=== PATIENT | male | born 1950 | race Caucasian/White ===

== ENCOUNTER 2018-03-05 14:32 | Outpatient (CLI) | payer MEDICARE, BC, SELFPAY ==
[2018-03-05 15:17] LABS: INR 2.6 (1.0-3.5)
== END 2018-03-05 14:33 ==
PROVIDERS: PCP Student in an Organized Health Care Education/Training Program; Visit Provider Internal Medicine Cardiovascular Disease
DX: I48.92 Unspecified atrial flutter (principal)
CPT/HCPCS: 36415; 85610

== ENCOUNTER 2018-03-24 13:02 | Outpatient (CLI) | payer MEDICARE, BC, SELFPAY ==
[2018-03-24 14:08] LABS: INR 2.4 (1.0-3.5); Prothrombin Time 23.1 sec (9.3-10.8)
== END 2018-03-24 13:22 ==
PROVIDERS: PCP Student in an Organized Health Care Education/Training Program; Visit Provider Internal Medicine Cardiovascular Disease
DX: I48.92 Unspecified atrial flutter (principal)
CPT/HCPCS: 36415; 85610

== ENCOUNTER 2018-05-04 12:07 | Outpatient (CLI) | payer MEDICARE, BC, SELFPAY ==
[2018-05-04 13:02] LABS: INR 3.4 (1.0-3.5)
== END 2018-05-04 12:27 ==
PROVIDERS: PCP Student in an Organized Health Care Education/Training Program; Visit Provider Internal Medicine Cardiovascular Disease
DX: I48.92 Unspecified atrial flutter (principal); Z79.01 Long term (current) use of anticoagulants
CPT/HCPCS: 36415; 85610

== ENCOUNTER 2018-05-20 09:37 | Outpatient (CLI) | payer MEDICARE, BC, SELFPAY ==
[2018-05-20 10:19] LABS: INR 2.5 (1.0-3.5); Prothrombin Time 23.4 sec (9.3-10.8)
== END 2018-05-20 09:57 ==
PROVIDERS: PCP Student in an Organized Health Care Education/Training Program; Visit Provider Internal Medicine Cardiovascular Disease
DX: I48.92 Unspecified atrial flutter (principal); Z79.01 Long term (current) use of anticoagulants
CPT/HCPCS: 36415; 85610

== ENCOUNTER 2018-06-29 13:46 | Outpatient (CLI) | payer MEDICARE, BC, SELFPAY ==
[2018-06-29 14:46] LABS: Prothrombin Time 19.4 sec (9.3-10.8)
== END 2018-06-29 14:06 ==
PROVIDERS: PCP Student in an Organized Health Care Education/Training Program; Visit Provider Internal Medicine Cardiovascular Disease
DX: I48.92 Unspecified atrial flutter (principal); Z79.01 Long term (current) use of anticoagulants
CPT/HCPCS: 36415; 85610

== ENCOUNTER 2018-08-05 15:17 | Outpatient (CLI) | payer MEDICARE, BC, SELFPAY ==
[2018-08-05 16:09] LABS: INR 2.4 (0.9-1.1); Prothrombin Time 23.8 sec (9.3-11.0)
== END 2018-08-05 15:37 ==
PROVIDERS: PCP Student in an Organized Health Care Education/Training Program; Visit Provider Internal Medicine Cardiovascular Disease
DX: I48.92 Unspecified atrial flutter (principal)
CPT/HCPCS: 36415; 85610

== ENCOUNTER 2018-10-22 10:36 | Outpatient (CLI) | payer MEDICARE, BC, SELFPAY ==
[2018-10-22 11:06] LABS: INR 1.9 (0.9-1.1); Prothrombin Time 19.5 sec (9.3-11.0)
== END 2018-10-22 10:56 ==
PROVIDERS: PCP Student in an Organized Health Care Education/Training Program; Visit Provider Internal Medicine Cardiovascular Disease
DX: I48.92 Unspecified atrial flutter (principal)
CPT/HCPCS: 36415; 85610

== ENCOUNTER 2018-11-26 10:08 | Outpatient (CLI) | payer MEDICARE, BC, SELFPAY ==
[2018-11-26 11:26] LABS: Prothrombin Time 19.7 sec (9.3-11.0)
== END 2018-11-26 10:28 ==
PROVIDERS: PCP Student in an Organized Health Care Education/Training Program; Visit Provider Internal Medicine Cardiovascular Disease
DX: I48.92 Unspecified atrial flutter (principal); Z79.01 Long term (current) use of anticoagulants
CPT/HCPCS: 36415; 85610

== ENCOUNTER 2018-12-30 11:22 | Outpatient (CLI) | payer MEDICARE, BC, SELFPAY ==
[2018-12-30 12:20] LABS: INR 1.8 (0.9-1.1); Prothrombin Time 18.2 sec (9.3-11.0)
[2018-12-30 13:18] LABS: ALT 50 U/L (12-78); AST 36 U/L (15-37); Albumin 3.8 g/dL (3.4-5.0); Alkaline Phosphatase 108 U/L (46-116); Anion Gap 11.2 mmol/L (3-11); BUN 15 mg/dL (7-18); Bilirubin, Total 1.1 mg/dL (0.2-1.0); CO2 27.8 mmol/L (21.0-32.0); CREATININE 0.93 mg/dL (0.70-1.30); Calcium 8.9 mg/dL (8.5-10.1); Calculated LDL 106; Chloride 103 mmol/L (98-107); Cholesterol 173 mg/dL (50-200); Glucose 102 mg/dL (70-100); HDL Cholesterol 38 mg/dL (40-60); Potassium 3.7 mmol/L (3.5-5.1); Sodium 142 mmol/L (136-145); Total Protein 6.9 g/dL (6.4-8.2); Triglyceride 145 mg/dL (30-150)
[2018-12-30 13:45] LABS: TSH (W/Ref FT4) 0.24 uIU/mL (0.358-3.74)
[2018-12-30 14:06] LABS: FREE T4 0.91 ng/dL (0.76-1.46)
== END 2018-12-30 11:42 ==
PROVIDERS: PCP Student in an Organized Health Care Education/Training Program; Visit Provider Internal Medicine Cardiovascular Disease
DX: E78.5 Hyperlipidemia, unspecified (principal); Z13.220 Encounter for screening for lipoid disorders; I10 Essential (primary) hypertension; I48.91 Unspecified atrial fibrillation
CPT/HCPCS: 36415; 80053; 80061; 83721; 84439; 84443; 85610

== ENCOUNTER 2019-01-13 12:12 | Outpatient (CLI) | payer MEDICARE, BC, SELFPAY ==
[2019-01-13 12:38] LABS: Abs Immature Grans 0.01 k/cumm (0.0-0.09); Absolute Basophil Count 0.04 k/cumm (0.0-0.2); Absolute Eosinophil Count 0.17 k/cumm (0.0-0.7); Absolute Lymphocyte Count 2.01 k/cumm (1.2-3.4); Absolute Monocyte Count 0.56 k/cumm (0.11-0.7); Absolute Neutrophil Count 2.99 k/cumm (1.2-6.7); Basophils % 0.7; Eosinophils % 2.9; HCT 43.7 % (40.0-50.0); HGB 15.2 g/dL (13.5-17.5); Immature Grans % 0.2; Lymphocytes % 34.8; Mean Corp. HGB Concentration 34.8 g/dL (32.0-36.0); Mean Corpuscular Hemoglobin 31.3 pg (27.0-33.0); Mean Corpuscular Volume 90.1 fL (80-95); Mean Platelet Volume 9.3 fL (8.0-11.0); Monocytes % 9.7; Neutrophils % 51.7; Platelet Count 189 x1000/uL (130-400); RBC 4.85 m/cumm (4.50-6.00); RBC Distribution Width 13.4 % (11.8-14.1); White Blood Cell Count 5.78 k/cumm (4.4-10.8)
[2019-01-13 12:48] LABS: INR 2.9 (0.9-1.1); Prothrombin Time 29.7 sec (9.3-11.0)
== END 2019-01-13 12:32 ==
PROVIDERS: PCP Student in an Organized Health Care Education/Training Program; Visit Provider Internal Medicine Cardiovascular Disease
DX: R21 Rash and other nonspecific skin eruption (principal); Z86.2 Personal history of diseases of the blood and blood-forming organs and certain disorders involving the immune mechanism; I48.92 Unspecified atrial flutter; Z79.01 Long term (current) use of anticoagulants
CPT/HCPCS: 36415; 85025; 85610

== ENCOUNTER 2019-02-02 12:22 | Outpatient (CLI) | payer MEDICARE, BC, SELFPAY ==
[2019-02-02 13:19] LABS: Prothrombin Time 20.6 sec (9.3-11.0)
== END 2019-02-02 12:42 ==
PROVIDERS: PCP Student in an Organized Health Care Education/Training Program; Visit Provider Internal Medicine Cardiovascular Disease
DX: I48.92 Unspecified atrial flutter (principal); Z79.01 Long term (current) use of anticoagulants
CPT/HCPCS: 36415; 85610

== ENCOUNTER 2019-05-13 09:59 | Outpatient (CLI) | payer MEDICARE, BC, SELFPAY ==
[2019-05-13 11:16] LABS: INR 3.7 (0.9-1.1); Prothrombin Time 36.2 sec (9.3-11.0)
== END 2019-05-13 10:19 ==
PROVIDERS: PCP Student in an Organized Health Care Education/Training Program; Visit Provider Internal Medicine Cardiovascular Disease
DX: I48.92 Unspecified atrial flutter (principal); Z79.01 Long term (current) use of anticoagulants
CPT/HCPCS: 36415; 85610

== ENCOUNTER 2019-05-20 11:45 | Outpatient (CLI) | payer MEDICARE, BC, SELFPAY ==
[2019-05-20 12:13] LABS: Prothrombin Time 29.1 sec (9.3-11.0)
== END 2019-05-20 12:05 ==
PROVIDERS: PCP Student in an Organized Health Care Education/Training Program; Visit Provider Internal Medicine Cardiovascular Disease
DX: I48.92 Unspecified atrial flutter (principal); Z79.01 Long term (current) use of anticoagulants
CPT/HCPCS: 36415; 85610

== ENCOUNTER 2019-05-27 12:54 | Outpatient (CLI) | payer MEDICARE, BC, SELFPAY ==
[2019-05-27 14:04] LABS: INR 1.7 (0.9-1.1); Prothrombin Time 17.2 sec (9.3-11.0)
== END 2019-05-27 13:14 ==
PROVIDERS: PCP Student in an Organized Health Care Education/Training Program; Visit Provider Internal Medicine Cardiovascular Disease
DX: I48.92 Unspecified atrial flutter (principal); Z79.01 Long term (current) use of anticoagulants
CPT/HCPCS: 36415; 85610

== ENCOUNTER 2019-06-03 13:27 | Outpatient (CLI) | payer MEDICARE, BC, SELFPAY ==
[2019-06-03 14:27] LABS: INR 1.9 (0.9-1.1); Prothrombin Time 19.1 sec (9.3-11.0)
== END 2019-06-03 13:47 ==
PROVIDERS: PCP Student in an Organized Health Care Education/Training Program; Visit Provider Internal Medicine Cardiovascular Disease
DX: I48.91 Unspecified atrial fibrillation (principal); Z79.01 Long term (current) use of anticoagulants
CPT/HCPCS: 36415; 85610

== ENCOUNTER 2019-06-10 11:58 | Outpatient (CLI) | payer MEDICARE, BC, SELFPAY ==
[2019-06-10 12:56] LABS: INR 1.8 (0.9-1.1); Prothrombin Time 17.5 sec (9.3-11.0)
== END 2019-06-10 12:18 ==
PROVIDERS: PCP Student in an Organized Health Care Education/Training Program; Visit Provider Internal Medicine Cardiovascular Disease
DX: I48.92 Unspecified atrial flutter (principal); Z79.01 Long term (current) use of anticoagulants
CPT/HCPCS: 36415; 85610

== ENCOUNTER 2019-06-17 11:55 | Outpatient (CLI) | payer MEDICARE, BC, SELFPAY ==
[2019-06-17 12:23] LABS: INR 2.2 (0.9-1.1); Prothrombin Time 21.3 sec (9.3-11.0)
== END 2019-06-17 12:15 ==
PROVIDERS: PCP Student in an Organized Health Care Education/Training Program; Visit Provider Internal Medicine Cardiovascular Disease
DX: I48.92 Unspecified atrial flutter (principal)
CPT/HCPCS: 36415; 85610

== ENCOUNTER 2019-06-27 11:45 | Outpatient (CLI) | payer MEDICARE, BC, SELFPAY ==
[2019-06-27 12:59] LABS: INR 2.8 (0.9-1.1); Prothrombin Time 27.1 sec (9.3-11.0)
== END 2019-06-27 12:05 ==
PROVIDERS: PCP Student in an Organized Health Care Education/Training Program; Visit Provider Internal Medicine Cardiovascular Disease
DX: I48.92 Unspecified atrial flutter (principal)
CPT/HCPCS: 36415; 85610

== ENCOUNTER 2019-07-21 15:14 | Outpatient (CLI) | payer MEDICARE, BC, SELFPAY ==
[2019-07-21 16:00] LABS: INR 2.4 (0.9-1.1); Prothrombin Time 23.5 sec (9.3-11.0)
== END 2019-07-21 15:34 ==
PROVIDERS: PCP Student in an Organized Health Care Education/Training Program; Visit Provider Internal Medicine Cardiovascular Disease
DX: I48.92 Unspecified atrial flutter (principal); Z79.01 Long term (current) use of anticoagulants
CPT/HCPCS: 36415; 85610

== ENCOUNTER 2019-07-28 19:01 | Observation (INO) | payer MEDICARE, BC, SELFPAY ==
[2019-07-28 19:13] VITALS: BP 128/78; PULSE 96; RESP 20; TEMP 36.1; O2SAT 96
[2019-07-28 20:12] LABS: Bilirubin Negative (Negative); Blood Large (Negative); Clarity Cloudy (Clear); Glucose Negative (Negative); Ketones Negative (Negative); Leukocyte Esterase Large (Negative); Nitrite Negative (Negative); Urobilinogen 0.2 EU/dL (Up TO 0.2)
[2019-07-28 20:17] LABS: Abs Immature Grans 0.02 k/cumm (0.0-0.09); Absolute Basophil Count 0.05 k/cumm (0.0-0.2); Absolute Eosinophil Count 0.22 k/cumm (0.0-0.7); Absolute Monocyte Count 1.02 k/cumm (0.11-0.7); Absolute Neutrophil Count 6.97 k/cumm (1.2-6.7); Basophils % 0.4; Eosinophils % 1.9; HCT 45.6 % (40.0-50.0); HGB 15.8 g/dL (13.5-17.5); Immature Grans % 0.2 %; Lymphocytes % 29.1; Mean Corp. HGB Concentration 34.6 g/dL (32.0-36.0); Mean Corpuscular Hemoglobin 31.2 pg (27.0-33.0); Mean Corpuscular Volume 90.1 fL (80-95); Mean Platelet Volume 9.3 fL (8.0-11.0); Monocytes % 8.7; Neutrophils % 59.7; Platelet Count 211 x1000/uL (130-400); RBC 5.06 m/cumm (4.50-6.00); RBC Distribution Width 13.1 % (11.8-14.1); White Blood Cell Count 11.67 k/cumm (4.4-10.8)
[2019-07-28] MEDS: Normal Saline 1,000 ML 1000 ML IV (20:20)
[2019-07-28] MEDS: Ondansetron 4 MG/2 ML VIAL IVP (20:21)
[2019-07-28] MEDS: Normal Saline Flush 10 ML SYR IVP (20:22)
[2019-07-28 20:23] LABS: WBC >50 HPF (0-5)
[2019-07-28 20:24] LABS: Bacteria Many HPF (Negative); C & S Indicated? Yes
[2019-07-28 20:38] LABS: ALT 57 U/L (16-63); AST 42 U/L (15-37); Alkaline Phosphatase 95 U/L (46-116); Anion Gap 6.6 mmol/L (3-11); BUN 18 mg/dL (7-18); Bilirubin, Total 1.2 mg/dL (0.2-1.0); CO2 33.4 mmol/L (21.0-32.0); CREATININE 1.34 mg/dL (0.70-1.30); Calcium 9.3 mg/dL (8.5-10.1); Chloride 105 mmol/L (98-107); Estimated GFR 52.85 (mL/min/1.73m2); Glucose 129 mg/dL (74-106); Potassium 3.8 mmol/L (3.5-5.1); Sodium 145 mmol/L (136-145); Total Protein 7.4 g/dL (6.4-8.2)
[2019-07-28] MEDS: HYDROmorphone 2 MG/ML VIAL 1 MG IVP (20:58)
--- NOTE | 2019-07-28 21:10 | DI.CT_ITS ---
EXAM: CT RENAL COLIC WO CLINICAL HISTORY: left flank pain r/o stone TECHNIQUE: CT examination of the abdomen and pelvis was performed without contrast administration. COMPARISON: ABD PELVIS WO CONTRAST from 09/01/2016 FINDINGS: Images obtained through the lung bases are unremarkable. There are multiple low-attenuation hepatic lesions unchanged from prior CT August 2016. Note is made of cholelithiasis. No biliary dilatati on. Pancreas is unremarkable. Spleen is unremarkable. Moderate gastric distention noted, no focal site of obstruction noted. Abdominal aorta is of normal diameter. Appendix is normal. No evidence of diverticulitis or bowel obstruction. No abdominal wall hernia. No evidence of abdominal or pelvic adenopathy. Adrenals are normal bilaterally. There is a rounded, low-attenuation lesion of superior pole of righ t kidney, unchanged in appearance in comparison with prior examination. No right hydronephrosis or u reterolithiasis. Minimal right nephro calcinosis may be present at the lower pole. Left kidney contains numerous nonobstructing stones. There is left hydronephrosis and hydroureter to the level of the distal ureter where there are 2 calculi, the largest measuring about 5 millimeters in diameter. Urinary bladder is essentially empty. IMPRESSION: Multiple left renal calculi. Left hydronephrosis and hydroureter to the level of the distal ureter where there are 2 obstructing s tones just above the ureterovesical junction, the largest measuring 5 millimeters in diameter. Additional findings, incidental, as noted above.
--- NOTE | 2019-07-28 21:44 | DI.VRAD_ITS ---
PROCEDURE INFORMATION: Exam: CT Abdomen And Pelvis Without Contrast Exam date and time: 07/28/2019 9:08 PM Age: 69 years old Clinical indication: Abdominal pain; Flank; Left TECHNIQUE: Imaging protocol: Computed tomography of the abdomen and pelvis without contrast. Radiation optimization: All CT scans at this facility use at least one of these dose optimization techniques: automated exposure control; mA and/or kV adjustment per patient size (includes targeted exams where dose is matched to clinical indication); or iterative reconstruction. COMPARISON: CT ABD PELVIS WO CONTRAST 09/01/2016 8:31 AM FINDINGS: Lungs: There is minimal bibasilar atelectasis. Liver: Multiple low-attenuation lesions in the liver. The largest measure between 1 and 1.2 cm and are unchanged. Most are too small to accurately characterize. There is diffuse decrease in hepatic parenchymal density, consistent with moderate fatty infiltration. Parenchyma spared fatty infiltration about gallbladder fossa. Gallbladder and bile ducts: Small gallstones. No ductal dilation. Pancreas: Normal. No ductal dilation. Spleen: Normal. No splenomegaly. Adrenals: 1.7 cm diameter fat attenuation lesion in left adrenal gland, unchanged. Kidneys and ureters: Partial duplication left kidney. 1.8 cm simple cyst right kidney. Multiple left renal calculi, largest measuring 2-3 mm. Obstructing 5 mm calculus in distal left ureter. Moderate left hydroureter and hydronephrosis.There is moderate left and mild right perinephric stranding. Stomach and bowel: Unremarkable. No obstruction. No mucosal thickening. Colonic diverticula. Appendix: No evidence of appendicitis. Intraperitoneal space: Unremarkable. No free air. No significant fluid collection. Vasculature: Unremarkable. No abdominal aortic aneurysm. Lymph nodes: Unremarkable. No enlarged lymph nodes. Bladder: No bladder calculi. Reproductive: Unremarkable as visualized. Bones/joints: Unremarkable. No acute fracture. The spine demonstrates mild degenerative changes at multiple levels. Soft tissues: Fat containing inguinal hernias. IMPRESSION: Obstructing calculus in distal left ureter. Left renal calculi. Additional findings as noted. Dictated and Authenticated by: Wyatt Merino MD. Ordering:RAMON Brown MD
--- NOTE | 2019-07-28 21:50 | ED.GENADUL_ITS ---
Discharge Plan Disposition Patient Disposition: [facility] INPATIENT Condition: Good Discharge Details Chief Complaint: FlankPain Clinical Impression: Kidney stone on left side, Acute UTI Primary Care Provider: Becky Hardy ED Provider: Stephanie Fan Home Meds and New Rx's Prescriptions: No Action hydrochlorothiazide 25 mg tablet 25 mg PO DAILY Qty: 90 RF: 3 atorvastatin [Lipitor] 20 mg tablet 20 mg PO QPM Qty: 90 RF: 3 escitalopram oxalate 10 mg tablet 10 mg PO DAILY Qty: 90 RF: 3 Shingrix Adjuvant Component-PF Suspension See Rx Instructions IM .COMPLEX Qty: 0.5 RF: 0 betamethasone, augmented 0.05 % ointment 1 applic TP QD-BID PRN (Reason: rash) Qty: 50 RF: 1 acyclovir 400 mg tablet 400 mg PO TID PRN (Reason: recurrent viral infection) Qty: 15 RF: 1 montelukast 10 mg tablet 10 mg PO DAILY Qty: 90 RF: 3 lisinopril 20 mg tablet 20 mg PO DAILY Qty: 90 RF: 3 triamcinolone acetonide 0.5 % ointment 1 applic TP BID Qty: 60 RF: 1 metoprolol tartrate [Lopressor] 50 mg tablet 25 mg PO BID RF: 0 lorazepam 1 mg tablet 1 mg PO .qHS Qty: 28 RF: 2 Hold Instructions: Home Medication placed on hold at Doctor's office warfarin 5 MG tablet 0 mg PO as directed RF: 0 Medical Decision Making Is a 69-year-old patient presenting to the emergency room for complaints of acute left flank pain which began this afternoon. This is very remnant of his previous experiences with kidney stones. Patient did follow with urology a few weeks ago had a plain x-ray which did show 3 8 mm kidney stones in the left k idney. At that time none were causing pain or obstructing. Patient does report a long history of kidney stones he has been quite familiar with symptomatology and presentation. Patient reports no associated fevers, chills or ill feeling. Mild nausea associated with pain but no active vomiting. Patient is on Coumadin. Patient denies any recent kidney stone pain for the last 2 years. Patient's medical and surgical history does include a prostatectomy. Patient does report he has been able to void without difficulty. Patient is requesting Toradol as he reports historically this is been quite helpful for him however patient's previous stones were managed with Toradol but since that time he has began Coumadin. I explained that I do not advise use of Toradol and Coumadin. Patient reports his understanding. 2 mg of morphine as well as Zofran provided as well as IV fluid. Will order CT. Patient agrees with plan of care. No significant relief with the initial morphine ordered. Dilaudid provided for improved pain relief. Patient reports he is currently feeling significant improvement of his pain. Currently 0 out of 10 pain after Dilaudid. Review of patient's urinalysis reveals large blood, large leukocyte esterase and greater than 50 white blood cells per high-powered field. Many bacteria present. Patient also does have a notable elevation of his white count of 11.67. Dr. Gurrola did discuss his case with Dr. Blackburn who recommended IV antibiotics and admission to the hospital for possible stone removal. Given recommendation patient is on a blood thinner. He did hold his Coumadin this evening. Will check PT PTT in anticipation the patient may require surgery. Spoke with patient who would prefer me to speak with his urology service at [facility] to be sure they agree with this plan of care. Spoke with the on-call surgeon. Dr. Keller who reports it is appropriate to admit this patient to [facility] or he will accept the patient's transfer to [facility] it is up to the patient. Spoke with the patient and his preference is to state [facility] and manage this stone with Dr. Blackburn locally. Spoke with Dr. Everett who will accept patient's admission. HPI General Date/Time Provider Initiated Documentation: 07/28/19 19:15 . HPI Narrative: This is a 69-year-old gentleman presenting to the emergency room this evening for complaints of left flank pain. Patient reports onset of left flank pain this afternoon. Patient reports a history of several years of kidney stones. Renal colic is well-known to this patient. He did have x-ray within the last 2- week from his urologist 3 large 8 mm kidney stones were noted in the left kidney none which seemingly were obstructing. Patient is concerned as to onset of pain if it is related to these 3 large kidney stones. Patient denies dysuria, urgency or frequency. Patient reports pain is approximately a 6 or 7 out of 10. Patient does report mild radiating symptoms toward the groin but no involvement of the testicles. Patient denies ill feeling, fever, chills, vomiting. Mild nausea present in association with pain. Patient reports he has not had a similar pain in the last 2 years. However he has required lithotripsy in the past. Patient is status post prostatectomy. Patient reports he typically is responded very well to Toradol in the past however patient is on warfarin and has been for a few years. Related Data Home Medications Medication Instructions Recorded Confirmed warfarin 0 mg PO as directed 03/19/17 07/29/19 atorvastatin 20 mg tablet 20 mg PO QPM #90 tab-cap 08/12/18 07/28/19 hydrochlorothiazide 25 mg tablet 25 mg PO DAILY #90 tab 08/12/18 07/28/19 acyclovir 400 mg tablet 400 mg PO TID PRN #15 tab 10/20/18 07/28/19 montelukast 10 mg tablet 10 mg PO DAILY #90 tab-cap 10/20/18 07/28/19 lisinopril 20 mg tablet 20 mg PO DAILY #90 tab 11/16/18 07/28/19 betamethasone, augmented 0.05 % 1 applic TP QD-BID PRN #50 gm 01/12/19 07/28/19 topical ointment triamcinolone acetonide 0.5 % 1 applic TP BID #60 gm 01/21/19 07/28/19 topical ointment escitalopram oxalate 10 mg tablet 10 mg PO DAILY #90 tab-cap 03/02/19 07/28/19 metoprolol tartrate 50 mg tablet 25 mg PO BID tab 03/29/19 07/29/19 lorazepam 1 mg tablet 1 mg PO .qHS #28 tab 05/26/19 07/28/19 adjuvant AS01B (PF)vial 1 of 2 See Rx Instructions IM .COMPLEX 07/06/19 07/28/19 #0.5 ml Previous Rx's Medication Instructions Recorded atorvastatin 20 mg tablet 20 mg PO QPM #90 tab-cap 08/12/18 hydrochlorothiazide 25 mg tablet 25 mg PO DAILY #90 tab 08/12/18 acyclovir 400 mg tablet 400 mg PO TID PRN #15 tab 10/20/18 montelukast 10 mg tablet 10 mg PO DAILY #90 tab-cap 10/20/18 lisinopril 20 mg tablet 20 mg PO DAILY #90 tab 11/16/18 betamethasone, augmented 0.05 % 1 applic TP QD-BID PRN #50 gm 01/12/19 topical ointment triamcinolone acetonide 0.5 % 1 applic TP BID #60 gm 01/21/19 topical ointment escitalopram oxalate 10 mg tablet 10 mg PO DAILY #90 tab-cap 03/02/19 lorazepam 1 mg tablet 1 mg PO .qHS #28 tab 05/26/19 adjuvant AS01B (PF)vial 1 of 2 See Rx Instructions IM .COMPLEX 07/06/19 #0.5 ml Allergies Allergy/AdvReac Type Severity Reaction Status Date / Time No Known Allergies Allergy Verified 07/28/19 23:20 General Stated Complaint: FlankPain IVAN: 3 Review of Systems All systems reviewed & are unremarkable except as noted in HPI and below Constitutional Constitutional: Denies chills, Denies fatigue, Denies fever(s), Denies headache(s) and Denies malaise ENT Ears, Nose, Mouth, and Throat: Denies headache(s) Gastrointestinal Gastrointestinal: Denies abdominal pain, Denies diarrhea, Reports nausea and Denies vomiting Genitourinary Genitourinary: Denies hematuria, Denies oliguria, Reports flank pain (Left), Denies urinary frequency and Denies urinary urgency Neurologic Neurologic: Denies headache(s) Endocrine Endocrine: Denies fatigue [facility] Medical History Adenocarcinoma of prostate (Chronic) Paulo White MD [facility] urology [id number], [place] 3+4 s/p RALP 11/2016, low detectable PSA Anxiety Atrial fibrillation (Chronic) INR managed via Cardiology [facility] Dr. Perera,paroxysmal A Flutter Atrial flutter Bilateral carpal tunnel syndrome (Acute 07/28/17) BMI 35.0-35.9,adult (Acute 08/13/17) BPH w/o urinary obs/LUTS (Chronic 07/28/17) CAD (coronary artery disease) Calculus of kidney (Acute 07/28/17) Hx multiple kidney stones, experienced with passing large stones. Current large calc, monitoried by UROL [facility] Elevated prostate specific antigen (PSA) (Acute 07/28/17) Essential hypertension Essential hypertension (Chronic 07/28/17) BPs well-controlled. Active. Generalized anxiety disorder (Chronic 07/28/17) Manages well with meds, incl low-dose benzodiaz. 15 yrs sobriety this 2018. History of kidney stones History of malignant neoplasm of prostate Hyperlipidemia (Chronic 07/28/17) Obesity (BMI 35.0-39.9 without comorbidity) Rash (Acute) Macular rash, with mild plaque-like eruption. Excoriated 2' pruritis, somewhat managed with Benadryl. Tobacco use disorder (Chronic 08/13/17) Quit cigarettes, 1984. 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 Well hydrated. Awake and alert. NECK: Normal visual inspection. FROM. No lymphadenopathy. Trachea midline. No Midline tenderness. CHEST: Normal insepection of the chest. RESP: Normal respiratory effort. Speaking full sentences. No cough. No wheezing. No retractions. Clear to auscaltation. Breath sound equal and present bilaterally. CARDIO: No JVD. Normal PMI. Regular Rate. Regular Rhythm. Normal peripheral pulses. GI: Normal inspection of abdomen. No distension. Soft. Nontender. Bowel sounds present in all 4 quadrants. No rebound. No gaurding. Back: Mild left CVA tenderness present. Course Vital Signs Vital signs: Vital Signs Temperature 36.1 C L 07/28/19 19:13 Pulse 96 H 07/28/19 19:13 Respiratory Rate 20 07/28/19 19:13 Blood Pressure 128/78 07/28/19 19:13 Pulse Oximetry 96 07/28/19 19:13 Temperature 36.1 C L 07/28/19 19:13 Pulse 96 H 07/28/19 19:13 Respiratory Rate 20 07/28/19 19:13 Blood Pressure 128/78 07/28/19 19:13 Pulse Oximetry 96 07/28/19 19:13 Oxygen Delivery Method Room Air 07/28/19 19:13 Oxygen Flow Rate 0 07/28/19 19:13 Pain Level 6 07/28/19 20:58 Lab/Test Results Lab/Test Results: 07/28/19 19:56 Urine - Reflex from Ua Urine Culture - Pending Laboratory Tests Range/Units 07/28/19 07/28/19 07/28/19 19:56 20:05 20:05 WBC (4.4-10.8) k/cumm 11.67 H RBC (4.50-6.00) m/cumm 5.06 Hgb (13.5-17.5) g/dL 15.8 Hct (40.0-50.0) % 45.6 MCV (80-95) fL 90.1 MCH (27.0-33.0) pg 31.2 MCHC (32.0-36.0) g/dL 34.6 RDW (11.8-14.1) % 13.1 Plt Count (130-400) x1000/uL 211 MPV (8.0-11.0) fL 9.3 Immature Gran % % 0.2 Neutrophils % 59.7 Lymphocytes % 29.1 Monocytes % 8.7 Eosinophils % 1.9 Basophils % 0.4 Absolute Neutrophils (1.2-6.7) k/cumm 6.97 H Absolute Lymphocytes (1.2-3.4) k/cumm 3.40 Absolute Monocytes (0.11-0.7) k/cumm 1.02 H Absolute Eosinophils (0.0-0.7) k/cumm 0.22 Absolute Basophils (0.0-0.2) k/cumm 0.05 Sodium (136-145) mmol/L 145 Potassium (3.5-5.1) mmol/L 3.8 Chloride (98-107) mmol/L 105 Carbon Dioxide (21.0-32.0) mmol/L 33.4 H Anion Gap (3-11) mmol/L 6.6 BUN (7-18) mg/dL 18 Creatinine (0.70-1.30) mg/dL 1.34 H Estimated GFR/1.73 m2 (mL/min/1.73m2) 52.85 Glucose (74-106) mg/dL 129 H Calcium (8.5-10.1) mg/dL 9.3 Total Bilirubin (0.2-1.0) mg/dL 1.2 H AST (15-37) U/L 42 H ALT (16-63) U/L 57 Alkaline Phosphatase (46-116) U/L 95 Total Protein (6.4-8.2) g/dL 7.4 Albumin (3.4-5.0) g/dL 4.0 Urine Color (Yellow) Yellow Urine Clarity (Clear) Cloudy Urine pH (5-8) 7.0 Ur Specific [place] (1.005-1.025) 1.020 Urine Protein (Negative) mg/dL 30 H Urine Ketones (Negative) mg/dL Negative Urine Blood (Negative) Large H Urine Nitrite (Negative) Negative Urine Bilirubin (Negative) Negative Urine Urobilinogen (Up TO 0.2) EU/dL 0.2 Ur Leukocyte Esterase (Negative) Large H Urine RBC (0-2) HPF Urine WBC (0-5) HPF >50 H Ur Epithelial Cells Not Applicable Urine Crystals Not Applicable Urine Bacteria (Negative) HPF Many Urine Mucus Not Applicable Ur Culture Indicated? Yes Urine Glucose (Negative) mg/dL Negative
[2019-07-28 23:59] VITALS: BP 109/65; PULSE 57; RESP 18; TEMP 36.5; O2SAT 98
[2019-07-29] MEDS: Normal Saline 1,000 ML 1000 ML IV (00:03)
[2019-07-29] MEDS: cefTRIAXone 1 GM/50 ML BAG IVPB ×2 (00:04→03:48)
[2019-07-29 00:24] LABS: INR 2.6 (0.9-1.1); PTT Activated 36.7 sec (21.0-31.4); Prothrombin Time 25.4 sec (9.3-11.0)
[2019-07-29 01:49] VITALS: BP 131/71; PULSE 57; RESP 20; TEMP 36.6; O2SAT 98
--- NOTE | 2019-07-29 01:57 | W.PM.HP.N ---
Date of service: 07/29/19 Time of Service: 01:57 Assessment and Plan Assessment and plan (1) Ureterolithiasis: Status: Acute Assessment and plan: We will keep the patient n.p.o. tonight perchance that he requires cystoureteroscopy in the morning. Hopefully he will be able to pass this stone. We will give him IV fluid hydration and give him a dose of Flomax tonight.Dr. Blackburn was consulted from the ER and will see the patient in the morning (2) Hydroureter on left: Status: Acute Assessment and plan: As above (3) Hydronephrosis of left kidney: Status: Acute Assessment and plan: As above (4) Complicated UTI (urinary tract infection): Status: Acute Assessment and plan: Will cover with Rocephin pending results of his urine and blood cultures. History of Present Illness History of Present Illness Chief Complaint: flank pain Narrative: 69-year-old patient presenting to the emergency room for complaints of acute left flank pain which began this afternoon. This is very similar to his prior presentations of renal stones. He has an extensive hx of kidney stones and is followed by urology at [facility] and in fact had KUB a few weeks ago that demonstrated three 8 mm stones of his left kidney but he was asymptomatic at that time. He now reports left flank pain that began this afternoon associated w/ nausea but no vomiting and no fevers or rigors. He has had no renal colic for past couple of years. Work-up in the ER included a urinalysis that showed many bacteria and greater than 50 white cells per high-power field and large leukocyte Estrace and large amount of blood but negative for nitrites. CBC demonstrated leukocytosis of 11,600. CMP demonstrated elevated creatinine 1.34. Renal CT scan of the abdomen pelvis showed an obstructing calculus in the distal left ureter. Patient is now being admitted to the hospital for IV antibiotics and urology consultation. Dr. Dima Gurrola, emergency room attending, spoke with Dr. Blackburn, urologist on-call who agreed to see the patient in the morning for possible cystoscopy and stone extraction. Patient requested that his own urologist be called at [facility]. EWELINA Pruett, called and spoke with the on-call urologist from [facility] Dr. Keller who agreed with admission to local hospital and IV antibiotics and IV fluids. He did indicate a willingness to accept the patient in transfer but the patient preferred to stay here at [facility] and have his ureterolithiasis managed by Dr. Blackburn locally.Patient is on warfarin for chronic atrial fibrillation. An INR was checked tonight and found to be elevated at 2.6. His warfarin will be placed on hold and we will repeat his pro time in the morning Review of Systems Constitutional Constitutional: Denies chills, Denies fever(s), Denies night sweats and Denies weakness Cardiovascular Cardiovascular: Reports system reviewed and no additional complaints, except as docu Respiratory Respiratory: Reports system reviewed and no additional complaints, except as docu Gastrointestinal Gastrointestinal: Denies abdominal pain and Reports nausea Genitourinary Genitourinary: Reports as per HPI, Denies hematuria, Denies dysuria and Reports flank pain Musculoskeletal Musculoskeletal: Reports system reviewed and no additional complaints, except as docu Integumentary/Breasts Skin/Breast: Reports system reviewed and no additional complaints, except as docu Neurologic Neurologic: Reports system reviewed and no additional complaints, except as docu and Denies weakness Endocrine Endocrine: Reports system reviewed and no additional complaints, except as docu Hematologic/Lymphatic Hematologic/Lymphatic: Reports system reviewed and no additional complaints, except as docu Allergic/Immunologic Allergic/Immunologic: Reports system reviewed and no additional complaints, except as docu [facility] Medical History Adenocarcinoma of prostate (Chronic) [place] [facility] [place], [place] 3+4 s/p RALP 11/2016, low detectable PSA Anxiety Atrial fibrillation (Chronic) INR managed via Card[place] [facility] [place] Perera,paroxysmal A Flutter Atrial flutter Bilateral carpal tunnel syndrome (Acute 07/28/17) BMI 35.0-35.9,adult (Acute 08/13/17) BPH w/o urinary obs/LUTS (Chronic 07/28/17) CAD (coronary artery disease) Calculus of kidney (Acute 07/28/17) Hx multiple kidney stones, experienced with passing large stones. Current large calc, monitoried by UROL [facility] Elevated prostate specific antigen (PSA) (Acute 07/28/17) Essential hypertension Essential hypertension (Chronic 07/28/17) BPs well-controlled. Active. Generalized anxiety disorder (Chronic 07/28/17) Manages well with meds, incl low-dose benzodiaz. 15 yrs sobriety this 2018. History of kidney stones History of malignant neoplasm of prostate Hyperlipidemia (Chronic 07/28/17) Obesity (BMI 35.0-39.9 without comorbidity) Rash (Acute) Macular rash, with mild plaque-like eruption. Excoriated 2' pruritis, somewhat managed with Benadryl. Tobacco use disorder (Chronic 08/13/17) Quit cigarettes, 1984. One cigar daily Tubular adenoma (Chronic 03/12/18) Surgical History Arthroplasty of knee (~2013) Left-Meniscal Tear- Colonoscopy - MAC (03/12/18) Hx of Torsion (R)Testicle Lithotripsy Prostate Biopsy (12/02/01) Rising PSA-Negative Robotic Prostatectomy for [place] 7 (11/19/16) Intermediate Risk Prostate Cancer- Family History Mother Hyperlipidemia Father CAD (coronary artery disease) Neoplasm Kidney Grandfather Neoplasm Prostate Social History Smoking/Tobacco Use Status: Current every day Tobacco Type: cigars Per week: 7 Tobacco: How many years used: 6 Alcohol Intake: former Year quit: 15 Drug use: Never Substance use type: does not use Adopted: No Household members: spouse Housing: condominium Number of Children: 4 Communication Needs: Corrective Lenses 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 Meds Home Medications and Allergies Home Medications Medication Instructions Recorded Confirmed Type warfarin 0 mg PO as directed 03/19/17 07/29/19 History atorvastatin 20 mg tablet 20 mg PO QPM #90 tab-cap 08/12/18 07/28/19 Rx hydrochlorothiazide 25 mg tablet 25 mg PO DAILY #90 tab 08/12/18 07/28/19 Rx acyclovir 400 mg tablet 400 mg PO TID PRN #15 tab 10/20/18 07/28/19 Rx montelukast 10 mg tablet 10 mg PO DAILY #90 tab-cap 10/20/18 07/28/19 Rx lisinopril 20 mg tablet 20 mg PO DAILY #90 tab 11/16/18 07/28/19 Rx betamethasone, augmented 0.05 % 1 applic TP QD-BID PRN #50 gm 01/12/19 07/28/19 Rx topical ointment triamcinolone acetonide 0.5 % 1 applic TP BID #60 gm 01/21/19 07/28/19 Rx topical ointment escitalopram oxalate 10 mg tablet 10 mg PO DAILY #90 tab-cap 03/02/19 07/28/19 Rx metoprolol tartrate 50 mg tablet 25 mg PO BID tab 03/29/19 07/29/19 History lorazepam 1 mg tablet 1 mg PO .qHS #28 tab 05/26/19 07/28/19 Rx adjuvant AS01B (PF)vial 1 of 2 See Rx Instructions IM .COMPLEX 07/06/19 07/28/19 Rx #0.5 ml Allergies Allergy/AdvReac Type Severity Reaction Status Date / Time No Known Allergies Allergy Verified 07/28/19 23:20 Exam Narrative Exam Narrative: male who is morbidly obese alert oriented x3 in no acute distress. HEENT unremarkable Neck supple without lymphadenopathy JVD. Normal carotid pulses Lungs clear to auscultation Heart regular with no S3 or S4 gallop and no murmur Abdomen obese soft and mildly tender in the left lower quadrant without rebound tenderness or guarding. Positive left flank pain Lower extremities without peripheral cyanosis or edema Results Imaging Abdomen CT scan report/results: report reviewed Labs Result diagrams: 07/28/19 20:05 07/28/19 20:05 Labs: Laboratory Results - last 24 hr 07/28/19 07/28/19 07/28/19 19:56 20:03 20:05 WBC RBC Hgb Hct MCV MCH MCHC RDW Plt Count MPV Immature Gran % Neutrophils % Lymphocytes % Monocytes % Eosinophils % Basophils % Absolute Neutrophils Absolute Lymphocytes Absolute Monocytes Absolute Eosinophils Absolute Basophils PT 25.4 H INR 2.6 H APTT 36.7 H Sodium 145 Potassium 3.8 Chloride 105 Carbon Dioxide 33.4 H Anion Gap 6.6 BUN 18 Creatinine 1.34 H Estimated GFR/1.73 m2 52.85 Glucose 129 H Calcium 9.3 Total Bilirubin 1.2 H AST 42 H ALT 57 Alkaline Phosphatase 95 Total Protein 7.4 Albumin 4.0 Urine Color Yellow Urine Clarity Cloudy Urine pH 7.0 Ur Specific [place] 1.020 Urine Protein 30 H Urine Ketones Negative Urine Blood Large H Urine Nitrite Negative Urine Bilirubin Negative Urine Urobilinogen 0.2 Ur Leukocyte Esterase Large H Urine RBC Urine WBC >50 H Ur Epithelial Cells Not Applicable Urine Crystals Not Applicable Urine Bacteria Many Urine Mucus Not Applicable Ur Culture Indicated? Yes Urine Glucose Negative 07/28/19 20:05 WBC 11.67 H RBC 5.06 Hgb 15.8 Hct 45.6 MCV 90.1 MCH 31.2 MCHC 34.6 RDW 13.1 Plt Count 211 MPV 9.3 Immature Gran % 0.2 Neutrophils % 59.7 Lymphocytes % 29.1 Monocytes % 8.7 Eosinophils % 1.9 Basophils % 0.4 Absolute Neutrophils 6.97 H Absolute Lymphocytes 3.40 Absolute Monocytes 1.02 H Absolute Eosinophils 0.22 Absolute Basophils 0.05 PT INR APTT Sodium Potassium Chloride Carbon Dioxide Anion Gap BUN Creatinine Estimated GFR/1.73 m2 Glucose Calcium Total Bilirubin AST ALT Alkaline Phosphatase Total Protein Albumin Urine Color Urine Clarity Urine pH Ur Specific [place] Urine Protein Urine Ketones Urine Blood Urine Nitrite Urine Bilirubin Urine Urobilinogen Ur Leukocyte Esterase Urine RBC Urine WBC Ur Epithelial Cells Urine Crystals Urine Bacteria Urine Mucus Ur Culture Indicated? Urine Glucose Last Vital Signs Temp 36.5 C 07/28/19 23:59 Pulse 57 L 07/28/19 23:59 Resp 18 07/28/19 23:59 BP 109/65 07/28/19 23:59 Pulse Ox 98 07/28/19 23:59
[2019-07-29] MEDS: Normal Saline 1,000 ML 150 ML IV ×2 (02:42→09:32)
[2019-07-29] MEDS: LORazepam 1 MG TAB PO (03:47)
[2019-07-29] MEDS: Metoprolol 25 MG TAB PO (03:47)
[2019-07-29] MEDS: Tamsulosin 0.4 MG CAPCR PO ×2 (03:48→08:25)
[2019-07-29 07:09] LABS: Abs Immature Grans 0.02 k/cumm (0.0-0.09); Absolute Lymphocyte Count 3.19 k/cumm (1.2-3.4); Basophils % 0.3; Eosinophils % 1.3; HCT 41.2 % (40.0-50.0); Immature Grans % 0.2 %; Lymphocytes % 26.7; Mean Corpuscular Volume 91.4 fL (80-95); Mean Platelet Volume 9.4 fL (8.0-11.0); Monocytes % 10.9; Neutrophils % 60.6; Platelet Count 203 x1000/uL (130-400); RBC 4.51 m/cumm (4.50-6.00); RBC Distribution Width 13.1 % (11.8-14.1); White Blood Cell Count 11.94 k/cumm (4.4-10.8)
[2019-07-29 07:16] LABS: Absolute Basophil Count 0.04 k/cumm (0.0-0.2); Absolute Eosinophil Count 0.16 k/cumm (0.0-0.7); Absolute Neutrophil Count 7.24 k/cumm (1.2-6.7)
[2019-07-29 07:25] LABS: INR 2.3 (0.9-1.1); Prothrombin Time 22.9 sec (9.3-11.0)
[2019-07-29 07:28] LABS: BUN 23 mg/dL (7-18); CREATININE 1.15 mg/dL (0.70-1.30); Calcium 8.3 mg/dL (8.5-10.1); Chloride 107 mmol/L (98-107); Glucose 103 mg/dL (74-106); Potassium 3.4 mmol/L (3.5-5.1); Sodium 143 mmol/L (136-145)
--- NOTE | 2019-07-29 07:34 | UCONE_ITS ---
Date of service: 07/29/19 Time of Service: 07:34 Assessment and Plan Assessment and plan (1) Ureterolithiasis: Status: Acute Assessment and plan: We talked about several approaches for his particular situation. The concern is that he may have an infection brewing behind his ureteral stone and that a procedure to relieve the obstruction will be needed sooner than later. The 2 approaches would be to do a cystoscopy and stent placement at this point while his anticoagulants get out of his system. We could then bring him back as an outpatient to do ureteroscopy, holmium laser lithotripsy and stone evacuation next week. The patient tells me that he has had very bad luck with stents in the past. I suppose an alternative would be to take her chances and not place a stent (knowing that he may need to return urgently for stent placement), stop his anticoagulants, and bring him back next week when he is fully anticoagulated and plan on doing the ureteroscopy and holmium laser lithotripsy all in one setting. If we choose this option, we would need to plan on sending him home with oral antibiotics and pain medication. The patient actually favors this approach, but we will defer any decision until his morning labs are back. (2) Hydronephrosis of left kidney: Status: Acute History of Present Illness History of Present Illness Chief Complaint: Left ureteral stone Narrative: This is a 69-year-old gentleman who has a long history of kidney stones. All of his previous stones that have required surgery were treated in [place], [place]. He has seen the providers at [facility] for his stones, but has not required procedures with them. At his last stone follow-up, he had nonobstructing stones in the left kidney. He was being monitored for them. 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 He had undergone radical prostatectomy about 3 years ago. His PSA has remained undetectable. He is followed by the [facility] providers for his prostate cancer as well. He presented to our emergency room last evening with left flank pain. He did not describe fevers or chills. His symptoms were similar to his prior renal colic symptoms. When he was evaluated in the emergency room, he is found to have nonobstructing stones in the left kidney along with obstructing the left distal ureteral stones. His urinalysis was worrisome for a urinary tract infection. The patient is incontinent following his radical prostatectomy. He does not recall specific treatments for urinary tract infection. He did have a positive urine culture (Enterobacter) from our institution in 2017. This may coincide with the dates of his radical prostatectomy. He does have a history of atrial fibrillation and is on Coumadin chronically. This morning, he describes his pain as mild. He denies fevers or chills. He is not having nausea or vomiting. [facility] Medical History Adenocarcinoma of prostate (Chronic) Paulo White [place] [facility] [place]0, [place] 3+4 s/p RALP 11/2016, low detectable PSA Anxiety Atrial fibrillation (Chronic) INR managed via [place] [facility] [place] Perera,paroxysmal A Flutter Atrial flutter Bilateral carpal tunnel syndrome (Acute 07/28/17) BMI 35.0-35.9,adult (Acute 08/13/17) BPH w/o urinary obs/LUTS (Chronic 07/28/17) CAD (coronary artery disease) Calculus of kidney (Acute 07/28/17) Hx multiple kidney stones, experienced with passing large stones. Current large calc, monitoried by UROL [facility] Elevated prostate specific antigen (PSA) (Acute 07/28/17) Essential hypertension Essential hypertension (Chronic 07/28/17) BPs well-controlled. Active. Generalized anxiety disorder (Chronic 07/28/17) Manages well with meds, incl low-dose benzodiaz. 15 yrs sobriety this 2018. History of kidney stones History of malignant neoplasm of prostate Hyperlipidemia (Chronic 07/28/17) Obesity (BMI 35.0-39.9 without comorbidity) Rash (Acute) Macular rash, with mild plaque-like eruption. Excoriated 2' pruritis, somewhat managed with Benadryl. Tobacco use disorder (Chronic 08/13/17) Quit cigarettes, 1985. One cigar daily Tubular adenoma (Chronic 03/12/18) Surgical History Arthroplasty of knee (~2013) Left-Meniscal Tear- Colonoscopy - MAC (03/12/18) Hx of Torsion (R)Testicle Lithotripsy Prostate Biopsy (12/02/01) Rising PSA-Negative Robotic Prostatectomy for [place] 7 (11/19/16) Intermediate Risk Prostate Cancer- Family History Mother Hyperlipidemia Father CAD (coronary artery disease) Neoplasm Kidney Grandfather Neoplasm Prostate Social History Smoking/Tobacco Use Status: Current every day Tobacco Type: cigars Per week: 7 Tobacco: How many years used: 6 Alcohol Intake: former Year quit: 15 Drug use: Never Substance use type: does not use Adopted: No Household members: spouse Housing: condominium Number of Children: 4 Communication Needs: Corrective Lenses 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 He does not appear septic or toxic. His vital signs are documented elsewhere His labs are still pending His chest wall motion is normal. He is not short of breath at rest. His abdomen is soft with no mass. He is awake and alert. I reviewed his CT scan and his lab work from last evening. The ureteral stone appear just within the ureterovesical junction. His INR is therapeutic. His white blood count is slightly elevated and his serum creatinine is slightly elevated from his baseline. Results Last Vital Signs Temp 36.6 C 07/29/19 01:49 Pulse 57 L 07/29/19 01:49 Resp 20 07/29/19 01:49 BP 131/71 07/29/19 01:49 Pulse Ox 98 07/29/19 01:49 Labs Result diagrams: 07/29/19 06:40 07/28/19 20:05 Labs: Laboratory Results - last 24 hr 07/28/19 07/28/19 07/28/19 19:56 20:03 20:05 WBC RBC Hgb Hct MCV MCH MCHC RDW Plt Count MPV Immature Gran % Neutrophils % Lymphocytes % Monocytes % Eosinophils % Basophils % Absolute Neutrophils Absolute Lymphocytes Absolute Monocytes Absolute Eosinophils Absolute Basophils PT 25.4 H INR 2.6 H APTT 36.7 H Sodium 145 Potassium 3.8 Chloride 105 Carbon Dioxide 33.4 H Anion Gap 6.6 BUN 18 Creatinine 1.34 H Estimated GFR/1.73 m2 52.85 Glucose 129 H Calcium 9.3 Total Bilirubin 1.2 H AST 42 H ALT 57 Alkaline Phosphatase 95 Total Protein 7.4 Albumin 4.0 Urine Color Yellow Urine Clarity Cloudy Urine pH 7.0 Ur Specific [place] 1.020 Urine Protein 30 H Urine Ketones Negative Urine Blood Large H Urine Nitrite Negative Urine Bilirubin Negative Urine Urobilinogen 0.2 Ur Leukocyte Esterase Large H Urine RBC Urine WBC >50 H Ur Epithelial Cells Not Applicable Urine Crystals Not Applicable Urine Bacteria Many Urine Mucus Not Applicable Ur Culture Indicated? Yes Urine Glucose Negative 07/28/19 07/29/19 07/29/19 20:05 06:40 06:40 WBC 11.67 H 11.94 H RBC 5.06 4.51 Hgb 15.8 14.0 Hct 45.6 41.2 MCV 90.1 91.4 MCH 31.2 31.0 MCHC 34.6 34.0 RDW 13.1 13.1 Plt Count 211 203 MPV 9.3 9.4 Immature Gran % 0.2 0.2 Neutrophils % 59.7 60.6 Lymphocytes % 29.1 26.7 Monocytes % 8.7 10.9 Eosinophils % 1.9 1.3 Basophils % 0.4 0.3 Absolute Neutrophils 6.97 H 7.24 H Absolute Lymphocytes 3.40 3.19 Absolute Monocytes 1.02 H 1.30 H Absolute Eosinophils 0.22 0.16 Absolute Basophils 0.05 0.04 PT 22.9 H INR 2.3 H APTT Sodium Potassium Chloride Carbon Dioxide Anion Gap BUN Creatinine Estimated GFR/1.73 m2 Glucose Calcium Total Bilirubin AST ALT Alkaline Phosphatase Total Protein Albumin Urine Color Urine Clarity Urine pH Ur Specific [place] Urine Protein Urine Ketones Urine Blood Urine Nitrite Urine Bilirubin Urine Urobilinogen Ur Leukocyte Esterase Urine RBC Urine WBC Ur Epithelial Cells Urine Crystals Urine Bacteria Urine Mucus Ur Culture Indicated? Urine Glucose
[2019-07-29 08:10] VITALS: BP 103/65; PULSE 72; RESP 19; TEMP 37.3; O2SAT 95
[2019-07-29] MEDS: Metoprolol 50 MG TAB 25 MG PO (08:22)
[2019-07-29] MEDS: Montelukast 10 MG TAB PO (08:25)
[2019-07-29] MEDS: Lisinopril 20 MG TAB PO (08:25)
[2019-07-29] MEDS: Escitalopram 10 MG TAB PO (08:25)
--- NOTE | 2019-07-29 10:55 | W.NUTCONSULT ---
Date of service: 07/29/19 Time of Service: 10:55 Nutritional Consult ASSESSMENT: 69 year old male admitted with UTI, kidney stone. BMI indicates class 2 obesity. Following regular meal plan. Labs indicate elevated triglycerides. Declines nutrition counseling at this time. At high nutritional risk in view of obesity and serum lipids. Provided patient with contact information for outpatient nutritional counseling. MONITORING AND EVALUATION: po intake and weight trends Time Spent in Nutritional Counseling and Treatment: 5 min spent face to face
--- NOTE | 2019-07-29 11:00 | PDOC.CMIN ---
- If Service Date Differs Date of service: 07/29/19 Time of Service: 11:00 Care Management Initial Assess REASON FOR HOSPITALIZATION:: Ureterolithiasis PAST MEDICAL HISTORY/PAST SURGICAL HISTORY:: Medical History: Adenocarcinoma of prostate (Chronic). Paulo White [place] [facility], [place] 3+4 s/p RALP 11/2016, low detectable PSA. Anxiety. Atrial fibrillation (Chronic). INR managed via Cardiology [facility] [place] Perera,paroxysmal A Flutter. Atrial flutter. Bilateral carpal tunnel syndrome (Acute 07/28/17). BMI 35.0-35.9,adult (Acute 08/13/17). BPH w/o urinary obs/LUTS (Chronic 07/28/17). CAD (coronary artery disease). Calculus of kidney (Acute 07/28/17). Hx multiple kidney stones, experienced with passing large stones. Current large calc, monitor[place] by UROL [facility]. Elevated prostate specific antigen (PSA) (Acute 07/28/17). Essential hypertension. Essential hypertension (Chronic 07/28/17). BPs well-controlled. Active. Generalized anxiety disorder (Chronic 07/28/17). Manages well with meds, incl low-dose benzodiaz. 15 yrs sobriety this 2018. History of kidney stones. History of malignant neoplasm of prostate. Hyperlipidemia (Chronic 07/28/17). Obesity (BMI 35.0-39.9 without comorbidity). Rash (Acute). Macular rash, with mild plaque-like eruption. Excoriated 2' pruritis, somewhat managed with Benadryl. Tobacco use disorder (Chronic 08/13/17). Quit cigarettes, 1984. One cigar daily. Tubular adenoma (Chronic 03/12/18). Surgical History . Arthroplasty of knee (~2013). Left-Meniscal Tear-. Colonoscopy - MAC (03/12/18). Hx of Torsion (R)Testicle. Lithotripsy. Prostate Biopsy (12/02/01). Rising PSA-Negative. Robotic Prostatectomy for [place] 7 (11/19/16). Intermediate Risk Prostate Cancer- PREVIOUS FUNCTIONAL STATUS/SOCIAL/FAMILY SUPPORTS:: [facility] [place] with his Megan. They have 4 children and 12 grandchildren who live in [place]. and [place]. 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 He is independent with all ADLs and care in the community. CURRENT FUNCTIONAL STATUS:: Jacob was sitting up in bed when CM met with him. He was pleasant and readily engaged with CM. He shared that he hopes to be discharged later today. He stated that he cannot have the surgical procedure that is neeeded for his kidney stone because he has not been off Coumadin long enough. He plans to spend the weekend at home trying to pass the stone. If he is unsuccessful, he will return early next week and have the procedure performed by Dr. Blackburn. ADVANCE DIRECTIVES:: ON file. Megan [facility] Has patient been provided with information about the portal?: Yes Did the patient sign up for the portal?: Yes (previously) CODE STATUS:: Full Code INSURANCE COVERAGE / FINANCIAL ISSUES:: Medicare. BC BS CURRENT HOME/COMMUNITY SERVICES/EQUIPMENT:: none PRIMARY CARE PHYSICIAN:: Becky Hardy POTENTIAL DISCHARGE NEEDS:: follow up with Urology and discharge plan of care PATIENT/FAMILY EDUCATION NEEDS:: Discharge plan, limitations, follow up plan, Ask Me Three. ANTICIPATED BARRIERS TO DISCHARGE:: none TRANSPORTATION:: via private vehicle with PLAN:: Jacob will likely be discharged home later today or tomorrow with no services. He will follow up with Dr. Blackburn and his discharge plan of care. He may need readmission next week for a urological procedure if he is unable to pass the kidney stone. CM will continue to support patient, family and discharge planninmg needs.
[2019-07-29] MEDS: Potassium Chloride 20 MEQ TABCR 40 MEQ PO (11:37)
[2019-07-29] MEDS: levoFLOXacin 750 MG/150 ML BAG 100 MG IVPB (11:43)
[2019-07-29 11:55] VITALS: BP 110/61; PULSE 62; RESP 20; TEMP 36.8; O2SAT 94
--- NOTE | 2019-07-29 15:39 | W.PM.DS.N ---
Date of service: 07/29/19 Time of Service: 15:39 DS: Diagnosis Discharge Diagnosis (1) Ureterolithiasis: Status: Acute (2) Hydronephrosis of left kidney: Status: Acute Discharge Plan Disposition Patient Disposition: HOME Condition: Good Discharge Details Chief Complaint: FlankPain Clinical Impression: Kidney stone on left side, Acute UTI Reason For Visit: KIDNEY STONE W/ UTI Admit Date/Time: 07/29/19 00:49 Admit Provider: Matthew Everett Attending Provider: Matthew Everett Primary Care Provider: Becky Hardy ED Provider: Stephanie Fan Hospital Course Hospital Course: Mr. 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 UA in the ED showed many bacteria and greater than 50 white cells, large leukocyte Estrace and large amount of blood but negative for nitrites. He had mild leukocytosis of 11.67, his creatinine was elevated at 1.34. He had a CT scan which showed Multiple left renal calculi.Left hydronephrosis and hydroureter to the level of the distal ureter where there are 2 obstructing stones just above the ureterovesical junction, the largest measuring 5 millimeters in diameter. His case was discussed with Dr. Blackburn who recommended admission for IV antibiotics, IV fluids and possible surgical intervention to remove the stone. The patient requested that the ER attending provider spoke to his urologist at [facility], Dr. Keller agreed with local admission. The patient was admitted to the [facility] floor for further observation and management. He was initially started on IV ceftriaxone and IV fluids, Levaquin was added. He was seen by urology, the patient verbalized that he preferred to try to pass the stone without intervention as he has passed multiple stones of the same size in the past. The plan was to start Levaquin and keep the patient overnight, however he was insistent on discharge home as he has had experience with multiple stones and feels that he would be best suited to pass it at home. He has been afebrile. He denies any pain currently. He denies any dysuria or gross hematuria. He is discharged home on oral Levaquin with a plan in place for him to be n.p.o. past midnight on 07/31/2019, to remain off of his Coumadin and to call the urology office after 8:00 on Thursday morning. If he has not passed the stone, Dr. Blackburn will put him on the operating room schedule for cystoscopy. If he does pass a stone, he can resume taking his Coumadin and will check in with Dr. Blackburn's office on Thursday to let them know. He is advised to return to the emergency department if he experiences fevers, chills, shakes, nausea or vomiting, any worsening of his pain or symptoms. Home Meds and New Rx's Prescriptions: New tamsulosin 0.4 mg Capsule 0.4 mg PO DAILY Qty: 14 RF: 0 levofloxacin 750 mg tablet 750 mg PO DAILY Qty: 5 RF: 0 hydrocodone-acetaminophen 5-325 mg tablet 1 tab PO Q8H PRN (Reason: pain) Qty: 6 RF: 0 Continued hydrochlorothiazide 25 mg tablet 25 mg PO DAILY Qty: 90 RF: 3 atorvastatin [Lipitor] 20 mg tablet 20 mg PO QPM Qty: 90 RF: 3 escitalopram oxalate 10 mg tablet 10 mg PO DAILY Qty: 90 RF: 3 Shingrix Adjuvant Component-PF Suspension See Rx Instructions IM .COMPLEX Qty: 0.5 RF: 0 betamethasone, augmented 0.05 % ointment 1 applic TP QD-BID PRN (Reason: rash) Qty: 50 RF: 1 acyclovir 400 mg tablet 400 mg PO TID PRN (Reason: recurrent viral infection) Qty: 15 RF: 1 montelukast 10 mg tablet 10 mg PO DAILY Qty: 90 RF: 3 lisinopril 20 mg tablet 20 mg PO DAILY Qty: 90 RF: 3 triamcinolone acetonide 0.5 % ointment 1 applic TP BID Qty: 60 RF: 1 metoprolol tartrate [Lopressor] 50 mg tablet 25 mg PO BID RF: 0 lorazepam 1 mg tablet 1 mg PO .qHS Qty: 28 RF: 2 Hold Instructions: Home Medication placed on hold at Doctor's office warfarin 5 MG tablet 0 mg PO as directed RF: 0 Discharge Instructions Instructions: Kidney Stones (DC) Additional Instructions: Do not restart Coumadin, while awaiting stone passage. Take oral Levaquin until directed otherwise by Dr. Blackburn. Hydrocodone for pain. Strain urine. Nothing to eat or drink past midnight on Thursday if you have not passed the stone. Call Dr. Balckburn's office after 8:00 Thursday morning, [phone], for possible cystoscopy for stone extraction Thursday. Follow-up with your primary care provider. Take care! Stand Alone Forms: Nursing Discharge Form Activity:: Activity as Tolerated Equipment/Supplies:: No Equipment Needed Diet:: As Tolerated Discharge Orders Discharge Orders: Discharge Order (Routine); Ordered 07/29/19 Ordered By: Yelitza Fairbanks DS: Summary Status at Discharge Functional status at discharge: independent ambulation Overall status at discharge: patient is not back to baseline Mental Status: mental status grossly normal Speech and Movement: speech and movement normal Mood: congruent mood Affect: normal affect Exam Narrative Exam Narrative: General: Very pleasant 69-year-old man, appears stated age, sitting up in bed, alert and oriented, pleasant cooperative, in no acute distress. HEENT: Normocephalic, atraumatic, mucous membranes moist. Cardiovascular: Heart has regular rate and rhythm, non-tachycardic, no murmur appreciated. Respiratory: Respirations appear even and unlabored. GI: Nontender on palpation, nondistended. Extremities: No clubbing, cyanosis or edema. Psych Mental Status: mental status grossly normal Speech and Movement: speech and movement normal Mood: congruent mood Affect: normal affect DS: Data Vitals/I&O Vitals and I&O: Vital Signs Temperature 36.8 C 07/29/19 11:55 Temperature Source Tympanic 07/29/19 11:55 Pulse 62 07/29/19 11:55 Pulse Rhythm Regular 07/29/19 08:39 Respiratory Rate 20 07/29/19 11:55 Respiratory Effort Non-Labored 07/29/19 08:39 Respiratory Depth Normal 07/29/19 08:39 Respiratory Pattern Normal 07/29/19 08:39 Blood Pressure 110/61 07/29/19 11:55 Pulse Oximetry 94 L 07/29/19 11:55 Oxygen Delivery Method Room Air 07/29/19 11:55 Oxygen Flow Rate 0 07/29/19 11:55 Pain Level 0 07/29/19 11:55 Intake & Output 07/28/19 07/29/19 07/29/19 23:59 11:59 23:59 Intake Total 1000 / 1000 20490 120 / 2170 Output Total 800 / 800 Balance 1000 / 1000 1250 / 1370 120 / 1370 Weight 106.5 kg Intake: IV 1000 / 1000 2049 Oral 120 / 120 Output: Urine 800 / 800 Other: Urine Color Yellow Urine Appearance Clear Urine Odor Normal Comment strained urine Voiding Methods Urinal Data Completed and Pending Completed studies during hospitalization [Text1]: 07/28/2019: EXAM: CT RENAL COLIC WO CLINICAL HISTORY: left flank pain r/o stone TECHNIQUE: CT examination of the abdomen and pelvis was performed without contrast administration. COMPARISON: ABD PELVIS WO CONTRAST from 09/01/2016 FINDINGS: Images obtained through the lung bases are unremarkable. There are multiple low-attenuation hepatic lesions unchanged from prior CT August 2016. Note is made of cholelithiasis. No biliary dilatation. Pancreas is unremarkable. Spleen is unremarkable. Moderate gastric distention noted, no focal site of obstruction noted. Abdominal aorta is of normal diameter. Appendix is normal. No evidence of diverticulitis or bowel obstruction. No abdominal wall hernia. No evidence of abdominal or pelvic adenopathy. Adrenals are normal bilaterally. There is a rounded, low-attenuation lesion of superior pole of right kidney, unchanged in appearance in comparison with prior examination. No right hydronephrosis or ureterolithiasis. Minimal right nephro calcinosis may be present at the lower pole. Left kidney contains numerous nonobstructing stones. There is left hydronephrosis and hydroureter to the level of the distal ureter where there are 2 calculi, the largest measuring about 5 millimeters in diameter. Urinary bladder is essentially empty. IMPRESSION: Multiple left renal calculi. Left hydronephrosis and hydroureter to the level of the distal ureter where there are 2 obstructing stones just above the ureterovesical junction, the largest measuring 5 millimeters in diameter. Additional findings, incidental, as noted above. Labs on day of discharge: Labs from last 24 hours 07/29/19 07/29/19 07/29/19 06:40 06:40 06:40 WBC 11.94 H RBC 4.51 Hgb 14.0 Hct 41.2 MCV 91.4 MCH 31.0 MCHC 34.0 RDW 13.1 Plt Count 203 MPV 9.4 Immature Gran % 0.2 Neutrophils % 60.6 Lymphocytes % 26.7 Monocytes % 10.9 Eosinophils % 1.3 Basophils % 0.3 Absolute Neutrophils 7.24 H Absolute Lymphocytes 3.19 Absolute Monocytes 1.30 H Absolute Eosinophils 0.16 Absolute Basophils 0.04 PT 22.9 H INR 2.3 H APTT Sodium 143 Potassium 3.4 L Chloride 107 Carbon Dioxide 28.0 Anion Gap 8.0 BUN 23 H Creatinine 1.15 Estimated GFR/1.73 m2 >= 60.00 Glucose 103 Calcium 8.3 L Total Bilirubin AST ALT Alkaline Phosphatase Total Protein Albumin Urine Color Urine Clarity Urine pH Ur Specific [place] Urine Protein Urine Ketones Urine Blood Urine Nitrite Urine Bilirubin Urine Urobilinogen Ur Leukocyte Esterase Urine RBC Urine WBC Ur Epithelial Cells Urine Crystals Urine Bacteria Urine Mucus Ur Culture Indicated? Urine Glucose 07/28/19 07/28/19 07/28/19 20:05 20:05 20:03 WBC 11.67 H RBC 5.06 Hgb 15.8 Hct 45.6 MCV 90.1 MCH 31.2 MCHC 34.6 RDW 13.1 Plt Count 211 MPV 9.3 Immature Gran % 0.2 Neutrophils % 59.7 Lymphocytes % 29.1 Monocytes % 8.7 Eosinophils % 1.9 Basophils % 0.4 Absolute Neutrophils 6.97 H Absolute Lymphocytes 3.40 Absolute Monocytes 1.02 H Absolute Eosinophils 0.22 Absolute Basophils 0.05 PT 25.4 H INR 2.6 H APTT 36.7 H Sodium 145 Potassium 3.8 Chloride 105 Carbon Dioxide 33.4 H Anion Gap 6.6 BUN 18 Creatinine 1.34 H Estimated GFR/1.73 m2 52.85 Glucose 129 H Calcium 9.3 Total Bilirubin 1.2 H AST 42 H ALT 57 Alkaline Phosphatase 95 Total Protein 7.4 Albumin 4.0 Urine Color Urine Clarity Urine pH Ur Specific [place] Urine Protein Urine Ketones Urine Blood Urine Nitrite Urine Bilirubin Urine Urobilinogen Ur Leukocyte Esterase Urine RBC Urine WBC Ur Epithelial Cells Urine Crystals Urine Bacteria Urine Mucus Ur Culture Indicated? Urine Glucose 07/28/19 19:56 WBC RBC Hgb Hct MCV MCH MCHC RDW Plt Count MPV Immature Gran % Neutrophils % Lymphocytes % Monocytes % Eosinophils % Basophils % Absolute Neutrophils Absolute Lymphocytes Absolute Monocytes Absolute Eosinophils Absolute Basophils PT INR APTT Sodium Potassium Chloride Carbon Dioxide Anion Gap BUN Creatinine Estimated GFR/1.73 m2 Glucose Calcium Total Bilirubin AST ALT Alkaline Phosphatase Total Protein Albumin Urine Color Yellow Urine Clarity Cloudy Urine pH 7.0 Ur Specific [place] 1.020 Urine Protein 30 H Urine Ketones Negative Urine Blood Large H Urine Nitrite Negative Urine Bilirubin Negative Urine Urobilinogen 0.2 Ur Leukocyte Esterase Large H Urine RBC Urine WBC >50 H Ur Epithelial Cells Not Applicable Urine Crystals Not Applicable Urine Bacteria Many Urine Mucus Not Applicable Ur Culture Indicated? Yes Urine Glucose Negative Preliminary micro results at discharge 07/28/19 19:56 Urine Culture - Preliminary Urine - Reflex from Ua Gram Negative Daniel [facility] Medical History Adenocarcinoma of prostate (Chronic) [place] [facility] 3+4 s/p RALP 11/2016, low detectable PSA Anxiety Atrial fibrillation (Chronic) INR managed via [place] [facility],paroxysmal A Flutter Atrial flutter Bilateral carpal tunnel syndrome (Acute 07/28/17) BMI 35.0-35.9,adult (Acute 08/13/17) BPH w/o urinary obs/LUTS (Chronic 07/28/17) CAD (coronary artery disease) Calculus of kidney (Acute 07/28/17) Hx multiple kidney stones, experienced with passing large stones. Current large calc, monitoried by [place] [facility] Elevated prostate specific antigen (PSA) (Acute 07/28/17) Essential hypertension Essential hypertension (Chronic 07/28/17) BPs well-controlled. Active. Generalized anxiety disorder (Chronic 07/28/17) Manages well with meds, incl low-dose benzodiaz. 15 yrs sobriety this 2018. History of kidney stones History of malignant neoplasm of prostate Hyperlipidemia (Chronic 07/28/17) Obesity (BMI 35.0-39.9 without comorbidity) Rash (Acute) Macular rash, with mild plaque-like eruption. Excoriated 2' pruritis, somewhat managed with Benadryl. Tobacco use disorder (Chronic 08/13/17) Quit cigarettes, 1984. One cigar daily Tubular adenoma (Chronic 03/12/18) Surgical History Arthroplasty of knee (~2013) Left-Meniscal Tear- Colonoscopy - MAC (03/12/18) Hx of Torsion (R)Testicle Lithotripsy Prostate Biopsy (12/02/01) Rising PSA-Negative Robotic Prostatectomy for [place] 7 (11/19/16) Intermediate Risk Prostate Cancer- Family History Mother Hyperlipidemia Father CAD (coronary artery disease) Neoplasm Kidney Grandfather Neoplasm Prostate Social History Smoking/Tobacco Use Status: Current every day Tobacco Type: cigars Per week: 7 Tobacco: How many years used: 6 Alcohol Intake: former Year quit: 15 Drug use: Never Substance use type: does not use Adopted: No Household members: spouse Housing: condominium Number of Children: 4 Communication Needs: Corrective Lenses 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
[2019-07-29 15:51] VITALS: BP 117/69; PULSE 62; RESP 20; TEMP 37.2; O2SAT 94
== END 2019-07-29 16:34 | disposition home or self-care (01) ==
LOC: ER 07-29 01:21 → MS 07-29 01:33
PROVIDERS: Admitting Provider Internal Medicine; Emergency Provider Physician Assistant; PCP Student in an Organized Health Care Education/Training Program; Visit Provider Internal Medicine
DX: N13.6 Pyonephrosis (principal); B96.89 Other specified bacterial agents as the cause of diseases classified elsewhere; R79.1 Abnormal coagulation profile; T45.515A Adverse effect of anticoagulants, initial encounter; Z16.19 Resistance to other specified beta lactam antibiotics; Z87.442 Personal history of urinary calculi; I48.91 Unspecified atrial fibrillation; Z79.01 Long term (current) use of anticoagulants; I10 Essential (primary) hypertension; E78.5 Hyperlipidemia, unspecified
CPT/HCPCS: 36415; 80048; 80053; 87077; 96361; 96365; 96375; 99203; 99220; 99239; 99285; 74176; 81003; 81015; 85025; 85610; 85730; 87086; 87186; 99236; 99284; G0378; J0696; J1956; J2405; J3490

== ENCOUNTER 2019-08-01 09:50 | Day surgery (SDC) | payer MEDICARE, BC, SELFPAY ==
[2019-08-01] VITALS (8 sets, daily range): BP systolic 109–153; BP diastolic 70–107; PULSE 58–125; RESP 12–21; TEMP 36.3–36.4; O2SAT 93–96
--- NOTE | 2019-08-01 10:03 | HPE_ITS ---
Date of service: 08/01/19 Time of Service: 10:04 Assessment and Plan Assessment and plan (1) Ureterolithiasis: Status: Acute Assessment and plan: Now that he has been off his anticoagulants for a few days, we can move ahead with stone manipulation History of Present Illness History of Present Illness Chief Complaint: Left ureteral stone Narrative: Chief Complaint: Left ureteral stone Narrative: This is a 69-year-old gentleman who has a long history of kidney stones. All of his previous stones that have required surgery were treated in [place], [place]. He has seen the providers at [facility] for his stones, but has not required procedures with them. At his last stone follow-up, he had nonobstructing stones in the left kidney. He was being monitored for them. 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 He had undergone radical prostatectomy about 3 years ago. His PSA has remained undetectable. He is followed by the [facility] providers for his prostate cancer as well. He presented to our emergency room last evening with left flank pain. He did not describe fevers or chills. His symptoms were similar to his prior renal colic symptoms. When he was evaluated in the emergency room, he is found to have nonobstructing stones in the left kidney along with obstructing the left distal ureteral stones. His urinalysis was worrisome for a urinary tract infection. The patient is incontinent following his radical prostatectomy. He does not recall specific treatments for urinary tract infection. He did have a positive urine culture (Enterobacter) from our institution in 2017. This may coincide with the dates of his radical prostatectomy. He does have a history of atrial fibrillation and is on Coumadin chronically. This morning, he describes his pain as mild. He denies fevers or chills. He is not having nausea or vomiting. [facility] Medical History Adenocarcinoma of prostate (Chronic) Paulo White MD [facility] [place] T3aN0, [place] 3+4 s/p RALP 11/2016, low detectable PSA Anxiety Atrial fibrillation (Chronic) INR managed via Cardiology [facility] [place] Dr. Perera,paroxysmal A Flutter Atrial flutter Bilateral carpal tunnel syndrome (Acute 07/28/17) BMI 35.0-35.9,adult (Acute 08/13/17) BPH w/o urinary obs/LUTS (Chronic 07/28/17) CAD (coronary artery disease) Calculus of kidney (Acute 07/28/17) Hx multiple kidney stones, experienced with passing large stones. Current large calc, monitoried by UROL [facility] Elevated prostate specific antigen (PSA) (Acute 07/28/17) Essential hypertension Essential hypertension (Chronic 07/28/17) BPs well-controlled. Active. Generalized anxiety disorder (Chronic 07/28/17) Manages well with meds, incl low-dose benzodiaz. 15 yrs sobriety this 2018. History of kidney stones History of malignant neoplasm of prostate Hyperlipidemia (Chronic 07/28/17) Obesity (BMI 35.0-39.9 without comorbidity) Rash (Acute) Macular rash, with mild plaque-like eruption. Excoriated 2' pruritis, somewhat managed with Benadryl. Tobacco use disorder (Chronic 08/13/17) Quit cigarettes, 1984. One cigar daily Tubular adenoma (Chronic 03/12/18) Surgical History Arthroplasty of knee (~2013) Left-Meniscal Tear- Colonoscopy - MAC (03/12/18) Hx of Torsion (R)Testicle Lithotripsy Prostate Biopsy (12/02/01) Rising PSA-Negative Robotic Prostatectomy for [place] 7 (11/19/16) Intermediate Risk Prostate Cancer- Family History Mother Hyperlipidemia Father CAD (coronary artery disease) Neoplasm Kidney Grandfather Neoplasm Prostate Social History Smoking/Tobacco Use Status: Current every day Tobacco Type: cigars Per week: 7 Tobacco: How many years used: 6 Alcohol Intake: former Year quit: 15 Drug use: Never Substance use type: does not use Adopted: No Household members: spouse Housing: condominium Number of Children: 4 Communication Needs: Corrective Lenses 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 He does not appear septic or toxic. His vital signs are documented elsewhere His labs are still pending His chest wall motion is normal. He is not short of breath at rest. His abdomen is soft with no mass. He is awake and alert. I reviewed his CT scan and his lab work from last evening. The ureteral stone appear just within the ureterovesical junction. His INR is therapeutic. His white blood count is slightly elevated and his serum creatinine is slightly elevated from his baseline. 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 Meds Home Medications and Allergies Home Medications Medication Instructions Recorded Confirmed Type warfarin 0 mg PO as directed 03/19/17 08/01/19 History atorvastatin 20 mg tablet 20 mg PO QPM #90 tab-cap 08/12/18 08/01/19 Rx hydrochlorothiazide 25 mg tablet 25 mg PO DAILY #90 tab 08/12/18 08/01/19 Rx acyclovir 400 mg tablet 400 mg PO TID PRN #15 tab 10/20/18 08/01/19 Rx montelukast 10 mg tablet 10 mg PO DAILY #90 tab-cap 10/20/18 08/01/19 Rx lisinopril 20 mg tablet 20 mg PO DAILY #90 tab 11/16/18 08/01/19 Rx betamethasone, augmented 0.05 % 1 applic TP QD-BID PRN #50 gm 01/12/19 08/01/19 Rx topical ointment triamcinolone acetonide 0.5 % 1 applic TP BID #60 gm 01/21/19 08/01/19 Rx topical ointment escitalopram oxalate 10 mg tablet 10 mg PO DAILY #90 tab-cap 03/02/19 08/01/19 Rx metoprolol tartrate 50 mg tablet 25 mg PO BID tab 03/29/19 08/01/19 History lorazepam 1 mg tablet 1 mg PO .qHS #28 tab 05/26/19 08/01/19 Rx adjuvant AS01B (PF)vial 1 of 2 See Rx Instructions IM .COMPLEX 07/06/19 08/01/19 Rx #0.5 ml hydrocodone-acetaminophen 1 tab PO Q8H PRN #6 tab 07/29/19 08/01/19 Rx ketorolac 10 mg tablet 10 mg PO TID PRN #10 tab 07/29/19 08/01/19 Rx levofloxacin 750 mg PO DAILY #5 tab 07/29/19 08/01/19 Rx tamsulosin 0.4 mg PO DAILY #14 cap 07/29/19 08/01/19 Rx Allergies Allergy/AdvReac Type Severity Reaction Status Date / Time No Known Allergies Allergy Verified 08/01/19 10:09 Exam Resp Auscultation: clear to auscultation bilaterally Cardio Rate: regular rate Rhythm: regular rhythm
[2019-08-01] MEDS: Lactated Ringers 1,000 ML 80 ML IV ×2 (10:21→12:17)
[2019-08-01] MEDS: ceFAZolin 1 GM/50 ML BAG IVPB (11:00)
[2019-08-01] MEDS: Lidocaine 2% Jelly 6 ML SYR (11:25)
--- NOTE | 2019-08-01 11:30 | DI.RAD_ITS ---
EXAM: XR RETROGRADE IN OR INDICATION: ureterolithiasis. COMPARISON: No exams were available for comparison TECHNIQUE: 2D digital imaging was performed. Fluoro time: 10 sec FINDINGS: Fluoroscopy was utilized by Dr. Blackburn in the operating room during the evaluation of the left renal c ollecting system. Please refer to the procedure report for complete details.
--- NOTE | 2019-08-01 11:48 | W.PM.DSUDISC ---
Discharge Plan Disposition Patient Disposition: HOME Condition: Stable Discharge Details Reason For Visit: (L) URETERAL STONE Attending Provider: Edy Blackburn Primary Care Provider: Becky Hardy Home Meds and New Rx's Prescriptions: No Action hydrochlorothiazide 25 mg tablet 25 mg PO DAILY Qty: 90 RF: 3 atorvastatin [Lipitor] 20 mg tablet 20 mg PO QPM Qty: 90 RF: 3 escitalopram oxalate 10 mg tablet 10 mg PO DAILY Qty: 90 RF: 3 Shingrix Adjuvant Component-PF Suspension See Rx Instructions IM .COMPLEX Qty: 0.5 RF: 0 betamethasone, augmented 0.05 % ointment 1 applic TP QD-BID PRN (Reason: rash) Qty: 50 RF: 1 acyclovir 400 mg tablet 400 mg PO TID PRN (Reason: recurrent viral infection) Qty: 15 RF: 1 montelukast 10 mg tablet 10 mg PO DAILY Qty: 90 RF: 3 lisinopril 20 mg tablet 20 mg PO DAILY Qty: 90 RF: 3 triamcinolone acetonide 0.5 % ointment 1 applic TP BID Qty: 60 RF: 1 metoprolol tartrate [Lopressor] 50 mg tablet 25 mg PO BID RF: 0 lorazepam 1 mg tablet 1 mg PO .qHS Qty: 28 RF: 2 Hold Instructions: Home Medication placed on hold at Doctor's office ketorolac 10 mg tablet 10 mg PO TID PRN (Reason: pain) Qty: 10 RF: 0 warfarin 5 MG tablet 0 mg PO as directed RF: 0 tamsulosin 0.4 mg Capsule 0.4 mg PO DAILY Qty: 14 RF: 0 levofloxacin 750 mg tablet 750 mg PO DAILY Qty: 5 RF: 0 hydrocodone-acetaminophen 5-325 mg tablet 1 tab PO Q8H PRN (Reason: pain) Qty: 6 RF: 0 Discharge Instructions Additional Instructions: may restart Coumadin in 48 hours may discontinue Flomax in 48 hours follow up 6 weeks with renal US and stone analysis Finish antibiotics as ordered Activity:: Activity as Tolerated Shower/Bathe:: 24 hours Diet:: As Tolerated Discharge Orders Discharge Orders: Discharge Order (Routine); Ordered 08/01/19 Ordered By: Edy Blackburn DS: Diagnosis Discharge Diagnosis (1) Ureterolithiasis: Status: Acute
[2019-08-01] MEDS: Omnipaque 300 MG/ML 50 ML BTL (12:01)
[2019-08-01] MEDS: Metoprolol 25 MG TAB PO (12:30)
[2019-08-01] MEDS: Phenazopyridine 200 MG TAB PO (13:16)
--- NOTE | 2019-08-01 15:50 | ROE_ITS ---
DATE OF PROCEDURE: August 01, 2019 PREOPERATIVE DIAGNOSIS: Left ureteral stone. POSTOPERATIVE DIAGNOSIS: Same. PROCEDURE: Cystoscopy; left retrograde pyelogram; left semi-rigid ureteroscopy with stone extraction s. SURGEON: Edy Blackburn M.D. ANESTHESIA: General. COMPLICATIONS: None. ESTIMATED BLOOD LOSS: Minimal. HISTORY: This is a 69-year-old gentleman who has a history of kidney stones. He has been monitored by Dr. Alex nickerson at [facility] for known left-sided kidney stones. He presented to our Emergency Room with renal colic. He was found to have a 5 mm left distal uretera l stone. He also had some bacteruria and there was concern that he may need urgent stenting for an i nfected collecting system. We observed him for 24 hours and his symptoms actually improved. He is on chronic anticoagulants, so we discontinued the anticoagulants and discharged him to home. He comes back in today for elective ureteroscopy. OPERATIVE REPORT: The patient was brought to the operating room on 08/01/2019. After successful omari ction of general anesthesia, he was placed in the dorsal lithotomy position. His genitalia was prepp ed and draped sterilely. A 22 [place] Islander rigid cystoscope was passed through the urethra into the bladder. The urethra was inspec delvis with a 30-degree lens. The pendulous, bulbous and membranous urethras appeared normal with no strictures. The prostatic ure thra showed changes consistent with his previous radical prostatectomy. His bladder neck was entered and the bladder mucosa was inspected. The right ureteral orifice appear ed normal. The left orifice appeared somewhat edematous. No stones were seen within the bladder. N o papillary or nodular lesions were seen. A 6 [place] Islander access catheter was then passed through the cystoscope and maneuvered into the left ureter al orifice. A retrograde film was obtained by injecting Omnipaque through the access catheter under fluoroscopic guidance. Filling defects were seen within the left distal ureter. The ureter above this area was quite dilate d. I passed a Glidewire through the access catheter and maneuvered the wire up the remainder of the uret er. The access catheter and cystoscope were removed, leaving the wire in place. A semi-rigid ureteroscope was then introduced through the urethra into the bladder. The scope was th en maneuvered into the left ureteral orifice and two stones were seen just within the left ureteral o rifice. Each of the stones was grasped in a Kiesha stone basket and the stones were removed in their entirety. Each of the stones was sent to pathology for chemical analysis. The ureteroscope was then reintroduced. No obvious ureteral injury was seen and no residual stones w ere identified. He has had quite a bit of stent discomfort when he was treated with stenting in the past. We elected not to place a stent today. All scopes and wires were then removed. The patient tolerated the procedure well with no complicatio ns. cc: Alex Pickett Jr., M.D.
[2019-08-04 16:05] LABS: Source: Left Ureter
== END 2019-08-01 14:04 | disposition home or self-care (01) ==
PROVIDERS: PCP Student in an Organized Health Care Education/Training Program; Visit Provider Urology
PROC: (CPT 52352; principal; 2019-08-01 14:30)
DX: N20.1 Calculus of ureter (principal); Z87.442 Personal history of urinary calculi; Z79.01 Long term (current) use of anticoagulants
CPT/HCPCS: 52352; NC; 74420; 82365; J0690; J1100; J2001; J2704; J3010; Q9967

== ENCOUNTER 2019-08-19 12:07 | Outpatient (CLI) | payer MEDICARE, BC, SELFPAY ==
[2019-08-19 13:54] LABS: INR 2.1 (0.9-1.1)
== END 2019-08-19 12:27 ==
PROVIDERS: PCP Student in an Organized Health Care Education/Training Program; Visit Provider Internal Medicine Cardiovascular Disease
DX: I48.92 Unspecified atrial flutter (principal); Z79.01 Long term (current) use of anticoagulants
CPT/HCPCS: 36415; 85610

== ENCOUNTER 2019-09-13 02:00 | Outpatient (CLI) | payer MEDICARE, BC, SELFPAY ==
--- NOTE | 2019-09-13 12:15 | DI.US_ITS ---
EXAM: US RENAL CLINICAL HISTORY: r/o hydronephrosis after ureteroscopy N20.1 CALCULUS OF URETER TECHNIQUE: Ultrasound performed using standard protocol. COMPARISON: No exams were available for comparison FINDINGS: Renal ultrasound was performed according to the usual protocol. Kidneys are normal in size and shape . No hydronephrosis. There are 2 probable lower pole left renal calculi, nonobstructing, measuring about 5 and 6 millimeters in diameter respectively. There are small bilateral simple renal cysts, th e largest in the upper pole the right kidney measuring about 2 cm in diameter. Urinary bladder is essentially empty and cannot be evaluated. IMPRESSION: Nonobstructing lower pole left renal calculi. No other significant finding.. DATA REPOSITORY:
== END 2019-09-13 02:20 ==
PROVIDERS: PCP Student in an Organized Health Care Education/Training Program; Visit Provider Urology
DX: N20.1 Calculus of ureter (principal); N28.1 Cyst of kidney, acquired; I48.92 Unspecified atrial flutter
CPT/HCPCS: 36415; 76770; 99213; 85610

== ENCOUNTER 2019-09-13 13:58 | Outpatient (CLI) | payer MEDICARE, BC, SELFPAY ==
[2019-09-13 14:45] LABS: Prothrombin Time 27.9 sec (9.3-11.0)
[2019-09-13 15:01] LABS: INR 2.8 (0.9-1.1)
== END 2019-09-13 14:18 ==
PROVIDERS: PCP Student in an Organized Health Care Education/Training Program; Visit Provider Internal Medicine Cardiovascular Disease
DX: I48.92 Unspecified atrial flutter (principal)
CPT/HCPCS: 36415; 85610

== ENCOUNTER 2019-09-26 11:19 | Day surgery (SDC) | payer MEDICARE, BC, SELFPAY ==
[2019-09-26] VITALS (7 sets, daily range): BP systolic 87–112; BP diastolic 43–64; PULSE 51–60; RESP 14–22; TEMP 36.2–36.7; O2SAT 93–98
[2019-09-26] MEDS: Lactated Ringers 1,000 ML 80 ML IV (11:56)
[2019-09-26 12:30] LABS: INR 1.1 (0.9-1.1); Prothrombin Time 10.7 sec (9.3-11.0)
--- NOTE | 2019-09-26 12:30 | DI.RAD_ITS ---
EXAM: XR RETROGRADE IN OR INDICATION: HX OF KIDNEY STONES. COMPARISON: No exams were available for comparison TECHNIQUE: 2D digital imaging was performed. FINDINGS: Fluoroscopy was utilized by Dr. Blackburn during the evaluation of the left renal collecting system. Ple ase refer to the procedure report for complete details. Fluoro Time: 31.5 seconds IMPRESSION: DATA REPOSITORY: RADIATION DOSE DELIVERED:
--- NOTE | 2019-09-26 12:32 | W.PM.HP.N ---
Date of service: 09/26/19 Time of Service: 12:32 Assessment and Plan Assessment and plan (1) Calculus of kidney: Status: Acute Assessment and plan: We will move ahead with cystoscopy, left retrograde pyelogram, ureteroscopy and stone treatment. We will prioritize his upper pole stones and any stones that may have migrated into the ureter. The patient has had significant stent discomfort in the past. We will attempt to avoid a ureteral stent even if it means leaving the larger stone fragments in the lower pole and monitoring the stones with imaging studies. History of Present Illness Narrative: Narrative: This is a 69-year-old gentleman who has a long history of kidney stones. All of his previous stones that have required surgery were treated in [place], [place]. He has seen the providers at [facility] for his stones, but has not required procedures with them. At his last stone follow-up, he had nonobstructing stones in the left kidney. He was being monitored for them. 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 He had undergone radical prostatectomy about 3 years ago. His PSA has remained undetectable. He is followed by the [facility] providers for his prostate cancer as well. He presented to our emergency room last evening with left flank pain. He did not describe fevers or chills. His symptoms were similar to his prior renal colic symptoms. When he was evaluated in the emergency room, he is found to have nonobstructing stones in the left kidney along with obstructing the left distal ureteral stones. We were able to treat the distal ureteral stone ureteroscopically. We then planned on following the left kidney stones. Within the past week, he developed left-sided flank pain felt like he was passing another stone. He did not sense that he passed the stone, but he did notice a stone fragment in the restroom. He has not had any additional pain since then. He is interested in moving ahead with additional surgery to clear out his left-sided kidney stones. He does have a history of atrial fibrillation and is on Coumadin chronically. [facility] Medical History Adenocarcinoma of prostate (Chronic) Paulo White MD [facility] urology [id number], Wil 3+4 s/p RALP 11/2016, low detectable PSA Anxiety Atrial fibrillation (Chronic) INR managed via Cardiology [facility] Dr. Perera,paroxysmal A Flutter Atrial flutter Bilateral carpal tunnel syndrome (Acute 07/28/17) BMI 35.0-35.9,adult (Acute 08/13/17) BPH w/o urinary obs/LUTS (Chronic 07/28/17) CAD (coronary artery disease) Calculus of kidney (Acute 07/28/17) Hx multiple kidney stones, experienced with passing large stones. Current large calc, monitoried by UROL [facility] Elevated prostate specific antigen (PSA) (Acute 07/28/17) Essential hypertension Essential hypertension (Chronic 07/28/17) BPs well-controlled. Active. Generalized anxiety disorder (Chronic 07/28/17) Manages well with meds, incl low-dose benzodiaz. 15 yrs sobriety this 2018. History of kidney stones History of malignant neoplasm of prostate Hyperlipidemia (Chronic 07/28/17) Obesity (BMI 35.0-39.9 without comorbidity) Rash (Acute) Macular rash, with mild plaque-like eruption. Excoriated 2' pruritis, somewhat managed with Benadryl. Tobacco use disorder (Chronic 08/13/17) Quit cigarettes, 1984. One cigar daily Tubular adenoma (Chronic 03/12/18) Surgical History Arthroplasty of knee (~2013) Left-Meniscal Tear- Colonoscopy - MAC (03/12/18) Hx of Torsion (R)Testicle Lithotripsy Prostate Biopsy (12/02/01) Rising PSA-Negative Robotic Prostatectomy for Wil 7 (11/19/16) Intermediate Risk Prostate Cancer- Family History Mother Hyperlipidemia Father CAD (coronary artery disease) Neoplasm Kidney Grandfather Neoplasm Prostate Social History Smoking/Tobacco Use Status: Current every day Tobacco Type: cigars Per week: 7 Tobacco: How many years used: 6 Alcohol Intake: former Year quit: 15 Drug use: Never Substance use type: does not use Adopted: No Household members: spouse Housing: condominium Number of Children: 4 Communication Needs: Corrective Lenses 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 He does not appear septic or toxic. His vital signs are documented elsewhere His labs are still pending His chest wall motion is normal. He is not short of breath at rest. His abdomen is soft with no mass. He is awake and alert. On his previous CT scan, he has multiple nonobstructing stones in the left kidney. 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 Meds Home Medications and Allergies Home Medications Medication Instructions Recorded Confirmed Type warfarin 0 mg PO as directed 03/19/17 08/01/19 History atorvastatin 20 mg tablet 20 mg PO QPM #90 tab-cap 08/12/18 08/01/19 Rx hydrochlorothiazide 25 mg tablet 25 mg PO DAILY #90 tab 08/12/18 08/01/19 Rx acyclovir 400 mg tablet 400 mg PO TID PRN #15 tab 10/20/18 08/01/19 Rx montelukast 10 mg tablet 10 mg PO DAILY #90 tab-cap 10/20/18 08/01/19 Rx lisinopril 20 mg tablet 20 mg PO DAILY #90 tab 11/16/18 08/01/19 Rx betamethasone, augmented 0.05 % 1 applic TP QD-BID PRN #50 gm 01/12/19 08/01/19 Rx topical ointment triamcinolone acetonide 0.5 % 1 applic TP BID #60 gm 01/21/19 08/01/19 Rx topical ointment escitalopram oxalate 10 mg tablet 10 mg PO DAILY #90 tab-cap 03/02/19 08/01/19 Rx metoprolol tartrate 50 mg tablet 25 mg PO BID tab 03/29/19 08/01/19 History lorazepam 1 mg tablet 1 mg PO .qHS #28 tab 05/26/19 08/01/19 Rx adjuvant AS01B (PF)vial 1 of 2 See Rx Instructions IM .COMPLEX 07/06/19 08/01/19 Rx #0.5 ml hydrocodone-acetaminophen 1 tab PO Q8H PRN #6 tab 07/29/19 08/01/19 Rx ketorolac 10 mg tablet 10 mg PO TID PRN #10 tab 07/29/19 08/01/19 Rx levofloxacin 750 mg PO DAILY #5 tab 07/29/19 08/01/19 Rx tamsulosin 0.4 mg PO DAILY #14 cap 07/29/19 08/01/19 Rx Allergies Allergy/AdvReac Type Severity Reaction Status Date / Time No Known Allergies Allergy Verified 08/01/19 10:09 Exam Resp Auscultation: clear to auscultation bilaterally Cardio Rate: regular rate Rhythm: regular rhythm PFSH Social History Smoking/Tobacco Use Status: Current every day Tobacco Type: cigars Per week: 7 Tobacco: How many years used: 6 Alcohol Intake: former Year quit: 15 Drug use: Never Substance use type: does not use Adopted: No Household members: spouse Housing: condominium Number of Children: 4 Communication Needs: Corrective Lenses 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 Meds Home Medications and Allergies Home Medications Medication Instructions Recorded Confirmed Type warfarin 0 mg PO as directed 03/19/17 09/22/19 History atorvastatin 20 mg tablet 20 mg PO QPM #90 tab-cap 08/12/18 09/26/19 Rx acyclovir 400 mg tablet 400 mg PO TID PRN #15 tab 10/20/18 09/26/19 Rx montelukast 10 mg tablet 10 mg PO DAILY #90 tab-cap 10/20/18 09/26/19 Rx betamethasone, augmented 0.05 % 1 applic TP QD-BID PRN #50 gm 01/12/19 09/26/19 Rx topical ointment triamcinolone acetonide 0.5 % 1 applic TP BID #60 gm 01/21/19 09/26/19 Rx topical ointment escitalopram oxalate 10 mg tablet 10 mg PO DAILY #90 tab-cap 03/02/19 09/26/19 Rx metoprolol tartrate 50 mg tablet 25 mg PO BID tab 03/29/19 09/26/19 History adjuvant AS01B (PF)vial 1 of 2 See Rx Instructions IM .COMPLEX 07/06/19 09/22/19 Rx #0.5 ml lisinopril 20 mg tablet 10 mg PO DAILY tab 09/13/19 09/22/19 History hydrochlorothiazide 25 mg tablet 25 mg PO DAILY #90 tab 09/19/19 09/26/19 Rx hydrocodone 5 mg-acetaminophen 325 1 tab PO Q6H PRN #25 tab MDD 4 09/20/19 09/26/19 Rx mg tablet lorazepam 1 mg tablet 1 mg PO .qHS #28 tab 09/22/19 09/26/19 Rx Allergies Allergy/AdvReac Type Severity Reaction Status Date / Time No Known Allergies Allergy Verified 09/26/19 11:33 Results Last Vital Signs Temp 36.2 C L 09/26/19 11:43 Pulse 51 L 09/26/19 11:43 Resp 16 09/26/19 11:43 BP 112/64 09/26/19 11:43 Pulse Ox 94 L 09/26/19 11:43
[2019-09-26] MEDS: ceFAZolin 2 GM/50 ML BAG IVPB (13:11)
[2019-09-26] MEDS: Lidocaine 2% Jelly 6 ML SYR (13:47)
[2019-09-26] MEDS: Omnipaque 300 MG/ML 50 ML BTL (13:47)
--- NOTE | 2019-09-26 14:21 | W.PM.DSUDISC ---
Discharge Plan Disposition Patient Disposition: HOME Condition: Stable Discharge Details Attending Provider: Edy Blackburn Primary Care Provider: Becky Hardy Home Meds and New Rx's Prescriptions: No Action atorvastatin [Lipitor] 20 mg tablet 20 mg PO QPM Qty: 90 RF: 3 escitalopram oxalate 10 mg tablet 10 mg PO DAILY Qty: 90 RF: 3 Shingrix Adjuvant Component-PF Suspension See Rx Instructions IM .COMPLEX Qty: 0.5 RF: 0 betamethasone, augmented 0.05 % ointment 1 applic TP QD-BID PRN (Reason: rash) Qty: 50 RF: 1 lisinopril 20 mg tablet 10 mg PO DAILY RF: 0 lorazepam 1 mg tablet 1 mg PO .qHS Qty: 28 RF: 2 Hold Instructions: Home Medication placed on hold at Doctor's office acyclovir 400 mg tablet 400 mg PO TID PRN (Reason: recurrent viral infection) Qty: 15 RF: 1 montelukast 10 mg tablet 10 mg PO DAILY Qty: 90 RF: 3 triamcinolone acetonide 0.5 % ointment 1 applic TP BID Qty: 60 RF: 1 metoprolol tartrate [Lopressor] 50 mg tablet 25 mg PO BID RF: 0 hydrochlorothiazide 25 mg tablet 25 mg PO DAILY Qty: 90 RF: 3 hydrocodone-acetaminophen 5-325 mg tablet 1 tab PO Q6H MDD 4 PRN (Reason: pain) Qty: 25 RF: 0 warfarin 5 MG tablet 0 mg PO as directed RF: 0 Discharge Instructions Additional Instructions: no need to strain urine followup appt @ 6 weeks with renal ultrasound Activity:: Activity as Tolerated Shower/Bathe:: 24 hours Diet:: As Tolerated Discharge Orders Discharge Orders: Discharge Order (Routine); Ordered 09/26/19 Ordered By: Edy Blackburn DS: Diagnosis Discharge Diagnosis (1) Calculus of kidney: Status: Acute
--- NOTE | 2019-09-26 14:27 | W.PM.DSUDISC ---
Discharge Plan Disposition Patient Disposition: HOME Condition: Stable Discharge Details Attending Provider: Edy Blackburn Primary Care Provider: Becky Hardy Home Meds and New Rx's Prescriptions: No Action atorvastatin [Lipitor] 20 mg tablet 20 mg PO QPM Qty: 90 RF: 3 escitalopram oxalate 10 mg tablet 10 mg PO DAILY Qty: 90 RF: 3 Shingrix Adjuvant Component-PF Suspension See Rx Instructions IM .COMPLEX Qty: 0.5 RF: 0 betamethasone, augmented 0.05 % ointment 1 applic TP QD-BID PRN (Reason: rash) Qty: 50 RF: 1 lisinopril 20 mg tablet 10 mg PO DAILY RF: 0 lorazepam 1 mg tablet 1 mg PO .qHS Qty: 28 RF: 2 Hold Instructions: Home Medication placed on hold at Doctor's office acyclovir 400 mg tablet 400 mg PO TID PRN (Reason: recurrent viral infection) Qty: 15 RF: 1 montelukast 10 mg tablet 10 mg PO DAILY Qty: 90 RF: 3 triamcinolone acetonide 0.5 % ointment 1 applic TP BID Qty: 60 RF: 1 metoprolol tartrate [Lopressor] 50 mg tablet 25 mg PO BID RF: 0 hydrochlorothiazide 25 mg tablet 25 mg PO DAILY Qty: 90 RF: 3 hydrocodone-acetaminophen 5-325 mg tablet 1 tab PO Q6H MDD 4 PRN (Reason: pain) Qty: 25 RF: 0 warfarin 5 MG tablet 0 mg PO as directed RF: 0 Discharge Instructions Additional Instructions: no need to strain urine followup appt @ 6 weeks with renal ultrasound may restart Coumadin when blood no longer visible in urine/pad Activity:: Activity as Tolerated Shower/Bathe:: 24 hours Diet:: As Tolerated Discharge Orders Discharge Orders: Discharge Order (Routine); Ordered 09/26/19 Ordered By: Edy Blackubrn DS: Diagnosis Discharge Diagnosis (1) Calculus of kidney: Status: Acute
--- NOTE | 2019-09-26 15:38 | ROE_ITS ---
DATE OF PROCEDURE: September 26, 2019 PREOPERATIVE DIAGNOSIS: Left kidney stones. POSTOPERATIVE DIAGNOSIS: Same. PROCEDURE: Cystoscopy; left retrograde pyelogram; left flexible ureteroscopy; extraction of multiple kidney stones. SURGEON: Edy Blackburn M.D. ANESTHESIA: General. COMPLICATIONS: None. SPECIMENS: Stones for chemical analysis. HISTORY: This is a 69-year-old gentleman with a long history of kidney stones. He has required mult iple surgical procedures in the past. When I first encountered this gentleman, he had an emergency room visit for left renal colic. We add ressed his ureteral stone at that time. He also had multiple non-obstructing stones up in the left kidney. These were being monitored by the urology team down at [facility]. When he developed left-sided renal colic j ust last week, he asked if we could move forward with treatment of his renal stones. He presents now for ureteroscopic stone manipulation. OPERATIVE REPORT: The patient was brought to the operating room on 09/26/2019. After successful induc tion of general anesthesia, he was placed in the dorsal lithotomy position. He was given a dose of p reoperative IV antibiotics. His genitalia was prepped and draped. 2% Xylocaine jelly was instilled into the urethra to act as a local anesthetic. A 22 [place] rigid cystoscope was passed through the urethra and into the bladder. The urethra and bl adder were inspected with the 30-degree lens. The pendulous, bulbous and membranous urethras appeared normal with no strictures. The prostatic ure thra showed surgical changes consistent with his prior radical prostatectomy. The bladder neck was entered and the bladder mucosa was inspected. The let ureteral orifice was iden tified. The orifice was cannulated with a 6 Moldovan access catheter. A retrograde film was obtained by injecting Omnipaque through the access catheter under fluoroscopic guidance. The entire ureter was dilated from a recently-passed stone. We passed a guidewire up the access cath eter and replaced the access catheter with a dual-lumen catheter. We then passed a second guidewire and removed the dual-lumen catheter. We passed a ureteral access sheath over the working wire and le ft the safety wire in place. We then passed the flexible ureteroscope up the ureter into the kidney. We were able to inspect each of the calyces. We found multiple stones present in both upper pole calyces and lower pole calyces. Because of the recently-passed stone, we did not need to perform holmium laser lithotripsy of these s tones. Instead, we were able to grasp the stones in a Zero Tip basket and remove them one at a time. At the completion of the procedure there were still a few small stone fragments remaining, but no lar ge stone burden. The patient has had quite a bit of stent discomfort in the past, so he specifically had asked if we m ight be able to avoid a stent postoperatively. With no obvious injury to the ureter or collecting sy stem, we decided to not stent this gentleman. All stones that were removed were sent to the lab for chemical analysis. The patient tolerated this procedure well with no complications. cc: Alex Pickett M.D. Paulo White M.D.
[2019-10-10 11:06] LABS: Source: Left Kidney
== END 2019-09-26 16:23 | disposition home or self-care (01) ==
PROVIDERS: PCP Student in an Organized Health Care Education/Training Program; Visit Provider Urology
PROC: (CPT 52352; principal; 2019-09-26 13:00)
DX: N20.0 Calculus of kidney (principal); Z85.46 Personal history of malignant neoplasm of prostate; I48.20 Chronic atrial fibrillation, unspecified; I10 Essential (primary) hypertension
CPT/HCPCS: 52352; 36415; NC; 74420; 82365; 85610; J0690; J1100; J1885; J2405; J2704; Q9967

== ENCOUNTER 2019-11-15 00:18 | Outpatient (CLI) | payer MEDICARE, BC, SELFPAY ==
--- NOTE | 2019-11-15 06:30 | DI.US_ITS ---
EXAM: US RENAL CLINICAL HISTORY: calculus of kidney,n20.0,? hydronephrosis after ureteroscopy TECHNIQUE: Ultrasound performed using standard protocol. COMPARISON: US RENAL from 09/13/2019 FINDINGS: Renal ultrasound was performed according to the usual protocol. Kidneys are normal in size and shape . There is a simple cyst of the midportion of the left kidney measuring about 15 x 19 x 10 millimete rs in diameter. There is 6 millimeter echogenic focus with associated twinkle artifact in the inferi or pole of the left kidney consistent with nonobstructing renal calculus. No hydronephrosis or hydroureter on either side. Urinary bladder is empty and cannot be evaluated. Patient is reportedly status post prostatectomy. IMPRESSION: No evidence of urinary tract obstruction. A nonobstructing 6 millimeter left lower pole renal calcul us is noted. DATA REPOSITORY:
== END 2019-11-15 00:38 ==
PROVIDERS: PCP Student in an Organized Health Care Education/Training Program; Visit Provider Urology
DX: N20.0 Calculus of kidney (principal); Z90.79 Acquired absence of other genital organ(s); N28.1 Cyst of kidney, acquired
CPT/HCPCS: 76770; 99213

== ENCOUNTER 2019-12-06 03:10 | Outpatient (CLI) | payer MEDICARE, BC, SELFPAY ==
[2019-12-06 11:27] LABS: INR 1.7 (0.9-1.1); Prothrombin Time 17.3 sec (9.3-11.0)
== END 2019-12-06 03:30 ==
PROVIDERS: PCP Student in an Organized Health Care Education/Training Program; Visit Provider Internal Medicine Cardiovascular Disease
DX: I48.92 Unspecified atrial flutter (principal)
CPT/HCPCS: 36415; 85610

== ENCOUNTER 2019-12-20 10:04 | Outpatient (CLI) | payer MEDICARE, BC, SELFPAY ==
[2019-12-20 11:39] LABS: INR 1.6 (0.9-1.1); Prothrombin Time 16.1 sec (9.3-11.0)
== END 2019-12-20 10:24 ==
PROVIDERS: PCP Student in an Organized Health Care Education/Training Program; Visit Provider Internal Medicine Cardiovascular Disease
DX: I48.92 Unspecified atrial flutter (principal)
CPT/HCPCS: 36415; 85610

== ENCOUNTER 2019-12-27 03:30 | Outpatient (CLI) | payer MEDICARE, BC, SELFPAY ==
[2019-12-27 11:27] LABS: INR 2.2 (0.9-1.1); Prothrombin Time 22.1 sec (9.3-11.0)
== END 2019-12-27 03:50 ==
PROVIDERS: PCP Student in an Organized Health Care Education/Training Program; Visit Provider Internal Medicine Cardiovascular Disease
DX: I48.91 Unspecified atrial fibrillation (principal)
CPT/HCPCS: 36415; 85610

== ENCOUNTER 2020-01-10 01:19 | Outpatient (CLI) | payer MEDICARE, BC, SELFPAY ==
[2020-01-10 12:07] LABS: INR 2.3 (0.9-1.1); Prothrombin Time 22.8 sec (9.3-11.0)
[2020-01-10 12:17] LABS: BUN 12 mg/dL (7-18); CREATININE 0.89 mg/dL (0.70-1.30); Calcium 8.5 mg/dL (8.5-10.1); Chloride 105 mmol/L (98-107); Glucose 221 mg/dL (74-106); Magnesium 1.9 mg/dL (1.8-2.4); Potassium 3.4 mmol/L (3.5-5.1); Sodium 141 mmol/L (136-145)
[2020-01-11 10:06] LABS: Alkaline Phosphatase 116 U/L (46-116); TSH (W/Ref FT4) 0.42 uIU/mL (0.36-3.74)
== END 2020-01-10 01:39 ==
PROVIDERS: PCP Student in an Organized Health Care Education/Training Program; Visit Provider Internal Medicine Cardiovascular Disease
DX: E87.6 Hypokalemia (principal); I48.92 Unspecified atrial flutter; L29.9 Pruritus, unspecified; Z79.01 Long term (current) use of anticoagulants
CPT/HCPCS: 36415; 80048; 83735; 84075; 84443; 85610

== ENCOUNTER 2020-02-07 03:42 | Outpatient (CLI) | payer MEDICARE, BC, SELFPAY ==
[2020-02-07 11:50] LABS: INR 2.2 (0.9-1.1); Prothrombin Time 21.5 sec (9.3-11.0)
== END 2020-02-07 04:02 ==
PROVIDERS: PCP Student in an Organized Health Care Education/Training Program; Visit Provider Internal Medicine Cardiovascular Disease
DX: I48.92 Unspecified atrial flutter (principal)
CPT/HCPCS: 36415; 85610

== ENCOUNTER 2020-03-06 02:29 | Outpatient (CLI) | payer MEDICARE, BC, SELFPAY ==
[2020-03-06 12:47] LABS: INR 2.7 (0.9-1.1); Prothrombin Time 26.1 sec (9.3-11.0)
== END 2020-03-06 02:49 ==
PROVIDERS: PCP Student in an Organized Health Care Education/Training Program; Visit Provider Internal Medicine Cardiovascular Disease
DX: I48.92 Unspecified atrial flutter (principal)
CPT/HCPCS: 36415; 85610

== ENCOUNTER 2020-04-03 03:32 | Outpatient (CLI) | payer MEDICARE, BC, SELFPAY ==
[2020-04-03 11:46] LABS: Prothrombin Time 56.2 sec (9.3-11.0)
[2020-04-03 11:57] LABS: INR 5.9 (0.9-1.1)
== END 2020-04-03 03:52 ==
PROVIDERS: PCP Student in an Organized Health Care Education/Training Program; Visit Provider Internal Medicine Cardiovascular Disease
DX: I48.92 Unspecified atrial flutter (principal)
CPT/HCPCS: 36415; 85610

== ENCOUNTER 2020-04-06 02:11 | Outpatient (CLI) | payer MEDICARE, BC, SELFPAY ==
[2020-04-06 12:33] LABS: INR 2.4 (0.9-1.1); Prothrombin Time 23.5 sec (9.3-11.0)
== END 2020-04-06 02:31 ==
PROVIDERS: PCP Student in an Organized Health Care Education/Training Program; Visit Provider Internal Medicine Cardiovascular Disease
DX: I48.92 Unspecified atrial flutter (principal); Z79.01 Long term (current) use of anticoagulants
CPT/HCPCS: 36415; 85610

== ENCOUNTER 2020-04-24 00:51 | Outpatient (CLI) | payer MEDICARE, BC, SELFPAY ==
--- NOTE | 2020-04-24 | DI.CT_ITS ---
EXAM: CT CHEST/ABD/PEL W CLINICAL HISTORY: T CELL LYMPHOMA,C84.A0.STAGING EXAM TECHNIQUE: CT examination of the chest, abdomen, and pelvis was performed utilizing intravenous inf usion of 100 cc of Omnipaque 350 with biphasic hepatic imaging. Oral contrast was also administered. COMPARISON: CT ABD PELVIS WO CONTRAST from 09/01/[address] RENAL COLIC WO from 07/28/2019 FINDINGS: Lungs are clear. No pleural effusion. No pleural based mass. No mediastinal or hilar adenopathy. Slight prominence of axillary lymph nodes noted, nonspecific. N o gross adenopathy. Tracheobronchial tree appears intact. No evidence of pulmonary embolic disease. Unremarkable appearance of thoracic aorta and major branch vessels. The liver contains numerous fluid attenuation lesions consistent with cysts, unchanged from prior exa minations including August 2016.. Spleen is unremarkable in appearance. Pancreas appears intact. Adrenals appear normal. There are multiple bilateral renal cysts. There are multiple nonobstructing left renal calculi.. Abdominal aorta and major visceral branches appear intact. No focal bowel pathology. Appendix is normal. No evidence of diverticulitis. No abdominal or pelvic adenopathy. Note is made of nonspecific prominence inguinal lymph nodes bilat erally, the largest grouping of inguinal lymph nodes on the right measures about 39 by 25 millimeters in diameter coronal imaging. No significant abdominal wall hernia. No focal bony lesion identified on scanning of the chest, abdomen, and pelvis. IMPRESSION: Mild prominence of inguinal and axillary lymph nodes bilaterally. the inguinal lymph nodes are more prominent than on prior scan of July 2019. No other significant adenopathy. Multiple nonobstructing left renal calculi noted. RADIATION DOSE DELIVERED: 2,253.56mGy.cm Total DLP 2,253.56mGy.cm Total DLP
[2020-04-24] MEDS: Omnipaque 350 MG/ML 50 ML BTL IJ (08:40)
[2020-04-24] MEDS: Breeza Beverage 473 ML BTL PO ×3 (08:47→08:48)
[2020-04-24] MEDS: Normal Saline - Diluent 50 ML VIAL IV ×2 (09:52→10:09)
[2020-04-24] MEDS: Omnipaque 350 MG/ML 100 ML BTL IJ (09:53)
[2020-04-24] MEDS: Normal Saline Flush 10 ML SYR IVP (10:09)
== END 2020-04-24 01:11 ==
PROVIDERS: PCP Student in an Organized Health Care Education/Training Program; Visit Provider Internal Medicine Hematology & Oncology
DX: C84.A5 Cutaneous T-cell lymphoma, unspecified, lymph nodes of inguinal region and lower limb (principal); N20.0 Calculus of kidney
CPT/HCPCS: 74177; 71260; J3490; Q9967

== ENCOUNTER 2020-08-15 03:24 | Outpatient (CLI) | payer MEDICARE, BC, SELFPAY ==
[2020-08-15 13:21] LABS: Abs Immature Grans 0.04 10^3/uL (0.0-0.06); HCT 45.4 % (40.0-50.0); HGB 14.9 g/dL (13.5-17.5); MCH 31.4 pg (27.0-33.0); MCHC 32.8 % (32.0-36.0); MCV 95.6 fL (80-95); MPV 9.7 fL (8.0-11.0); Nucleated RBC 0 %; Platelet Count 193 10^3/uL (130-400); RBC 4.75 10^6/uL (4.36-5.78); RDW 12.8 % (11.8-14.1); RDW-SD 44.8 fL; WBC 16.37 10^3/uL (4.4-10.8)
[2020-08-15 13:44] LABS: Absolute Lymphocyte Count 9.82 10^3/uL (1.2-3.4); Absolute Neutrophil Count 4.91 10^3/uL (1.2-6.7)
[2020-08-15 13:45] LABS: Absolute Eosinophil Count 0.16 10^3/uL (0.0-0.7); Absolute Monocyte Count 1.47 10^3/uL (0.1-0.8)
[2020-08-15 13:46] LABS: RBC Morphology Normal
[2020-08-15 13:47] LABS: Diff Comment Manual Differential
[2020-08-15 14:16] LABS: Calculated LDL 69 mg/dL (<100); Cholesterol 175 mg/dL (<200); HDL Cholesterol 30 mg/dL (40-60); Triglyceride 380 mg/dL (<150)
[2020-08-15 14:25] LABS: ALT 32 U/L (16-63); AST 31 U/L (15-37); Albumin 3.8 g/dL (3.4-5.0); Alkaline Phosphatase 89 U/L (46-116); Anion Gap 11.6 mmol/L (3-11); BUN 17 mg/dL (7-18); Bilirubin, Total 0.5 mg/dL (0.2-1.0); CO2 24.4 mmol/L (21.0-32.0); CREATININE 1.04 mg/dL (0.70-1.30); Calcium 9.1 mg/dL (8.5-10.1); Chloride 106 mmol/L (98-107); FREE T4 1.01 ng/dL (0.76-1.46); Glucose 139 mg/dL (74-106); Sodium 142 mmol/L (136-145); Total Protein 6.9 g/dL (6.4-8.2)
== END 2020-08-15 03:44 ==
PROVIDERS: Internal Medicine Hematology & Oncology; PCP Student in an Organized Health Care Education/Training Program; Visit Provider Student in an Organized Health Care Education/Training Program
DX: C84.A5 Cutaneous T-cell lymphoma, unspecified, lymph nodes of inguinal region and lower limb (principal); E03.2 Hypothyroidism due to medicaments and other exogenous substances
CPT/HCPCS: 36415; 80053; 80061; 84439; 85025

== ENCOUNTER 2020-08-31 02:36 | Outpatient (CLI) | payer MEDICARE, BC, SELFPAY ==
[2020-08-31 15:52] LABS: Abs Immature Grans 0.04 10^3/uL (0.0-0.06); Absolute Basophil Count 0.06 10^3/uL (0.0-0.2); Absolute Eosinophil Count 0.12 10^3/uL (0.0-0.7); Absolute Monocyte Count 0.97 10^3/uL (0.1-0.8); Basophils % 0.5; HGB 15.6 g/dL (13.5-17.5); Immature Grans % 0.3; Lymphocytes % 44.7; MCH 31.6 pg (27.0-33.0); MCHC 33.2 % (32.0-36.0); MCV 95.3 fL (80-95); MPV 9.7 fL (8.0-11.0); Monocytes % 8.2; Neutrophils % 45.3; Nucleated RBC 0 %; Platelet Count 185 10^3/uL (130-400); RBC 4.93 10^6/uL (4.36-5.78); RDW 12.5 % (11.8-14.1); RDW-SD 44.3 fL; WBC 11.78 10^3/uL (4.4-10.8)
[2020-08-31 15:55] LABS: Absolute Lymphocyte Count 5.27 10^3/uL (1.2-3.4); Absolute Neutrophil Count 5.34 10^3/uL (1.2-6.7)
[2020-08-31 16:14] LABS: Diff Comment Agrees w/ Instrument; RBC Morphology Normal
[2020-08-31 16:52] LABS: ALT 32 U/L (16-63); AST 34 U/L (15-37); Albumin 3.7 g/dL (3.4-5.0); Alkaline Phosphatase 85 U/L (46-116); Anion Gap 8.4 mmol/L (3-11); BUN 19 mg/dL (7-18); Bilirubin, Total 0.6 mg/dL (0.2-1.0); CO2 28.6 mmol/L (21.0-32.0); Calcium 9.1 mg/dL (8.5-10.1); Calculated LDL 77 mg/dL (<100); Chloride 109 mmol/L (98-107); Cholesterol 175 mg/dL (<200); Glucose 106 mg/dL (74-106); HDL Cholesterol 35 mg/dL (40-60); Potassium 4.3 mmol/L (3.5-5.1); Sodium 146 mmol/L (136-145); Triglyceride 318 mg/dL (<150)
[2020-08-31 17:12] LABS: FREE T4 1.08 ng/dL (0.76-1.46)
== END 2020-08-31 02:37 | disposition home or self-care (01) ==
LOC: LBO 02:36
PROVIDERS: PCP Student in an Organized Health Care Education/Training Program; Visit Provider Internal Medicine Hematology & Oncology
DX: C84.A0 Cutaneous T-cell lymphoma, unspecified, unspecified site (principal); E03.2 Hypothyroidism due to medicaments and other exogenous substances
CPT/HCPCS: 36415; 80053; 80061; 84439; 85025

== ENCOUNTER 2020-09-12 02:55 | Outpatient (CLI) | payer MEDICARE, BC, SELFPAY ==
[2020-09-12 13:10] LABS: Abs Immature Grans 0.02 10^3/uL (0.0-0.06); Absolute Basophil Count 0.04 10^3/uL (0.0-0.2); Absolute Eosinophil Count 0.16 10^3/uL (0.0-0.7); Absolute Lymphocyte Count 4.68 10^3/uL (1.2-3.4); Absolute Monocyte Count 1.11 10^3/uL (0.1-0.8); Absolute Neutrophil Count 4.64 10^3/uL (1.2-6.7); Basophils % 0.4; Eosinophils % 1.5; HCT 44.1 % (40.0-50.0); HGB 14.8 g/dL (13.5-17.5); Immature Grans % 0.2; Lymphocytes % 43.9; MCH 31.6 pg (27.0-33.0); MCHC 33.6 % (32.0-36.0); MPV 9.6 fL (8.0-11.0); Monocytes % 10.4; Neutrophils % 43.6; Nucleated RBC 0 %; Platelet Count 164 10^3/uL (130-400); RBC 4.69 10^6/uL (4.36-5.78); RDW 12.8 % (11.8-14.1); RDW-SD 43.9 fL; WBC 10.65 10^3/uL (4.4-10.8)
[2020-09-12 14:53] LABS: ALT 33 U/L (16-63); AST 31 U/L (15-37); Albumin 3.5 g/dL (3.4-5.0); Alkaline Phosphatase 94 U/L (46-116); Anion Gap 13.6 mmol/L (3-11); BUN 24 mg/dL (7-18); Bilirubin, Total 0.4 mg/dL (0.2-1.0); CO2 24.4 mmol/L (21.0-32.0); Calcium 8.8 mg/dL (8.5-10.1); Calculated LDL 53 mg/dL (<100); Chloride 107 mmol/L (98-107); Cholesterol 161 mg/dL (<200); Glucose 146 mg/dL (74-106); HDL Cholesterol 30 mg/dL (40-60); Potassium 4.1 mmol/L (3.5-5.1); Sodium 145 mmol/L (136-145); Total Protein 6.5 g/dL (6.4-8.2); Triglyceride 394 mg/dL (<150)
[2020-09-12 15:15] LABS: FREE T4 0.93 ng/dL (0.76-1.46)
== END 2020-09-12 02:56 | disposition home or self-care (01) ==
LOC: LBO 02:56
PROVIDERS: PCP Student in an Organized Health Care Education/Training Program; Visit Provider Internal Medicine Hematology & Oncology
DX: C84.A0 Cutaneous T-cell lymphoma, unspecified, unspecified site (principal); E03.2 Hypothyroidism due to medicaments and other exogenous substances
CPT/HCPCS: 36415; 80053; 80061; 84439; 85025

== ENCOUNTER 2020-09-26 14:02 | Outpatient (CLI) | payer MEDICARE, BC, SELFPAY ==
--- NOTE | 2020-09-26 14:30 | RT.EKG_ITS ---
APPROVED REPORT Exam: Resting ECG Patient Location: O HR:131 bpm ECG Measurements Heart Rate 131 AXIS AR [id number] P [id number] QRSd 87 QRS -15 QT 327 T 50 QTc 483 Conclusion Atrial fibrillation...V-rate 96-181, irreg A-activity
== END 2020-09-26 14:03 | disposition home or self-care (01) ==
LOC: RT 14:04
PROVIDERS: PCP Student in an Organized Health Care Education/Training Program; Visit Provider Student in an Organized Health Care Education/Training Program
DX: C84.A0 Cutaneous T-cell lymphoma, unspecified, unspecified site (principal); T45.1X5A Adverse effect of antineoplastic and immunosuppressive drugs, initial encounter; I48.91 Unspecified atrial fibrillation
CPT/HCPCS: 93005; 93010

== ENCOUNTER 2020-09-26 14:11 | Outpatient (CLI) | payer MEDICARE, BC, SELFPAY ==
[2020-09-26 14:40] LABS: Abs Immature Grans 0.03 10^3/uL (0.0-0.06); Absolute Basophil Count 0.05 10^3/uL (0.0-0.2); Absolute Eosinophil Count 0.07 10^3/uL (0.0-0.7); Absolute Lymphocyte Count 4.71 10^3/uL (1.2-3.4); Absolute Monocyte Count 0.43 10^3/uL (0.1-0.8); Absolute Neutrophil Count 3.85 10^3/uL (1.2-6.7); Basophils % 0.5; Eosinophils % 0.8; HCT 45.7 % (40.0-50.0); HGB 15.2 g/dL (13.5-17.5); Immature Grans % 0.3; Lymphocytes % 51.5; MCH 31.1 pg (27.0-33.0); MCHC 33.3 % (32.0-36.0); MCV 93.5 fL (80-95); MPV 9.4 fL (8.0-11.0); Monocytes % 4.7; Neutrophils % 42.2; Nucleated RBC 0 %; Platelet Count 185 10^3/uL (130-400); RBC 4.89 10^6/uL (4.36-5.78); RDW 12.8 % (11.8-14.1); RDW-SD 43.9 fL; WBC 9.14 10^3/uL (4.4-10.8)
[2020-09-26 14:57] LABS: ALT 38 U/L (16-63); AST 31 U/L (15-37); Albumin 3.6 g/dL (3.4-5.0); Alkaline Phosphatase 100 U/L (46-116); Anion Gap 10.2 mmol/L (3-11); BUN 21 mg/dL (7-18); Bilirubin, Total 0.5 mg/dL (0.2-1.0); CO2 26.8 mmol/L (21.0-32.0); Calcium 8.8 mg/dL (8.5-10.1); Chloride 107 mmol/L (98-107); Glucose 127 mg/dL (74-106); Potassium 3.9 mmol/L (3.5-5.1); Sodium 144 mmol/L (136-145)
[2020-09-26 15:09] LABS: Calculated LDL 64 mg/dL (<100); Cholesterol 164 mg/dL (<200); HDL Cholesterol 35 mg/dL (40-60); Triglyceride 329 mg/dL (<150)
[2020-09-27 09:06] LABS: Magnesium 1.9 mg/dL (1.8-2.4)
[2020-09-28 15:44] LABS: Leukemia/Lymphoma by FC (Blood See Comments
== END 2020-09-26 14:12 | disposition home or self-care (01) ==
LOC: LBO 14:12
PROVIDERS: PCP Student in an Organized Health Care Education/Training Program; Visit Provider Internal Medicine Hematology & Oncology
DX: C84.A0 Cutaneous T-cell lymphoma, unspecified, unspecified site (principal); E03.2 Hypothyroidism due to medicaments and other exogenous substances
CPT/HCPCS: 36415; 80053; 80061; 88185; 83735; 84439; 85025; 88184; 88189; 93005

== ENCOUNTER 2020-10-03 02:15 | Outpatient (CLI) | payer MEDICARE, BC, SELFPAY ==
[2020-10-03 11:47] LABS: Abs Immature Grans 0.02 10^3/uL (0.0-0.06); Absolute Basophil Count 0.03 10^3/uL (0.0-0.2); Absolute Eosinophil Count 0.17 10^3/uL (0.0-0.7); Absolute Lymphocyte Count 3.82 10^3/uL (1.2-3.4); Absolute Monocyte Count 0.76 10^3/uL (0.1-0.8); Basophils % 0.3; HCT 44.8 % (40.0-50.0); HGB 15.4 g/dL (13.5-17.5); Immature Grans % 0.2; Lymphocytes % 43.9; MCH 31.5 pg (27.0-33.0); MCHC 34.4 % (32.0-36.0); MCV 91.6 fL (80-95); MPV 9.9 fL (8.0-11.0); Monocytes % 8.7; Neutrophils % 44.9; Nucleated RBC 0 %; RBC 4.89 10^6/uL (4.36-5.78); RDW 12.2 % (11.8-14.1); RDW-SD 40.9 fL
[2020-10-03 12:19] LABS: Platelet Count 103 10^3/uL (130-400)
[2020-10-03 12:56] LABS: ALT 52 U/L (16-63); AST 35 U/L (15-37); Albumin 3.7 g/dL (3.4-5.0); Alkaline Phosphatase 107 U/L (46-116); BUN 14 mg/dL (7-18); Bilirubin, Total 0.5 mg/dL (0.2-1.0); Calcium 9.7 mg/dL (8.5-10.1); Calculated LDL 79 mg/dL (<100); Chloride 107 mmol/L (98-107); Cholesterol 154 mg/dL (<200); Glucose 130 mg/dL (74-106); HDL Cholesterol 38 mg/dL (40-60); Magnesium 1.8 mg/dL (1.8-2.4); Potassium 4.3 mmol/L (3.5-5.1); Sodium 145 mmol/L (136-145); Total Protein 6.8 g/dL (6.4-8.2); Triglyceride 189 mg/dL (<150)
[2020-10-03 13:31] LABS: FREE T4 0.88 ng/dL (0.76-1.46)
== END 2020-10-03 02:16 | disposition home or self-care (01) ==
LOC: LBO 02:15
PROVIDERS: PCP Student in an Organized Health Care Education/Training Program; Visit Provider Internal Medicine Hematology & Oncology
DX: C84.A0 Cutaneous T-cell lymphoma, unspecified, unspecified site (principal); E03.2 Hypothyroidism due to medicaments and other exogenous substances
CPT/HCPCS: 36415; 80053; 80061; 83735; 84439; 85025

== ENCOUNTER 2020-10-10 03:59 | Outpatient (CLI) | payer MEDICARE, BC, SELFPAY ==
[2020-10-10 13:31] LABS: Abs Immature Grans 0.02 10^3/uL (0.0-0.06); HCT 43.4 % (40.0-50.0); HGB 14.8 g/dL (13.5-17.5); MCHC 34.1 % (32.0-36.0); MCV 90.8 fL (80-95); MPV 10.5 fL (8.0-11.0); Nucleated RBC 0 %; RBC 4.78 10^6/uL (4.36-5.78); RDW 12.4 % (11.8-14.1); RDW-SD 40.4 fL
[2020-10-10 14:39] LABS: ALT 40 U/L (16-63); AST 31 U/L (15-37); Albumin 3.6 g/dL (3.4-5.0); Alkaline Phosphatase 119 U/L (46-116); Anion Gap 7.6 mmol/L (3-11); BUN 22 mg/dL (7-18); Bilirubin, Total 0.7 mg/dL (0.2-1.0); CO2 30.4 mmol/L (21.0-32.0); Calcium 9.2 mg/dL (8.5-10.1); Chloride 107 mmol/L (98-107); FREE T4 0.79 ng/dL (0.76-1.46); Glucose 138 mg/dL (74-106); Magnesium 1.7 mg/dL (1.8-2.4); Potassium 4.7 mmol/L (3.5-5.1); Sodium 145 mmol/L (136-145); Total Protein 6.6 g/dL (6.4-8.2)
[2020-10-10 14:51] LABS: Calculated LDL 56 mg/dL (<100); Cholesterol 126 mg/dL (<200); HDL Cholesterol 36 mg/dL (40-60); Triglyceride 170 mg/dL (<150)
[2020-10-10 15:04] LABS: Platelet Count 65 10^3/uL (130-400)
[2020-10-10 15:06] LABS: Absolute Eosinophil Count 0.14 10^3/uL (0.0-0.7); Absolute Lymphocyte Count 1.37 10^3/uL (1.2-3.4); Absolute Monocyte Count 0.58 10^3/uL (0.1-0.8); Absolute Neutrophil Count 1.51 10^3/uL (1.2-6.7); Atypical Lymphocytes % 6; Bands % 2
[2020-10-10 15:08] LABS: Diff Comment Manual Differential; RBC Morphology Normal
== END 2020-10-10 04:00 | disposition home or self-care (01) ==
LOC: LBO 03:59
PROVIDERS: PCP Student in an Organized Health Care Education/Training Program; Visit Provider Internal Medicine Hematology & Oncology
DX: C84.A5 Cutaneous T-cell lymphoma, unspecified, lymph nodes of inguinal region and lower limb (principal); E03.2 Hypothyroidism due to medicaments and other exogenous substances
CPT/HCPCS: 36415; 80053; 80061; 83735; 84439; 85025; 93005

== ENCOUNTER 2020-10-10 04:47 | Outpatient (CLI) | payer MEDICARE, BC, SELFPAY ==
--- NOTE | 2020-10-10 13:15 | RT.EKG_ITS ---
APPROVED REPORT Exam: Resting ECG Patient Location: O HR:122 bpm ECG Measurements Heart Rate 122 AXIS TN [id number] P [id number] QRSd 96 QRS -25 QT 300 T 202 QTc 428 Conclusion Atrial fibrillation...V-rate 87-169, irreg A-activity Nonspecific repol abnormality, diffuse leads...ST dep, T flat/neg, ant/lat/inf
== END 2020-10-10 04:48 | disposition home or self-care (01) ==
LOC: RT 04:48
PROVIDERS: PCP Student in an Organized Health Care Education/Training Program; Visit Provider Internal Medicine Hematology & Oncology
DX: I48.91 Unspecified atrial fibrillation (principal)
CPT/HCPCS: 93005; 93010

== ENCOUNTER 2020-10-17 03:36 | Outpatient (CLI) | payer MEDICARE, BC, SELFPAY ==
[2020-10-17 10:31] LABS: Abs Immature Grans 0.01 10^3/uL (0.0-0.06); Absolute Basophil Count 0.02 10^3/uL (0.0-0.2); Absolute Eosinophil Count 0.09 10^3/uL (0.0-0.7); Absolute Lymphocyte Count 0.95 10^3/uL (1.2-3.4); Basophils % 0.4; Eosinophils % 1.8; HGB 13.7 g/dL (13.5-17.5); Immature Grans % 0.2; Lymphocytes % 19.5; MCH 31.1 pg (27.0-33.0); MCHC 33.4 % (32.0-36.0); MPV 9.2 fL (8.0-11.0); Monocytes % 18.5; Neutrophils % 59.6; Nucleated RBC 0 %; Platelet Count 198 10^3/uL (130-400); RBC 4.41 10^6/uL (4.36-5.78); RDW 13.2 % (11.8-14.1); WBC 4.87 10^3/uL (4.4-10.8)
[2020-10-17 10:44] LABS: ALT 30 U/L (16-63); AST 30 U/L (15-37); Albumin 3.3 g/dL (3.4-5.0); Alkaline Phosphatase 103 U/L (46-116); Anion Gap 4.5 mmol/L (3-11); BUN 14 mg/dL (7-18); CO2 28.5 mmol/L (21.0-32.0); CREATININE 0.9 mg/dL (0.70-1.30); Calcium 8.5 mg/dL (8.5-10.1); Calculated LDL 45 mg/dL (<100); Chloride 109 mmol/L (98-107); Cholesterol 118 mg/dL (<200); Glucose 137 mg/dL (74-106); HDL Cholesterol 35 mg/dL (40-60); Magnesium 1.8 mg/dL (1.8-2.4); Potassium 3.5 mmol/L (3.5-5.1); Sodium 142 mmol/L (136-145); Total Protein 6.4 g/dL (6.4-8.2); Triglyceride 194 mg/dL (<150)
[2020-10-17 11:03] LABS: FREE T4 0.69 ng/dL (0.76-1.46)
== END 2020-10-17 03:37 | disposition home or self-care (01) ==
LOC: LBO 03:36
PROVIDERS: PCP Student in an Organized Health Care Education/Training Program; Visit Provider Internal Medicine Hematology & Oncology
DX: C84.A0 Cutaneous T-cell lymphoma, unspecified, unspecified site (principal); E03.2 Hypothyroidism due to medicaments and other exogenous substances
CPT/HCPCS: 36415; 80053; 80061; 83735; 84439; 85025

== ENCOUNTER 2020-10-17 03:41 | Outpatient (CLI) | payer MEDICARE, BC, SELFPAY ==
--- NOTE | 2020-10-17 10:15 | RT.EKG_ITS ---
APPROVED REPORT Exam: Resting ECG Patient Location: O HR:58 bpm ECG Measurements Heart Rate 58 AXIS NE 168 P 36 QRSd 105 QRS -22 QT 480 T -3 QTc 472 Conclusion Sinus bradycardia...rate< 60
== END 2020-10-17 03:42 | disposition home or self-care (01) ==
LOC: RT 03:42
PROVIDERS: PCP Student in an Organized Health Care Education/Training Program; Visit Provider Internal Medicine Hematology & Oncology
DX: R00.1 Bradycardia, unspecified (principal); C84.A0 Cutaneous T-cell lymphoma, unspecified, unspecified site
CPT/HCPCS: 36415; 80053; 80061; 83735; 84439; 85025; 93005; 93010

== ENCOUNTER 2020-10-30 03:46 | Outpatient (CLI) | payer MEDICARE, BC, SELFPAY ==
[2020-10-30 10:14] LABS: Abs Immature Grans 0.02 10^3/uL (0.0-0.06); HCT 44.3 % (40.0-50.0); HGB 14.6 g/dL (13.5-17.5); MCH 30.9 pg (27.0-33.0); MCV 93.7 fL (80-95); MPV 9.3 fL (8.0-11.0); Nucleated RBC 0 %; Platelet Count 155 10^3/uL (130-400); RBC 4.73 10^6/uL (4.36-5.78); RDW 14.2 % (11.8-14.1); RDW-SD 47.5 fL; WBC 5.74 10^3/uL (4.4-10.8)
[2020-10-30 10:32] LABS: ALT 39 U/L (16-63); AST 25 U/L (15-37); Albumin 3.6 g/dL (3.4-5.0); Alkaline Phosphatase 117 U/L (46-116); Anion Gap 5.9 mmol/L (3-11); BUN 15 mg/dL (7-18); Bilirubin, Total 0.8 mg/dL (0.2-1.0); CO2 31.1 mmol/L (21.0-32.0); CREATININE 1.1 mg/dL (0.70-1.30); Calculated LDL 50 mg/dL (<100); Chloride 110 mmol/L (98-107); Cholesterol 143 mg/dL (<200); Glucose 163 mg/dL (74-106); HDL Cholesterol 30 mg/dL (40-60); Magnesium 1.8 mg/dL (1.8-2.4); Potassium 4.6 mmol/L (3.5-5.1); Sodium 147 mmol/L (136-145); Total Protein 6.9 g/dL (6.4-8.2); Triglyceride 318 mg/dL (<150)
[2020-10-30 10:39] LABS: Absolute Neutrophil Count 2.47 10^3/uL (1.2-6.7)
[2020-10-30 10:40] LABS: Absolute Eosinophil Count 0.06 10^3/uL (0.0-0.7); Absolute Monocyte Count 0.57 10^3/uL (0.1-0.8)
[2020-10-30 10:42] LABS: Absolute Lymphocyte Count 2.53 10^3/uL (1.2-3.4); Other Cells % 2
[2020-10-30 10:43] LABS: Diff Comment Manual Differential; RBC Morphology Normal
[2020-10-30 10:46] LABS: Atypical Lymphocytes % 10
[2020-10-30 10:53] LABS: FREE T4 0.59 ng/dL (0.76-1.46)
== END 2020-10-30 03:47 | disposition home or self-care (01) ==
LOC: LBO 03:46
PROVIDERS: PCP Student in an Organized Health Care Education/Training Program; Visit Provider Internal Medicine Hematology & Oncology
DX: C84.A0 Cutaneous T-cell lymphoma, unspecified, unspecified site (principal); E03.2 Hypothyroidism due to medicaments and other exogenous substances
CPT/HCPCS: 36415; 80053; 80061; 83735; 84439; 85025

== ENCOUNTER 2020-10-30 03:57 | Outpatient (CLI) | payer MEDICARE, BC, SELFPAY ==
--- NOTE | 2020-10-30 10:15 | RT.EKG_ITS ---
APPROVED REPORT Exam: Resting ECG Patient Location: O HR:115 bpm ECG Measurements Heart Rate 115 AXIS TN [id number] P [id number] QRSd 97 QRS -27 QT 349 T 49 QTc 483 Conclusion Atrial fibrillation...V-rate 84-156, irreg A-activity
== END 2020-10-30 03:58 | disposition home or self-care (01) ==
LOC: RT 03:57
PROVIDERS: PCP Student in an Organized Health Care Education/Training Program; Visit Provider Internal Medicine Hematology & Oncology
DX: R94.31 Abnormal electrocardiogram [ECG] [EKG] (principal); I48.91 Unspecified atrial fibrillation; C84.A0 Cutaneous T-cell lymphoma, unspecified, unspecified site
CPT/HCPCS: 36415; 80053; 80061; 83735; 84439; 85025; 93005; 93010

== ENCOUNTER 2020-11-03 20:33 | Emergency (ER) | payer MEDICARE, BC, SELFPAY ==
[2020-11-03] VITALS (22 sets, daily range): BP systolic 119–138; BP diastolic 77–100; PULSE 98–141; RESP 16; TEMP 36.5; O2SAT 93–98
--- NOTE | 2020-11-03 20:45 | RT.EKG_ITS ---
APPROVED REPORT Exam: Resting ECG Patient Location: E HR:121 bpm ECG Measurements Heart Rate 121 AXIS [place] [id number] P [id number] QRSd 96 QRS -27 QT 293 T 151 QTc 417 Conclusion Atrial fibrillation...V-rate 89-160, irreg A-activity Nonspecific T abnrm, anterolateral leads...T <-0.10mV, I aVL V2-V6 I have reviewed and interpreted ECG and agree with software generated interpretation.
--- NOTE | 2020-11-03 20:45 | DI.CT_ITS ---
EXAM: CT ABDOMEN PELVIS WO INDICATION: Left flank pain history of ureterolithiasis. COMPARISON: CT CT RENAL COLIC WO from 07/28/[address] CHEST/ABD/PEL W from 04/24/2020 TECHNIQUE: CT examination was performed without contrast administration. FINDINGS: Images obtained through the lung bases show a new 10 millimeter in diameter noncalcified rounded rig ht lower lobe intrapulmonary nodule, not present on prior CT of April 2020.. There are multiple lo w-attenuation hepatic lesions unchanged in appearance comparison with prior examination, presumably r epresenting cysts period spleen is unremarkable in appearance.. Visualized portions of the pancreas are unremarkable. Gallbla note is made of cholelithiasis. No gallbladder wall thickening, pericholecystic fluid collec tion, or biliary dilatation. Abdominal aorta is of normal diameter. No significant abdominal wall hernia. No significant abdominal or pelvic adenopathy. Adrenals appear normal bilaterally. There are small bilateral renal cysts, unchanged from prior study. There are no right renal calcific ations or right ureteral calcifications. No right renal mass or hydronephrosis. On the left there is moderate hydronephrosis and hydroureter to the level of the ureterovesical junct ion where there is an obstructing 6 millimeter in diameter stone. There also numerous intrarenal carolina culi on the left, the largest measuring up to about 12 millimeters in diameter. There is moderate pe rinephric fat stranding. No ureteral dilatation or calcification identified. Urinary bladder is unremarkable in appearance. IMPRESSION: Obstructing 6 millimeter left ureterovesical junction stone. Multiple additional left renal nonobstr ucting calculi. Incidental finding of new 10 millimeter noncalcified right basilar lung nodule. Additional evaluatio n with chest CT recommended. The findings were discussed with in the emergency room. RADIATION DOSE DELIVERED: 1,082.18mGy.cm DLP 1,082.18mGy.cm Total DLP RADIATION OPTIMIZATION: All CT scans at this facility use at least one of these dose optimization te chniques: automated exposure control; mA and/or kV adjustment per patient size (includes targeted exa ms where dose is matched to clinical indication); or iterative reconstruction.
--- NOTE | 2020-11-03 21:00 | W.ED.GENAD ---
Discharge Plan Discharge Details Chief Complaint: FlankPain Primary Care Provider: Becky Hardy ED Provider: Prachi Gotti Home Meds and New Rx's Prescriptions: No Action Eliquis 5 mg tablet 5 mg PO BID RF: 0 metoprolol succinate 25 mg tablet extended release 24 hr 25 mg PO BID RF: 0 lisinopril 20 mg tablet 10 mg PO DAILY RF: 0 Hold Instructions: Home Medication placed on hold at Doctor's office betamethasone, augmented 0.05 % ointment 1 applic TP QD-BID PRN (Reason: rash) Qty: 50 RF: 1 escitalopram oxalate 10 mg tablet 10 mg PO DAILY Qty: 90 RF: 3 acyclovir 400 mg tablet 400 mg PO TID PRN (Reason: recurrent viral infection) Qty: 15 RF: 1 triamcinolone acetonide 0.5 % ointment 1 applic TP BID Qty: 60 RF: 1 montelukast 10 mg tablet 10 mg PO DAILY Qty: 90 RF: 3 lorazepam 1 mg tablet 1 mg PO .qHS Qty: 28 RF: 2 Hold Instructions: Home Medication placed on hold at Doctor's office prednisone 5 mg tablet 5 mg PO DAILY RF: 0 atorvastatin 40 mg tablet 40 mg PO QPM RF: 0 pantoprazole [Protonix] 40 mg tablet,delayed release (DR/EC) 40 mg PO DAILY RF: 0 gabapentin 300 mg capsule 900 mg PO TID RF: 0 Medical Decision Making Case was discussed with Dr. Small, urologist at [facility], ceftriaxone was ordered for obstructive uropathy with secondary urinary tract infection patient will need transfer to [facility] for placement of stent Patient is agreeable to transfer at this time He has been stable throughout the encounter Urine will be sent for culture Care will be transferred to Dr. Gurrola pending transfer to [facility] Glucose 172, no evidence of diabetic ketoacidosis Differential Diagnosis Differential Diagnosis: Urinary tract infection, ureterolithiasis, diverticulitis, colitis Medical Records Medical records reviewed: Yes I reviewed the patient's medical records. Lab Data Lab results reviewed: Yes I reviewed the patient's lab results. HPI This 70-year-old with history of diabetes mellitus, hypothyroidism, kidney cutaneous T-cell lymphoma, ureterolithiasis male presents with report of left flank pain. He states he passed a kidney stone 2 weeks ago and started with some pain this afternoon in his left flank. He denies any chest pain or shortness of breath. Patient denies fever or chills. Denies any hematuria or dysuria denies known exacerbating or alleviating factors. Denies any falls or injuries. General Date/Time Provider Initiated Documentation: 11/03/20 20:45. Related Data Home Medications Medication Instructions Recorded Confirmed triamcinolone acetonide 0.5 % 1 applic TP BID #60 gm 01/21/19 09/26/20 topical ointment lisinopril 20 mg tablet 10 mg PO DAILY tab 09/13/19 11/03/20 montelukast 10 mg tablet 10 mg PO DAILY #90 tab-cap 11/09/19 11/03/20 acyclovir 400 mg tablet 400 mg PO TID PRN #15 tab 02/24/20 11/03/20 betamethasone, augmented 0.05 % 1 applic TP QD-BID PRN #50 gm 02/24/20 11/03/20 topical ointment escitalopram oxalate 10 mg tablet 10 mg PO DAILY #90 tab-cap 02/24/20 11/03/20 lorazepam 1 mg tablet 1 mg PO .qHS #28 tab 09/05/20 11/03/20 apixaban 5 mg tablet 5 mg PO BID 09/13/20 11/03/20 metoprolol succinate 25 mg 25 mg PO BID 09/13/20 11/03/20 tablet,extended release 24 hr atorvastatin 40 mg tablet 40 mg PO QPM 09/26/20 11/03/20 prednisone 5 mg tablet 5 mg PO DAILY 09/26/20 gabapentin 300 mg capsule 900 mg PO TID cap 10/30/20 11/03/20 pantoprazole 40 mg tablet,delayed 40 mg PO DAILY 10/30/20 11/03/20 release Previous Rx's Medication Instructions Recorded triamcinolone acetonide 0.5 % 1 applic TP BID #60 gm 01/21/19 topical ointment montelukast 10 mg tablet 10 mg PO DAILY #90 tab-cap 11/09/19 acyclovir 400 mg tablet 400 mg PO TID PRN #15 tab 02/24/20 betamethasone, augmented 0.05 % 1 applic TP QD-BID PRN #50 gm 02/24/20 topical ointment escitalopram oxalate 10 mg tablet 10 mg PO DAILY #90 tab-cap 02/24/20 lorazepam 1 mg tablet 1 mg PO .qHS #28 tab 09/05/20 Allergies Allergy/AdvReac Type Severity Reaction Status Date / Time No Known Allergies Allergy Verified 11/03/20 20:47 General Stated Complaint: FlankPain IVAN: 3 Review of Systems Narrative: Review of systems obtained x7 aside from where indicated in HPI [facility] Medical History Adenocarcinoma of prostate [place] White [place] [facility] [place] T3a[place]0, Wil 3+4 s/p RALP 11/2016, low detectable PSA Anxiety Atrial fibrillation INR managed via Cardiology [facility] [place],paroxysmal A Flutter Atrial flutter Bilateral carpal tunnel syndrome (07/28/17) BMI 35.0-35.9,adult (08/13/17) BPH w/o urinary obs/LUTS (07/28/17) CAD (coronary artery disease) Calculus of kidney (07/28/17) Hx multiple kidney stones, experienced with passing large stones. Current large calc, monitoried by [facility]OL [facility] [place] Elevated prostate specific antigen (PSA) (07/28/17) Essential hypertension Essential hypertension (07/28/17) BPs well-controlled. Active. Generalized anxiety disorder (07/28/17) Manages well with meds, incl low-dose benzodiaz. 15 yrs sobriety this 2018. History of kidney stones History of malignant neoplasm of prostate Hx of herpes simplex infection Hyperlipidemia (07/28/17) Obesity (BMI 35.0-39.9 without comorbidity) Rash Macular rash, with mild plaque-like eruption. Excoriated 2' pruritis, somewhat managed with Benadryl. Tobacco use disorder (08/13/17) Quit cigarettes, 1985. One cigar daily Tubular adenoma (03/12/18) Xerosis cutis Barrier Repair via vinegar spray + AmLactin See DERM consult, 02/28/2020 Surgical History Arthroplasty of knee (~2013) Left-Meniscal Tear- Colonoscopy - MAC (03/12/18) Hx of Torsion (R)Testicle Lithotripsy Prostate Biopsy (12/02/01) Rising PSA-Negative Robotic Prostatectomy for Wil 7 (11/19/16) Intermediate Risk Prostate Cancer- Family History Mother Hyperlipidemia Father CAD (coronary artery disease) Neoplasm Kidney Grandfather Neoplasm Prostate Social History Smoking/Tobacco Use Status: Current every day Tobacco Type: cigars Per week: 7 Tobacco: How many years used: 6 Smoking risk assessment performed?: Yes Alcohol Intake: former Year quit: 15 Drug use: Never Substance use type: does not use Adopted: No Household members: spouse Housing: condominium Number of Children: 4 Communication Needs: Corrective Lenses 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 Exam Const General: no acute distress Resp Effort & Inspection: normal respiratory effort Cardio Rate: tachycardic Rhythm: abnormal rhythm GI Other: Left flank tenderness on exam, mild suprapubic tenderness Skin General skin exam: no rashes or lesions noted Neuro General: patient alert and patient oriented x3 Course Vital Signs Vital signs: Vital Signs Temperature 36.5 C 11/03/20 20:43 Pulse 122 H 11/03/20 20:43 Respiratory Rate 16 11/03/20 20:43 Blood Pressure 138/93 H 11/03/20 20:43 Pulse Oximetry 98 11/03/20 20:43 Temperature 36.5 C 11/03/20 20:43 Temperature Source Tympanic 11/03/20 20:43 Pulse 122 H 11/03/20 20:43 Respiratory Rate 16 11/03/20 20:43 Respiratory Effort Non-Labored 11/03/20 20:43 Blood Pressure 138/93 H 11/03/20 20:43 Blood Pressure Position Sitting 11/03/20 20:43 Pulse Oximetry 98 11/03/20 20:43 Oxygen Delivery Method Room Air 11/03/20 20:43 Oxygen Flow Rate 0 11/03/20 20:43 Pain Level 8 11/03/20 20:59
[2020-11-03 21:03] LABS: Abs Immature Grans 0.01 10^3/uL (0.0-0.06); Absolute Basophil Count 0.01 10^3/uL (0.0-0.2); Basophils % 0.2; HCT 40.8 % (40.0-50.0); HGB 13.8 g/dL (13.5-17.5); Immature Grans % 0.2; MCH 31.2 pg (27.0-33.0); MCHC 33.8 % (32.0-36.0); MCV 92.1 fL (80-95); Nucleated RBC 0 %; Platelet Count 134 10^3/uL (130-400); RBC 4.43 10^6/uL (4.36-5.78); RDW 13.9 % (11.8-14.1); RDW-SD 46.5 fL
[2020-11-03 21:14] LABS: ALT 33 U/L (16-63); AST 25 U/L (15-37); Albumin 3.7 g/dL (3.4-5.0); Alkaline Phosphatase 123 U/L (46-116); Anion Gap 8.4 mmol/L (3-11); BUN 15 mg/dL (7-18); Bilirubin, Total 1.5 mg/dL (0.2-1.0); CO2 26.6 mmol/L (21.0-32.0); Calcium 8.9 mg/dL (8.5-10.1); Chloride 108 mmol/L (98-107); Glucose 172 mg/dL (74-106); Potassium 3.8 mmol/L (3.5-5.1); Sodium 143 mmol/L (136-145); Total Protein 6.8 g/dL (6.4-8.2)
[2020-11-03] MEDS: Metoprolol CR 25 MG TABCR PO (21:15)
[2020-11-03] MEDS: fentaNYL 100 MCG/2 ML VIAL 50 MCG IVP (21:15)
[2020-11-03 21:18] LABS: Bilirubin Negative (Negative); Blood Large (Negative); Clarity Sl Cloudy (Clear); Glucose Negative (Negative); Ketones Negative (Negative); Leukocyte Esterase Small (Negative); Nitrite Positive (Negative); Specific Gravity 1.025 (1.005-1.025); Urobilinogen 0.2 EU/dL (Up TO 0.2); pH 5.5 (5-8)
[2020-11-03 21:26] LABS: Bacteria Packed HPF (Negative); C & S Indicated? Yes; Casts Negative LPF (Negative); Crystals Negative HPF (Negative); Epithelial Cells Rare HPF (Negative); Mucus Negative (Negative); RBC >50 HPF (0-2); WBC 20-50 HPF (0-5)
[2020-11-03 21:42] LABS: Absolute Neutrophil Count 2.69 10^3/uL (1.2-6.7); Bands % 3
[2020-11-03 21:43] LABS: Absolute Eosinophil Count 0.14 10^3/uL (0.0-0.7); Absolute Lymphocyte Count 1.15 10^3/uL (1.2-3.4); Absolute Monocyte Count 0.82 10^3/uL (0.1-0.8); Atypical Lymphocytes % 3
[2020-11-03 21:44] LABS: Diff Comment Manual Differential; RBC Morphology Normal
[2020-11-03] MEDS: Normal Saline 500 ML IV ×3 (21:55→23:51)
--- NOTE | 2020-11-03 22:29 | DI.VRAD_ITS ---
PROCEDURE INFORMATION: Exam: CT Abdomen And Pelvis Without Contrast Exam date and time: 11/03/2020 9:25 PM Age: 70 years old Clinical indication: Other: Flank pain; Patient HX: HX kidney are ureter stones TECHNIQUE: Imaging protocol: Computed tomography of the abdomen and pelvis without contrast. Total images: 1274 COMPARISON: CT CHEST/ABD/PEL W 04/24/2020 10:03 AM FINDINGS: Lungs: Lung bases are unremarkable. Mediastinal space: Small hiatal hernia. Liver: There are scattered hepatic cysts unchanged from the prior study. Gallbladder and bile ducts: There are couple of small chronic dependent calcified stones in the gallbladder. No stones seen in the common duct. No signs of gallbladder inflammation. Pancreas: No mass or peripancreatic edema. Spleen: No splenomegaly. 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 Kidneys and ureters: There are a couple of small parenchymal stone in the lower pole the right kidney. No right ureteral stone or hydronephrosis. There is a right lower pole scar and a right upper pole cyst. There are multiple predominantly medullary calculi within the left kidney, largest measuring up to approximately 1.2 cm. There is moderate left hydroureteral nephrosis which can be followed to a 6 mm left ureteral vesicle junction stone. There is left renal enlargement and asymmetric left perinephric stranding. Stomach and bowel: There is mild gastric distension which may be secondary to ileus. There is moderate to significant fecal loading. No small bowel dilatation. No pericolonic inflammation. Appendix: Unremarkable appendix. Intraperitoneal space: No free air or free fluid. Vasculature: No abdominal aortic aneurysm. Lymph nodes: There are an increased number of small bilateral inguinal nodes similar to the prior study. Urinary bladder: Bladder is not well distended limiting evaluation. Reproductive: Unremarkable as visualized. Bones/joints: There is significant degenerative disc disease in the visualized lower thoracic and lumbar spine. Soft tissues: Extra-abdominal soft tissues are unremarkable. IMPRESSION: 1. 6 mm obstructing left UVJ stone. 2. Significant residual left-sided medullary nephrocalcinosis. 3. Chronic cholelithiasis. Dictated and Authenticated by: Blu Paz MD. Ordering:CRISTINA Velarde MD
[2020-11-03] MEDS: cefTRIAXone 2 GM VIAL IV (22:50)
[2020-11-03] MEDS: Metoprolol 5 MG/5 ML VIAL IVP (23:52)
[2020-11-04] VITALS (23 sets, daily range): BP systolic 119–141; BP diastolic 77–95; PULSE 68–144; O2SAT 92–99
--- NOTE | 2020-11-04 17:03 | NUR.NOTE ---
Nursing Note: Faxed to [facility] a CT abd/pelvis report that had an incidental finding of lung. For that office to follow up with patient in regards to per Dr. Harley. Amaya Rashid
== END 2020-11-04 03:20 ==
PROVIDERS: Emergency Provider Physician Assistant; PCP Student in an Organized Health Care Education/Training Program
DX: N13.6 Pyonephrosis (principal); B96.20 Unspecified Escherichia coli [E. coli] as the cause of diseases classified elsewhere; R91.1 Solitary pulmonary nodule; Z87.442 Personal history of urinary calculi
CPT/HCPCS: 36415; 80053; 87077; 93005; 96361; 96365; 96375; 96376; 99285; 74176; 81003; 81015; 85025; 87086; 87186; 93010; J0696; J3010

== ENCOUNTER → 2020-11-12 12:48 | Outpatient (BNVA) | payer MEDICARE, BC, SELFPAY | PROVIDERS: PCP Student in an Organized Health Care Education/Training Program; Referring Provider Student in an Organized Health Care Education/Training Program; Visit Provider Urology | DX: N20.0 Calculus of kidney (principal) | CPT/HCPCS: 81003; 99213; 99215 ==

== ENCOUNTER 2020-11-13 07:26 | Outpatient (CLI) | payer MEDICARE, BC, SELFPAY | END 2020-11-13 07:27 | disposition home or self-care (01) | LOC: RT 07:28 | PROVIDERS: PCP Student in an Organized Health Care Education/Training Program; Visit Provider Internal Medicine Hematology & Oncology | DX: C84.A0 Cutaneous T-cell lymphoma, unspecified, unspecified site (principal); Z79.899 Other long term (current) drug therapy | CPT/HCPCS: 93005; 93010 ==

== ENCOUNTER 2020-11-27 03:37 | Outpatient (CLI) | payer MEDICARE, BC, SELFPAY ==
[2020-11-27 10:37] LABS: Abs Immature Grans 0.01 10^3/uL (0.0-0.06); HCT 42.9 % (40.0-50.0); HGB 14.2 g/dL (13.5-17.5); MCH 31.3 pg (27.0-33.0); MCHC 33.1 % (32.0-36.0); MCV 94.7 fL (80-95); MPV 9.3 fL (8.0-11.0); Nucleated RBC 0 %; Platelet Count 159 10^3/uL (130-400); RBC 4.53 10^6/uL (4.36-5.78); RDW 14.3 % (11.8-14.1); RDW-SD 49.9 fL; WBC 5.51 10^3/uL (4.4-10.8)
[2020-11-27 10:53] LABS: Absolute Neutrophil Count 2.15 10^3/uL (1.2-6.7)
[2020-11-27 10:54] LABS: Absolute Lymphocyte Count 2.37 10^3/uL (1.2-3.4)
[2020-11-27 10:55] LABS: Absolute Eosinophil Count 0.06 10^3/uL (0.0-0.7); Absolute Monocyte Count 0.94 10^3/uL (0.1-0.8); Atypical Lymphocytes % 11
[2020-11-27 10:56] LABS: Diff Comment Manual Differential; RBC Morphology Normal
[2020-11-27 11:00] LABS: ALT 31 U/L (16-63); AST 28 U/L (15-37); Albumin 3.7 g/dL (3.4-5.0); Alkaline Phosphatase 107 U/L (46-116); Anion Gap 7.8 mmol/L (3-11); BUN 15 mg/dL (7-18); Bilirubin, Total 1.3 mg/dL (0.2-1.0); CO2 31.2 mmol/L (21.0-32.0); CREATININE 1.1 mg/dL (0.70-1.30); Calcium 9.1 mg/dL (8.5-10.1); Calculated LDL 66 mg/dL (<100); Chloride 110 mmol/L (98-107); Cholesterol 137 mg/dL (<200); FREE T4 0.65 ng/dL (0.76-1.46); Glucose 131 mg/dL (74-106); HDL Cholesterol 43 mg/dL (40-60); Magnesium 1.8 mg/dL (1.8-2.4); Potassium 5.1 mmol/L (3.5-5.1); Sodium 149 mmol/L (136-145); Total Protein 6.8 g/dL (6.4-8.2); Triglyceride 142 mg/dL (<150)
== END 2020-11-27 03:38 | disposition home or self-care (01) ==
LOC: LBO 03:37
PROVIDERS: Internal Medicine Hematology & Oncology; PCP Student in an Organized Health Care Education/Training Program; Visit Provider Internal Medicine Hematology & Oncology
DX: C84.A5 Cutaneous T-cell lymphoma, unspecified, lymph nodes of inguinal region and lower limb (principal); E03.2 Hypothyroidism due to medicaments and other exogenous substances
CPT/HCPCS: 36415; 80053; 80061; 83735; 84439; 85025

== ENCOUNTER 2020-11-27 03:52 | Outpatient (CLI) | payer MEDICARE, BC, SELFPAY ==
--- NOTE | 2020-11-27 10:30 | RT.EKG_ITS ---
APPROVED REPORT Exam: Resting ECG Reason for Exam: Chemo Patient Location: O HR:117 bpm ECG Measurements Heart Rate 117 [address] [place] [id number] P [id number] QRSd 95 QRS -22 QT 357 T 24 QTc 498 Conclusion Atrial fibrillation...V-rate 86-160, irreg A-activity
== END 2020-11-27 03:53 | disposition home or self-care (01) ==
LOC: RT 03:53
PROVIDERS: PCP Student in an Organized Health Care Education/Training Program; Visit Provider Student in an Organized Health Care Education/Training Program
DX: Z79.899 Other long term (current) drug therapy (principal); I48.91 Unspecified atrial fibrillation; C84.A5 Cutaneous T-cell lymphoma, unspecified, lymph nodes of inguinal region and lower limb; E03.2 Hypothyroidism due to medicaments and other exogenous substances
CPT/HCPCS: 36415; 80053; 80061; 93010; 83735; 84439; 85025; 93005

== ENCOUNTER 2020-12-04 03:23 | Outpatient (CLI) | payer MEDICARE, BC, SELFPAY ==
[2020-12-04 10:26] LABS: HCT 43.2 % (40.0-50.0); HGB 14.5 g/dL (13.5-17.5); MCH 30.9 pg (27.0-33.0); MCHC 33.6 % (32.0-36.0); MCV 92.1 fL (80-95); MPV 9.8 fL (8.0-11.0); Nucleated RBC 0 %; RBC 4.69 10^6/uL (4.36-5.78); RDW 13.6 % (11.8-14.1); WBC 4.55 10^3/uL (4.4-10.8)
[2020-12-04 11:04] LABS: Absolute Eosinophil Count 0.05 10^3/uL (0.0-0.7); Absolute Lymphocyte Count 2.32 10^3/uL (1.2-3.4); Absolute Monocyte Count 0.55 10^3/uL (0.1-0.8); Absolute Neutrophil Count 1.64 10^3/uL (1.2-6.7); Atypical Lymphocytes % 2; Bands % 3; Platelet Count 94 10^3/uL (130-400)
[2020-12-04 11:05] LABS: Diff Comment Manual Differential; RBC Morphology Normal
[2020-12-04 11:44] LABS: ALT 26 U/L (16-63); AST 28 U/L (15-37); Albumin 3.8 g/dL (3.4-5.0); Alkaline Phosphatase 113 U/L (46-116); Anion Gap 11.3 mmol/L (3-11); BUN 11 mg/dL (7-18); Bilirubin, Total 1.4 mg/dL (0.2-1.0); CO2 25.7 mmol/L (21.0-32.0); Calcium 8.7 mg/dL (8.5-10.1); Chloride 108 mmol/L (98-107); FREE T4 0.63 ng/dL (0.76-1.46); Glucose 160 mg/dL (74-106); Magnesium 1.5 mg/dL (1.8-2.4); Potassium 3.9 mmol/L (3.5-5.1); Sodium 145 mmol/L (136-145); Total Protein 6.7 g/dL (6.4-8.2)
[2020-12-04 12:05] LABS: Calculated LDL 75 mg/dL (<100); Cholesterol 151 mg/dL (<200); HDL Cholesterol 36 mg/dL (40-60); Triglyceride 203 mg/dL (<150)
== END 2020-12-04 03:24 | disposition home or self-care (01) ==
PROVIDERS: PCP Student in an Organized Health Care Education/Training Program; Visit Provider Internal Medicine Hematology & Oncology
DX: C84.A5 Cutaneous T-cell lymphoma, unspecified, lymph nodes of inguinal region and lower limb (principal)
CPT/HCPCS: 80053; 80061; 83735; 84439; 85025

== ENCOUNTER 2020-12-04 03:37 | Outpatient (CLI) | payer MEDICARE, BC, SELFPAY ==
--- NOTE | 2020-12-04 10:15 | RT.EKG_ITS ---
APPROVED REPORT Exam: Resting ECG Reason for Exam: lymphoma Patient Location: O HR:132 bpm ECG Measurements Heart Rate 132 [address] [place] [id number] P [id number] QRSd 92 QRS -28 QT 283 T 176 QTc 420 Conclusion Atrial fibrillation...? atrial activity
== END 2020-12-04 03:38 | disposition home or self-care (01) ==
LOC: RT 03:37
PROVIDERS: PCP Student in an Organized Health Care Education/Training Program; Visit Provider Internal Medicine Hematology & Oncology
DX: I48.91 Unspecified atrial fibrillation (principal); C84.A5 Cutaneous T-cell lymphoma, unspecified, lymph nodes of inguinal region and lower limb; E03.2 Hypothyroidism due to medicaments and other exogenous substances
CPT/HCPCS: 80053; 80061; 83735; 84439; 85025; 93005; 93010

== ENCOUNTER 2020-12-11 03:22 | Outpatient (CLI) | payer MEDICARE, BC, SELFPAY ==
[2020-12-11 11:47] LABS: HCT 43.5 % (40.0-50.0); HGB 14.7 g/dL (13.5-17.5); MCH 30.9 pg (27.0-33.0); MCHC 33.8 % (32.0-36.0); MCV 91.6 fL (80-95); MPV 10.3 fL (8.0-11.0); Nucleated RBC 0 %; Platelet Count 73 10^3/uL (130-400); RBC 4.75 10^6/uL (4.36-5.78); RDW 13.7 % (11.8-14.1); RDW-SD 45.9 fL; WBC 5.14 10^3/uL (4.4-10.8)
[2020-12-11 12:04] LABS: Absolute Lymphocyte Count 3.14 10^3/uL (1.2-3.4); Absolute Monocyte Count 0.51 10^3/uL (0.1-0.8); Absolute Neutrophil Count 1.49 10^3/uL (1.2-6.7); Bands % 1; Diff Comment Manual Differential
[2020-12-11 12:05] LABS: RBC Morphology Normal
[2020-12-11 12:23] LABS: ALT 25 U/L (16-63); AST 19 U/L (15-37); Albumin 3.7 g/dL (3.4-5.0); Alkaline Phosphatase 114 U/L (46-116); Anion Gap 12.1 mmol/L (3-11); BUN 15 mg/dL (7-18); Bilirubin, Total 1.3 mg/dL (0.2-1.0); CO2 25.9 mmol/L (21.0-32.0); Calcium 8.8 mg/dL (8.5-10.1); Calculated LDL 69 mg/dL (<100); Chloride 109 mmol/L (98-107); Cholesterol 130 mg/dL (<200); Glucose 155 mg/dL (74-106); HDL Cholesterol 35 mg/dL (40-60); Magnesium 1.7 mg/dL (1.8-2.4); Potassium 3.8 mmol/L (3.5-5.1); Sodium 147 mmol/L (136-145); Total Protein 6.6 g/dL (6.4-8.2); Triglyceride 130 mg/dL (<150)
[2020-12-11 12:43] LABS: FREE T4 0.71 ng/dL (0.76-1.46)
== END 2020-12-11 03:23 | disposition home or self-care (01) ==
PROVIDERS: PCP Student in an Organized Health Care Education/Training Program; Visit Provider Internal Medicine Hematology & Oncology
DX: C84.A5 Cutaneous T-cell lymphoma, unspecified, lymph nodes of inguinal region and lower limb (principal); E03.2 Hypothyroidism due to medicaments and other exogenous substances
CPT/HCPCS: 36415; 80053; 80061; 83735; 84439; 85025

== ENCOUNTER 2020-12-11 03:49 | Outpatient (CLI) | payer MEDICARE, BC, SELFPAY ==
--- NOTE | 2020-12-11 11:15 | RT.EKG_ITS ---
APPROVED REPORT Exam: Resting ECG Reason for Exam: CA tx Patient Location: O HR:121 bpm ECG Measurements Heart Rate 121 [address] NE [id number] P [id number] QRSd 94 QRS -19 QT [id number] T [id number] QTc 0 Conclusion Atrial fibrillation...V-rate 85-165, irreg A-activity
== END 2020-12-11 03:50 | disposition home or self-care (01) ==
LOC: RT 03:49
PROVIDERS: PCP Student in an Organized Health Care Education/Training Program; Visit Provider Internal Medicine Hematology & Oncology
DX: C84.A0 Cutaneous T-cell lymphoma, unspecified, unspecified site (principal); Z79.899 Other long term (current) drug therapy; C84.A5 Cutaneous T-cell lymphoma, unspecified, lymph nodes of inguinal region and lower limb; E03.2 Hypothyroidism due to medicaments and other exogenous substances
CPT/HCPCS: 36415; 80053; 80061; 83735; 84439; 85025; 93005; 93010

== ENCOUNTER 2021-01-15 13:39 | Inpatient (IN) | payer MEDICARE, BC, SELFPAY ==
[2021-01-15] VITALS (89 sets, daily range): BP systolic 72–114; BP diastolic 27–75; PULSE 75–186; RESP 13–30; TEMP 37.4–38.3; O2SAT 91–98
--- NOTE | 2021-01-15 13:30 | RT.EKG_ITS ---
APPROVED REPORT Exam: Resting ECG Reason for Exam: fever Patient Location: E HR:177 bpm ECG Measurements Heart Rate 177 [address] [place] [id number] P [id number] QRSd 81 QRS -74 QT 276 T 81 QTc 474 Conclusion Atrial fibrillation with rapid V-rate...A-rate 380 Left anterior fascicular block...axis(240,-40), init forces inf Nonspecific T abnormalities, lateral leads...T <-0.10mV, I aVL V5 V6 Physician: no stemi
--- NOTE | 2021-01-15 13:45 | DI.RAD_ITS ---
Exam(s) XR PORTABLE CHEST AP EXAM: XR PORTABLE CHEST AP CLINICAL HISTORY: r/o pneumonia. TECHNIQUE: 2D digital imaging was performed. COMPARISON: CR CHEST 2 VIEWS PA,LAT from 03/19/2017 FINDINGS: Heart size upper normal. The mediastinum is not widened. There are increased vascular markings, probably an element of venous hypertension. No pablito airspace edema. No pleural effusions evident on this portable view. There is no pneumothorax. IMPRESSION: Increased bilateral markings as described above. Recommend non portable upright PA and lateral views when clinically possible. DATA REPOSITORY: RADIATION DOSE DELIVERED: All CT scans at this facility use at least one of these dose optimization techniques: automated exposure control; mA and/or kV adjustment per patient size (includes targeted e xams where dose is matched to clinical indication); or iterative reconstruction.
[2021-01-15] MEDS: Normal Saline 1,000 ML 1000 ML IV (14:00)
[2021-01-15] MEDS: PIPERACILLIN/TAZO 4.5 GM in Normal Saline 100 ML IVPB (14:01)
--- NOTE | 2021-01-15 14:14 | ED.GENADUL_ITS ---
Discharge Plan Disposition Patient Disposition: [facility] INPATIENT Condition: Critical Discharge Details Clinical Impression: Septic shock, Acute pyelonephritis, Atrial fibrillation with rapid ventricular response, Hypomagnesemia Primary Care Provider: Becky Hardy ED Provider: Dima Gurrola Home Meds and New Rx's Prescriptions: No Action Eliquis 5 mg tablet 5 mg PO BID RF: 0 metoprolol succinate 25 mg tablet extended release 24 hr 25 mg PO BID RF: 0 oxycodone 5 mg tablet 5 - 10 mg PO Q6H MDD 8 PRN (Reason: pain) Qty: 30 RF: 0 lisinopril 20 mg tablet 10 mg PO DAILY RF: 0 Hold Instructions: Home Medication placed on hold at Doctor's office betamethasone, augmented 0.05 % ointment 1 applic TP QD-BID PRN (Reason: rash) Qty: 50 RF: 1 acyclovir 400 mg tablet 400 mg PO TID PRN (Reason: recurrent viral infection) Qty: 15 RF: 1 lorazepam 1 mg tablet 1 mg PO .qHS Qty: 28 RF: 2 Hold Instructions: Home Medication placed on hold at Doctor's office triamcinolone acetonide 0.5 % ointment 1 applic TP BID Qty: 60 RF: 1 atorvastatin 40 mg tablet 40 mg PO QPM RF: 0 pantoprazole [Protonix] 40 mg tablet,delayed release (DR/EC) 40 mg PO DAILY RF: 0 gabapentin 300 mg capsule 900 mg PO TID RF: 0 montelukast 10 mg tablet 10 mg PO DAILY Qty: 90 RF: 3 Medical Decision Making This is a pleasant 70-year-old male with a past medical history of cutaneous T-cell lymphoma, chronic kidney stones, atrial fibrillation on apixaban previous UTIs that were complicated by said kidney stones, hypertension, BPH, who presents today for evaluation of fever. He is currently receiving chemotherapy for his cutaneous T-cell lymphoma, patient does admit to a chronic cough, he states that over the last 3 hours he has developed fever, chills, he also noticed it when he took his normal tamponade mechanism off of his penis or his chronic incontinence is a significant amount of blood and urine that came out, much more than normal. Shortly thereafter he developed a fever and chills. He denies any significant chest pain. He admits to mild shortness of breath. No other complaints at this time. He denies any other modifying factors Physical exam demonstrates no abdominal tenderness, clear lung sounds, and unremarkable genital aside for small amount of blood out of his urethral meatus. Patient is tachycardic, febrile, heart rate is one 90-200. Blood pressure is 120 systolic. With the patient's history of kidney stones and concern his most for urosepsis with his immunocompromise state, we will start broad-spectrum antibiotics vancomycin and Zosyn, rehydrate, hold off on Cardizem or metoprolol. My concern is that the A. fib with RVR is a response to him being septic. Will monitor closely and reassess. 4:26 PM [facility] to stated that there fall and unable to accept the patient. Work-up shows white count of four with neutropenia, lactate is 3.4, electrolytes stable aside from mildly elevated sodium at 147. Mag is slightly low at 1.5. Troponin normal, thyroid function stable, urinalysis greater than 50 RBCs and greater than 50 WBCs. Covid test is negative. CT scan was ordered to make sure there was no obstructing stone, CT scan per Dr. Liu states that there is no evidence of stone or acute process aside for concerning and clear evidence for pyelonephritis. This would correlate clinically with our suspicions. After 2 L of fluid the patient's heart rate improved to the 160s from the initial 200, but he still remains in A. fib with RVR. Unfortunately his blood pressure also notably diminished which I feel is a reflection of septic shock, rather than a byproduct of the A. fib with RVR. A left femoral central line was placed without complication. Patient tolerated this well. Levophed was started titrating for a map of 65. As I do not feel that metoprolol would be benefit for the patient hemodynamic status especially in regards to the potential pressure implications we will start amiodarone at a bolus of . 150 followed by 1 mg/min I did discuss the case with Dr. Damon, he agrees with the assessment and plan. We will also give 2 g of magnesium we will reach out to [facility] again to see if they have any potential change in bed status or their availability. I have extensively reviewed the treatment plan and discharge instructions with the patient. I have addressed all patient concerns at this time. The patient was made aware of what symptoms to monitor for that would warrant a return to the emergency department. Discussed the plan with the patien t, they demonstrate verbal understanding and agreement with our assessment and plan at this time. The documentation in this chart was dictated using [employer] dictation software. Please excuse any dictation errors. 5 PM [facility] still does not have any beds available, they did offer a potential transition to [facility] later tonight or tomorrow, but patient refused this. On reassessment patient actually looks significantly better, he is joking, interactive, heart rate is coming down to the 140s, patient feels much better. The department of ICU was contacted and they agree with the current plan at this time of broad-spectrum antibiotics, amiodarone, and Levophed as needed. FINDINGS: Images obtained through the lung bases again show a stable 10 millimeter in diameter right basilar pulmonary nodule. Numerous small low-attenuation hepatic lesions are seen, reportedly previously identified as cysts, no gross interval change in appearance from prior study.. Visualized portions of the liver and spleen appear intact. Visualized portions of the pancreas are unremarkable. Note is made of cholelithiasis without evidence of biliary dilatation. Abdominal aorta is of normal diameter. No significant abdominal wall hernia. No significant abdominal or pelvic adenopathy. Adrenals appear normal bilaterally. There is a presumed right upper pole renal cyst, unchanged from prior CT. The left kidney contains numerous calcifications which appear to be nonobstructing. Left kidney appears mildly enlarged and there is increased left Anny renal fat stranding comparison to the prior examination of November 03. Note is made of a small quantity of gas in the collecting system of the left kidney, this may be secondary to infectious process. No ureteral dilatation or calcification identified. Urinary bladder is empty with a Hair catheter in place. Moderate stool burden in the rectosigmoid. IMPRESSION: Multiple left renal calculi, left renal enlargement and increased Anny nephric fat stranding, small quantity of gas in the collecting system, these findings may represent left pyelonephritis. Please correlate clinically. Additional findings as described above. HPI General Date/Time Provider Initiated Documentation: 01/15/21 13:45 . HPI Narrative: This is a pleasant 70-year-old male with a past medical history of cutaneous T-cell lymphoma, chronic kidney stones, atrial fibrillation on apixaban previous UTIs that were complicated by said kidney stones, hypertension, BPH, who presents today for evaluation of fever. He is currently receiving chemotherapy for his cutaneous T-cell lymphoma, patient does admit to a chronic cough, he states that over the last 3 hours he has developed fever, chills, he also noticed it when he took his normal tamponade mechanism off of his penis or his chronic incontinence is a significant amount of blood and urine that came out, much more than normal. Shortly thereafter he developed a fever and chills. He denies any significant chest pain. He admits to mild shortness of breath. No other complaints at this time. He denies any other modifying factors Related Data Home Medications Medication Instructions Recorded Confirmed triamcinolone acetonide 0.5 % 1 applic TP BID #60 gm 01/21/19 01/15/21 topical ointment lisinopril 20 mg tablet 10 mg PO DAILY tab 09/13/19 01/15/21 acyclovir 400 mg tablet 400 mg PO TID PRN #15 tab 02/24/20 12/13/20 betamethasone, augmented 0.05 % 1 applic TP QD-BID PRN #50 gm 02/24/20 01/15/21 topical ointment apixaban 5 mg tablet 5 mg PO BID 09/13/20 01/15/21 metoprolol succinate 25 mg 25 mg PO BID 09/13/20 01/15/21 tablet,extended release 24 hr atorvastatin 40 mg tablet 40 mg PO QPM 09/26/20 01/15/21 gabapentin 300 mg capsule 900 mg PO TID cap 10/30/20 01/15/21 pantoprazole 40 mg tablet,delayed 40 mg PO DAILY 10/30/20 01/15/21 release oxycodone 5 mg tablet 5 - 10 mg PO Q6H PRN #30 tab MDD 8 11/12/20 01/15/21 lorazepam 1 mg tablet 1 mg PO .qHS #28 tab 12/13/20 01/15/21 montelukast 10 mg tablet 10 mg PO DAILY #90 tab-cap 12/13/20 01/15/21 Previous Rx's Medication Instructions Recorded triamcinolone acetonide 0.5 % 1 applic TP BID #60 gm 01/21/19 topical ointment acyclovir 400 mg tablet 400 mg PO TID PRN #15 tab 02/24/20 betamethasone, augmented 0.05 % 1 applic TP QD-BID PRN #50 gm 02/24/20 topical ointment oxycodone 5 mg tablet 5 - 10 mg PO Q6H PRN #30 tab MDD 8 11/12/20 lorazepam 1 mg tablet 1 mg PO .qHS #28 tab 12/13/20 montelukast 10 mg tablet 10 mg PO DAILY #90 tab-cap 12/13/20 Allergies Allergy/AdvReac Type Severity Reaction Status Date / Time No Known Allergies Allergy Verified 01/15/21 13:48 General Stated Complaint: Fever IVAN: 3 Review of Systems All systems reviewed & are unremarkable except as noted in HPI and below PFSH Medical History Adenocarcinoma of prostate [place] White [place] [facility] [place] [id number], Wil 3+4 s/p RALP 11/2016, low detectable PSA Anxiety Atrial fibrillation IN[place] [facility] [place],paroxysmal A Flutter Atrial flutter Bilateral carpal tunnel syndrome (07/28/17) BMI 35.0-35.9,adult (08/13/17) BPH w/o urinary obs/LUTS (07/28/17) CAD (coronary artery disease) Calculus of kidney (07/28/17) [place] [facility] [place] Hx multiple kidney stones, experienced with passing large stones. Current large calc, monitoried [place] [facility] [place] Elevated prostate specific antigen (PSA) (07/28/17) Essential hypertension Essential hypertension (07/28/17) BPs well-controlled. Active. Generalized anxiety disorder (07/28/17) Manages well with meds, incl low-dose benzodiaz. 15 yrs sobriety this 2018. History of kidney stones History of malignant neoplasm of prostate Hx of herpes simplex infection Hyperlipidemia (07/28/17) Kidney stones Obesity (BMI 35.0-39.9 without comorbidity) Rash Macular rash, with mild plaque-like eruption. Excoriated 2' pruritis, somewhat managed with Benadryl. Tobacco use disorder (08/13/17) Quit cigarettes, 1985. One cigar daily Tubular adenoma (03/12/18) Xerosis cutis Barrier Repair via vinegar spray + AmLactin See DERM consult, 02/28/2020 Surgical History Arthroplasty of knee (~2013) Left-Meniscal Tear- Colonoscopy - MAC (03/12/18) Hx of Torsion (R)Testicle Lithotripsy Prostate Biopsy (12/02/01) Rising PSA-Negative Robotic Prostatectomy for [place] 7 (11/19/16) Intermediate Risk Prostate Cancer- Family History Mother Hyperlipidemia Father CAD (coronary artery disease) Neoplasm Kidney Grandfather Neoplasm Prostate Social History Smoking/Tobacco Use Status: Current every day Tobacco Type: cigars Per week: 7 Tobacco: How many years used: 6 Smoking risk assessment performed?: Yes Alcohol Intake: former Year quit: 15 Drug use: Never Substance use type: does not use Adopted: No Household members: spouse Housing: condominium Number of Children: 4 Communication Needs: Corrective Lenses 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 3.ENT: Atraumatic external nose and ears. Moist MM. Neck: Symmetric, trachea midline, No thyromegaly. 4.CVS: +S1/S2, No murmurs or gallops. Peripheral pulses 2+ and equal in all extremities. Brisk capillary refill in all extremities. 5.RESP: Unlabored respiratory effort. Clear to auscultation bilaterally. No wheezes rales or rhonchi 6.GI: Soft, Nontender/Nondistended, No hepatosplenomegaly. No guarding or rebound. Genital exam demonstrates normal male genitalia, small amount of blood around the urethral meatus. No tenderness, no evidence of Bradley's gangrene. 7.MSK: Normocephalic/Atraumatic, Extremities w/o deformity or ttp No cyanosis or clubbing, Normal movement of all extremities 8.Skin: Warm, Dry. No rashes or lesions. 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 Sensation grossly intact, no focal neurologic deficits. 10.Psych: (AAO) x3. Appropriate mood and affect Course Vital Signs Vital signs: Vital Signs Temperature 37.4 C 01/15/21 13:39 Pulse 186 H 01/15/21 13:39 Respiratory Rate 13 01/15/21 13:39 Blood Pressure 114/63 01/15/21 13:39 Pulse Oximetry 94 01/15/21 13:39 Temperature 37.4 C 01/15/21 13:39 Temperature Source Oral 01/15/21 13:39 Pulse 186 H 01/15/21 13:39 Respiratory Rate 13 01/15/21 13:39 Respiratory Effort Non-Labored 01/15/21 14:03 Blood Pressure 114/63 01/15/21 13:39 Blood Pressure Position Sitting 01/15/21 13:39 Pulse Oximetry 94 01/15/21 13:39 Oxygen Delivery Method Room Air 01/15/21 13:39 Oxygen Flow Rate 0 01/15/21 13:39 Pain Level 0 01/15/21 13:39 Lab/Test Results Lab/Test Results: 01/15/21 14:00 Blood Blood Culture - Pending 01/15/21 13:46 Blood Blood Culture - Pending Procedures Central Line Placement Left Femoral: Time Out Performed: Yes Patient Placed on Monitor/Pulse Ox: Yes MD Prep: mask, gown and gloves Central Line Prep: Chlorhexidine scrub Local Anesthetic: Lidocaine 1% Amount of anesthesia used (mL): 5 Ultrasound Used for Placement: Yes Central Line Lumen Inserted: triple Post Procedure: good blood return, all ports aspirated, flushed, capped and sutured in place with 3-0 nylon Post Procedure X-Ray: tip of catheter in good position Patient Tolerated Procedure: well Complications: none Critical Care Time Critical Care Time Critical Care Time: Yes Total Critical Care Time: 75 Attestation: Upon my evaluation, this patient had a high probability of imminent or life-threatening deterioration, which required my direct attention, intervention, and personal management. I have personally provided 75 minutes of critical care time exclusive of time spent on separately billable procedures. Time includes review of laboratory data, radiology results, discussion with consultants, and monitoring for potential decompensation. Interventions were performed as documented.
--- NOTE | 2021-01-15 14:15 | DI.CT_ITS ---
Exam(s) CT RENAL COLIC WO EXAM: CT RENAL COLIC WO INDICATION: septic, hx of stones, r/o active stone. COMPARISON: CT CT CHEST/ABD/PEL W from 04/24/[address] CHEST/ABD/PEL W from 04/24/[address] ABDOMEN PELVIS WO from 11/03/2020 TECHNIQUE: CT examination was performed without contrast administration. FINDINGS: Images obtained through the lung bases again show a stable 10 millimeter in diameter right basilar p ulmonary nodule. Numerous small low-attenuation hepatic lesions are seen, reportedly previously iden tified as cysts, no gross interval change in appearance from prior study.. Visualized portions of th e liver and spleen appear intact. Visualized portions of the pancreas are unremarkable. Note is made of cholelithiasis without evidence of biliary dilatation. Abdominal aorta is of normal diameter. No significant abdominal wall hernia. No significant abdominal or pelvic adenopathy. Adrenals appear normal bilaterally. There is a presumed right upper pole renal cyst, unchanged from prior CT. The left kidney contains n umerous calcifications which appear to be nonobstructing. Left kidney appears mildly enlarged and th ere is increased left Anny renal fat stranding comparison to the prior examination of November 03. No te is made of a small quantity of gas in the collecting system of the left kidney, this may be second yimi to infectious process. No ureteral dilatation or calcification identified. Urinary bladder is empty with a Hair catheter i n place. Moderate stool burden in the rectosigmoid. IMPRESSION: Multiple left renal calculi, left renal enlargement and increased Anny nephric fat stranding, small q uantity of gas in the collecting system, these findings may represent left pyelonephritis. Please co rrelate clinically. Additional findings as described above. RADIATION DOSE DELIVERED: 1,091.24mGy.cm DLP 1,091.24mGy.cm Total DLP RADIATION OPTIMIZATION: All CT scans at this facility use at least one of these dose optimization te chniques: automated exposure control; mA and/or kV adjustment per patient size (includes targeted exa ms where dose is matched to clinical indication); or iterative reconstruction.
[2021-01-15 14:20] LABS: Abs Immature Grans 0.02 10^3/uL (0.0-0.06); Absolute Basophil Count 0.02 10^3/uL (0.0-0.2); Absolute Eosinophil Count 0.04 10^3/uL (0.0-0.7); Absolute Lymphocyte Count 1.33 10^3/uL (1.2-3.4); Absolute Monocyte Count 0.28 10^3/uL (0.1-0.8); Absolute Neutrophil Count 2.37 10^3/uL (1.2-6.7); Basophils % 0.5; HCT 46.4 % (40.0-50.0); HGB 14.8 g/dL (13.5-17.5); Immature Grans % 0.5; Lymphocytes % 32.8; MCH 30.6 pg (27.0-33.0); MCHC 31.9 % (32.0-36.0); MCV 95.9 fL (80-95); MPV 9.5 fL (8.0-11.0); Monocytes % 6.9; Neutrophils % 58.3; Nucleated RBC 0 %; Platelet Count 149 10^3/uL (130-400); RBC 4.84 10^6/uL (4.36-5.78); RDW 13.5 % (11.8-14.1); RDW-SD 48.3 fL; WBC 4.06 10^3/uL (4.4-10.8)
[2021-01-15 14:21] LABS: Bilirubin Negative (Negative); Blood Large (Negative); Clarity Sl Cloudy (Clear); Glucose Negative (Negative); Ketones Negative (Negative); Leukocyte Esterase Small (Negative); Nitrite Negative (Negative); Specific Gravity 1.015 (1.005-1.025); Urobilinogen 0.2 EU/dL (Up TO 0.2); pH 6.5 (5-8)
[2021-01-15] MEDS: VANCOMYCIN/WATER (PEG) 2 GM/400 ML BAG IVPB (14:25)
[2021-01-15 14:29] LABS: Bacteria Few HPF (Negative); C & S Indicated? Yes; Casts Negative LPF (Negative); Crystals Negative HPF (Negative); Epithelial Cells Negative HPF (Negative); Mucus Negative (Negative); Other Cells Few Renal (Negative); RBC >50 HPF (0-2); WBC >50 HPF (0-5)
[2021-01-15 14:31] LABS: ALT 26 U/L (16-63); AST 30 U/L (15-37); Albumin 3.6 g/dL (3.4-5.0); Alkaline Phosphatase 133 U/L (46-116); Anion Gap 8.6 mmol/L (3-11); BUN 14 mg/dL (7-18); Bilirubin, Total 1.7 mg/dL (0.2-1.0); CO2 29.4 mmol/L (21.0-32.0); CREATININE 1.3 mg/dL (0.70-1.30); Calcium 8.7 mg/dL (8.5-10.1); Chloride 109 mmol/L (98-107); Estimated GFR 54.57 (mL/min/1.73m2); Glucose 118 mg/dL (74-106); Potassium 3.7 mmol/L (3.5-5.1); Sodium 147 mmol/L (136-145); TSH (W/Ref FT4) 0.86 uIU/mL (0.36-3.74); Total Protein 6.8 g/dL (6.4-8.2)
[2021-01-15 14:35] LABS: Lactate 3.4 mmol/L (0.6-1.4)
[2021-01-15 14:36] LABS: Troponin I < 0.05 ng/mL (<0.06)
[2021-01-15 14:37] LABS: Magnesium 1.5 mg/dL (1.8-2.4)
[2021-01-15 15:03] LABS: INR 1.1 (0.9-1.1); PTT Activated 19.3 sec (21.0-27.5); Prothrombin Time 11.2 sec (9.3-11.0)
[2021-01-15 16:10] LABS: COVID-19 PCR Negative (Negative)
[2021-01-15] MEDS: MAGNESIUM SULFATE 2 GM/50 ML BAG IVPB (16:37)
--- NOTE | 2021-01-15 16:40 | DI.VRAD_ITS ---
PROCEDURE INFORMATION: Exam: XR Chest Exam date and time: 01/15/2021 1:50 PM Age: 70 years old Clinical indication: Other: Hypotension R/O pneumonia TECHNIQUE: Imaging protocol: XR of the chest. Views: 1 view. COMPARISON: CT CHEST/ABD/PEL W 04/24/2020 10:03 AM FINDINGS: Lungs: Increased interstitial lung markings suggesting edema, infection or fibrotic changes. Pleural spaces: Unremarkable. No pleural effusion. No pneumothorax. Heart/Mediastinum: Unremarkable. No cardiomegaly. Bones/joints: Degenerative changes in the spine. IMPRESSION: Increased interstitial lung markings suggesting edema, infection or fibrotic changes. Dictated and Authenticated by: Phani Bailey MD. Ordering:BRENDAN Ch MD
[2021-01-15] MEDS: Amiodarone 150 MG/3 ML VIAL IVP (16:50)
[2021-01-15 17:44] LABS: Troponin I < 0.05 ng/mL (<0.06)
--- NOTE | 2021-01-15 18:01 | W.PM.HP.N ---
Date of service: 01/15/21 Time of Service: 18:01 Assessment and Plan Assessment and plan (1) Septic shock: Status: Acute Assessment and plan: Secondary to pyelonephritis. Blood and urine cxs obtained in the ED. He has received 2L IV NS bolus. NS now running at 150ml/hr. Watch for pulmonary edema causing respiratory compromise. Needs IV fluids but would not likely tolerate a diuretic at this time d/t hypotension, should he require one. Levophed for hypotension; improving. (2) Acute pyelonephritis: Status: Acute Assessment and plan: Cont Zosyn Urine and blood cxs obtained. (3) Atrial fibrillation with rapid ventricular response: Status: Acute Assessment and plan: Amiodarone bolus then drip initiated in ED. Gave another bolus of 150 mg once in the ICU. Telemetry Cont Apixaban for AC Multiple driving forces; infection, volume depletion, low Mg. (4) Hypomagnesemia: Status: Acute Assessment and plan: Mg of 1.5 Give 2g IV bolus of MgSO4 Monitor (5) Diabetes mellitus: Status: Chronic Assessment and plan: Diet controlled. A1c of 5.7 in November of this year. Low carb diet. (6) CTCL (cutaneous T-cell lymphoma): Status: Acute Assessment and plan: Under the care of Dr Yuen. See oncology note for details of chemtx to date and plans. History of Present Illness History of Present Illness Chief Complaint: Fever, hematuria Narrative: This is a 70 yo male with a h/o atrial fibrillation on apixaban, previous UTI's complicated by nephrolithiasis, BPH, HTN, cutaneous T-cell lymphoma. He presented with concerns of fever and chills. He also uses a penile clamp/tamponade to prevent incontinence and when he removed the device today he noted a significant amount of blood in the urine. He is currently undergoing chemotherapy for his lymphoma. He denied CP or palpitations. + SOA and a nonproductive cough. He presented with tachycardia with rate of 90-200. EKG showed afib with RVR. SBP initially 114 but did decline as low as 62. Levophed was initiated. He was given 1L IV NS then a bolus of 150mg amiodarone. An amiodarone maintanance drip then initiated. UA positive. Zosyn and IV Vancomycin given. WBC count 4.06. VBG lactate elevated at 3.4. Na 147. K 3.7. BUN 14. Creatinine 1.3 (baseline of 1.0). Mg low at 1.5. Total bilirubin 1.7. AST and ALT normal. Troponin neg x 2. NTProBNP pending. TSH 0.86. CT abd/pelvis with stranding at the left kidney indicating pyelonephritis. No obstructing nephrolithiasis noted. Chest xray shows evidence of pulmonary edema. Magnesium sulfate bolus of 2 grams given. [facility] [place] by ED physician for transfer but no bed available; plan to accept the following day. ED physician did offer a possible transfer to [facility] later in the evening or the following day but the pt declined. [facility] did not have bed availability either. Admitted to the ICU. Review of Systems All systems reviewed & are unremarkable except as noted in HPI and below [facility] Medical History Adenocarcinoma of prostate Paulo White MD [facility] [place] T3aN0, [place] 3+4 s/p RALP 11/2016, low detectable PSA Anxiety Atrial fibrillation INR managed via Cardiology [facility] [place]. Perera,paroxysmal A Flutter Atrial flutter Bilateral carpal tunnel syndrome (07/28/17) BMI 35.0-35.9,adult (08/13/17) BPH w/o urinary obs/LUTS (07/28/17) CAD (coronary artery disease) Calculus of kidney (07/28/17) Most recent 6mm passed @ [facility] [place] (terrible hosp). Hx multiple kidney stones, experienced with passing large stones. Current large calc, monitoried by UROL [facility] Elevated prostate specific antigen (PSA) (07/28/17) Essential hypertension Essential hypertension (07/28/17) BPs well-controlled. Active. Generalized anxiety disorder (07/28/17) Manages well with meds, incl low-dose benzodiaz. 15 yrs sobriety this 2018. History of kidney stones History of malignant neoplasm of prostate Hx of herpes simplex infection Hyperlipidemia (07/28/17) Kidney stones Obesity (BMI 35.0-39.9 without comorbidity) Rash Macular rash, with mild plaque-like eruption. Excoriated 2' pruritis, somewhat managed with Benadryl. Tobacco use disorder (08/13/17) Quit cigarettes, 1985. One cigar daily Tubular adenoma (03/12/18) Xerosis cutis Barrier Repair via vinegar spray + AmLactin See DERM consult, 02/28/2020 Surgical History Arthroplasty of knee (~2013) Left-Meniscal Tear- Colonoscopy - MAC (03/12/18) Hx of Torsion (R)Testicle Lithotripsy Prostate Biopsy (12/02/01) Rising PSA-Negative Robotic Prostatectomy for [place] 7 (11/19/16) Intermediate Risk Prostate Cancer- Family History Mother Hyperlipidemia Father CAD (coronary artery disease) Neoplasm Kidney Grandfather Neoplasm Prostate Social History Smoking/Tobacco Use Status: Current every day Tobacco Type: cigars Per week: 7 Tobacco: How many years used: 6 Smoking risk assessment performed?: Yes Alcohol Intake: former Year quit: 15 Drug use: Never Substance use type: does not use Adopted: No Household members: spouse Housing: condominium Number of Children: 4 Communication Needs: Corrective Lenses 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 Meds Allergies and Home Medications Allergies Allergy/AdvReac Type Severity Reaction Status Date / Time No Known Allergies Allergy Verified 01/15/21 13:48 Home Medications Medication Instructions Recorded Confirmed Type triamcinolone acetonide 0.5 % 1 applic TP BID #60 gm 01/21/19 01/15/21 Rx topical ointment lisinopril 20 mg tablet 10 mg PO DAILY tab 09/13/19 01/15/21 History acyclovir 400 mg tablet 400 mg PO TID PRN #15 tab 02/24/20 12/13/20 Rx betamethasone, augmented 0.05 % 1 applic TP QD-BID PRN #50 gm 02/24/20 01/15/21 Rx topical ointment apixaban 5 mg tablet 5 mg PO BID 09/13/20 01/15/21 History metoprolol succinate 25 mg 25 mg PO BID 09/13/20 01/15/21 History tablet,extended release 24 hr atorvastatin 40 mg tablet 40 mg PO QPM 09/26/20 01/15/21 History gabapentin 300 mg capsule 900 mg PO TID cap 10/30/20 01/15/21 History pantoprazole 40 mg tablet,delayed 40 mg PO DAILY 10/30/20 01/15/21 History release oxycodone 5 mg tablet 5 - 10 mg PO Q6H PRN #30 tab MDD 8 11/12/20 01/15/21 Rx lorazepam 1 mg tablet 1 mg PO .qHS #28 tab 12/13/20 01/15/21 Rx montelukast 10 mg tablet 10 mg PO DAILY #90 tab-cap 12/13/20 01/15/21 Rx Exam Const General: cooperative and no acute distress Nutritional Appearance: obese Orientation: alert Eyes Sclera: sclerae normal Pupils: PERRL Resp Effort & Inspection: normal respiratory effort Auscultation: clear to auscultation bilaterally and diminished lung sounds Cardio Rate: tachycardic Rhythm: other (Irreg) Heart Sounds: no murmurs GI Palpation: soft and nontender Auscultation: normal bowel sounds Penis: other (small amount of blood at the urethral opening.) Skin General skin exam: no rashes or lesions noted Extrem General: no calf tenderness and edema Laterality: bilateral (1+) Psych Appearance: grossly normal Mental Status: mental status grossly normal Speech and Movement: speech and movement normal Affect: normal affect Results Labs Result diagrams: 01/15/21 13:50 01/15/21 13:50 Labs: Laboratory Results - last 24 hr 01/15/21 01/15/21 01/15/21 13:50 13:50 13:50 WBC 4.06 L RBC 4.84 Hgb 14.8 Hct 46.4 MCV 95.9 H MCH 30.6 MCHC 31.9 L RDW 13.5 Plt Count 149 MPV 9.5 Immature Gran % 0.5 Neutrophils % 58.3 Lymphocytes % 32.8 Monocytes % 6.9 Eosinophils % 1.0 Basophils % 0.5 Nucleated RBC % 0 Absolute Neutrophils 2.37 Absolute Lymphocytes 1.33 Absolute Monocytes 0.28 Absolute Eosinophils 0.04 Absolute Basophils 0.02 PT 11.2 H INR 1.1 APTT 19.3 L VBG Lactate Sodium 147 H Potassium 3.7 Chloride 109 H Carbon Dioxide 29.4 Anion Gap 8.6 BUN 14 Creatinine 1.3 Estimated GFR/1.73 m2 54.57 Glucose 118 H Calcium 8.7 Magnesium Total Bilirubin 1.7 H AST 30 ALT 26 Alkaline Phosphatase 133 H Troponin I < 0.05 Total Protein 6.8 Albumin 3.6 TSH 0.86 Urine Color Urine Clarity Urine pH Ur Specific [place] Urine Protein Urine Ketones Urine Blood Urine Nitrite Urine Bilirubin Urine Urobilinogen Ur Leukocyte Esterase Urine RBC Urine WBC Ur Epithelial Cells Urine Crystals Urine Bacteria Urine Casts Urine Mucus Urine Other Ur Culture Indicated? Urine Glucose COVID-19 Source SARS-CoV-2 (PCR) 01/15/21 01/15/21 01/15/21 13:50 14:10 14:23 WBC RBC Hgb Hct MCV MCH MCHC RDW Plt Count MPV Immature Gran % Neutrophils % Lymphocytes % Monocytes % Eosinophils % Basophils % Nucleated RBC % Absolute Neutrophils Absolute Lymphocytes Absolute Monocytes Absolute Eosinophils Absolute Basophils PT INR APTT VBG Lactate 3.4 H* Sodium Potassium Chloride Carbon Dioxide Anion Gap BUN Creatinine Estimated GFR/1.73 m2 Glucose Calcium Magnesium 1.5 L Total Bilirubin AST ALT Alkaline Phosphatase Troponin I Total Protein Albumin TSH Urine Color Yellow Urine Clarity Sl Cloudy Urine pH 6.5 Ur Specific [place] 1.015 Urine Protein 100 H Urine Ketones Negative Urine Blood Large H Urine Nitrite Negative Urine Bilirubin Negative Urine Urobilinogen 0.2 Ur Leukocyte Esterase Small H Urine RBC >50 H Urine WBC >50 H Ur Epithelial Cells Negative Urine Crystals Negative Urine Bacteria Few Urine Casts Negative Urine Mucus Negative Urine Other Few Renal Ur Culture Indicated? Yes Urine Glucose Negative COVID-19 Source SARS-CoV-2 (PCR) 01/15/21 01/15/21 15:13 17:00 WBC RBC Hgb Hct MCV MCH MCHC RDW Plt Count MPV Immature Gran % Neutrophils % Lymphocytes % Monocytes % Eosinophils % Basophils % Nucleated RBC % Absolute Neutrophils Absolute Lymphocytes Absolute Monocytes Absolute Eosinophils Absolute Basophils PT INR APTT VBG Lactate Sodium Potassium Chloride Carbon Dioxide Anion Gap BUN Creatinine Estimated GFR/1.73 m2 Glucose Calcium Magnesium Total Bilirubin AST ALT Alkaline Phosphatase Troponin I < 0.05 Total Protein Albumin TSH Urine Color Urine Clarity Urine pH Ur Specific [place] Urine Protein Urine Ketones Urine Blood Urine Nitrite Urine Bilirubin Urine Urobilinogen Ur Leukocyte Esterase Urine RBC Urine WBC Ur Epithelial Cells Urine Crystals Urine Bacteria Urine Casts Urine Mucus Urine Other Ur Culture Indicated? Urine Glucose COVID-19 Source NASOPHARYX SARS-CoV-2 (PCR) Negative Last Vital Signs Temp 37.4 C 01/15/21 17:18 Pulse 132 H 01/15/21 17:18 Resp 23 01/15/21 17:18 BP 104/49 L 01/15/21 17:18 Pulse Ox 93 01/15/21 17:18
[2021-01-15] MEDS: AMIODARONE 150 MG in DEXTROSE 5%-WATER 100 ML 618 MG IV (19:30)
[2021-01-15 19:43] LABS: NT-proBNP 2125 pg/mL (<300)
[2021-01-15] MEDS: PIPERACILLIN/TAZO 3.375 GM in Normal Saline 50 ML IVPB (20:28)
[2021-01-15] MEDS: Gabapentin 300 MG CAP 900 MG PO (20:38)
[2021-01-15] MEDS: Atorvastatin 40 MG TAB PO (20:39)
[2021-01-15] MEDS: Apixaban 5 MG TAB PO (20:39)
[2021-01-15] MEDS: Normal Saline 1,000 ML 150 ML IV (21:02)
[2021-01-15 22:10] LABS: Troponin I < 0.05 ng/mL (<0.06)
[2021-01-15 23:23] LABS: Lactate 3.9 mmol/L (0.9-1.7)
[2021-01-15] MEDS: Lactated Ringers 1,000 ML 1000 ML IV (23:48)
[2021-01-16] VITALS (192 sets, daily range): BP systolic 77–134; BP diastolic 44–103; PULSE 72–183; RESP 12–31; TEMP 36.9–37.8; O2SAT 89–99
[2021-01-16] MEDS: PIPERACILLIN/TAZO 3.375 GM in Normal Saline 50 ML IVPB ×4 (01:43→19:48)
[2021-01-16] MEDS: Acetaminophen 325 MG TAB 650 MG PO ×2 (03:37→19:43)
[2021-01-16 06:43] LABS: HCT 40.2 % (40.0-50.0); HGB 13.3 g/dL (13.5-17.5); MCH 31.4 pg (27.0-33.0); MCHC 33.1 % (32.0-36.0); MCV 94.8 fL (80-95); MPV 9.8 fL (8.0-11.0); Nucleated RBC 0 %; Platelet Count 131 10^3/uL (130-400); RBC 4.24 10^6/uL (4.36-5.78); RDW 13.7 % (11.8-14.1)
[2021-01-16 06:45] LABS: Lactate 2.6 mmol/L (0.6-1.4)
[2021-01-16 06:51] LABS: Magnesium 1.6 mg/dL (1.8-2.4)
[2021-01-16 06:59] LABS: Absolute Lymphocyte Count 3.86 10^3/uL (1.2-3.4); Absolute Monocyte Count 1.02 10^3/uL (0.1-0.8); Absolute Neutrophil Count 15.43 10^3/uL (1.2-6.7); Bands % 15
[2021-01-16 07:00] LABS: Diff Comment Manual Differential; RBC Morphology Normal
[2021-01-16 07:01] LABS: ALT 27 U/L (16-63); AST 36 U/L (15-37); Albumin 2.7 g/dL (3.4-5.0); Alkaline Phosphatase 73 U/L (46-116); Anion Gap 10.4 mmol/L (3-11); BUN 19 mg/dL (7-18); Bilirubin, Total 2.6 mg/dL (0.2-1.0); CO2 23.6 mmol/L (21.0-32.0); CREATININE 1.3 mg/dL (0.70-1.30); Calcium 7.6 mg/dL (8.5-10.1); Chloride 109 mmol/L (98-107); Estimated GFR 54.57 (mL/min/1.73m2); Glucose 109 mg/dL (74-106); Sodium 143 mmol/L (136-145); Total Protein 5.4 g/dL (6.4-8.2)
[2021-01-16] MEDS: Normal Saline 1,000 ML 150 ML IV ×3 (08:17→19:39)
[2021-01-16] MEDS: Gabapentin 300 MG CAP 900 MG PO ×3 (08:46→19:45)
[2021-01-16] MEDS: Apixaban 5 MG TAB PO ×2 (08:46→19:44)
[2021-01-16] MEDS: Digoxin 0.5 MG/2 ML AMP IVP (10:11)
--- NOTE | 2021-01-16 10:13 | INITIAL_ITS ---
- If Service Date Differs Date of service: 01/16/21 Time of Service: 10:13 Care Management Initial Assess REASON FOR HOSPITALIZATION:: Pyelonephritis and septic shock PAST MEDICAL HISTORY/PAST SURGICAL HISTORY:: Medical History . Adenocarcinoma of prostate. Paulo White MD [facility] [place] [place] urology T3aN0, [place] 3+4 s/p RALP 11/2016, low detectable PSA. Anxiety. Atrial fibrillation. INR managed via Cardiology [facility] [place] [place] Dr. Perera,paroxysmal A Flutter. Atrial flutter. Bilateral carpal tunnel syndrome (07/28/17). BMI 35.0-35.9,adult (08/13/17). BPH w/o urinary obs/LUTS (07/28/17). CAD (coronary artery disease). Calculus of kidney (07/28/17). Most recent 6mm passed @ [facility] [place] [place] (terrible hosp). Hx multiple kidney stones, experienced with passing large stones. Current large calc, monitoried by UROL [facility] [place] [place]. Elevated prostate specific antigen (PSA) (07/28/17). Essential hypertension. Essential hypertension (07/28/17). BPs well-controlled. Active. Generalized anxiety disorder (07/28/17). Manages well with meds, incl low-dose benzodiaz. 15 yrs sobriety this 2018. History of kidney stones. History of malignant neoplasm of prostate. Hx of herpes simplex infection. Hyperlipidemia (07/28/17). Kidney stones. Obesity (BMI 35.0-39.9 without comorbidity). Rash. Macular rash, with mild plaque-like eruption. Excoriated 2' pruritis, somewhat managed with Benadryl. Tobacco use disorder (08/13/17). Quit cigarettes, 1985. One cigar daily. Tubular adenoma (03/12/18). Xerosis cutis. Barrier Repair via vinegar spray + AmLactin See DERM consult, 02/28/2020. Surgical History . Arthroplasty of knee (~2013). Left-Meniscal Tear-. Colonoscopy - MAC (03/12/18). Hx of Torsion (R)Testicle. Lithotripsy. Prostate Biopsy (12/02/01). Rising PSA-Negative. Robotic Prostatectomy for [place] 7 (11/19/16). Intermediate Risk Prostate Cancer- PREVIOUS FUNCTIONAL STATUS/SOCIAL/FAMILY SUPPORTS:: Jacob lives in a condominium in [place] with his Megan. They have 4 children and 12 grandchildren who live in [place] and [place]. 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 He is independent with all ADLs and care in the community. CURRENT FUNCTIONAL STATUS:: Jacob was sitting up in bed when CM met with him. He stated that he is feeling much better than when he first came to the hospital. He shared that he was really sick and even thought he might . Jacob is receiving chemotherapy and understands that an infection at this point could be fatal. His heart rate has been consistently in the 120-130's however his blood pressure has improved and is now WNL for the most part. ADVANCE DIRECTIVES:: On file. Megan [facility] Has patient been provided with info about the portal/API?: Yes Did the patient sign up for the portal?: Yes (previously) CODE STATUS:: Full Code INSURANCE COVERAGE / FINANCIAL ISSUES:: Medicare. BS CURRENT HOME/COMMUNITY SERVICES/EQUIPMENT:: none PRIMARY CARE PHYSICIAN:: Becky Hardy POTENTIAL DISCHARGE NEEDS:: Follow up with PCP and discharge plan of care PATIENT/FAMILY EDUCATION NEEDS:: Review of discxhrge instructions, medications, follow up plan, activity, limitations, Ask Me Three TRANSPORTATION:: via private vehicle with family PLAN:: Jacob will likley be discharged home with a resumption of home health services. He will follow up with his PCP and discharge plan of care and transport with family. CM will continue to support Jacob and assess for discharrge planning concerns.
--- NOTE | 2021-01-16 12:24 | PHA.REVIEW ---
Pharmacy Admission Review - Admission Clinical Review (Last Reviewed 01/15/21 @ 18:13 by Petey Damon MD) Septic shock (Acute) Acute pyelonephritis (Acute) Atrial fibrillation with rapid ventricular response (Acute) Hypomagnesemia (Acute) CTCL (cutaneous T-cell lymphoma) (Acute) No Known Allergies Allergy (Verified 01/15/21 13:48) Resuscitation Status Full Code Height 5 ft 7 in Weight 110.6 kg - Renal Dosing Renal Dosing: BUN 19 mg/dL (7-18) H 01/16/21 06:30 Creatinine 1.3 mg/dL (0.70-1.30) 01/16/21 06:30 Medications needing adjustments: Reviewed List of meds needing interventions: eCrCl is 82.3 ml/min using adjusted body weight - Anticoagulation Anticoagulation: Hgb 13.3 g/dL (13.5-17.5) L 01/16/21 06:30 Hct 40.2 % (40.0-50.0) 01/16/21 06:30 Plt Count 131 10^3/uL (130-400) 01/16/21 06:30 INR 1.1 (0.9-1.1) 01/15/21 13:50 Creatinine 1.3 mg/dL (0.70-1.30) 01/16/21 06:30 Therapeutic Anticoagulation: Reviewed Medications: Apixaban - Opiate Usage Evaluate Pain Scale/Pains Meds: N/A - Relevant Labs Sodium 143 mmol/L (136-145) 01/16/21 06:30 Potassium 4.0 mmol/L (3.5-5.1) 01/16/21 06:30 Chloride 109 mmol/L (98-107) H 01/16/21 06:30 Magnesium 1.6 mg/dL (1.8-2.4) L 01/16/21 06:30 Electrolytes, C-Reactive P, ESR: Reviewed - DM Control DM Control: Glucose 109 mg/dL (74-106) H 01/16/21 06:30 Insulin Dosing: N/A - Heart Failure/NC Heart Failure/NC: Troponin I < 0.05 ng/mL (<0.06) 01/15/21 21:30 NT-Pro-B Natriuret Pep 2125 pg/mL (<300) H 01/15/21 14:23 EF%, KENDRA's, B-Blockers, Diuretics: Reviewed - BP Control BP Control: Blood Pressure [Left Arm] 113/74 Blood Pressure [Left Arm] 103/73 Blood Pressure 101/60 Blood Pressure 102/71 Blood Pressure 105/72 Blood Pressure 105/72 Blood Pressure 99/71 Blood Pressure 113/74 Blood Pressure 106/69 Blood Pressure 110/76 Blood Pressure 118/73 Blood Pressure 113/73 Blood Pressure 110/77 Blood Pressure 96/83 Blood Pressure 103/73 Blood Pressure 103/59 Blood Pressure 90/60 Blood Pressure 83/52 Blood Pressure 96/70 Blood Pressure 108/70 Blood Pressure 102/69 Blood Pressure 94/62 Blood Pressure 105/66 Blood Pressure 113/65 Blood Pressure 111/66 Blood Pressure 113/67 Blood Pressure 108/73 Blood Pressure 107/62 Blood Pressure 95/65 Blood Pressure 100/70 Blood Pressure 100/70 Blood Pressure 108/61 Blood Pressure 94/62 Blood Pressure 88/56 Blood Pressure 100/61 Blood Pressure 97/59 Blood Pressure 90/64 Blood Pressure 99/65 Blood Pressure 105/65 Blood Pressure 111/76 Blood Pressure 90/67 Blood Pressure 103/73 If elevated: Reviewed List meds needing interventions: norepi gtt has been turned off; dig started yesterday; metoprolol PO restarted this AM - Qtc Review If Elevated: N/A - IV to PO Switch IV Medications: Reviewed - Home Meds Home Med List reviewed: Intervened Relevent Home Meds Not ordered & why?: lisinopril not ordered (ss); reviewed rx history, metoprolol should have been tartrate -- med list finalized. - Current meds Current Medication Order Review: Reviewed - Comments Comments/Follow Ups: Digoxin level to be checked tomorrow AM; Zosyn continues for gram neg deny bacteremia, will de-escalate when ID and sensitivities result
[2021-01-16] MEDS: MAGNESIUM SULFATE 2 GM/50 ML BAG IVPB (14:24)
--- NOTE | 2021-01-16 15:26 | W.PM.PROGNOT ---
Date of Service Date of service: 01/16/21 Time of Service: 15:26 Assessment and Plan Assessment and plan (1) Septic shock: Status: Acute Assessment and plan: Gram negative deny bacteremia secondary to pyelonephritis Cx in progress. Cont Zosyn Cont IV fluids. On chemotx for CTCL; presenting WBC count normal, now 20. (2) Acute pyelonephritis: Status: Acute Assessment and plan: No flank pain. See septic shock (3) Atrial fibrillation with rapid ventricular response: Status: Acute Assessment and plan: Discussed with cardiology at [facility] and they agree with continuing digoxin and can add amiodarone back on if needed. Watch digoxin level closely if using both agents. If restart amiodarone would continue for appx 1 month before changing back to metoprolol; per cardiology. (4) Hypomagnesemia: Status: Acute Assessment and plan: He received 2g MgSO4 in the ED and the upon admission to ICU. Mg only increased from 1.5 to 1.6. MgSO4 2 gram IV ordered Monitor. (5) CTCL (cutaneous T-cell lymphoma): Status: Acute Assessment and plan: On therapy. Subjective Subjective Patient reports: no new complaints and afebrile (Tm 38.3 last PM at 2046.) Interval history since last seen: No CP/palpitations. No N/V Exam Const General: cooperative, no acute distress and ill appearing Orientation: alert and oriented x3 HENMT Head: normocephalic and atraumatic Resp Effort & Inspection: normal respiratory effort Auscultation: clear to auscultation bilaterally Cardio Rate: tachycardic Rhythm: abnormal rhythm irregularly irregular GI Inspection: obesity Palpation: soft and nontender Skin General skin exam: no rashes or lesions noted Neuro General: no focal motor deficits Cognition: normal cognition Speech: speech normal Extrem General: no calf tenderness and other (Dorsum of hands with nonpitting edema. Tr edema of BLEs) Objective Last Vital Signs Temp 36.9 C 01/16/21 14:53 Pulse 118 H 01/16/21 15:00 Resp 19 01/16/21 15:15 BP 107/79 01/16/21 15:00 Pulse Ox 97 01/16/21 15:15 Laboratory Results - last 24 hr 01/15/21 01/15/21 01/15/21 14:23 15:13 17:00 WBC RBC Hgb Hct MCV MCH MCHC RDW Plt Count MPV Immature Gran % Neutrophils % Band Neutrophils % Lymphocytes % Monocytes % Eosinophils % Basophils % Nucleated RBC % Absolute Neutrophils Absolute Lymphocytes Absolute Monocytes Absolute Eosinophils Absolute Basophils RBC Morphology VBG Lactate Sodium Potassium Chloride Carbon Dioxide Anion Gap BUN Creatinine Estimated GFR/1.73 m2 Glucose Calcium Magnesium Total Bilirubin AST ALT Alkaline Phosphatase Troponin I < 0.05 NT-Pro-B Natriuret Pep 2125 H Total Protein Albumin SARS-CoV-2 (PCR) Negative 01/15/21 01/15/21 01/16/21 21:30 22:45 06:30 WBC RBC Hgb Hct MCV MCH MCHC RDW Plt Count MPV Immature Gran % Neutrophils % Band Neutrophils % Lymphocytes % Monocytes % Eosinophils % Basophils % Nucleated RBC % Absolute Neutrophils Absolute Lymphocytes Absolute Monocytes Absolute Eosinophils Absolute Basophils RBC Morphology VBG Lactate 3.9 H* Sodium Potassium Chloride Carbon Dioxide Anion Gap BUN Creatinine Estimated GFR/1.73 m2 Glucose Calcium Magnesium 1.6 L Total Bilirubin AST ALT Alkaline Phosphatase Troponin I < 0.05 NT-Pro-B Natriuret Pep Total Protein Albumin SARS-CoV-2 (PCR) 01/16/21 01/16/21 01/16/21 06:30 06:30 06:30 WBC 20.30 H D RBC 4.24 L Hgb 13.3 L Hct 40.2 MCV 94.8 MCH 31.4 MCHC 33.1 RDW 13.7 Plt Count 131 MPV 9.8 Immature Gran % 0.0 Neutrophils % 61.0 Band Neutrophils % 15 Lymphocytes % 19.0 Monocytes % 5.0 Eosinophils % 0.0 Basophils % 0.0 Nucleated RBC % 0 Absolute Neutrophils 15.43 H Absolute Lymphocytes 3.86 H Absolute Monocytes 1.02 H Absolute Eosinophils 0.00 Absolute Basophils 0.00 RBC Morphology Normal VBG Lactate 2.6 H* Sodium 143 Potassium 4.0 Chloride 109 H Carbon Dioxide 23.6 Anion Gap 10.4 BUN 19 H Creatinine 1.3 Estimated GFR/1.73 m2 54.57 Glucose 109 H Calcium 7.6 L Magnesium Total Bilirubin 2.6 H AST 36 ALT 27 Alkaline Phosphatase 73 Troponin I NT-Pro-B Natriuret Pep Total Protein 5.4 L Albumin 2.7 L SARS-CoV-2 (PCR)
[2021-01-16] MEDS: Digoxin 0.5 MG/2 ML AMP 0.25 MG IVP ×2 (15:53→21:45)
[2021-01-16] MEDS: Normal Saline Flush 10 ML SYR IVP (17:12)
[2021-01-16] MEDS: Metoprolol 5 MG/5 ML VIAL 2.5 MG IVP (17:13)
--- NOTE | 2021-01-16 19:28 | NUR.NOTE ---
Nursing Note: Patient in conversation with the nurse stated clearly that he did not wish to receive CPR or intubation and was surprised that his code status is listed as Full Code. Pt wishes his code status to be DNR/DNI. Dr Varghese paged and informed of the patient's wishes. In a discussion about Palliative Care, the patient commented, That sounds like exactly what I need. Patient stated that he would appreciate a palliative care consult.
[2021-01-16] MEDS: LORazepam 1 MG TAB PO (19:44)
[2021-01-16] MEDS: Atorvastatin 40 MG TAB PO (19:47)
[2021-01-16] MEDS: Montelukast 10 MG TAB PO (21:42)
[2021-01-17] VITALS (71 sets, daily range): BP systolic 105–149; BP diastolic 48–85; PULSE 88–147; RESP 13–54; TEMP 36.8–37.1; O2SAT 88–98
--- NOTE | 2021-01-17 | DI.US_ITS ---
APPROVED REPORT EXAM: Comprehensive 2D, Doppler, and color-flow Echocardiogram Patient Location: In-Patient Room/Bed: [id number] Milk Treater: Leatha Joseph RDCS (AE) Indications: A Fib with RVR, Septic shock Other Information Study Quality: Fair. Technically limited study due to body habitus. Conclusion Left Ventricle : The left ventricle is normal size. Left ventricular systolic function islow normal. There is normal LV segmental wall motion. There is normal left ventricular wall thickness. LVEF is 50 %. Right Ventricle : Right ventricle is borderline dilated. The right ventricular systolic function is n ormal. The RVSP is 23.9 mmHg. Atria : Left atrium is borderline dilated. Right atrium is borderline dilated. Mitral Valve : Mild mitral annular calcification. Trace mitral regurgitation. No evidence of mitral v alve stenosis. Great Vessels : The aortic root is normal in size. The ascending aorta is normal in size. Ascending a jeovany is not well visualized. IVC is normal in size and collapses >50% with inspiration. Please see remainder of study for further details. Wall motion Left Ventricle The left ventricle is normal size. Left ventricular systolic function islow normal. There is normal l eft ventricular wall thickness. There is normal LV segmental wall motion. There is no ventricular sep jacqueline defect visualized. LVEF is 50%. Right Ventricle Right ventricle is borderline dilated. The right ventricular systolic function is normal. The RVSP is 23.9 mmHg. Atria Left atrium is borderline dilated. Right atrium is borderline dilated. The interatrial septum is inta ct with no evidence for an atrial septal defect. Aortic Valve The aortic valve is normal in structure. Aortic valve is trileaflet. There is no aortic valvular sten osis. No aortic regurgitation is present. Mitral Valve Mild mitral annular calcification. No evidence of mitral valve stenosis. Trace mitral regurgitation. Tricuspid Valve The tricuspid valve is normal in structure. There is no tricuspid valve stenosis. Trace tricuspid reg urgitation. Pulmonic Valve Pulmonic valve is not well visualized. There is no pulmonic valvular stenosis. There is no pulmonic v alvular regurgitation. Great Vessels The aortic root is normal in size. The ascending aorta is normal in size. Ascending aorta is not well visualized. IVC is normal in size and collapses >50% with inspiration. Pericardium There is no pericardial effusion. 2D Dimensions IVSD d PLAX 1.15 cm M: 0.6-1.2 LV Vol A2C d MOD 104.9 mL LVPW d PLAX 1.17 cm M: 0.6 - 1.2 LV Vol A4C d MOD 117.9 mL LVID d PLAX 4.82 cm M: 4.2 - 5.8 LA vol/ BSA A2C s A-L 34.8 mL/m2 LVDs 3.60 cm M: 2.5 - 4.0 LA vol/ BSA A4C s A-L 35.1 mL/m2 Ao Root d 3.18 cm M: 3.1 - 3.7 LA Vol/ BSA Biplane s A-L 35.5 mL/m2 RA Area A4C 19.27 cm2 LA Area A4C s MOD 24.60 cm2 RA Vol/ BSA A4C s A-L 26.7 mL/m2 LA Area A2C s MOD 24.13 cm2 Ao Asc Diam d 3.30 cm M: 2.6 - 3.4 LV EF A4C MOD 50.3 % LV EF Teichholz 49.0 % LV EF A2C MOD 48.0 % LVEF (Rubin's) 49.45 % M: 52 - 72 LV EF Biplane MOD 49.5 % LV Volume 82.24 mL M: 62 - 150 SV 55.89 mL LV Volume Index 37.55 mL/m2 M: 34 - 74 SV Index 25.45 mL/m2 LV Vol Biplane MOD 113.0 mL FS 24.75 % M-Mode TAPSE 2.02 cm (M/F) >1.7 LV Diastology MV E' medial 0.113 (>0.07 m/s) MV E Vmax 1.22 (0.4-1.3 m/s) LV E/e MED 10.70 (<14) MV E' lateral 0.164 (>0.1 m/s) LV E/e LAT 7.40 (<14) MV E/E' medial 10.73 MV E/E' lateral 7.41 Aortic Valve LVOT Area 3.60 cm2 AoV Area Vmax 2.71 cm2 LVOT Vmax 1.20 m/s AoV Area/ BSA (Vmax) 1.23 cm2/m2 LVOT Mean Micheal. 0.92 m/s ANSON Mean Micheal. 2.49 cm2 LVOT Peak Grad 5.7 mmHg ANSON Mean Micheal. Index 1.13 cm2/m2 LVOT Mean Grad 3.8 mmHg LVOT VTI 0.213 m LVOT Diam s 2.10 cm AoV Vmax 1.59 m/s Velocity Ratio 0.75 AoV Mean Micheal. 1.33 m/s AoV Peak Grad 10.2 mmHg LVOT SV 76.74 mL AoV Mean Grad 7.3 mmHg AoV VTI 0.276 m AoV Area VTI 2.78 cm2 AoV Area/ BSA (VTI) 1.27 cm/m2 Mitral Valve MV DT 138 (160-240 msec) MV PHT 40 msec MV Area PHT 5.48 cm2 MV VTI 0.140 m MV Area VTI 5.47 (4.0-6.0 cm2) Pulmonary Valve PV Vmax 1.22 (0.5-1.5 m/s) RVOT Peak Gr. 2.86 mmHg PV Peak Grad 6.0 mmHg RVOT Mean Gr. 1.70 mmHg PV Mean Grad 3.7 mmHg RVOT VTI 0.155 m PV VTI 0.213 m RVOT Vmax 0.85 m/s Tricuspid Valve TR Peak Grad 20.8 mmHg TR Vmax 2.29 m/s RA Pressure 3.00 mmHg RVSP (TR) 23.9 mmHg
[2021-01-17] MEDS: PIPERACILLIN/TAZO 3.375 GM in Normal Saline 50 ML IVPB ×4 (02:07→19:45)
[2021-01-17] MEDS: Normal Saline 1,000 ML 150 ML IV ×3 (02:08→18:32)
[2021-01-17] MEDS: Metoprolol 5 MG/5 ML VIAL IVP (04:00)
--- NOTE | 2021-01-17 04:29 | NUR.NOTE ---
0330-Dr Varghese called to address pts HR sustaining in the 120-130 range. Ordered 5 mg metoprolol IV. Med given. Pts Hr now low 100s to one teens.BP 106/64 with map of 75.pt states he feels better and has gotten a really good nights sleep.
[2021-01-17 06:55] LABS: Abs Immature Grans 0.09 10^3/uL (0.0-0.06); HCT 41.9 % (40.0-50.0); HGB 13.7 g/dL (13.5-17.5); MCH 31.4 pg (27.0-33.0); MCHC 32.7 % (32.0-36.0); MCV 95.9 fL (80-95); MPV 10.3 fL (8.0-11.0); Nucleated RBC 0 %; RBC 4.37 10^6/uL (4.36-5.78); RDW 13.6 % (11.8-14.1); RDW-SD 48.7 fL; WBC 10.24 10^3/uL (4.4-10.8)
[2021-01-17 07:01] LABS: Anion Gap 9.1 mmol/L (3-11); BUN 14 mg/dL (7-18); CO2 23.9 mmol/L (21.0-32.0); Calcium 7.9 mg/dL (8.5-10.1); Chloride 110 mmol/L (98-107); Glucose 85 mg/dL (74-106); Potassium 3.8 mmol/L (3.5-5.1); Sodium 143 mmol/L (136-145)
[2021-01-17 07:20] LABS: Absolute Neutrophil Count 7.78 10^3/uL (1.2-6.7); Bands % 13; Platelet Count 125 10^3/uL (130-400)
[2021-01-17 07:21] LABS: Absolute Eosinophil Count 0.31 10^3/uL (0.0-0.7); Absolute Lymphocyte Count 1.54 10^3/uL (1.2-3.4); Absolute Monocyte Count 0.51 10^3/uL (0.1-0.8)
[2021-01-17 07:25] LABS: Diff Comment Manual Differential; RBC Morphology Normal
[2021-01-17 08:17] LABS: Magnesium 1.9 mg/dL (1.8-2.4)
[2021-01-17] MEDS: Gabapentin 300 MG CAP 900 MG PO ×3 (08:20→19:45)
[2021-01-17] MEDS: Digoxin 0.25 MG TAB PO (08:20)
[2021-01-17] MEDS: Apixaban 5 MG TAB PO ×2 (08:20→19:45)
[2021-01-17] MEDS: Metoprolol CR 25 MG TABCR PO (08:20)
--- NOTE | 2021-01-17 08:20 | NUR.NOTE ---
This HAIR DRYER offered to help PT with AM care. PT stated that I cleaned up pretty good earlier when I used the commode. I also offered to help the PT shave and he also refused. PT stated that the only thing he would like to do is oral care. RN notified. Will offer care again at a later time. Nursing Note:
--- NOTE | 2021-01-17 10:27 | PDOC.CMPRO ---
- If Service Date Differs Date of service: 01/17/21 Time of Service: 10:28 Care Management Progress Note S/O: Jacob was sitting up in bed when CM met with him. He was pleasant and engaged readily with CM. Jacob asked about having a palliative care consult and stated that he would really like one. In conversation he revealed that he is close to making the decision to end medical treatment for his cancer and other serious medical conditions and focus on comfort. He informed CM that he had completed advanced directives a long time ago but that they were no longer relevant. After further discussion, CM offered to complete a new document with him. CM returned later in the day and met with Jacob and his . All of the questions on the Advanced Directives forms were read to him and discussed by him and his Megan but were not finalized and signed. There are 2 questions/sections that Jacob felt he would like to discuss in more detail with the Palliative provider before making a final decision. He has the document and it will be completed and filed after the palliative consult. A: Jacob is a 70 year old man admitted on with pyelonephritis and septic shock P:Jacob will likely be discharged home with a resumption of home health services. He will follow up with his PCP and discharge plan of care and transport with family. CM will continue to support Jacob and assess for discharge planning concerns.
[2021-01-17] MEDS: Normal Saline Flush 10 ML SYR IVP ×2 (11:30→19:46)
--- NOTE | 2021-01-17 11:51 | W.PM.PROGNOT ---
Date of Service Date of service: 01/17/21 Time of Service: 11:51 Assessment and Plan Assessment and plan (1) Septic shock: Status: Acute Assessment and plan: Resolving. Off pressor agent norepinephrine. Decrease IV fluid rate. Secondary to acute pyelonephritis. (2) Acute pyelonephritis: Status: Acute Assessment and plan: WBC count normal today. Cont Zosyn until culture results are final. Growing a gram negative deny. (3) Atrial fibrillation with rapid ventricular response: Status: Acute Assessment and plan: s/p loading dose of Digoxin. Digoxin 0.25mg po today. Check dig level in the AM Given 2 doses of IV metoprolol yesterday evening and later in the night. Restart home metoprolol. Magnesium now corrected. Cardiology consulted. (4) Hypomagnesemia: Status: Acute Assessment and plan: Corrected. (5) CTCL (cutaneous T-cell lymphoma): Status: Acute Assessment and plan: Has been on treatment. Subjective Subjective Patient reports: no new complaints, feels better and afebrile; denies diarrhea, nausea and vomiting Interval history since last seen: No CP/palpitations. He would like to go home. Exam Const General: cooperative and no acute distress Nutritional Appearance: obese Orientation: alert and oriented x3 Resp Effort & Inspection: normal respiratory effort Auscultation: rales bilaterally at the base Cardio Rate: tachycardic Rhythm: abnormal rhythm irregularly irregular GI Palpation: soft and nontender Skin General skin exam: no rashes or lesions noted Neuro General: no focal motor deficits Cognition: normal cognition Speech: speech normal Extrem General: no pedal edema and no calf tenderness Objective Last Vital Signs Temp 36.8 C 01/17/21 08:09 Pulse 133 H 01/17/21 10:01 Resp 20 01/17/21 10:01 BP 109/71 01/17/21 10:01 Pulse Ox 95 01/17/21 07:30 Laboratory Results - last 24 hr 01/17/21 01/17/21 01/17/21 06:20 06:20 06:20 WBC 10.24 D RBC 4.37 Hgb 13.7 Hct 41.9 MCV 95.9 H MCH 31.4 MCHC 32.7 RDW 13.6 Plt Count 125 L MPV 10.3 Immature Gran % 0.0 Neutrophils % 63.0 Band Neutrophils % 13 Lymphocytes % 15.0 Monocytes % 5.0 Eosinophils % 3.0 Basophils % 1.0 Nucleated RBC % 0 Absolute Neutrophils 7.78 H Absolute Lymphocytes 1.54 Absolute Monocytes 0.51 Absolute Eosinophils 0.31 Absolute Basophils 0.10 RBC Morphology Normal Sodium 143 Potassium 3.8 Chloride 110 H Carbon Dioxide 23.9 Anion Gap 9.1 BUN 14 Creatinine 1.0 Estimated GFR/1.73 m2 >= 60.00 Glucose 85 Calcium 7.9 L Magnesium 1.9 01/17/21 01/17/21 07:10 07:10 WBC RBC Hgb Hct MCV MCH MCHC RDW Plt Count MPV Immature Gran % Neutrophils % Band Neutrophils % Lymphocytes % Monocytes % Eosinophils % Basophils % Nucleated RBC % Absolute Neutrophils Absolute Lymphocytes Absolute Monocytes Absolute Eosinophils Absolute Basophils RBC Morphology Sodium Cancelled Potassium Cancelled Chloride Cancelled Carbon Dioxide Cancelled Anion Gap Cancelled BUN Cancelled Creatinine Cancelled Estimated GFR/1.73 m2 Cancelled Glucose Cancelled Calcium Cancelled Magnesium Cancelled
[2021-01-17] MEDS: Atorvastatin 40 MG TAB PO (19:45)
[2021-01-17] MEDS: Metoprolol 25 MG TAB PO (19:45)
[2021-01-17] MEDS: Montelukast 10 MG TAB PO (19:53)
[2021-01-17] MEDS: LORazepam 1 MG TAB PO (19:54)
[2021-01-18] VITALS (14 sets, daily range): BP systolic 102–116; BP diastolic 65–73; PULSE 100–127; RESP 19–27; TEMP 36.9–37
[2021-01-18] MEDS: PIPERACILLIN/TAZO 3.375 GM in Normal Saline 50 ML IVPB ×2 (01:46→08:03)
[2021-01-18] MEDS: Normal Saline 1,000 ML 100 ML IV (04:20)
[2021-01-18 06:41] LABS: HCT 41.2 % (40.0-50.0); HGB 13.5 g/dL (13.5-17.5); MCH 30.5 pg (27.0-33.0); MCHC 32.8 % (32.0-36.0); MCV 93.2 fL (80-95); Nucleated RBC 0 %; Platelet Count 126 10^3/uL (130-400); RBC 4.42 10^6/uL (4.36-5.78); RDW 13.3 % (11.8-14.1); RDW-SD 45.8 fL; WBC 6.83 10^3/uL (4.4-10.8)
[2021-01-18 06:58] LABS: Absolute Basophil Count 0.07 10^3/uL (0.0-0.2); Absolute Eosinophil Count 0.07 10^3/uL (0.0-0.7); Absolute Lymphocyte Count 0.48 10^3/uL (1.2-3.4); Absolute Monocyte Count 0.41 10^3/uL (0.1-0.8); Absolute Neutrophil Count 5.81 10^3/uL (1.2-6.7); Atypical Lymphocytes % 1; Diff Comment Manual Differential; RBC Morphology Normal
--- NOTE | 2021-01-18 07:41 | PDOC.CMPRO ---
- If Service Date Differs Date of service: 01/18/21 Time of Service: 07:41 Care Management Progress Note S/O: Jacob A: Jacob is a 70 year old man admitted on with pyelonephritis and septic shock P:Jacob will likely be discharged home with a resumption of home health services. He will follow up with his PCP and discharge plan of care and transport with family. CM will continue to support Jacob and assess for discharge planning concerns.
[2021-01-18] MEDS: Metoprolol 25 MG TAB PO (08:04)
[2021-01-18] MEDS: Digoxin 0.25 MG TAB PO (08:04)
[2021-01-18] MEDS: Gabapentin 300 MG CAP 900 MG PO (08:04)
[2021-01-18] MEDS: Apixaban 5 MG TAB PO (08:05)
--- NOTE | 2021-01-18 09:20 | NUR.NOTE ---
Hair catheter taken out at 0840 on January 18, 2021 per RN request Balloon and catheter tip intact and visualized, no c/o Nursing Note:
--- NOTE | 2021-01-18 10:11 | W.PM.DS.N ---
Date of service: 01/18/21 Time of Service: 10:12 DS: Diagnosis Discharge Diagnosis (1) Septic shock: Status: Acute (2) Acute pyelonephritis: Status: Acute (3) Atrial fibrillation with rapid ventricular response: Status: Acute (4) Hypomagnesemia: Status: Acute (5) CTCL (cutaneous T-cell lymphoma): Status: Acute Discharge Plan Disposition Patient Disposition: HOME Condition: Improving Discharge Details Reason For Visit: Pyelonephritis,SepticShock,Atrial Fibrillation/RVR Admit Date/Time: 01/15/21 16:14 Admit Provider: Petey Damon Attending Provider: Petey Damon Primary Care Provider: Becky Hardy Hospital Course Hospital Course: This is a 70 yo male with a h/o atrial fibrillation on apixaban, previous UTI's complicated by nephrolithiasis, BPH, HTN, cutaneous T-cell lymphoma. He presented with concerns of fever and chills. He also uses a penile clamp/tamponade to prevent incontinence and when he removed the device today he noted a significant amount of blood in the urine. He is currently undergoing chemotherapy for his lymphoma. He denied CP or palpitations. + SOA and a nonproductive cough. He presented with tachycardia with rate of 90-200. EKG showed afib with RVR. SBP initially 114 but did decline as low as 62. Levophed was initiated. He was given 1L IV NS then a bolus of 150mg amiodarone. An amiodarone maintanance drip then initiated. UA positive. Zosyn and IV Vancomycin given. WBC count 4.06. VBG lactate elevated at 3.4. Na 147. K 3.7. BUN 14. Creatinine 1.3 (baseline of 1.0). Mg low at 1.5. Total bilirubin 1.7. AST and ALT normal. Troponin neg x 2. NTProBNP pending. TSH 0.86. CT abd/pelvis with stranding at the left kidney indicating pyelonephritis. No obstructing nephrolithiasis noted. Chest xray showed evidence of pulmonary edema. He exhibited no respiratory compromise. Magnesium sulfate bolus of 2 grams given. [facility] contacted by ED physician for transfer but no bed available; planned to accept the following day. ED physician did offer a possible transfer to [facility] later in the evening or the following day but the pt declined. [facility] did not have bed availability either. Admitted to the ICU. Zosyn initiated. His presenting BP was low and norepinephrine drip initiated. Aggressive IV hydration ensued; watching closely for pulmonary edema. He was in afib with a rapid ventricular rate up to 200. He did deny any CP or notice of any palpitations or racing heart. D/T the low BP, rather than giving dilitiazem or metoprolol to control the rapid heart rate, amiodarone was initiated; a bolus given then a drip. His HR was subsequently in the range of 130's to 140's generally. Another bolus of amiodarone given but overnight there was no improvement in heart rate. Digoxin loading dose given. His HR, overall, improved into the 110's. His WBC count normalized. His BP stabilized into the low 100's to 110's off norepinephrine. His low magnesium level was corrected. He desired to have the code status of DNR/DNI. He would like to have a palliative consult which will be arranged as an outpt. He is considering stopping chemotherapy and proceeding with comfort measures only. Follow up with PCP in the next next. Lab: Digoxin level on Thursday01/21/2021. Schedule outpatient appointment with Palliative Care. Home Meds and New Rx's Prescriptions: New polyethylene glycol 3350 17 gram Powder In Packet 17 g PO DAILY PRN PRN (Reason: Constipation) Qty: 0 RF: 0 digoxin [Lanoxin] 250 mcg (0.25 mg) Tablet 0.25 mg PO DAILY Qty: 14 RF: 0 L. Acidophilus,Casei,Rhamnosus [Bio-K Plus] 1 cap PO DAILY Qty: 0 RF: 0 amoxicillin-pot clavulanate [Augmentin] 875-125 mg tablet 1 tab PO BID Qty: 14 RF: 0 Continued Eliquis 5 mg tablet 5 mg PO BID RF: 0 lorazepam 1 mg tablet 1 mg PO .qHS Qty: 28 RF: 2 Hold Instructions: Home Medication placed on hold at Doctor's office triamcinolone acetonide 0.5 % ointment 1 applic TP BID Qty: 60 RF: 1 atorvastatin 40 mg tablet 40 mg PO QPM RF: 0 pantoprazole [Protonix] 40 mg tablet,delayed release (DR/EC) 40 mg PO DAILY RF: 0 gabapentin 300 mg capsule 900 mg PO TID RF: 0 montelukast 10 mg tablet 10 mg PO DAILY Qty: 90 RF: 3 metoprolol tartrate 25 mg tablet 25 mg PO BID RF: 0 Discontinued lisinopril 5 mg tablet 5 mg PO BID RF: 0 Discharge Instructions Referrals: Kristel Benjamin MD, [facility] [, [facility] MEDICAL STAFF] - Yelitza Fairbanks NP [NURSE PRACTITIONER] - Todd,Cheryl Ruiz MD [ [facility] STAFF PHYSICIAN] - Activity:: Activity as Tolerated Equipment/Supplies:: No Equipment Needed Diet:: Normal Diet Discharge Orders Discharge Orders: Discharge Order (Routine); Ordered 01/18/21 Ordered By: Petey Damon DS: Summary Time Spent with Patient providing and/or coordinating discharge services: Less than 30 minutes Status at Discharge Functional status at discharge: independent ambulation Overall status at discharge: patient is progressing back to baseline Mental Status: mental status grossly normal Speech and Movement: speech and movement normal Mood: congruent mood Affect: normal affect Exam Const General: cooperative Nutritional Appearance: obese Orientation: alert and oriented x3 Resp Effort & Inspection: normal respiratory effort Auscultation: clear to auscultation bilaterally Cardio Rate: tachycardic Rhythm: abnormal rhythm irregularly irregular GI Palpation: soft Percussion: normal to percussion Skin General skin exam: no rashes or lesions noted and dry skin Neuro General: no focal motor deficits Cognition: normal cognition Speech: speech normal Extrem General: no calf tenderness and pedal edema bilaterally non-pitting Psych Appearance: grossly normal Mental Status: mental status grossly normal Speech and Movement: speech and movement normal Mood: congruent mood Affect: normal affect DS: Data Vitals/I&O Vitals and I&O: Vital Signs Temperature 37.0 C 01/18/21 06:32 Temperature Source Temporal Artery Scan 01/17/21 20:11 Pulse 121 H 01/18/21 08:04 Pulse Rhythm Regular 01/18/21 08:38 Pulse 112 H 01/18/21 07:00 Respiratory Rate 19 01/18/21 07:00 Respiratory Effort Non-Labored 01/18/21 08:38 Respiratory Depth Normal 01/18/21 08:38 Respiratory Pattern Normal 01/18/21 08:38 Blood Pressure 102/65 01/18/21 04:00 Blood Pressure Mean 72 01/18/21 04:00 Blood Pressure Position Supine 01/17/21 15:49 Pulse Oximetry 97 01/17/21 19:59 Oxygen Delivery Method Room Air 01/17/21 15:49 Oxygen Flow Rate 0 01/17/21 15:49 Pain Level 0 01/18/21 06:32 Intake & Output 01/17/21 01/17/21 01/18/21 11:59 23:59 11:59 Intake Total 2246.636 / 3406.636 1160 / 3406.636 1500 / 1500 Output Total 2150 / 5100 2950 / 5100 1800 / 1800 Balance 96.636 / -1693.364 -1790 / -1693.364 -300 / -300 Weight 112.7 kg 107.9 kg Intake: IV 2126.636 / 3286.636 1160 / 3286.636 990 / 990 Oral 120 / 120 510 / 510 Output: Urine 2000 / 4950 2950 / 4950 1800 / 1800 Stool 150 / 150 Other: Urine Color Light Olga Yellow Yellow Urine Appearance Clear Clear Clear Comment pt has indwelling amezquita cath pt has indwelling amezquita cath Stool Occult Blood Negative Stool Size Moderate Stool Characteristics Liquid Mucoid Brown Data Completed and Pending Labs on day of discharge: Labs from last 24 hours 01/18/21 06:25 WBC 6.83 D RBC 4.42 Hgb 13.5 Hct 41.2 MCV 93.2 MCH 30.5 MCHC 32.8 RDW 13.3 Plt Count 126 L MPV 10.0 Immature Gran % 0.0 Neutrophils % 85.0 Lymphocytes % 6.0 Atypical Lymphs % 1 Monocytes % 6.0 Eosinophils % 1.0 Basophils % 1.0 Nucleated RBC % 0 Absolute Neutrophils 5.81 Absolute Lymphocytes 0.48 L Absolute Monocytes 0.41 Absolute Eosinophils 0.07 Absolute Basophils 0.07 RBC Morphology Normal Preliminary micro results at discharge 01/15/21 14:00 Blood Culture - Preliminary Blood Gram Negative Daniel 01/15/21 14:23 Blood Culture - Preliminary Blood Escherichia coli Gram Negative Daniel#2 Gram Negative Daniel#3 01/15/21 14:10 Urine Culture - Preliminary Urine - Reflex from Ua Escherichia coli Escherichia coli#2 Gram Negative Daniel [facility] Medical History Adenocarcinoma of prostate Paulo White MD [facility] urology [id number], Wil 3+4 s/p RALP 11/2016, low detectable PSA Anxiety Atrial fibrillation INR managed via Cardiology [facility] Dr. Perera,paroxysmal A Flutter Atrial flutter Bilateral carpal tunnel syndrome (07/28/17) BMI 35.0-35.9,adult (08/13/17) BPH w/o urinary obs/LUTS (07/28/17) CAD (coronary artery disease) Calculus of kidney (07/28/17) Most recent 6mm passed @ [facility] (terrible hosp). Hx multiple kidney stones, experienced with passing large stones. Current large calc, monitoried by UROL [facility] Elevated prostate specific antigen (PSA) (07/28/17) Essential hypertension Essential hypertension (07/28/17) BPs well-controlled. Active. Generalized anxiety disorder (07/28/17) Manages well with meds, incl low-dose benzodiaz. 15 yrs sobriety this 2018. History of kidney stones History of malignant neoplasm of prostate Hx of herpes simplex infection Hyperlipidemia (07/28/17) Kidney stones Obesity (BMI 35.0-39.9 without comorbidity) Rash Macular rash, with mild plaque-like eruption. Excoriated 2' pruritis, somewhat managed with Benadryl. Tobacco use disorder (08/13/17) Quit cigarettes, 1984. One cigar daily Tubular adenoma (03/12/18) Xerosis cutis Barrier Repair via vinegar spray + AmLactin See DERM consult, 02/28/2020 Surgical History Arthroplasty of knee (~2013) Left-Meniscal Tear- Colonoscopy - MAC (03/12/18) Hx of Torsion (R)Testicle Lithotripsy Prostate Biopsy (12/02/01) Rising PSA-Negative Robotic Prostatectomy for Wil 7 (11/19/16) Intermediate Risk Prostate Cancer- Family History Mother Hyperlipidemia Father CAD (coronary artery disease) Neoplasm Kidney Grandfather Neoplasm Prostate Social History Smoking/Tobacco Use Status: Current every day Tobacco Type: cigars Per week: 7 Tobacco: How many years used: 6 Smoking risk assessment performed?: Yes Alcohol Intake: former Year quit: 15 Drug use: Never Substance use type: does not use Adopted: No Household members: spouse Housing: condominium Number of Children: 4 Communication Needs: Corrective Lenses 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
== END 2021-01-18 11:22 | disposition home or self-care (01) | DRG 871 ==
LOC: ER 16:55 → ICU 01-16 08:39
PROVIDERS: Family Medicine; Admitting Provider Family Medicine; Emergency Provider Student in an Organized Health Care Education/Training Program; PCP Student in an Organized Health Care Education/Training Program; Visit Provider Family Medicine
DX: A41.9 Sepsis, unspecified organism (principal); R65.21 Severe sepsis with septic shock; N10 Acute pyelonephritis; C84.A0 Cutaneous T-cell lymphoma, unspecified, unspecified site; I48.91 Unspecified atrial fibrillation; E83.42 Hypomagnesemia; R31.0 Gross hematuria; I10 Essential (primary) hypertension; N40.0 Benign prostatic hyperplasia without lower urinary tract symptoms; Z85.46 Personal history of malignant neoplasm of prostate; I25.10 Atherosclerotic heart disease of native coronary artery without angina pectoris; F41.1 Generalized anxiety disorder; E78.5 Hyperlipidemia, unspecified; E66.9 Obesity, unspecified; Z87.442 Personal history of urinary calculi; F17.290 Nicotine dependence, other tobacco product, uncomplicated; Z20.822 Contact with and (suspected) exposure to COVID-19
CPT/HCPCS: 36415; 36556; 51702; 80048; 80053; 87040; 87077; 87635; 93005; 93306; 96361; 96365; 96366; 96367; 96368; 96375; 99291; 99292; 71045; 74176; 81003; 81015; 83605; 83735; 83880; 84443; 84484; 85025; 85610; 85730; 87086; 87186; 93010; 99223; 99233; 99239; J1160; J2543; J3490

== ENCOUNTER 2021-01-23 02:58 | Outpatient (CLI) | payer MEDICARE, BC, SELFPAY ==
[2021-01-23 11:21] LABS: HCT 46.2 % (40.0-50.0); MCH 30.4 pg (27.0-33.0); MCHC 32.5 % (32.0-36.0); MCV 93.7 fL (80-95); Nucleated RBC 0 %; Platelet Count 225 10^3/uL (130-400); RBC 4.93 10^6/uL (4.36-5.78); RDW 13.2 % (11.8-14.1); RDW-SD 45.9 fL; WBC 9.02 10^3/uL (4.4-10.8)
[2021-01-23 11:40] LABS: ALT 33 U/L (16-63); AST 27 U/L (15-37); Albumin 3.3 g/dL (3.4-5.0); Alkaline Phosphatase 143 U/L (46-116); Anion Gap 11.6 mmol/L (3-11); BUN 10 mg/dL (7-18); CO2 26.4 mmol/L (21.0-32.0); Calcium 8.9 mg/dL (8.5-10.1); Calculated LDL 77 mg/dL (<100); Chloride 108 mmol/L (98-107); Cholesterol 137 mg/dL (<200); Glucose 122 mg/dL (74-106); HDL Cholesterol 23 mg/dL (40-60); Magnesium 1.8 mg/dL (1.8-2.4); Potassium 3.7 mmol/L (3.5-5.1); Sodium 146 mmol/L (136-145); Total Protein 6.9 g/dL (6.4-8.2); Triglyceride 189 mg/dL (<150)
[2021-01-23 11:41] LABS: Absolute Lymphocyte Count 4.06 10^3/uL (1.2-3.4); Absolute Neutrophil Count 3.97 10^3/uL (1.2-6.7)
[2021-01-23 11:42] LABS: Absolute Basophil Count 0.09 10^3/uL (0.0-0.2); Absolute Eosinophil Count 0.36 10^3/uL (0.0-0.7); Absolute Monocyte Count 0.54 10^3/uL (0.1-0.8); Atypical Lymphocytes % 15; Diff Comment Manual Differential; RBC Morphology Normal
[2021-01-23 11:57] LABS: FREE T4 0.65 ng/dL (0.76-1.46)
[2021-01-24 16:16] LABS: PSA, Ultrasensitive 0.02 ng/mL (<= 6.5)
== END 2021-01-23 02:59 | disposition home or self-care (01) ==
LOC: LBO 02:58
PROVIDERS: Radiology Radiation Oncology; PCP Student in an Organized Health Care Education/Training Program; Visit Provider Internal Medicine Hematology & Oncology
DX: C61 Malignant neoplasm of prostate (principal); C84.A0 Cutaneous T-cell lymphoma, unspecified, unspecified site; E03.2 Hypothyroidism due to medicaments and other exogenous substances
CPT/HCPCS: 36415; 80053; 80061; 84153; 83735; 84439; 85025

== ENCOUNTER 2021-01-30 16:14 | Outpatient (CLI) | payer MEDICARE, BC, SELFPAY ==
[2021-01-30 09:38] LABS: Abs Immature Grans 0.02 10^3/uL (0.0-0.06); Absolute Basophil Count 0.07 10^3/uL (0.0-0.2); Absolute Eosinophil Count 0.27 10^3/uL (0.0-0.7); Absolute Lymphocyte Count 0.45 10^3/uL (1.2-3.4); Absolute Monocyte Count 0.73 10^3/uL (0.1-0.8); Absolute Neutrophil Count 4.06 10^3/uL (1.2-6.7); Basophils % 1.3; Eosinophils % 4.8; HCT 45.6 % (40.0-50.0); HGB 15.3 g/dL (13.5-17.5); Immature Grans % 0.4; MCH 30.5 pg (27.0-33.0); MCHC 33.6 % (32.0-36.0); MPV 9.7 fL (8.0-11.0); Neutrophils % 72.5; Nucleated RBC 0 %; Platelet Count 228 10^3/uL (130-400); RBC 5.01 10^6/uL (4.36-5.78); RDW 12.9 % (11.8-14.1); RDW-SD 42.7 fL
[2021-01-30 09:52] LABS: ALT 24 U/L (16-63); AST 12 U/L (15-37); Albumin 3.3 g/dL (3.4-5.0); Alkaline Phosphatase 133 U/L (46-116); Anion Gap 10.6 mmol/L (3-11); BUN 10 mg/dL (7-18); CO2 24.4 mmol/L (21.0-32.0); Calcium 8.7 mg/dL (8.5-10.1); Chloride 107 mmol/L (98-107); FREE T4 0.71 ng/dL (0.76-1.46); Glucose 128 mg/dL (74-106); Sodium 142 mmol/L (136-145); Total Protein 6.9 g/dL (6.4-8.2)
[2021-01-31 17:06] LABS: PSA, Ultrasensitive 0.02 ng/mL (<= 6.5)
[2021-02-01 04:20] LABS: Misc Referral (UVM) See Comments
== END 2021-01-30 16:15 | disposition home or self-care (01) ==
LOC: LBO 16:16
PROVIDERS: Family Medicine; PCP Student in an Organized Health Care Education/Training Program; Visit Provider Internal Medicine Hematology & Oncology
DX: C61 Malignant neoplasm of prostate (principal); C84.A5 Cutaneous T-cell lymphoma, unspecified, lymph nodes of inguinal region and lower limb; E03.2 Hypothyroidism due to medicaments and other exogenous substances
CPT/HCPCS: 36415; 80053; 84153; 80162; 83735; 84439; 85025

== ENCOUNTER 2021-02-05 03:10 | Outpatient (CLI) | payer MEDICARE, BC, SELFPAY ==
[2021-02-05 14:09] LABS: Abs Immature Grans 0.02 10^3/uL (0.0-0.06); Absolute Basophil Count 0.08 10^3/uL (0.0-0.2); Absolute Eosinophil Count 0.24 10^3/uL (0.0-0.7); Absolute Monocyte Count 0.56 10^3/uL (0.1-0.8); Absolute Neutrophil Count 5.25 10^3/uL (1.2-6.7); Basophils % 1.2; Eosinophils % 3.7; HCT 45.3 % (40.0-50.0); HGB 15.3 g/dL (13.5-17.5); Immature Grans % 0.3; Lymphocytes % 4.7; MCH 30.7 pg (27.0-33.0); MCHC 33.8 % (32.0-36.0); MCV 90.8 fL (80-95); MPV 9.3 fL (8.0-11.0); Monocytes % 8.7; Neutrophils % 81.4; Nucleated RBC 0 %; Platelet Count 205 10^3/uL (130-400); RBC 4.99 10^6/uL (4.36-5.78); RDW 12.6 % (11.8-14.1); RDW-SD 41.7 fL; WBC 6.45 10^3/uL (4.4-10.8)
[2021-02-05 15:04] LABS: ALT 28 U/L (16-63); AST 24 U/L (15-37); Albumin 3.4 g/dL (3.4-5.0); Alkaline Phosphatase 120 U/L (46-116); Anion Gap 10.8 mmol/L (3-11); BUN 12 mg/dL (7-18); Bilirubin, Total 1.6 mg/dL (0.2-1.0); CO2 25.2 mmol/L (21.0-32.0); CREATININE 0.9 mg/dL (0.70-1.30); Calcium 8.6 mg/dL (8.5-10.1); Chloride 108 mmol/L (98-107); Cholesterol 160 mg/dL (<200); Glucose 154 mg/dL (74-106); HDL Cholesterol 29 mg/dL (40-60); Magnesium 1.8 mg/dL (1.8-2.4); Potassium 3.9 mmol/L (3.5-5.1); Sodium 144 mmol/L (136-145); Total Protein 6.3 g/dL (6.4-8.2); Triglyceride 419 mg/dL (<150)
[2021-02-05 15:21] LABS: LDL CHOLESTEROL 71 mg/dL (<100)
[2021-02-05 15:38] LABS: FREE T4 0.71 ng/dL (0.76-1.46)
[2021-02-06 18:06] LABS: PSA, Ultrasensitive 0.02 ng/mL (<= 6.5)
== END 2021-02-05 03:11 | disposition home or self-care (01) ==
PROVIDERS: PCP Student in an Organized Health Care Education/Training Program; Visit Provider Internal Medicine Hematology & Oncology
DX: C61 Malignant neoplasm of prostate (principal); C84.A5 Cutaneous T-cell lymphoma, unspecified, lymph nodes of inguinal region and lower limb; E03.2 Hypothyroidism due to medicaments and other exogenous substances
CPT/HCPCS: 36415; 80053; 80061; 83721; 84153; 83735; 84439; 85025

== ENCOUNTER 2021-02-12 03:31 | Outpatient (CLI) | payer MEDICARE, BC, SELFPAY ==
[2021-02-12 15:50] LABS: Abs Immature Grans 0.03 10^3/uL (0.0-0.06); Absolute Basophil Count 0.07 10^3/uL (0.0-0.2); Absolute Eosinophil Count 0.37 10^3/uL (0.0-0.7); Absolute Monocyte Count 0.59 10^3/uL (0.1-0.8); Absolute Neutrophil Count 6.38 10^3/uL (1.2-6.7); Basophils % 0.9; Eosinophils % 4.7; HCT 45.2 % (40.0-50.0); HGB 15.4 g/dL (13.5-17.5); Immature Grans % 0.4; Lymphocytes % 5.1; MCH 30.1 pg (27.0-33.0); MCHC 34.1 % (32.0-36.0); MCV 88.5 fL (80-95); MPV 9.8 fL (8.0-11.0); Monocytes % 7.5; Neutrophils % 81.4; Nucleated RBC 0 %; Platelet Count 176 10^3/uL (130-400); RBC 5.11 10^6/uL (4.36-5.78); RDW 12.3 % (11.8-14.1); RDW-SD 40.2 fL; WBC 7.84 10^3/uL (4.4-10.8)
[2021-02-12 16:06] LABS: ALT 32 U/L (16-63); AST 23 U/L (15-37); Albumin 3.3 g/dL (3.4-5.0); Alkaline Phosphatase 117 U/L (46-116); Anion Gap 9.5 mmol/L (3-11); BUN 11 mg/dL (7-18); Bilirubin, Total 1.3 mg/dL (0.2-1.0); CO2 26.5 mmol/L (21.0-32.0); Calcium 8.5 mg/dL (8.5-10.1); Chloride 105 mmol/L (98-107); FREE T4 0.74 ng/dL (0.76-1.46); Glucose 211 mg/dL (74-106); Magnesium 1.7 mg/dL (1.8-2.4); Potassium 3.6 mmol/L (3.5-5.1); Sodium 141 mmol/L (136-145); Total Protein 6.6 g/dL (6.4-8.2)
[2021-02-12 16:49] LABS: Cholesterol 166 mg/dL (<200); HDL Cholesterol 29 mg/dL (40-60); Triglyceride 508 mg/dL (<150)
[2021-02-12 17:02] LABS: LDL CHOLESTEROL 74 mg/dL (<100)
== END 2021-02-12 03:32 | disposition home or self-care (01) ==
PROVIDERS: PCP Student in an Organized Health Care Education/Training Program; Visit Provider Internal Medicine Hematology & Oncology
DX: C84.A5 Cutaneous T-cell lymphoma, unspecified, lymph nodes of inguinal region and lower limb (principal); E03.2 Hypothyroidism due to medicaments and other exogenous substances
CPT/HCPCS: 36415; 80053; 80061; 83721; 83735; 84439; 85025

== ENCOUNTER 2021-02-19 03:58 | Outpatient (CLI) | payer MEDICARE, BC, SELFPAY ==
[2021-02-19 16:28] LABS: Abs Immature Grans 0.05 10^3/uL (0.0-0.06); Absolute Basophil Count 0.05 10^3/uL (0.0-0.2); Absolute Eosinophil Count 0.28 10^3/uL (0.0-0.7); Absolute Lymphocyte Count 0.52 10^3/uL (1.2-3.4); Absolute Monocyte Count 0.57 10^3/uL (0.1-0.8); Absolute Neutrophil Count 5.21 10^3/uL (1.2-6.7); Basophils % 0.7; Eosinophils % 4.2; HCT 46.8 % (40.0-50.0); HGB 15.8 g/dL (13.5-17.5); Immature Grans % 0.7; Lymphocytes % 7.8; MCH 29.7 pg (27.0-33.0); MCHC 33.8 % (32.0-36.0); Monocytes % 8.5; Neutrophils % 78.1; Nucleated RBC 0 %; Platelet Count 178 10^3/uL (130-400); RBC 5.32 10^6/uL (4.36-5.78); RDW 12.4 % (11.8-14.1); RDW-SD 39.6 fL; WBC 6.68 10^3/uL (4.4-10.8)
[2021-02-19 17:42] LABS: ALT 41 U/L (16-63); AST 26 U/L (15-37); Albumin 3.5 g/dL (3.4-5.0); Alkaline Phosphatase 110 U/L (46-116); Anion Gap 10.3 mmol/L (3-11); BUN 14 mg/dL (7-18); Bilirubin, Total 1.3 mg/dL (0.2-1.0); CO2 27.7 mmol/L (21.0-32.0); CREATININE 1.1 mg/dL (0.70-1.30); Calcium 8.4 mg/dL (8.5-10.1); Chloride 106 mmol/L (98-107); Cholesterol 199 mg/dL (<200); Glucose 223 mg/dL (74-106); HDL Cholesterol 33 mg/dL (40-60); Magnesium 1.8 mg/dL (1.8-2.4); Potassium 3.8 mmol/L (3.5-5.1); Sodium 144 mmol/L (136-145); Total Protein 6.4 g/dL (6.4-8.2); Triglyceride 568 mg/dL (<150)
[2021-02-19 17:53] LABS: LDL CHOLESTEROL 88 mg/dL (<100)
[2021-02-19 18:09] LABS: FREE T4 0.82 ng/dL (0.76-1.46)
== END 2021-02-19 03:59 | disposition home or self-care (01) ==
PROVIDERS: PCP Student in an Organized Health Care Education/Training Program; Visit Provider Internal Medicine Hematology & Oncology
DX: C84.A0 Cutaneous T-cell lymphoma, unspecified, unspecified site (principal); E03.2 Hypothyroidism due to medicaments and other exogenous substances
CPT/HCPCS: 36415; 80053; 80061; 83721; 83735; 84439; 85025

== ENCOUNTER 2021-03-05 03:27 | Outpatient (CLI) | payer MEDICARE, BC, SELFPAY ==
[2021-03-05 12:25] LABS: Abs Immature Grans 0.02 10^3/uL (0.0-0.06); Absolute Basophil Count 0.05 10^3/uL (0.0-0.2); Absolute Eosinophil Count 0.19 10^3/uL (0.0-0.7); Absolute Lymphocyte Count 0.44 10^3/uL (1.2-3.4); Absolute Neutrophil Count 4.02 10^3/uL (1.2-6.7); Basophils % 0.9; Eosinophils % 3.6; HCT 43.8 % (40.0-50.0); Immature Grans % 0.4; Lymphocytes % 8.3; MCH 29.6 pg (27.0-33.0); MCHC 34.2 % (32.0-36.0); MCV 86.4 fL (80-95); MPV 9.7 fL (8.0-11.0); Monocytes % 11.3; Neutrophils % 75.5; Nucleated RBC 0 %; Platelet Count 154 10^3/uL (130-400); RBC 5.07 10^6/uL (4.36-5.78); RDW-SD 38.1 fL; WBC 5.32 10^3/uL (4.4-10.8)
[2021-03-05 12:50] LABS: ALT 54 U/L (16-63); AST 35 U/L (15-37); Albumin 3.6 g/dL (3.4-5.0); Alkaline Phosphatase 97 U/L (46-116); Anion Gap 7.8 mmol/L (3-11); BUN 8 mg/dL (7-18); Bilirubin, Total 1.6 mg/dL (0.2-1.0); CO2 26.2 mmol/L (21.0-32.0); CREATININE 0.9 mg/dL (0.70-1.30); Calcium 8.8 mg/dL (8.5-10.1); Chloride 107 mmol/L (98-107); FREE T4 0.89 ng/dL (0.76-1.46); Glucose 185 mg/dL (74-106); Magnesium 1.6 mg/dL (1.8-2.4); Potassium 3.8 mmol/L (3.5-5.1); Sodium 141 mmol/L (136-145); Total Protein 6.7 g/dL (6.4-8.2)
[2021-03-05 13:03] LABS: Calculated LDL 51 mg/dL (<100); Cholesterol 161 mg/dL (<200); HDL Cholesterol 35 mg/dL (40-60); Triglyceride 375 mg/dL (<150)
== END 2021-03-05 03:28 | disposition home or self-care (01) ==
LOC: LBO 03:27
PROVIDERS: PCP Student in an Organized Health Care Education/Training Program; Visit Provider Internal Medicine Hematology & Oncology
DX: C84.A5 Cutaneous T-cell lymphoma, unspecified, lymph nodes of inguinal region and lower limb (principal); E03.2 Hypothyroidism due to medicaments and other exogenous substances
CPT/HCPCS: 36415; 80053; 80061; 83735; 84439; 85025

== ENCOUNTER 2021-03-19 03:23 | Outpatient (CLI) | payer MEDICARE, BC, SELFPAY ==
[2021-03-19 16:26] LABS: Abs Immature Grans 0.03 10^3/uL (0.0-0.06); Absolute Basophil Count 0.05 10^3/uL (0.0-0.2); Absolute Eosinophil Count 0.18 10^3/uL (0.0-0.7); Absolute Lymphocyte Count 0.54 10^3/uL (1.2-3.4); Absolute Monocyte Count 0.55 10^3/uL (0.1-0.8); Absolute Neutrophil Count 4.82 10^3/uL (1.2-6.7); Basophils % 0.8; Eosinophils % 2.9; HCT 43.3 % (40.0-50.0); Immature Grans % 0.5; Lymphocytes % 8.8; MCH 29.8 pg (27.0-33.0); MCHC 34.6 % (32.0-36.0); MCV 86.1 fL (80-95); MPV 9.7 fL (8.0-11.0); Monocytes % 8.9; Neutrophils % 78.1; Nucleated RBC 0 %; Platelet Count 159 10^3/uL (130-400); RBC 5.03 10^6/uL (4.36-5.78); RDW 12.5 % (11.8-14.1); RDW-SD 38.5 fL; WBC 6.17 10^3/uL (4.4-10.8)
[2021-03-19 16:37] LABS: Magnesium 1.7 mg/dL (1.8-2.4)
[2021-03-19 17:16] LABS: ALT 53 U/L (16-63); AST 35 U/L (15-37); Albumin 3.6 g/dL (3.4-5.0); Alkaline Phosphatase 97 U/L (46-116); Anion Gap 10.7 mmol/L (3-11); BUN 15 mg/dL (7-18); Bilirubin, Total 2.1 mg/dL (0.2-1.0); CO2 25.3 mmol/L (21.0-32.0); Calcium 9.1 mg/dL (8.5-10.1); Chloride 106 mmol/L (98-107); Cholesterol 162 mg/dL (<200); Glucose 233 mg/dL (74-106); HDL Cholesterol 32 mg/dL (40-60); Sodium 142 mmol/L (136-145); Total Protein 6.7 g/dL (6.4-8.2); Triglyceride 441 mg/dL (<150)
[2021-03-19 17:36] LABS: FREE T4 0.81 ng/dL (0.76-1.46)
[2021-03-19 17:46] LABS: LDL CHOLESTEROL 78 mg/dL (<100)
== END 2021-03-19 03:24 | disposition home or self-care (01) ==
PROVIDERS: PCP Student in an Organized Health Care Education/Training Program; Visit Provider Internal Medicine Hematology & Oncology
DX: C84.A0 Cutaneous T-cell lymphoma, unspecified, unspecified site (principal); E03.2 Hypothyroidism due to medicaments and other exogenous substances
CPT/HCPCS: 36415; 80053; 80061; 83721; 83735; 84439; 85025

== ENCOUNTER 2021-04-03 02:40 | Outpatient (CLI) | payer MEDICARE, BC, SELFPAY ==
[2021-04-03 13:53] LABS: Abs Immature Grans 0.04 10^3/uL (0.0-0.06); Absolute Basophil Count 0.06 10^3/uL (0.0-0.2); Absolute Lymphocyte Count 0.59 10^3/uL (1.2-3.4); Absolute Monocyte Count 0.76 10^3/uL (0.1-0.8); Absolute Neutrophil Count 6.04 10^3/uL (1.2-6.7); Basophils % 0.8; Eosinophils % 3.9; HCT 42.6 % (40.0-50.0); HGB 14.7 g/dL (13.5-17.5); Immature Grans % 0.5; Lymphocytes % 7.6; MCH 30.2 pg (27.0-33.0); MCHC 34.5 % (32.0-36.0); MCV 87.5 fL (80-95); Monocytes % 9.8; Neutrophils % 77.4; Nucleated RBC 0 %; Platelet Count 183 10^3/uL (130-400); RBC 4.87 10^6/uL (4.36-5.78); RDW 13.2 % (11.8-14.1); RDW-SD 41.5 fL; WBC 7.79 10^3/uL (4.4-10.8)
[2021-04-03 14:04] LABS: Magnesium 1.8 mg/dL (1.8-2.4)
[2021-04-03 14:18] LABS: ALT 46 U/L (16-63); AST 24 U/L (15-37); Albumin 3.6 g/dL (3.4-5.0); Alkaline Phosphatase 127 U/L (46-116); Anion Gap 7.2 mmol/L (3-11); BUN 11 mg/dL (7-18); Bilirubin, Total 1.3 mg/dL (0.2-1.0); CO2 28.8 mmol/L (21.0-32.0); CREATININE 0.9 mg/dL (0.70-1.30); Chloride 106 mmol/L (98-107); FREE T4 0.83 ng/dL (0.76-1.46); Glucose 237 mg/dL (74-106); Potassium 4.2 mmol/L (3.5-5.1); Sodium 142 mmol/L (136-145)
[2021-04-03 14:29] LABS: Cholesterol 160 mg/dL (<200); HDL Cholesterol 30 mg/dL (40-60); Triglyceride 482 mg/dL (<150)
[2021-04-03 14:39] LABS: LDL CHOLESTEROL 70 mg/dL (<100)
== END 2021-04-03 02:41 | disposition home or self-care (01) ==
LOC: LBO 02:40
PROVIDERS: PCP Student in an Organized Health Care Education/Training Program; Visit Provider Internal Medicine Hematology & Oncology
DX: C84.A0 Cutaneous T-cell lymphoma, unspecified, unspecified site; E03.2 Hypothyroidism due to medicaments and other exogenous substances
CPT/HCPCS: 36415; 80053; 80061; 83721; 83735; 84439; 85025

== ENCOUNTER 2021-04-16 03:54 | Outpatient (CLI) | payer MEDICARE, BC, SELFPAY ==
[2021-04-16 16:42] LABS: Abs Immature Grans 0.04 10^3/uL (0.0-0.06); Absolute Basophil Count 0.06 10^3/uL (0.0-0.2); Absolute Eosinophil Count 0.27 10^3/uL (0.0-0.7); Absolute Lymphocyte Count 0.65 10^3/uL (1.2-3.4); Absolute Neutrophil Count 5.58 10^3/uL (1.2-6.7); Basophils % 0.8; Eosinophils % 3.7; HCT 41.6 % (40.0-50.0); HGB 14.3 g/dL (13.5-17.5); Immature Grans % 0.5; Lymphocytes % 8.9; MCH 30.6 pg (27.0-33.0); MCHC 34.4 % (32.0-36.0); MCV 88.9 fL (80-95); MPV 9.7 fL (8.0-11.0); Monocytes % 9.6; Neutrophils % 76.5; Nucleated RBC 0 %; Platelet Count 178 10^3/uL (130-400); RBC 4.68 10^6/uL (4.36-5.78); RDW 13.6 % (11.8-14.1); RDW-SD 43.9 fL
[2021-04-16 17:10] LABS: ALT 46 U/L (16-63); AST 32 U/L (15-37); Albumin 3.5 g/dL (3.4-5.0); Alkaline Phosphatase 117 U/L (46-116); Anion Gap 4.8 mmol/L (3-11); BUN 13 mg/dL (7-18); Bilirubin, Total 1.4 mg/dL (0.2-1.0); CO2 31.2 mmol/L (21.0-32.0); Calcium 8.9 mg/dL (8.5-10.1); Chloride 108 mmol/L (98-107); FREE T4 0.79 ng/dL (0.76-1.46); Glucose 209 mg/dL (74-106); Magnesium 1.9 mg/dL (1.8-2.4); Potassium 4.6 mmol/L (3.5-5.1); Sodium 144 mmol/L (136-145); Total Protein 6.8 g/dL (6.4-8.2)
[2021-04-16 17:22] LABS: Calculated LDL 66 mg/dL (<100); Cholesterol 144 mg/dL (<200); HDL Cholesterol 33 mg/dL (40-60); Triglyceride 225 mg/dL (<150)
== END 2021-04-16 03:55 | disposition home or self-care (01) ==
LOC: LBO 03:54
PROVIDERS: Internal Medicine Hematology & Oncology; PCP Student in an Organized Health Care Education/Training Program; Visit Provider Internal Medicine Hematology & Oncology
DX: E03.2 Hypothyroidism due to medicaments and other exogenous substances (principal); C84.A0 Cutaneous T-cell lymphoma, unspecified, unspecified site
CPT/HCPCS: 80053; 80061; 83735; 84439; 85025

== ENCOUNTER 2021-04-30 03:45 | Outpatient (CLI) | payer MEDICARE, BC, SELFPAY ==
[2021-04-30 16:13] LABS: Abs Immature Grans 0.02 10^3/uL (0.0-0.06); Absolute Basophil Count 0.05 10^3/uL (0.0-0.2); Absolute Eosinophil Count 0.24 10^3/uL (0.0-0.7); Absolute Monocyte Count 0.72 10^3/uL (0.1-0.8); Absolute Neutrophil Count 5.89 10^3/uL (1.2-6.7); Basophils % 0.7; Eosinophils % 3.1; HCT 43.1 % (40.0-50.0); HGB 14.7 g/dL (13.5-17.5); Immature Grans % 0.3; Lymphocytes % 9.2; MCH 30.2 pg (27.0-33.0); MCHC 34.1 % (32.0-36.0); MCV 88.7 fL (80-95); MPV 9.9 fL (8.0-11.0); Monocytes % 9.4; Neutrophils % 77.3; Nucleated RBC 0 %; Platelet Count 182 10^3/uL (130-400); RBC 4.86 10^6/uL (4.36-5.78); RDW 13.7 % (11.8-14.1); RDW-SD 44.7 fL; WBC 7.62 10^3/uL (4.4-10.8)
[2021-04-30 18:31] LABS: ALT 45 U/L (16-63); AST 32 U/L (15-37); Albumin 3.7 g/dL (3.4-5.0); Alkaline Phosphatase 109 U/L (46-116); Anion Gap 10.4 mmol/L (3-11); BUN 15 mg/dL (7-18); Bilirubin, Total 1.9 mg/dL (0.2-1.0); CO2 25.6 mmol/L (21.0-32.0); Chloride 108 mmol/L (98-107); FREE T4 0.89 ng/dL (0.76-1.46); Glucose 144 mg/dL (74-106); Magnesium 1.8 mg/dL (1.8-2.4); Potassium 4.1 mmol/L (3.5-5.1); Sodium 144 mmol/L (136-145); Total Protein 6.5 g/dL (6.4-8.2)
[2021-04-30 18:44] LABS: Calculated LDL 87 mg/dL (<100); Cholesterol 162 mg/dL (<200); HDL Cholesterol 36 mg/dL (40-60); Triglyceride 197 mg/dL (<150)
--- NOTE | 2021-05-02 13:21 | NUR.NOTE ---
patient called regarding backpack that had been left behind. backpack found without name label but patient was able to describe the backpack and its contents. advised nursing supervisor cell efficiency who contacted quality. decision was made to release the backpack to this patient. Nursing Note:
== END 2021-04-30 03:46 | disposition home or self-care (01) ==
LOC: LBO 03:45
PROVIDERS: Internal Medicine Hematology & Oncology; PCP Student in an Organized Health Care Education/Training Program; Visit Provider Internal Medicine Hematology & Oncology
DX: E03.2 Hypothyroidism due to medicaments and other exogenous substances (principal); C84.A0 Cutaneous T-cell lymphoma, unspecified, unspecified site
CPT/HCPCS: 80053; 80061; 83735; 84439; 85025

== ENCOUNTER 2021-05-08 03:43 | Outpatient (CLI) | payer MEDICARE, BC, SELFPAY ==
[2021-05-08 11:19] LABS: Abs Immature Grans 0.03 10^3/uL (0.0-0.06); Absolute Basophil Count 0.04 10^3/uL (0.0-0.2); Absolute Eosinophil Count 0.27 10^3/uL (0.0-0.7); Absolute Lymphocyte Count 0.59 10^3/uL (1.2-3.4); Absolute Monocyte Count 0.81 10^3/uL (0.1-0.8); Absolute Neutrophil Count 4.77 10^3/uL (1.2-6.7); Basophils % 0.6; Eosinophils % 4.1; HCT 42.8 % (40.0-50.0); HGB 14.5 g/dL (13.5-17.5); Immature Grans % 0.5; Lymphocytes % 9.1; MCH 30.4 pg (27.0-33.0); MCHC 33.9 % (32.0-36.0); MCV 89.7 fL (80-95); MPV 9.4 fL (8.0-11.0); Monocytes % 12.4; Neutrophils % 73.3; Nucleated RBC 0 %; Platelet Count 158 10^3/uL (130-400); RBC 4.77 10^6/uL (4.36-5.78); RDW 13.8 % (11.8-14.1); RDW-SD 45.8 fL; WBC 6.51 10^3/uL (4.4-10.8)
[2021-05-08 11:43] LABS: ALT 42 U/L (16-63); AST 24 U/L (15-37); Albumin 3.6 g/dL (3.4-5.0); Alkaline Phosphatase 116 U/L (46-116); Anion Gap 5.9 mmol/L (3-11); BUN 13 mg/dL (7-18); Bilirubin, Total 2.1 mg/dL (0.2-1.0); CO2 31.1 mmol/L (21.0-32.0); Calcium 9.1 mg/dL (8.5-10.1); Chloride 108 mmol/L (98-107); FREE T4 0.88 ng/dL (0.76-1.46); Glucose 112 mg/dL (74-106); Magnesium 1.8 mg/dL (1.8-2.4); Potassium 5.1 mmol/L (3.5-5.1); Sodium 145 mmol/L (136-145); Total Protein 6.8 g/dL (6.4-8.2)
[2021-05-08 11:55] LABS: Calculated LDL 59 mg/dL (<100); Cholesterol 133 mg/dL (<200); HDL Cholesterol 37 mg/dL (40-60); Triglyceride 186 mg/dL (<150)
== END 2021-05-08 03:44 | disposition home or self-care (01) ==
LOC: LBO 03:44
PROVIDERS: PCP Student in an Organized Health Care Education/Training Program; Visit Provider Internal Medicine Hematology & Oncology
DX: E03.2 Hypothyroidism due to medicaments and other exogenous substances (principal); C84.A0 Cutaneous T-cell lymphoma, unspecified, unspecified site
CPT/HCPCS: 36415; 80053; 80061; 83735; 84439; 85025

== ENCOUNTER 2021-05-09 02:04 | Outpatient (CLI) | payer MEDICARE, BC, SELFPAY ==
--- NOTE | 2021-05-09 08:15 | DI.US_ITS ---
Exam(s) US RENAL EXAM: US RENAL CLINICAL HISTORY: monitor known left kidney stones, N20.0 TECHNIQUE: Ultrasound of both kidneys performed using standard protocol. COMPARISON: CT CT RENAL COLIC WO from 01/15/2021 FINDINGS: RIGHT KIDNEY: Measures 12.9 cm in length. No cysts evident. Normal cortical thickness and corticomedullary differen tiation .No solid masses No intrarenal calculi nor hydronephrosis. LEFT KIDNEY: Measures 30.5 cm in length. No cysts evident. Normal cortical thickness and corticomedullary differe ntiaion. No solids masses. There is a 3 millimeter and a 5 millimeter midpole level calculus. There is also a 7 millimeter inferior pole calculus. These are nonobstructive. Indeed, prior CT scan of December 2020 reveals multiple calculi in left kidney. URINARY BLADDER: Prevoid volume is 55 cc Not adequately prepped for bladder study IMPRESSION: 1. Multiple nonobstructive calculi in left kidney. Three are seen on this study. Probably addition al calculi in the left kidney, given the appearance on the CT scan of the 01/15/2021. There is prese ntly no evidence of hydronephrosis. There is no cortical mantle thinning in either kidney. There is normal corticomedullary differentiation bilaterally. 2. Bladder not adequately studied. Only contains 55 cc. DATA REPOSITORY:
== END 2021-05-09 02:24 ==
PROVIDERS: PCP Student in an Organized Health Care Education/Training Program; Visit Provider Urology
DX: N20.0 Calculus of kidney (principal)
CPT/HCPCS: 76770

== ENCOUNTER → 2021-05-17 09:51 | Outpatient (BNVA) | payer MEDICARE, BC, SELFPAY | PROVIDERS: PCP Student in an Organized Health Care Education/Training Program; Referring Provider Student in an Organized Health Care Education/Training Program; Visit Provider Urology | DX: N20.0 Calculus of kidney (principal); Z98.890 Other specified postprocedural states | CPT/HCPCS: 99213 ==

== ENCOUNTER 2021-05-28 04:15 | Outpatient (CLI) | payer MEDICARE, BC, SELFPAY ==
[2021-05-28 16:51] LABS: Abs Immature Grans 0.03 10^3/uL (0.0-0.06); Absolute Basophil Count 0.05 10^3/uL (0.0-0.2); Absolute Eosinophil Count 0.22 10^3/uL (0.0-0.7); Absolute Lymphocyte Count 0.72 10^3/uL (1.2-3.4); Absolute Monocyte Count 0.66 10^3/uL (0.1-0.8); Absolute Neutrophil Count 5.51 10^3/uL (1.2-6.7); Basophils % 0.7; Eosinophils % 3.1; HCT 43.3 % (40.0-50.0); HGB 14.6 g/dL (13.5-17.5); Immature Grans % 0.4; MCH 30.6 pg (27.0-33.0); MCHC 33.7 % (32.0-36.0); MCV 90.8 fL (80-95); MPV 10.4 fL (8.0-11.0); Monocytes % 9.2; Neutrophils % 76.6; Nucleated RBC 0 %; Platelet Count 182 10^3/uL (130-400); RBC 4.77 10^6/uL (4.36-5.78); RDW 13.2 % (11.8-14.1); RDW-SD 44.1 fL; WBC 7.19 10^3/uL (4.4-10.8)
[2021-05-28 23:02] LABS: BUN 15 mg/dL (7-18); CREATININE 0.9 mg/dL (0.70-1.30); Calcium 8.9 mg/dL (8.5-10.1); Calculated LDL 60 mg/dL (<100); Cholesterol 142 mg/dL (<200); Glucose 142 mg/dL (74-106); HDL Cholesterol 41 mg/dL (40-60); Triglyceride 206 mg/dL (<150)
[2021-05-28 23:03] LABS: ALT 41 U/L (16-63); AST 28 U/L (15-37); Albumin 3.8 g/dL (3.4-5.0); Alkaline Phosphatase 124 U/L (46-116); Anion Gap 10.2 mmol/L (3-11); Bilirubin, Total 1.7 mg/dL (0.2-1.0); CO2 28.8 mmol/L (21.0-32.0); Chloride 109 mmol/L (98-107); FREE T4 0.86 ng/dL (0.76-1.46); Magnesium 1.8 mg/dL (1.8-2.4); Potassium 4.2 mmol/L (3.5-5.1); Sodium 148 mmol/L (136-145); Total Protein 6.6 g/dL (6.4-8.2)
== END 2021-05-28 04:16 | disposition home or self-care (01) ==
PROVIDERS: PCP Student in an Organized Health Care Education/Training Program; Visit Provider Internal Medicine Hematology & Oncology
DX: C84.A0 Cutaneous T-cell lymphoma, unspecified, unspecified site (principal); E03.2 Hypothyroidism due to medicaments and other exogenous substances
CPT/HCPCS: 36415; 80053; 80061; 83735; 84439; 85025

== ENCOUNTER 2021-06-11 03:08 | Outpatient (CLI) | payer MEDICARE, BC, SELFPAY ==
[2021-06-11 16:27] LABS: Abs Immature Grans 0.02 10^3/uL (0.0-0.06); Absolute Basophil Count 0.06 10^3/uL (0.0-0.2); Absolute Eosinophil Count 0.25 10^3/uL (0.0-0.7); Absolute Lymphocyte Count 0.75 10^3/uL (1.2-3.4); Absolute Monocyte Count 0.71 10^3/uL (0.1-0.8); Absolute Neutrophil Count 5.03 10^3/uL (1.2-6.7); Basophils % 0.9; Eosinophils % 3.7; HGB 15.1 g/dL (13.5-17.5); Immature Grans % 0.3; MCH 30.3 pg (27.0-33.0); MCHC 34.3 % (32.0-36.0); MCV 88.2 fL (80-95); MPV 9.9 fL (8.0-11.0); Monocytes % 10.4; Neutrophils % 73.7; Nucleated RBC 0 %; Platelet Count 173 10^3/uL (130-400); RBC 4.99 10^6/uL (4.36-5.78); RDW 12.8 % (11.8-14.1); RDW-SD 41.3 fL; WBC 6.82 10^3/uL (4.4-10.8)
[2021-06-11 17:21] LABS: ALT 45 U/L (16-63); AST 34 U/L (15-37); Albumin 3.8 g/dL (3.4-5.0); Alkaline Phosphatase 115 U/L (46-116); Anion Gap 8.6 mmol/L (3-11); BUN 18 mg/dL (7-18); Bilirubin, Total 2.1 mg/dL (0.2-1.0); CO2 27.4 mmol/L (21.0-32.0); CREATININE 0.9 mg/dL (0.70-1.30); Calculated LDL 76 mg/dL (<100); Chloride 107 mmol/L (98-107); Cholesterol 143 mg/dL (<200); Glucose 108 mg/dL (74-106); HDL Cholesterol 40 mg/dL (40-60); Magnesium 1.8 mg/dL (1.8-2.4); Potassium 3.7 mmol/L (3.5-5.1); Sodium 143 mmol/L (136-145); Total Protein 6.5 g/dL (6.4-8.2); Triglyceride 135 mg/dL (<150)
[2021-06-11 17:39] LABS: FREE T4 1.02 ng/dL (0.76-1.46)
== END 2021-06-11 03:09 | disposition home or self-care (01) ==
LOC: LBO 03:08
PROVIDERS: PCP Student in an Organized Health Care Education/Training Program; Visit Provider Internal Medicine Hematology & Oncology
DX: E03.2 Hypothyroidism due to medicaments and other exogenous substances (principal); C84.A0 Cutaneous T-cell lymphoma, unspecified, unspecified site
CPT/HCPCS: 36415; 80053; 80061; 83735; 84439; 85025

== ENCOUNTER 2021-06-25 02:39 | Outpatient (CLI) | payer MEDICARE, BC, SELFPAY ==
[2021-06-25 16:18] LABS: Abs Immature Grans 0.02 10^3/uL (0.0-0.06); Absolute Basophil Count 0.06 10^3/uL (0.0-0.2); Absolute Eosinophil Count 0.22 10^3/uL (0.0-0.7); Absolute Monocyte Count 0.61 10^3/uL (0.1-0.8); Absolute Neutrophil Count 4.41 10^3/uL (1.2-6.7); Eosinophils % 3.5; HCT 46.8 % (40.0-50.0); HGB 15.6 g/dL (13.5-17.5); Immature Grans % 0.3; Lymphocytes % 14.5; MCH 30.1 pg (27.0-33.0); MCHC 33.3 % (32.0-36.0); MCV 90.3 fL (80-95); MPV 10.2 fL (8.0-11.0); Monocytes % 9.8; Neutrophils % 70.9; Nucleated RBC 0 %; Platelet Count 178 10^3/uL (130-400); RBC 5.18 10^6/uL (4.36-5.78); RDW 12.3 % (11.8-14.1); RDW-SD 40.6 fL; WBC 6.22 10^3/uL (4.4-10.8)
[2021-06-25 17:55] LABS: ALT 41 U/L (16-63); AST 29 U/L (15-37); Albumin 3.9 g/dL (3.4-5.0); Alkaline Phosphatase 120 U/L (46-116); Anion Gap 11.2 mmol/L (3-11); BUN 14 mg/dL (7-18); Bilirubin, Total 1.7 mg/dL (0.2-1.0); CO2 27.8 mmol/L (21.0-32.0); Calcium 8.7 mg/dL (8.5-10.1); Calculated LDL 62 mg/dL (<100); Chloride 105 mmol/L (98-107); Cholesterol 150 mg/dL (<200); Glucose 131 mg/dL (74-106); HDL Cholesterol 43 mg/dL (40-60); Magnesium 1.7 mg/dL (1.8-2.4); Sodium 144 mmol/L (136-145); Total Protein 6.8 g/dL (6.4-8.2); Triglyceride 227 mg/dL (<150)
[2021-06-25 18:25] LABS: FREE T4 0.78 ng/dL (0.76-1.46)
== END 2021-06-25 02:40 | disposition home or self-care (01) ==
LOC: LBO 02:39
PROVIDERS: PCP Student in an Organized Health Care Education/Training Program; Visit Provider Internal Medicine Hematology & Oncology
DX: E03.2 Hypothyroidism due to medicaments and other exogenous substances; C84.A0 Cutaneous T-cell lymphoma, unspecified, unspecified site
CPT/HCPCS: 36415; 80053; 80061; 83735; 84439; 85025

== ENCOUNTER 2021-07-09 01:56 | Outpatient (CLI) | payer MEDICARE, BC, SELFPAY ==
[2021-07-09 16:30] LABS: Abs Immature Grans 0.02 10^3/uL (0.0-0.06); Absolute Basophil Count 0.07 10^3/uL (0.0-0.2); Absolute Eosinophil Count 0.26 10^3/uL (0.0-0.7); Absolute Lymphocyte Count 0.89 10^3/uL (1.2-3.4); Absolute Monocyte Count 0.81 10^3/uL (0.1-0.8); Absolute Neutrophil Count 4.58 10^3/uL (1.2-6.7); Basophils % 1.1; Eosinophils % 3.9; HCT 49.1 % (40.0-50.0); HGB 16.4 g/dL (13.5-17.5); Immature Grans % 0.3; Lymphocytes % 13.4; MCH 29.6 pg (27.0-33.0); MCHC 33.4 % (32.0-36.0); MCV 88.6 fL (80-95); MPV 10.2 fL (8.0-11.0); Monocytes % 12.2; Neutrophils % 69.1; Nucleated RBC 0 %; Platelet Count 172 10^3/uL (130-400); RBC 5.54 10^6/uL (4.36-5.78); RDW 12.1 % (11.8-14.1); RDW-SD 39.9 fL; WBC 6.63 10^3/uL (4.4-10.8)
[2021-07-09 19:54] LABS: Glucose 93 mg/dL (74-106)
[2021-07-09 20:01] LABS: ALT 45 U/L (16-63); AST 36 U/L (15-37); Albumin 3.9 g/dL (3.4-5.0); Alkaline Phosphatase 111 U/L (46-116); Anion Gap 7.2 mmol/L (3-11); BUN 15 mg/dL (7-18); Bilirubin, Total 1.7 mg/dL (0.2-1.0); CO2 29.8 mmol/L (21.0-32.0); Calcium 9.1 mg/dL (8.5-10.1); Chloride 108 mmol/L (98-107); Glucose 91 mg/dL (74-106); LDH 213 U/L (85-227); Potassium 3.8 mmol/L (3.5-5.1); Sodium 145 mmol/L (136-145); Total Protein 6.8 g/dL (6.4-8.2)
[2021-07-15 16:00] LABS: PSA, Ultrasensitive 0.03 ng/mL (<= 6.5)
== END 2021-07-09 01:57 | disposition home or self-care (01) ==
LOC: LBO 01:56
PROVIDERS: Nurse Practitioner Family; PCP Student in an Organized Health Care Education/Training Program; Visit Provider Internal Medicine Hematology & Oncology
DX: C61 Malignant neoplasm of prostate (principal); C84.A0 Cutaneous T-cell lymphoma, unspecified, unspecified site; R73.03 Prediabetes
CPT/HCPCS: 36415; 80053; 82947; 84153; 83615; 85025

== ENCOUNTER 2021-07-23 03:00 | Outpatient (CLI) | payer MEDICARE, BC, SELFPAY ==
[2021-07-23 16:48] LABS: Abs Immature Grans 0.02 10^3/uL (0.0-0.06); Absolute Basophil Count 0.05 10^3/uL (0.0-0.2); Absolute Eosinophil Count 0.21 10^3/uL (0.0-0.7); Absolute Lymphocyte Count 0.76 10^3/uL (1.2-3.4); Absolute Monocyte Count 0.65 10^3/uL (0.1-0.8); Absolute Neutrophil Count 5.38 10^3/uL (1.2-6.7); Basophils % 0.7; HCT 47.6 % (40.0-50.0); HGB 16.1 g/dL (13.5-17.5); Immature Grans % 0.3; Lymphocytes % 10.7; MCH 29.4 pg (27.0-33.0); MCHC 33.8 % (32.0-36.0); Monocytes % 9.2; Neutrophils % 76.1; Nucleated RBC 0 %; Platelet Count 174 10^3/uL (130-400); RBC 5.47 10^6/uL (4.36-5.78); RDW 12.1 % (11.8-14.1); RDW-SD 38.8 fL; WBC 7.07 10^3/uL (4.4-10.8)
[2021-07-23 17:56] LABS: ALT 49 U/L (16-63); AST 35 U/L (15-37); Albumin 3.9 g/dL (3.4-5.0); Alkaline Phosphatase 124 U/L (46-116); Anion Gap 11.1 mmol/L (3-11); BUN 16 mg/dL (7-18); Bilirubin, Total 1.7 mg/dL (0.2-1.0); CO2 26.9 mmol/L (21.0-32.0); Calcium 9.1 mg/dL (8.5-10.1); Calculated LDL 74 mg/dL (<100); Chloride 107 mmol/L (98-107); Cholesterol 162 mg/dL (<200); Glucose 145 mg/dL (74-106); HDL Cholesterol 46 mg/dL (40-60); LDH 213 U/L (85-227); Magnesium 1.7 mg/dL (1.8-2.4); Potassium 3.8 mmol/L (3.5-5.1); Sodium 145 mmol/L (136-145); Total Protein 6.9 g/dL (6.4-8.2); Triglyceride 213 mg/dL (<150)
[2021-07-23 18:12] LABS: FREE T4 0.87 ng/dL (0.76-1.46)
[2021-07-25 18:06] LABS: PSA, Ultrasensitive 0.03 ng/mL (<= 6.5)
== END 2021-07-23 03:01 | disposition home or self-care (01) ==
LOC: LBO 03:01
PROVIDERS: PCP Student in an Organized Health Care Education/Training Program; Visit Provider Internal Medicine Hematology & Oncology
DX: C84.A5 Cutaneous T-cell lymphoma, unspecified, lymph nodes of inguinal region and lower limb (principal); C61 Malignant neoplasm of prostate
CPT/HCPCS: 36415; 80053; 80061; 84153; 83615; 83735; 84439; 85025

== ENCOUNTER 2021-08-06 02:24 | Outpatient (CLI) | payer MEDICARE, BC, SELFPAY ==
[2021-08-06 16:28] LABS: Abs Immature Grans 0.02 10^3/uL (0.0-0.06); Absolute Basophil Count 0.05 10^3/uL (0.0-0.2); Absolute Eosinophil Count 0.21 10^3/uL (0.0-0.7); Absolute Lymphocyte Count 0.78 10^3/uL (1.2-3.4); Absolute Monocyte Count 0.68 10^3/uL (0.1-0.8); Absolute Neutrophil Count 5.42 10^3/uL (1.2-6.7); Basophils % 0.7; Eosinophils % 2.9; HCT 46.7 % (40.0-50.0); HGB 15.7 g/dL (13.5-17.5); Immature Grans % 0.3; Lymphocytes % 10.9; MCH 29.3 pg (27.0-33.0); MCHC 33.6 % (32.0-36.0); MCV 87.3 fL (80-95); Monocytes % 9.5; Neutrophils % 75.7; Nucleated RBC 0 %; Platelet Count 158 10^3/uL (130-400); RBC 5.35 10^6/uL (4.36-5.78); RDW 12.3 % (11.8-14.1); RDW-SD 38.9 fL; WBC 7.16 10^3/uL (4.4-10.8)
[2021-08-06 16:51] LABS: ALT 38 U/L (16-63); AST 27 U/L (15-37); Albumin 3.7 g/dL (3.4-5.0); Alkaline Phosphatase 120 U/L (46-116); Anion Gap 6.9 mmol/L (3-11); BUN 14 mg/dL (7-18); Bilirubin, Total 1.8 mg/dL (0.2-1.0); CO2 27.1 mmol/L (21.0-32.0); Calcium 8.7 mg/dL (8.5-10.1); Chloride 107 mmol/L (98-107); Glucose 144 mg/dL (74-106); Potassium 3.7 mmol/L (3.5-5.1); Sodium 141 mmol/L (136-145); Total Protein 7.1 g/dL (6.4-8.2)
[2021-08-07 11:25] LABS: IgA 268 mg/dL (85-499); IgG 746 mg/dL (610-1,616); IgM 82 mg/dL (35-242)
[2021-08-08 09:44] LABS: Lab Add On Test DONE
[2021-08-08 10:32] LABS: Hemoglobin A1C 6.6 % (<5.7)
== END 2021-08-06 02:25 | disposition home or self-care (01) ==
LOC: LBO 02:24
PROVIDERS: PCP Student in an Organized Health Care Education/Training Program; Visit Provider Internal Medicine Hematology & Oncology
DX: C84.A0 Cutaneous T-cell lymphoma, unspecified, unspecified site; R73.03 Prediabetes; R73.09 Other abnormal glucose
CPT/HCPCS: 36415; 80053; 82784; 82947; 83036; 85025

== ENCOUNTER 2021-08-20 02:08 | Outpatient (CLI) | payer MEDICARE, BC, SELFPAY ==
[2021-08-20 16:32] LABS: Abs Immature Grans 0.01 10^3/uL (0.0-0.06); Absolute Basophil Count 0.07 10^3/uL (0.0-0.2); Absolute Eosinophil Count 0.22 10^3/uL (0.0-0.7); Absolute Lymphocyte Count 0.99 10^3/uL (1.2-3.4); Absolute Monocyte Count 0.82 10^3/uL (0.1-0.8); Absolute Neutrophil Count 4.73 10^3/uL (1.2-6.7); Eosinophils % 3.2; HCT 46.3 % (40.0-50.0); HGB 15.6 g/dL (13.5-17.5); Immature Grans % 0.1; Lymphocytes % 14.5; MCH 28.7 pg (27.0-33.0); MCHC 33.7 % (32.0-36.0); MCV 85.1 fL (80-95); MPV 10.4 fL (8.0-11.0); Neutrophils % 69.2; Nucleated RBC 0 %; Platelet Count 178 10^3/uL (130-400); RBC 5.44 10^6/uL (4.36-5.78); RDW 12.7 % (11.8-14.1); RDW-SD 38.9 fL; WBC 6.84 10^3/uL (4.4-10.8)
[2021-08-20 17:45] LABS: ALT 45 U/L (16-63); AST 33 U/L (15-37); Albumin 3.9 g/dL (3.4-5.0); Alkaline Phosphatase 120 U/L (46-116); Anion Gap 11.4 mmol/L (3-11); BUN 19 mg/dL (7-18); Bilirubin, Total 1.5 mg/dL (0.2-1.0); CO2 25.6 mmol/L (21.0-32.0); CREATININE 0.9 mg/dL (0.70-1.30); Calcium 8.9 mg/dL (8.5-10.1); Chloride 107 mmol/L (98-107); Glucose 78 mg/dL (74-106); LDH 212 U/L (85-227); Sodium 144 mmol/L (136-145); Total Protein 6.8 g/dL (6.4-8.2)
== END 2021-08-20 02:09 | disposition home or self-care (01) ==
LOC: LBO 02:09
PROVIDERS: Nurse Practitioner Family; PCP Student in an Organized Health Care Education/Training Program; Visit Provider Internal Medicine Hematology & Oncology
DX: C84.A5 Cutaneous T-cell lymphoma, unspecified, lymph nodes of inguinal region and lower limb (principal)
CPT/HCPCS: 36415; 80053; 83615; 85025

== ENCOUNTER 2021-08-26 03:04 | Outpatient (CLI) | payer MEDICARE, BC, SELFPAY ==
[2021-08-27 01:19] LABS: COVID-19 RT-PCR UVMMC Result Negative (Negative)
== END 2021-08-26 03:05 | disposition home or self-care (01) ==
LOC: LBO 03:04
PROVIDERS: PCP Student in an Organized Health Care Education/Training Program; Visit Provider Internal Medicine Hematology & Oncology
DX: Z20.822 Contact with and (suspected) exposure to COVID-19 (principal)
CPT/HCPCS: U0003; U0005

== ENCOUNTER 2021-08-28 00:45 | Outpatient (RCR) | payer MEDICARE, BC, SELFPAY | END 2021-09-16 23:59 | disposition home or self-care (01) | LOC: INF 00:45 | PROVIDERS: PCP Student in an Organized Health Care Education/Training Program; Visit Provider Family Medicine | DX: Z29.8 Encounter for other specified prophylactic measures (principal); D82.8 Immunodeficiency associated with other specified major defects; C85.90 Non-Hodgkin lymphoma, unspecified, unspecified site | CPT/HCPCS: 96372; Q0221 ==

== ENCOUNTER 2021-08-29 15:19 | Outpatient (CLI) | payer MEDICARE, BC, SELFPAY ==
--- NOTE | 2021-08-29 14:30 | DI.RAD_ITS ---
Exam(s) XR CHEST 2V PA LATERAL EXAM: XR CHEST 2V PA LATERAL CLINICAL HISTORY: r/o early pneumonia, chest congestion, cough, R05.9, R09.89, R09.89. TECHNIQUE: 2D digital imaging was performed. COMPARISON: CR,XR XR PORTABLE CHEST AP from 01/15/2021 FINDINGS: Heart size is upper normal. The mediastinum is not widened. Lungs are clear. No infiltrates nor pleural effusions. IMPRESSION: No acute pulmonary findings. DATA REPOSITORY: RADIATION DOSE DELIVERED:
== END 2021-08-29 15:39 ==
PROVIDERS: PCP Student in an Organized Health Care Education/Training Program; Visit Provider Student in an Organized Health Care Education/Training Program
DX: R05.8 Other specified cough (principal); R09.89 Other specified symptoms and signs involving the circulatory and respiratory systems
CPT/HCPCS: 71046

== ENCOUNTER 2021-09-03 02:20 | Outpatient (CLI) | payer MEDICARE, BC, SELFPAY ==
[2021-09-03 16:15] LABS: Abs Immature Grans 0.02 10^3/uL (0.0-0.06); Absolute Basophil Count 0.07 10^3/uL (0.0-0.2); Absolute Eosinophil Count 0.25 10^3/uL (0.0-0.7); Absolute Lymphocyte Count 1.01 10^3/uL (1.2-3.4); Absolute Monocyte Count 0.67 10^3/uL (0.1-0.8); Absolute Neutrophil Count 5.25 10^3/uL (1.2-6.7); Eosinophils % 3.4; HCT 46.9 % (40.0-50.0); HGB 15.9 g/dL (13.5-17.5); Immature Grans % 0.3; Lymphocytes % 13.9; MCH 29.3 pg (27.0-33.0); MCHC 33.9 % (32.0-36.0); MCV 86.5 fL (80-95); MPV 10.3 fL (8.0-11.0); Monocytes % 9.2; Neutrophils % 72.2; Nucleated RBC 0 %; RBC 5.42 10^6/uL (4.36-5.78); RDW 12.8 % (11.8-14.1); WBC 7.27 10^3/uL (4.4-10.8)
[2021-09-03 16:34] LABS: ALT 43 U/L (16-63); AST 30 U/L (15-37); Albumin 3.6 g/dL (3.4-5.0); Alkaline Phosphatase 127 U/L (46-116); BUN 15 mg/dL (7-18); Bilirubin, Total 1.6 mg/dL (0.2-1.0); Calcium 8.9 mg/dL (8.5-10.1); Chloride 109 mmol/L (98-107); Glucose 143 mg/dL (74-106); LDH 207 U/L (85-227); Potassium 3.9 mmol/L (3.5-5.1); Sodium 144 mmol/L (136-145)
[2021-09-03 17:07] LABS: Platelet Count 154 10^3/uL (130-400)
[2021-09-03 17:08] LABS: Diff Comment PLT Morph Reviewed; RBC Morphology Normal
== END 2021-09-03 02:21 | disposition home or self-care (01) ==
LOC: LBO 02:20
PROVIDERS: Nurse Practitioner Family; PCP Student in an Organized Health Care Education/Training Program; Visit Provider Internal Medicine Hematology & Oncology
DX: C84.A5 Cutaneous T-cell lymphoma, unspecified, lymph nodes of inguinal region and lower limb (principal)
CPT/HCPCS: 36415; 80053; 83615; 85025

== ENCOUNTER 2021-09-17 03:28 | Outpatient (CLI) | payer MEDICARE, BC, SELFPAY ==
[2021-09-17 16:10] LABS: Abs Immature Grans 0.03 10^3/uL (0.0-0.06); Absolute Basophil Count 0.06 10^3/uL (0.0-0.2); Absolute Eosinophil Count 0.19 10^3/uL (0.0-0.7); Absolute Lymphocyte Count 0.79 10^3/uL (1.2-3.4); Absolute Monocyte Count 0.62 10^3/uL (0.1-0.8); Absolute Neutrophil Count 6.24 10^3/uL (1.2-6.7); Basophils % 0.8; Eosinophils % 2.4; HCT 46.6 % (40.0-50.0); HGB 15.7 g/dL (13.5-17.5); Immature Grans % 0.4; MCH 29.2 pg (27.0-33.0); MCHC 33.7 % (32.0-36.0); MCV 86.8 fL (80-95); MPV 10.1 fL (8.0-11.0); Monocytes % 7.8; Neutrophils % 78.6; Nucleated RBC 0 %; Platelet Count 158 10^3/uL (130-400); RBC 5.37 10^6/uL (4.36-5.78); RDW 13.2 % (11.8-14.1); RDW-SD 41.1 fL; WBC 7.93 10^3/uL (4.4-10.8)
[2021-09-17 16:24] LABS: ALT 41 U/L (16-63); AST 28 U/L (15-37); Albumin 3.7 g/dL (3.4-5.0); Alkaline Phosphatase 126 U/L (46-116); Anion Gap 8.1 mmol/L (3-11); BUN 16 mg/dL (7-18); Bilirubin, Total 2.3 mg/dL (0.2-1.0); CO2 27.9 mmol/L (21.0-32.0); Calcium 8.9 mg/dL (8.5-10.1); Chloride 107 mmol/L (98-107); Glucose 146 mg/dL (74-106); LDH 210 U/L (85-227); Potassium 3.8 mmol/L (3.5-5.1); Sodium 143 mmol/L (136-145)
== END 2021-09-17 03:29 | disposition home or self-care (01) ==
PROVIDERS: PCP Student in an Organized Health Care Education/Training Program; Visit Provider Nurse Practitioner Family
DX: C84.A5 Cutaneous T-cell lymphoma, unspecified, lymph nodes of inguinal region and lower limb (principal)
CPT/HCPCS: 36415; 80053; 83615; 85025

== ENCOUNTER 2021-10-01 01:24 | Outpatient (CLI) | payer MEDICARE, BC, SELFPAY ==
[2021-10-01 16:20] LABS: Abs Immature Grans 0.03 10^3/uL (0.0-0.06); Absolute Basophil Count 0.08 10^3/uL (0.0-0.2); Absolute Eosinophil Count 0.19 10^3/uL (0.0-0.7); Absolute Monocyte Count 0.85 10^3/uL (0.1-0.8); Absolute Neutrophil Count 8.58 10^3/uL (1.2-6.7); Basophils % 0.8; Eosinophils % 1.8; HCT 47.4 % (40.0-50.0); Immature Grans % 0.3; Lymphocytes % 6.7; MCH 29.3 pg (27.0-33.0); MCHC 33.8 % (32.0-36.0); MCV 86.7 fL (80-95); MPV 10.1 fL (8.0-11.0); Monocytes % 8.1; Neutrophils % 82.3; Nucleated RBC 0 %; Platelet Count 164 10^3/uL (130-400); RBC 5.47 10^6/uL (4.36-5.78); RDW 13.1 % (11.8-14.1); RDW-SD 40.9 fL; WBC 10.43 10^3/uL (4.4-10.8)
[2021-10-01 17:19] LABS: ALT 37 U/L (16-63); AST 29 U/L (15-37); Albumin 3.8 g/dL (3.4-5.0); Alkaline Phosphatase 139 U/L (46-116); Anion Gap 8.1 mmol/L (3-11); BUN 17 mg/dL (7-18); CO2 26.9 mmol/L (21.0-32.0); CREATININE 1.1 mg/dL (0.70-1.30); Calcium 9.1 mg/dL (8.5-10.1); Chloride 108 mmol/L (98-107); Glucose 93 mg/dL (74-106); LDH 230 U/L (85-227); Potassium 4.2 mmol/L (3.5-5.1); Sodium 143 mmol/L (136-145); Total Protein 6.8 g/dL (6.4-8.2)
== END 2021-10-01 01:25 | disposition home or self-care (01) ==
PROVIDERS: Internal Medicine Hematology & Oncology; PCP Student in an Organized Health Care Education/Training Program; Visit Provider Nurse Practitioner Family
DX: C84.A5 Cutaneous T-cell lymphoma, unspecified, lymph nodes of inguinal region and lower limb (principal)
CPT/HCPCS: 36415; 80053; 83615; 85025

== ENCOUNTER 2021-10-15 02:54 | Outpatient (CLI) | payer MEDICARE, BC, SELFPAY ==
[2021-10-15 16:24] LABS: ALT 43 U/L (16-63); AST 24 U/L (15-37); Albumin 3.7 g/dL (3.4-5.0); Alkaline Phosphatase 135 U/L (46-116); Anion Gap 4.5 mmol/L (3-11); BUN 14 mg/dL (7-18); CO2 30.5 mmol/L (21.0-32.0); Calcium 8.8 mg/dL (8.5-10.1); Chloride 108 mmol/L (98-107); Glucose 175 mg/dL (74-106); LDH 203 U/L (85-227); Potassium 4.6 mmol/L (3.5-5.1); Sodium 143 mmol/L (136-145)
[2021-10-15 16:26] LABS: Abs Immature Grans 0.01 10^3/uL (0.0-0.06); Absolute Basophil Count 0.05 10^3/uL (0.0-0.2); Absolute Eosinophil Count 0.25 10^3/uL (0.0-0.7); Absolute Lymphocyte Count 0.82 10^3/uL (1.2-3.4); Absolute Neutrophil Count 4.45 10^3/uL (1.2-6.7); Basophils % 0.8; HCT 48.3 % (40.0-50.0); Immature Grans % 0.2; Lymphocytes % 13.3; MCH 29.4 pg (27.0-33.0); MCHC 33.1 % (32.0-36.0); MCV 88.6 fL (80-95); MPV 9.9 fL (8.0-11.0); Monocytes % 9.7; Nucleated RBC 0 %; Platelet Count 155 10^3/uL (130-400); RBC 5.45 10^6/uL (4.36-5.78); RDW 13.2 % (11.8-14.1); RDW-SD 42.6 fL; WBC 6.18 10^3/uL (4.4-10.8)
== END 2021-10-15 02:55 | disposition home or self-care (01) ==
PROVIDERS: PCP Student in an Organized Health Care Education/Training Program; Visit Provider Nurse Practitioner Family
DX: C84.A5 Cutaneous T-cell lymphoma, unspecified, lymph nodes of inguinal region and lower limb (principal)
CPT/HCPCS: 36415; 80053; 83615; 85025

== ENCOUNTER 2021-10-29 03:03 | Outpatient (CLI) | payer MEDICARE, BC, SELFPAY ==
[2021-10-29 16:48] LABS: Abs Immature Grans 0.03 10^3/uL (0.0-0.06); Absolute Basophil Count 0.06 10^3/uL (0.0-0.2); Absolute Eosinophil Count 0.22 10^3/uL (0.0-0.7); Absolute Lymphocyte Count 0.69 10^3/uL (1.2-3.4); Absolute Monocyte Count 0.64 10^3/uL (0.1-0.8); Absolute Neutrophil Count 6.41 10^3/uL (1.2-6.7); Basophils % 0.7; Eosinophils % 2.7; HCT 44.6 % (40.0-50.0); HGB 15.6 g/dL (13.5-17.5); Immature Grans % 0.4; Lymphocytes % 8.6; MCH 30.4 pg (27.0-33.0); MCV 86.9 fL (80-95); Neutrophils % 79.6; Nucleated RBC 0 %; Platelet Count 179 10^3/uL (130-400); RBC 5.13 10^6/uL (4.36-5.78); RDW 13.4 % (11.8-14.1); RDW-SD 42.2 fL; WBC 8.05 10^3/uL (4.4-10.8)
[2021-10-29 17:07] LABS: ALT 39 U/L (16-63); AST 27 U/L (15-37); Albumin 3.8 g/dL (3.4-5.0); Alkaline Phosphatase 136 U/L (46-116); BUN 14 mg/dL (7-18); Bilirubin, Total 2.2 mg/dL (0.2-1.0); CREATININE 0.9 mg/dL (0.70-1.30); Calcium 8.9 mg/dL (8.5-10.1); Chloride 108 mmol/L (98-107); Glucose 129 mg/dL (74-106); LDH 225 U/L (85-227); Potassium 3.8 mmol/L (3.5-5.1); Sodium 143 mmol/L (136-145); Total Protein 6.6 g/dL (6.4-8.2)
== END 2021-10-29 03:04 | disposition home or self-care (01) ==
PROVIDERS: PCP Student in an Organized Health Care Education/Training Program; Visit Provider Nurse Practitioner Family
DX: C84.A5 Cutaneous T-cell lymphoma, unspecified, lymph nodes of inguinal region and lower limb (principal)
CPT/HCPCS: 36415; 80053; 83615; 85025

== ENCOUNTER 2021-11-11 03:43 | Outpatient (CLI) | payer MEDICARE, BC, SELFPAY ==
--- NOTE | 2021-11-11 06:45 | DI.US_ITS ---
Exam(s) US RENAL EXAM: US RENAL CLINICAL HISTORY: monitor known stones,N20.0. TECHNIQUE: Shaffer scale, color and spectral Doppler were used. COMPARISON: CT CT RENAL COLIC WO from 01/15/2021 US US RENAL from 05/09/2021 FINDINGS: Renal size in cm: Right: . Left: . Echogenicity: Normal. Hydronephrosis: Mild left hydronephrosis. Cyst or mass: There is a 2.4 x 2.5 cm simple cyst in the superior pole of the right kidney. It is mu ch better visualized on the current examination. It is stable compared to the CT scan from 01/15/2021 . There is a superior pole cyst measuring 1.4 x 1.3 x 2.1 cm. Nephrolithiasis: There are several stones seen in the left kidney. There is mild left hydronephrosis . The largest measures 5 mm. Other findings: None. Bladder:The urinary bladder was inadequately prepped for further evaluation. The prevoid urinary ramon dder volume was 42 cc. Ureteral jets: Right: Not visualized on this examination. Left: Not visualized on this examination. Prostate: Not visualized on this examination. Renal color flow: Symmetric and within normal limits. IMPRESSION: 1. Left nephrolithiasis. Mild left hydronephrosis. 2. Bilateral renal cysts. DATA REPOSITORY:
== END 2021-11-11 04:03 ==
PROVIDERS: PCP Student in an Organized Health Care Education/Training Program; Visit Provider Urology
DX: N13.30 Unspecified hydronephrosis; N20.0 Calculus of kidney; N28.1 Cyst of kidney, acquired
CPT/HCPCS: 76770

== ENCOUNTER → 2021-11-15 09:56 | Outpatient (BNVA) | payer MEDICARE, BC, SELFPAY | PROVIDERS: PCP Student in an Organized Health Care Education/Training Program; Visit Provider Urology | DX: C84.A0 Cutaneous T-cell lymphoma, unspecified, unspecified site (principal); N20.0 Calculus of kidney | CPT/HCPCS: 99214 ==

== ENCOUNTER 2021-11-26 01:15 | Outpatient (CLI) | payer MEDICARE, BC, SELFPAY ==
[2021-11-26 16:25] LABS: Abs Immature Grans 0.04 10^3/uL (0.0-0.06); Absolute Basophil Count 0.06 10^3/uL (0.0-0.2); Absolute Eosinophil Count 0.19 10^3/uL (0.0-0.7); Absolute Lymphocyte Count 0.63 10^3/uL (1.2-3.4); Absolute Monocyte Count 0.72 10^3/uL (0.1-0.8); Absolute Neutrophil Count 5.51 10^3/uL (1.2-6.7); Basophils % 0.8; Eosinophils % 2.7; HCT 42.9 % (40.0-50.0); HGB 14.8 g/dL (13.5-17.5); Immature Grans % 0.6; Lymphocytes % 8.8; MCH 30.5 pg (27.0-33.0); MCHC 34.5 % (32.0-36.0); MCV 88 fL (80-95); MPV 9.5 fL (8.0-11.0); Monocytes % 10.1; Platelet Count 164 10^3/uL (130-400); RBC 4.86 10^6/uL (4.36-5.78); RDW 13.7 % (11.8-14.1); RDW-SD 44.1 fL; WBC 7.15 10^3/uL (4.4-10.8)
[2021-11-26 17:31] LABS: ALT 31 U/L (16-63); AST 23 U/L (15-37); Albumin 3.8 g/dL (3.4-5.0); Alkaline Phosphatase 141 U/L (46-116); Anion Gap 9.2 mmol/L (3-11); BUN 12 mg/dL (7-18); CO2 24.8 mmol/L (21.0-32.0); Calcium 8.8 mg/dL (8.5-10.1); Chloride 108 mmol/L (98-107); Glucose 98 mg/dL (74-106); LDH 241 U/L (85-227); Potassium 4.1 mmol/L (3.5-5.1); Sodium 142 mmol/L (136-145); TSH 0.37 uIU/mL (0.36-3.74); Total Protein 6.6 g/dL (6.4-8.2)
== END 2021-11-26 01:16 | disposition home or self-care (01) ==
LOC: LBO 01:15
PROVIDERS: PCP Student in an Organized Health Care Education/Training Program; Visit Provider Internal Medicine Hematology & Oncology
DX: C84.A5 Cutaneous T-cell lymphoma, unspecified, lymph nodes of inguinal region and lower limb (principal); R53.83 Other fatigue
CPT/HCPCS: 36415; 80053; 83615; 84443; 85025

== ENCOUNTER 2021-12-03 08:44 | Emergency (ER) | payer MEDICARE, BC, SELFPAY ==
[2021-12-03] VITALS (96 sets, daily range): BP systolic 83–115; BP diastolic 52–70; PULSE 75–147; RESP 9–35; TEMP 36.8–39.3; O2SAT 89–98
--- NOTE | 2021-12-03 08:15 | RT.EKG_ITS ---
APPROVED REPORT Exam: Resting ECG Reason for Exam: Fever, SOB Patient Location: E HR:131 bpm ECG Measurements Heart Rate 131 AXIS [place] [id number] P [id number] QRSd 92 QRS -51 QT 319 T 99 QTc 471 Conclusion Atrial fibrillation...V-rate 90-181, irreg A-activity Left anterior fascicular block...axis(240,-40), init forces inf. Afib. No STEMI. I have reviewed and interpreted ECG and agree with software generated interpretation.
--- NOTE | 2021-12-03 08:37 | ED.GENADUL_ITS ---
Discharge Plan Disposition Patient Disposition: AGAINST MEDICAL ADVICE Condition: Serious Discharge Details Clinical Impression: Pyelonephritis, Sepsis Primary Care Provider: Becky Hardy ED Provider: Shae Carroll Home Meds and New Rx's Prescriptions: New cephalexin 500 mg tablet 500 mg PO BID 10 Days Qty: 20 0RF Continued Eliquis 5 mg tablet 5 mg PO BID prochlorperazine maleate [Compazine] 10 mg tablet 10 mg PO Q8H PRN lorazepam 1 mg tablet 1 mg PO .qHS Qty: 28 2RF Hold Instructions: Home Medication placed on hold at Doctor's office mirtazapine 7.5 mg tablet 7.5 mg PO QHS PRN Rx Instructions: for pruritis - from cancer SEZRY syndrome triamcinolone acetonide 0.5 % ointment 1 applic TP BID Qty: 60 1RF Hold Instructions: minimal relief, Dx Tx since then helping Rx Instructions: Apply to chest, back and arm areas of itching/inflammation. pantoprazole [Protonix] 40 mg tablet,delayed release (DR/EC) 40 mg PO DAILY Rx Instructions: note dated 10/29/20 [facility] Derm cgc montelukast 10 mg tablet 10 mg PO DAILY Qty: 90 3RF metoprolol tartrate 50 mg tablet 50 mg PO BID Hold Instructions: per [facility] Onc 09/04/21 EO Rx Instructions: [facility] Cardiology 04/01/21 mupirocin 2 % ointment 1 applic topical BID Hold Instructions: didn't help Rx Instructions: 04/22/21 apply bid x 1 week, then once weekly atorvastatin 40 mg tablet 40 mg PO QPM Qty: 90 3RF Rx Instructions: 40mg per [facility] Hem/Onc lorazepam 1 mg tablet 1 mg PO BID PRN (Reason: anticipatory anxiety) Qty: 6 0RF Rx Instructions: Trial, 2mg @ home and @ [facility], pre-procedure .. mogamulizumab-kpkc 4 mg/mL solution IV Q14D Rx Instructions: Q14 days with Oncology/infusion. cephalexin 250 mg capsule 250 mg PO QHS Qty: 90 2RF gabapentin 300 mg capsule 600 mg PO BID Rx Instructions: note dated 01/23/21 [facility] Hem/Onc, okay to decrease slowly every few weeks 03/20/21 cgc 600mg BID as of 06/06/2021 polyethylene glycol 3350 17 gram Powder In Packet 17 g PO DAILY PRN PRN (Reason: Constipation) Qty: 0 0RF Discharge Instructions Instructions: Urinary Tract Infection in Men (ED) Additional Instructions: Please take the antibiotic as directed twice daily x10 days. At this time you are opting to leave AGAINST MEDICAL ADVICE. I did offer recommendation for admission for kidney infection and sepsis. Follow up with primary care provider in 1-2 days. Return to ED sooner if any worsening or concerns. Increase oral fluids. Please take Tylenol or Ibuprofen with food every 4-6 hours as needed for pain and swelling. Referrals: Edy Blackburn MD [ [facility] STAFF PHYSICIAN] - 1 week Becky Hardy DO [Primary Care Provider] - 5 days Discharge Data Discharge Date/Time-TO BE ENTERED AT DEPARTURE: 12/03/21 12:08 Medical Decision Making <Shaeyung Ugaldeton - Last Filed: 12/03/21 12:59> 71-year-old male with a past medical history of senZary syndrome, squamous cell carcinoma, T-cell lymphoma, atrial fibrillation, coronary artery disease, hypertension, kidney stones presents to the ER via EMS for chief complaint of fever, left flank pain which began last night. He reports that pain is relieved with the 5 mg oxycodone. He woke up this morning with chills and fever and his called EMS. He has no complaints of pain upon initial examination. He is febrile with a temperature of 39.3 orally. He is tachycardic was given 5 mg of metoprolol IV and 4 mg of Zofran by EMS prior to arrival. He is alert and oriented x4. He was recently seen at the end of October with urology for some hydronephrosis and kidney stones cannot have renal ultrasound November 11. EKG was reviewed by Dr. Carmen Harley ER attending, horacio fibs with a rate of 131 please see her official report for review. Work-up ordered including EKG, serial troponins, lactate, blood cultures x2, ur inalysis CT abdomen pelvis without contrast, chest x-ray, COVID swab, liter normal saline, a gram of Tylenol. 1029: Patient reevaluation his blood pressure has been consistently soft currently it is 90/57 heart rate is 133 he is satting 95% on 4 L nasal cannula, he denies feeling any dizziness or lightheadedness denies any pain at this time. He is currently receiving a second liter of normal saline wide open. He has received a gram of Tylenol IV. At this time we are waiting CT abdomen pelvis. CBC shows no leukocytosis, INR is 1.2, CMP shows glucose of 142 calcium 8.1, magnesium 1.5 bilirubin is 2.8 alk phos is 143 initial troponin within normal limits lipase within normal limits at 69 COVID is pending lactate is pending at this time. Lactate is 1.8, urinalysis shows moderate blood positive nitrite trace leukocyte 10-20 RBCs 5-10 WBCs culture is pending at this time. Gram of Rocephin ordered 4 mg magnesium p.o. 1124: Spoke with radiologist regarding CT results are subpleural 2 to 3 mm nodules in the right upper lobe, no other significant lung findings., Gallstones noted no evidence of cholecystitis there is some stable liver hypodensities, there is multiple kidney stones noted on the left kidney with some mild streaking around the left kidney which is subacute. There is also some prominence of the upper left collecting system. There is a phlebolith adjacent to the UVJ but not within the actual ureter. See result below. 1134: urology paged At this time blood pressure is 96/67 heart rate 131 O2 sat 95% respiratory rate 23. 1147: Spoke with Dr. Blackburn he agrees with CT result and is aware and agrees with possible Pyelonephritis with no obstructing stone at this time. He is willing to consult. Will page hospitalist. 1152: Discussed recommendation for admission with patient and who is at bedside he is requesting to leave AMA at this time. Patient reports he feels better he is on room air satting 94% at this time. Blood pressure is 99 systolic. I did discuss the risk and benefits of admission and leaving AMA he verbalizes understanding and is in agreement to sign the AMA papers. His is also a witness this conversation. I will send patient home with antibiotic and strict return instruction. Patient requesting to leave AMA. The patient appears clinically sober and is not under the influence of any known substances. Discussed risks and benefits with patient. Patient verbalizes understanding of situation and the risks of leaving including worsening condition, developing disability, including but not limited to . Discussed results of labs and imaging, if they were performed and recommendations for further treatment and/or observation. The patient verbalizes understanding of the results discussed. Every effort was made to involve family and situation discussed. At this time patient has opted to leave against medical advice. Patient is alert and oriented and has the capacity to make own decisions. Patient DC'd with a bottle of Cephalexin and prescription sent to pharmacy on file. This text was generated using [employer] dictation system, please disregard any oddities of phrase or misspellings. 12/03/21 Dr. Harley 0910 --I have seen and examined this patient. I discussed case and reviewed note with the CONCRETE BLOCK MOLDER and I agree with plan and note as documented. 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 Temp on arrival 102.7. Heart rate 130s and atrial fibrillation. He otherwise is oriented x3 and appears nontoxic. He has no CVA tenderness. Abdomen soft nontender. Lungs clear bilaterally. Differential diagnosis includes COVID, influenza, UTI, pyelonephritis, kidney stone, pneumonia. Due to global IV contrast shortage and most likely etiology of infection, will hold on CT with IV contrast and proceed with CT chest abdomen and pelvis without IV contrast to rule out pneumonia, kidney stone. Suspect tachycardia in the setting of fever, will give Tylenol and IV fluids and continue to monitor. Medical Records Medical records reviewed: Yes I reviewed the patient's medical records. Imaging Data Radiologic Study: Imaging: CT Scan Radiologist's impression: FINDINGS: CHEST: LUNGS: There is a subpleural 2-3 millimeter nodule in the right upper lobe. There are no other significant focal right lung findings with the exception of some mild benign-appearing increased markings in the right lung base posterior basal segment right lower lobe. In the opposite-left lung there is a benign- appearing pleural-based 2 millimeter nodule in the lateral aspect of the left upper lobe. Also some focal pleural thickening at the inferior fissural level, benign appearance. Mild benign-appearing increased markings in the basal segments of the left lower lobe. There are no pleural effusions on either side. MEDIASTINUM: No obvious hilar nor mediastinal adenopathy. There appear to be subtle partially calcified nodules in both thyroid lobes. Thyroid size appears upper normal. CARDIAC: Cardiomegaly. No pericardial effusion.Caliber of the thoracic aorta is within normal limits. OSSEOUS: No significant osseous lesions.. ABDOMEN: There is no ascites. LIVER: There are multiple focal hypodensities in the liver again noted. These appear unchanged from July 2019. probably represents cysts or hemangiomas or combination there of. GALLBLADDER/BILIARY: Gallstones noted layering on the dependent wall of the gallbladder again noted. CBD is not dilated. PANCREAS: No evidence of obvious pancreatic mass nor dilatation of the pancreatic duct. SPLEEN: Spleen is not enlarged. No obvious intrasplenic lesions. ADRENALS: There are no significant adrenal masses. KIDNEYS: There is a cyst again noted in superior pole the right kidney which measures 2.8 cm by 2.8 cm. Small nonobstructive calculus in the lower pole of the right kidney again noted. There are multiple calculi evident in the opposite-left kidney, measuring up to 9 x 7 millimeters. No obvious solid lesions in either kidney. There is mild streaking around the left kidney again noted. Mild prominence of the upper left collecting system noted. No gross hydronephrosis. No calculi seen at the UPJ nor in the lower left ureter. A phlebolith is noted adjacent to the the left UVJ but not within the actual ureter and there are no calculi seen within the nondistended urinary bladder. ABDOMINAL AORTA: Abdominal aorta is not enlarged. LYMPH NODES: There is no retroperitoneal nor para-aortic adenopathy. ABDOMINAL WALL/GI: No evidence of significant anterior abdominal wall nor inguinal hernia. No evidence of bowel obstruction. PELVIS: LYMPH NODES: There is no intrapelvic nor inguinal adenopathy. GI: No evidence of appendicitis.No evidence of sigmoid diverticulitis. URINARY BLADDER: No calculi nor obvious masses evident REPRODUCTIVE: Prostate gland is tiny are surgically absent. There are no clips in this region. OSSEOUS: There is ankylosis of the sacroiliac joints noted. No significant osseous lesions IMPRESSION: 1. Small benign-appearing pleural based lung nodules. No pleural effusions. No intrathoracic adenopathy 2. Cholelithiasis again noted. No obvious acute cholecystitis. 3. Multiple renal calculi again noted to be more numerous and prominent in the left kidney. Mild prominence of the upper left collecting system but there does not appear to be a radiopaque calculus at the UPJ nor lower down in the nondistended left ureter. There also no calculi in the urinary bladder. 4. The prostate gland is either small or surgically absent. There are no clips in the prostate bed. 5. multiple stable hypodensities in the liver which are probably cysts or hemangiomas, or a combination there of. <Carmen Harley DO - Last Filed: 12/05/21 08:57> EKG was reviewed by Dr. Carmen Harley ER attending, horacio bradley with a rate of 131 please see her official report for review. Work-up ordered including EKG, serial troponins, lactate, blood cultures x2, urinalysis CT abdomen pelvis without contrast, chest x-ray, COVID swab, liter normal saline, a gram of Tylenol. 12/03/21 Dr. Harley 0910 --I have seen and examined this patient. I discussed case and reviewed note with the CONCRETE BLOCK MOLDER and I agree with plan and note as documented. 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 Temp on arrival 102.7. Heart rate 130s and atrial fibrillation. He otherwise is oriented x3 and appears nontoxic. He has no CVA tenderness. Abdomen soft nontender. Lungs clear bilaterally. Differential diagnosis includes COVID, influenza, UTI, pyelonephritis, kidney stone, pneumonia. Due to global IV contrast shortage and most likely etiology of infection, will hold on CT with IV contrast and proceed with CT chest abdomen and pelvis without IV contrast to rule out pneumonia, kidney stone. Suspect tachycardia in the setting of fever, will give Tylenol and IV fluids and continue to monitor. HPI <Shae Carroll - Last Filed: 12/03/21 12:59> General Mode of arrival: EMS . Date/Time Provider Initiated Documentation: 12/03/21 08:53 . Information obtained by: EMS, RN notes reviewed and old records reviewed . HPI Narrative: 71-year-old male with a past medical history of senZary syndrome, squamous cell carcinoma, T-cell lymphoma, atrial fibrillation, coronary artery disease, hypertension, kidney stones presents to the ER via EMS for chief complaint of fever, left flank pain which began last night. He reports that pain is relieved with the 5 mg oxycodone. He woke up this morning with chills and fever and his called EMS. He has no complaints of pain upon initial examination. He is febrile with a temperature of 39.3 orally. He is tachycardic was given 5 mg of metoprolol IV and 4 mg of Zofran by EMS prior to arrival. He is alert and oriented x4. He was recently seen at the end of October with urology for some hydronephrosis and kidney stones cannot have renal ultrasound November 11. Related Data Home Medications Medication Instructions Recorded Confirmed triamcinolone acetonide 0.5 % 1 applic topical BID #60 grams 01/21/19 12/03/21 topical ointment apixaban 5 mg tablet (Eliquis) 5 mg PO BID 09/13/20 12/03/21 pantoprazole 40 mg tablet,delayed 40 mg PO DAILY 10/30/20 12/03/21 release (Protonix) montelukast 10 mg tablet 10 mg PO DAILY #90 tab-caps 12/13/20 12/03/21 polyethylene glycol 3350 17 gram 17 g PO DAILY PRN PRN Constipation 01/18/21 12/03/21 oral powder packet #0 ea mirtazapine 7.5 mg tablet 7.5 mg PO QHS PRN 03/07/21 12/03/21 metoprolol tartrate 50 mg tablet 50 mg PO BID 04/01/21 12/03/21 mupirocin 2 % topical ointment 1 applic topical BID 04/25/21 12/03/21 prochlorperazine maleate 10 mg 10 mg PO Q8H PRN 05/17/21 12/03/21 tablet (Compazine) atorvastatin 40 mg tablet 40 mg PO QPM #90 tabs 08/04/21 12/03/21 lorazepam 1 mg tablet 1 mg PO BID PRN anticipatory 09/17/21 12/03/21 anxiety #6 tabs mogamulizumab-kpkc 4 mg/mL IV Q14D 09/24/21 11/15/21 intravenous solution cephalexin 250 mg capsule 250 mg PO QHS infection prevention 10/09/21 12/03/21 #90 caps gabapentin 300 mg capsule 600 mg PO BID 11/08/21 12/03/21 lorazepam 1 mg tablet 1 mg PO .qHS #28 tabs 11/13/21 12/03/21 cephalexin 500 mg tablet 500 mg PO BID 10 days #20 tabs 12/03/21 Previous Rx's Medication Instructions Recorded triamcinolone acetonide 0.5 % 1 applic topical BID #60 grams 01/21/19 topical ointment montelukast 10 mg tablet 10 mg PO DAILY #90 tab-caps 12/13/20 polyethylene glycol 3350 17 gram 17 g PO DAILY PRN PRN Constipation 01/18/21 oral powder packet #0 ea atorvastatin 40 mg tablet 40 mg PO QPM #90 tabs 08/04/21 lorazepam 1 mg tablet 1 mg PO BID PRN anticipatory 09/17/21 anxiety #6 tabs cephalexin 250 mg capsule 250 mg PO QHS infection prevention 10/09/21 #90 caps lorazepam 1 mg tablet 1 mg PO .qHS #28 tabs 11/13/21 cephalexin 500 mg tablet 500 mg PO BID 10 days #20 tabs 12/03/21 Allergies Allergy/AdvReac Type Severity Reaction Status Date / Time No Known Allergies Allergy Verified 12/03/21 09:00 General IVAN: 3 Review of Systems <Shae Carroll [employer] [facility] Filed: 12/03/21 12:59> All systems reviewed & are unremarkable except as noted in HPI and below Constitutional Constitutional: Reports body ache(s), Reports chills and Reports fever(s) Cardiovascular Cardiovascular: Denies chest pain, Denies syncope, Reports rapid heart rate, Denies pedal edema, Denies claudication, Reports palpitations and Reports dyspnea on exertion Respiratory Respiratory: Reports cough, Denies hemoptysis, Reports dyspnea on exertion and Denies wheezing Gastrointestinal Gastrointestinal: Denies abdominal pain, Denies diarrhea, Denies nausea and Denies vomiting Genitourinary Genitourinary: Denies dysuria and Reports flank pain (Resolved upon initial presentation) Neurologic Neurologic: Reports system reviewed and no additional complaints, except as documented and Denies syncope Endocrine Endocrine: Reports palpitations Allergic/Immunologic Allergic/Immunologic: Denies wheezing PFS <Shae Carroll [employer] [facility] Filed: 12/03/21 12:59> All Active Problems (Updated 12/03/21 @ 11:59 by Shae Carroll) Pyelonephritis (Acute) Sepsis (Acute) Fatigue (Acute) Affecting QOL, limited him to one ski run .. can we HOLD BB for some activities? [ ] Dr. Fortune, Cardio Sezary disease, unspecified site (Acute ~07/2021) 08/12/21 Dr Yuen,[facility] Hem Onc visit Prediabetes (Acute) Elevated glucose (Acute) Muscle spasms of neck (Acute) Stiffness, Hx torticollis (heavy work schedule @ desk) Epidermal cyst (Acute ~04/25/21) 04/22/21 [facility] Hem/Onc Squamous cell carcinoma (Acute) Per [facility] Htr mohs note from 04/02/21 Stress incontinence, male (Acute) Added from [facility] hematology Malignant neoplasm of prostate (Chronic) Palliative care patient (Acute) DNI (do not intubate) (Acute) DNR (do not resuscitate) (Acute) Physician orders for life-sustaining treatment (POLST) form indicates patient wish for ty-iwj-lwssentergu status (Acute) Sezary syndrome (Acute) 04/22/21 [facility] Hem/Onc - cryotherapy L hip Septic shock (Acute) Acute pyelonephritis (Acute) Atrial fibrillation with rapid ventricular response (Acute) Hypomagnesemia (Acute) Kidney stones (Chronic) Diabetes mellitus (Chronic) 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 05/2020 ]Originally with rash, now general pruritis, often severe! Some relief with Benadryl, so trial daily Zyrtec recomm 09/2019. DERM SEEN 02/2020: Xerosis Cutis/Vinegar Tx for BARRIER REPAIR.. Derm? [ ] Mela? [ ] Rx? Complicated UTI (urinary tract infection) (Acute) Hydronephrosis of left kidney (Acute) Hydroureter on left (Acute) Ureterolithiasis (Acute) Insomnia (Acute 07/28/17) Adenocarcinoma of prostate (Chronic) Paulo White MD [facility] urology [id number], Wil 3+4 s/p RALP 11/2016, low detectable PSA Rash (Acute) Macular rash, with mild plaque-like eruption. Excoriated 2' pruritis, somewhat managed with Benadryl. Tubular adenoma (Chronic 03/12/18) Tobacco use disorder (Chronic 08/13/17) Quit cigarettes, 1984. One cigar daily Hyperlipidemia (Chronic 07/28/17) Generalized anxiety disorder (Chronic 07/28/17) Manages well with meds, incl low-dose benzodiaz. 15 yrs sobriety this 2018. Essential hypertension (Chronic 07/28/17) BPs well-controlled. Active. Elevated prostate specific antigen (PSA) (Acute 07/28/17) Calculus of kidney (Chronic 07/28/17) Most recent 6mm passed @ [facility] (terrible hosp). Hx multiple kidney stones, experienced with passing large stones. Current large calc, monitoried by UROL [facility] Bilateral carpal tunnel syndrome (Acute 07/28/17) BPH w/o urinary obs/LUTS (Chronic 07/28/17) BMI 35.0-35.9,adult (Acute 08/13/17) Atrial fibrillation (Chronic) INR managed via Cardiology [facility] Dr. Perera,paroxysmal A Flutter Medical History Anxiety Atrial flutter CAD (coronary artery disease) Essential hypertension History of kidney stones Intertrigo Left ureteral stone Added from [facility] hematology Obesity (BMI 35.0-39.9 without comorbidity) Tiredness Added from [facility] hematology Surgical History Arthroplasty of knee (~2013) Left-Meniscal Tear- Colonoscopy - MAC (03/12/18) H/O Mohs micrographic surgery for skin cancer Per [facility] Htr mohs note from 04/02/21 Hx of Torsion (R)Testicle Lithotripsy Prostate Biopsy (12/02/01) Rising PSA-Negative Robotic Prostatectomy for Wil 7 (11/19/16) Intermediate Risk Prostate Cancer- Family History Mother Hyperlipidemia Father CAD (coronary artery disease) Neoplasm Kidney Grandfather Neoplasm Prostate Social History Smoking/Tobacco Use Status: Current every day Tobacco Type: cigars Per week: 7 Tobacco: How many years used: 6 Smoking risk assessment performed?: Yes Alcohol Intake: former Year quit: 15 Drug use: Never Substance use type: does not use Adopted: No Household members: spouse Housing: condominium Number of Children: 4 Communication Needs: Corrective Lenses 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 Appears stated age. obese body habitus. Head: Normocephalic, no trauma. Eyes: Pupils PERRL, Red reflex noted, EOM's intact. Eyelids symmetrical without lesions, discharge, or swelling. ENT: Bilateral TM's WNL, External ear normal to inspection, no mastoid TTP, swelling, or erythema, Nasal turbinates WNL, no nasal discharge. Normal dentition, Posterior pharynx WNL, no exudate. Chest: RRR, Normal S1, S2, distal pulses intact. Resp: Lungs clear to auscultation bilaterally, no wheezes, rales, or rhonchi. Abdomen: Soft, non-distended, Normoactive bowel sounds all 4 quads. Musculoskeletal: Normal gait, 5/5 strength to all four extremities. Skin: No suspicious rashes or lesions. Capillary refill less than 2 sec. Neurologic: Cranial nerves II-XII intact. Alert and oriented x 3. Motor: No deficits noted. Sensory: Intact bilaterally all 4 extremities. Reflexes: DTR's intact bilaterally.. Hematologic/Lymphatic: No ecchymosis, no lymphadenopathy. Course <Shae Glen - Last Filed: 12/03/21 12:59> Lab/Test Results Lab/Test Results: 12/03/21 08:29 Blood Blood Culture - Pending 12/03/21 08:29 Blood Blood Culture - Pending
[2021-12-03 09:49] LABS: Source Nasal/Nares
[2021-12-03 09:55] LABS: Abs Immature Grans 0.04 10^3/uL (0.0-0.06); Absolute Basophil Count 0.04 10^3/uL (0.0-0.2); Absolute Eosinophil Count 0.08 10^3/uL (0.0-0.7); Absolute Monocyte Count 0.57 10^3/uL (0.1-0.8); Absolute Neutrophil Count 6.23 10^3/uL (1.2-6.7); Basophils % 0.6; Eosinophils % 1.1; HCT 43.1 % (40.0-50.0); HGB 14.7 g/dL (13.5-17.5); Immature Grans % 0.6; Lymphocytes % 2.8; MCHC 34.1 % (32.0-36.0); MCV 88 fL (80-95); MPV 10.1 fL (8.0-11.0); Neutrophils % 86.9; Platelet Count 141 10^3/uL (130-400); RDW 13.3 % (11.8-14.1); WBC 7.16 10^3/uL (4.4-10.8)
[2021-12-03] MEDS: ACETAMINOPHEN 1,000 MG/100 ML BTL 400 MG IVPB (10:00)
[2021-12-03] MEDS: Normal Saline 1,000 ML 1000 ML IV ×2 (10:00→10:30)
[2021-12-03 10:09] LABS: INR 1.2 (0.9-1.1); PTT Activated 24.1 sec (21.0-27.5); Prothrombin Time 11.9 sec (9.3-11.0)
[2021-12-03 10:11] LABS: ALT 32 U/L (16-63); AST 24 U/L (15-37); Albumin 3.4 g/dL (3.4-5.0); Alkaline Phosphatase 143 U/L (46-116); Anion Gap 8.5 mmol/L (3-11); BUN 16 mg/dL (7-18); Bilirubin, Total 2.8 mg/dL (0.2-1.0); CO2 26.5 mmol/L (21.0-32.0); Calcium 8.1 mg/dL (8.5-10.1); Chloride 107 mmol/L (98-107); Glucose 142 mg/dL (74-106); Lipase 69 U/L (73-393); Magnesium 1.5 mg/dL (1.8-2.4); Potassium 3.8 mmol/L (3.5-5.1); Sodium 142 mmol/L (136-145); Total Protein 6.6 g/dL (6.4-8.2); Troponin I < 50 ng/L (<or=60)
[2021-12-03 10:47] LABS: COVID-19 PCR Negative (Negative)
--- NOTE | 2021-12-03 10:54 | DI.CT_ITS ---
Exam(s) CT CHEST/ABD/PEL WO EXAM: CT CHEST/ABD/PEL WO CLINICAL HISTORY: Hypoxia, Left Flank Pain, Fever. TECHNIQUE: Imaging Protocol: Axial computed tomography images with coronal and sagittal reformatted images were created and reviewed CONTRAST MATERIAL: Intravenous: none Oral: None COMPARISON: CT CT RENAL COLIC WO from 07/28/[address] CHEST/ABD/PEL W from 04/24/[address] RENAL COLIC WO from 01/15/2021 FINDINGS: CHEST: LUNGS: There is a subpleural 2-3 millimeter nodule in the right upper lobe. There are no other signi ficant focal right lung findings with the exception of some mild benign-appearing increased markings in the right lung base posterior basal segment right lower lobe. In the opposite-left lung there is a benign-appearing pleural-based 2 millimeter nodule in the lateral aspect of the left upper lobe. A lso some focal pleural thickening at the inferior fissural level, benign appearance. Mild benign-stone earing increased markings in the basal segments of the left lower lobe. There are no pleural effusio ns on either side. MEDIASTINUM: No obvious hilar nor mediastinal adenopathy. There appear to be subtle partially calcifi ed nodules in both thyroid lobes. Thyroid size appears upper normal. CARDIAC: Cardiomegaly. No pericardial effusion.Caliber of the thoracic aorta is within normal limits . OSSEOUS: No significant osseous lesions.. ABDOMEN: There is no ascites. LIVER: There are multiple focal hypodensities in the liver again noted. These appear unchanged from July 2019. probably represents cysts or hemangiomas or combination there of. GALLBLADDER/BILIARY: Gallstones noted layering on the dependent wall of the gallbladder again noted. CBD is not dilated. PANCREAS: No evidence of obvious pancreatic mass nor dilatation of the pancreatic duct. SPLEEN: Spleen is not enlarged. No obvious intrasplenic lesions. ADRENALS: There are no significant adrenal masses. KIDNEYS: There is a cyst again noted in superior pole the right kidney which measures 2.8 cm by 2.8 c m. Small nonobstructive calculus in the lower pole of the right kidney again noted. There are multi ple calculi evident in the opposite-left kidney, measuring up to 9 x 7 millimeters. No obvious solid lesions in either kidney. There is mild streaking around the left kidney again noted. Mild promine nce of the upper left collecting system noted. No gross hydronephrosis. No calculi seen at the UPJ nor in the lower left ureter. A phlebolith is noted adjacent to the the left UVJ but not within the actual ureter and there are no calculi seen within the nondistended urinary bladder. ABDOMINAL AORTA: Abdominal aorta is not enlarged. LYMPH NODES: There is no retroperitoneal nor para-aortic adenopathy. ABDOMINAL WALL/GI: No evidence of significant anterior abdominal wall nor inguinal hernia. No evidence of bowel obstruction. PELVIS: LYMPH NODES: There is no intrapelvic nor inguinal adenopathy. GI: No evidence of appendicitis.No evidence of sigmoid diverticulitis. URINARY BLADDER: No calculi nor obvious masses evident REPRODUCTIVE: Prostate gland is tiny are surgically absent. There are no clips in this region. OSSEOUS: There is ankylosis of the sacroiliac joints noted. No significant osseous lesions IMPRESSION: 1. Small benign-appearing pleural based lung nodules. No pleural effusions. No intrathoracic adenop athy 2. Cholelithiasis again noted. No obvious acute cholecystitis. 3. Multiple renal calculi again noted to be more numerous and prominent in the left kidney. Mild pro minence of the upper left collecting system but there does not appear to be a radiopaque calculus at the UPJ nor lower down in the nondistended left ureter. There also no calculi in the urinary bladder . 4. The prostate gland is either small or surgically absent. There are no clips in the prostate bed. 5. multiple stable hypodensities in the liver which are probably cysts or hemangiomas, or a combinati on there of. Report called by myself to ER provider. RADIATION DOSE DELIVERED: 1,647.71mGy.cm Total DLP DATA REPOSITORY: All CT scans at this facility are submitted to the National Radiology Data Registry (NRDR) Dose Index Registry (DIR) with the [employer] (ACR). RADIATION OPTIMIZATION: All CT scans at this facility use at least one of these dose optimization te chniques: automated exposure control; mA and/or kV adjustment per patient size (includes targeted exa ms where dose is matched to clinical indication); or iterative reconstruction.
[2021-12-03 11:14] LABS: Lactate 1.8 mmol/L (0.6-1.4)
[2021-12-03 11:16] LABS: Bilirubin Negative (Negative); Blood Moderate (Negative); Clarity Clear (Clear); Glucose Negative (Negative); Ketones Negative (Negative); Leukocyte Esterase Trace (Negative); Nitrite Positive (Negative); Urobilinogen 0.2 EU/dL (Up TO 0.2); pH 6.5 (5-8)
[2021-12-03] MEDS: cefTRIAXone 1 GM/50 ML BAG IVPB (11:24)
[2021-12-03] MEDS: Magnesium Oxide 400 MG TAB PO (11:25)
[2021-12-03 11:33] LABS: Bacteria Many HPF (Negative); Casts Negative LPF (Negative); Crystals Negative HPF (Negative); Epithelial Cells Few HPF (Negative); Mucus Negative (Negative); Other Cells Negative (Negative)
[2021-12-03 11:34] LABS: C & S Indicated? Yes
--- NOTE | 2021-12-03 12:12 | NUR.NOTE ---
Nursing Note: Pt requesting to leave ama. Spoke to EDIE Valera regarding risks. Pt verbalizes understanding of risks and signed ama paperwork. Pt ambulated out to lobby.
== END 2021-12-03 12:08 | disposition left against medical advice (07) ==
PROVIDERS: Emergency Provider Registered Nurse Emergency; PCP Student in an Organized Health Care Education/Training Program
DX: N20.0 Calculus of kidney (principal); A41.9 Sepsis, unspecified organism; Z87.442 Personal history of urinary calculi; Z53.29 Procedure and treatment not carried out because of patient's decision for other reasons; R00.0 Tachycardia, unspecified; R09.02 Hypoxemia; R10.9 Unspecified abdominal pain
CPT/HCPCS: 36415; 71250; 80053; 83690; 87040; 87077; 87635; 93005; 96361; 96365; 96367; 99284; 74176; 81003; 81015; 83605; 83735; 84484; 85025; 85610; 85730; 87086; 87186; 93010; J0131; J0696

== ENCOUNTER → 2021-12-05 15:35 | Outpatient (BNVA) | payer MEDICARE, BC, SELFPAY | PROVIDERS: PCP Student in an Organized Health Care Education/Training Program; Referring Provider Student in an Organized Health Care Education/Training Program; Visit Provider Urology | DX: Z85.46 Personal history of malignant neoplasm of prostate (principal); N39.0 Urinary tract infection, site not specified | CPT/HCPCS: 99215 ==

== ENCOUNTER 2021-12-10 03:10 | Outpatient (CLI) | payer MEDICARE, BC, SELFPAY ==
[2021-12-10 16:13] LABS: Abs Immature Grans 0.05 10^3/uL (0.0-0.06); Absolute Basophil Count 0.06 10^3/uL (0.0-0.2); Absolute Eosinophil Count 0.25 10^3/uL (0.0-0.7); Absolute Lymphocyte Count 0.68 10^3/uL (1.2-3.4); Absolute Monocyte Count 0.65 10^3/uL (0.1-0.8); Absolute Neutrophil Count 5.37 10^3/uL (1.2-6.7); Basophils % 0.8; Eosinophils % 3.5; HCT 44.9 % (40.0-50.0); Immature Grans % 0.7; Lymphocytes % 9.6; MCHC 33.4 % (32.0-36.0); MCV 90 fL (80-95); MPV 9.4 fL (8.0-11.0); Monocytes % 9.2; Neutrophils % 76.2; Platelet Count 202 10^3/uL (130-400); RDW 13.6 % (11.8-14.1); WBC 7.06 10^3/uL (4.4-10.8)
[2021-12-10 16:36] LABS: Bilirubin Negative (Negative); Blood Trace-intact (Negative); Clarity Clear (Clear); Glucose Negative (Negative); Ketones Negative (Negative); Leukocyte Esterase Trace (Negative); Nitrite Negative (Negative); Specific Gravity >= 1.030 (1.005-1.025); Urobilinogen 0.2 EU/dL (Up TO 0.2); pH 5.5 (5-8)
[2021-12-10 16:53] LABS: Bacteria Negative HPF (Negative); C & S Indicated? Yes; Casts Negative LPF (Negative); Crystals Negative HPF (Negative); Epithelial Cells Negative HPF (Negative); Mucus Negative (Negative); Other Cells Negative (Negative); RBC 0-2 HPF (0-2); WBC >50 HPF (0-5)
[2021-12-10 17:03] LABS: ALT 42 U/L (16-63); AST 32 U/L (15-37); Albumin 3.7 g/dL (3.4-5.0); Alkaline Phosphatase 146 U/L (46-116); BUN 12 mg/dL (7-18); Bilirubin, Total 1.5 mg/dL (0.2-1.0); CREATININE 1.1 mg/dL (0.70-1.30); Calcium 9.2 mg/dL (8.5-10.1); Chloride 107 mmol/L (98-107); Glucose 159 mg/dL (74-106); LDH 217 U/L (85-227); Potassium 3.8 mmol/L (3.5-5.1); Sodium 143 mmol/L (136-145); TSH 0.29 uIU/mL (0.36-3.74); Total Protein 6.8 g/dL (6.4-8.2)
== END 2021-12-10 03:11 | disposition home or self-care (01) ==
LOC: LBO 03:11
PROVIDERS: Urology; PCP Student in an Organized Health Care Education/Training Program; Visit Provider Internal Medicine Hematology & Oncology
DX: C84.A5 Cutaneous T-cell lymphoma, unspecified, lymph nodes of inguinal region and lower limb (principal); R53.83 Other fatigue; N39.0 Urinary tract infection, site not specified
CPT/HCPCS: 36415; 80053; 81003; 81015; 83605; 83615; 84443; 85025; 87086

== ENCOUNTER 2021-12-25 03:52 | Outpatient (CLI) | payer MEDICARE, BC, SELFPAY ==
[2021-12-25 09:43] LABS: Abs Immature Grans 0.01 10^3/uL (0.0-0.06); Absolute Basophil Count 0.07 10^3/uL (0.0-0.2); Absolute Eosinophil Count 0.22 10^3/uL (0.0-0.7); Absolute Lymphocyte Count 0.63 10^3/uL (1.2-3.4); Absolute Monocyte Count 0.67 10^3/uL (0.1-0.8); Absolute Neutrophil Count 3.97 10^3/uL (1.2-6.7); Basophils % 1.3; Eosinophils % 3.9; HCT 43.7 % (40.0-50.0); HGB 14.8 g/dL (13.5-17.5); Immature Grans % 0.2; Lymphocytes % 11.3; MCH 30.5 pg (27.0-33.0); MCHC 33.9 % (32.0-36.0); MCV 90 fL (80-95); MPV 9.7 fL (8.0-11.0); Neutrophils % 71.3; Platelet Count 141 10^3/uL (130-400); RBC 4.86 10^6/uL (4.36-5.78); RDW 13.4 % (11.8-14.1); RDW-SD 43.8 fL; WBC 5.57 10^3/uL (4.4-10.8)
[2021-12-25 10:34] LABS: ALT 33 U/L (16-63); AST 24 U/L (15-37); Albumin 3.5 g/dL (3.4-5.0); Alkaline Phosphatase 124 U/L (46-116); Anion Gap 8.6 mmol/L (3-11); BUN 12 mg/dL (7-18); Bilirubin, Total 1.9 mg/dL (0.2-1.0); CO2 27.4 mmol/L (21.0-32.0); CREATININE 0.9 mg/dL (0.70-1.30); Calcium 8.7 mg/dL (8.5-10.1); Chloride 108 mmol/L (98-107); Glucose 127 mg/dL (74-106); LDH 217 U/L (85-227); Potassium 3.9 mmol/L (3.5-5.1); Sodium 144 mmol/L (136-145); Total Protein 6.7 g/dL (6.4-8.2)
== END 2021-12-25 03:53 | disposition home or self-care (01) ==
LOC: LBO 03:53
PROVIDERS: PCP Student in an Organized Health Care Education/Training Program; Visit Provider Internal Medicine Hematology & Oncology
DX: R53.83 Other fatigue (principal); C84.A5 Cutaneous T-cell lymphoma, unspecified, lymph nodes of inguinal region and lower limb
CPT/HCPCS: 36415; 80053; 83615; 84443; 85025

== ENCOUNTER → 2022-01-01 13:29 | Outpatient (BNVA) | payer MEDICARE, BC, SELFPAY | PROVIDERS: PCP Student in an Organized Health Care Education/Training Program; Referring Provider Student in an Organized Health Care Education/Training Program; Visit Provider Nurse Practitioner Gerontology | DX: Z85.46 Personal history of malignant neoplasm of prostate (principal); Z87.442 Personal history of urinary calculi; N39.0 Urinary tract infection, site not specified | CPT/HCPCS: 81003; 99214 ==

== ENCOUNTER 2022-01-01 14:19 | Outpatient (REF) | payer MEDICARE, BC, SELFPAY | END 2022-01-01 14:20 | disposition home or self-care (01) | LOC: LBN 14:19 | PROVIDERS: PCP Student in an Organized Health Care Education/Training Program; Visit Provider Nurse Practitioner Gerontology | DX: N39.0 Urinary tract infection, site not specified (principal) | CPT/HCPCS: 87077; 87086; 87186 ==

== ENCOUNTER 2022-01-07 01:02 | Outpatient (CLI) | payer MEDICARE, BC, SELFPAY ==
[2022-01-07 16:21] LABS: Abs Immature Grans 0.05 10^3/uL (0.0-0.06); Absolute Basophil Count 0.07 10^3/uL (0.0-0.2); Absolute Eosinophil Count 0.23 10^3/uL (0.0-0.7); Absolute Lymphocyte Count 0.78 10^3/uL (1.2-3.4); Absolute Monocyte Count 0.74 10^3/uL (0.1-0.8); Absolute Neutrophil Count 5.17 10^3/uL (1.2-6.7); Eosinophils % 3.3; HCT 42.5 % (40.0-50.0); HGB 14.8 g/dL (13.5-17.5); Immature Grans % 0.7; Lymphocytes % 11.1; MCH 30.9 pg (27.0-33.0); MCHC 34.8 % (32.0-36.0); MCV 89 fL (80-95); MPV 9.6 fL (8.0-11.0); Monocytes % 10.5; Neutrophils % 73.4; Platelet Count 221 10^3/uL (130-400); RBC 4.79 10^6/uL (4.36-5.78); RDW-SD 42.2 fL; WBC 7.04 10^3/uL (4.4-10.8)
[2022-01-07 17:39] LABS: ALT 40 U/L (16-63); AST 33 U/L (15-37); Albumin 3.5 g/dL (3.4-5.0); Alkaline Phosphatase 120 U/L (46-116); Anion Gap 10.1 mmol/L (3-11); BUN 16 mg/dL (7-18); Bilirubin, Total 1.4 mg/dL (0.2-1.0); CO2 24.9 mmol/L (21.0-32.0); CREATININE 1.1 mg/dL (0.70-1.30); Calcium 9.1 mg/dL (8.5-10.1); Chloride 105 mmol/L (98-107); Glucose 88 mg/dL (74-106); LDH 220 U/L (85-227); Potassium 3.9 mmol/L (3.5-5.1); Sodium 140 mmol/L (136-145); TSH 0.18 uIU/mL (0.36-3.74); Total Protein 6.6 g/dL (6.4-8.2)
== END 2022-01-07 01:03 | disposition home or self-care (01) ==
PROVIDERS: PCP Student in an Organized Health Care Education/Training Program; Visit Provider Nurse Practitioner Family
DX: C84.A5 Cutaneous T-cell lymphoma, unspecified, lymph nodes of inguinal region and lower limb (principal); R53.83 Other fatigue
CPT/HCPCS: 36415; 80053; 83615; 84443; 85025

== ENCOUNTER 2022-01-13 16:34 | Outpatient (REF) | payer MEDICARE, BC, SELFPAY ==
[2022-01-13 13:24] LABS: Bilirubin Negative (Negative); Blood Moderate (Negative); Clarity Cloudy (Clear); Glucose Negative (Negative); Ketones Negative (Negative); Leukocyte Esterase Moderate (Negative); Nitrite Negative (Negative); Urobilinogen 0.2 EU/dL (Up TO 0.2)
[2022-01-13 13:31] LABS: Bacteria Rare HPF (Negative); C & S Indicated? Yes; Casts 0-2 Hyaline LPF (Negative); Crystals Negative HPF (Negative); Epithelial Cells Few HPF (Negative); Mucus Negative (Negative); RBC 20-50 HPF (0-2); WBC >50 HPF (0-5)
== END 2022-01-13 16:35 | disposition home or self-care (01) ==
LOC: LBN 16:34
PROVIDERS: PCP Student in an Organized Health Care Education/Training Program; Visit Provider Urology
DX: N39.0 Urinary tract infection, site not specified (principal)
CPT/HCPCS: 87077; 81003; 81015; 87086; 87186

== ENCOUNTER 2022-01-21 03:10 | Outpatient (CLI) | payer MEDICARE, BC, SELFPAY ==
[2022-01-21 16:41] LABS: Abs Immature Grans 0.03 10^3/uL (0.0-0.06); Absolute Basophil Count 0.08 10^3/uL (0.0-0.2); Absolute Eosinophil Count 0.21 10^3/uL (0.0-0.7); Absolute Lymphocyte Count 0.66 10^3/uL (1.2-3.4); Absolute Monocyte Count 0.58 10^3/uL (0.1-0.8); Absolute Neutrophil Count 5.13 10^3/uL (1.2-6.7); Basophils % 1.2; Eosinophils % 3.1; HCT 45.9 % (40.0-50.0); HGB 15.6 g/dL (13.5-17.5); Immature Grans % 0.4; Lymphocytes % 9.9; MCH 30.6 pg (27.0-33.0); MCV 90 fL (80-95); MPV 10.2 fL (8.0-11.0); Monocytes % 8.7; Neutrophils % 76.7; Platelet Count 164 10^3/uL (130-400); RBC 5.09 10^6/uL (4.36-5.78); RDW 13.1 % (11.8-14.1); RDW-SD 42.5 fL; WBC 6.69 10^3/uL (4.4-10.8)
[2022-01-21 17:10] LABS: ALT 32 U/L (16-63); AST 25 U/L (15-37); Albumin 3.6 g/dL (3.4-5.0); Alkaline Phosphatase 119 U/L (46-116); Anion Gap 7.4 mmol/L (3-11); BUN 15 mg/dL (7-18); Bilirubin, Total 1.5 mg/dL (0.2-1.0); CO2 27.6 mmol/L (21.0-32.0); CREATININE 1.2 mg/dL (0.70-1.30); Calcium 9.2 mg/dL (8.5-10.1); Chloride 105 mmol/L (98-107); Estimated GFR 59.68 (mL/min/1.73m2); Glucose 139 mg/dL (74-106); LDH 196 U/L (85-227); Potassium 4.1 mmol/L (3.5-5.1); Sodium 140 mmol/L (136-145); TSH 0.41 uIU/mL (0.36-3.74); Total Protein 6.9 g/dL (6.4-8.2)
== END 2022-01-21 03:11 | disposition home or self-care (01) ==
PROVIDERS: Nurse Practitioner Family; PCP Student in an Organized Health Care Education/Training Program; Visit Provider Internal Medicine Hematology & Oncology
DX: C84.A5 Cutaneous T-cell lymphoma, unspecified, lymph nodes of inguinal region and lower limb (principal); R53.83 Other fatigue; I10 Essential (primary) hypertension
CPT/HCPCS: 80053; 83615; 84443; 85025

== ENCOUNTER 2022-02-05 01:28 | Outpatient (CLI) | payer MEDICARE, BC, SELFPAY ==
[2022-02-05 12:11] LABS: Abs Immature Grans 0.01 10^3/uL (0.0-0.06); Absolute Basophil Count 0.05 10^3/uL (0.0-0.2); Absolute Lymphocyte Count 0.59 10^3/uL (1.2-3.4); Absolute Monocyte Count 0.66 10^3/uL (0.1-0.8); Basophils % 0.8; Eosinophils % 3.1; HCT 44.4 % (40.0-50.0); HGB 15.5 g/dL (13.5-17.5); Immature Grans % 0.2; Lymphocytes % 9.2; MCH 30.9 pg (27.0-33.0); MCHC 34.9 % (32.0-36.0); MCV 89 fL (80-95); MPV 9.7 fL (8.0-11.0); Monocytes % 10.3; Neutrophils % 76.4; Platelet Count 149 10^3/uL (130-400); RBC 5.01 10^6/uL (4.36-5.78); RDW-SD 41.7 fL; WBC 6.41 10^3/uL (4.4-10.8)
[2022-02-05 12:33] LABS: ALT 40 U/L (16-63); AST 27 U/L (15-37); Albumin 3.7 g/dL (3.4-5.0); Alkaline Phosphatase 121 U/L (46-116); Anion Gap 9.2 mmol/L (3-11); BUN 19 mg/dL (7-18); Bilirubin, Total 2.1 mg/dL (0.2-1.0); CO2 25.8 mmol/L (21.0-32.0); Calcium 9.2 mg/dL (8.5-10.1); Chloride 107 mmol/L (98-107); Glucose 135 mg/dL (74-106); LDH 216 U/L (85-227); Potassium 3.5 mmol/L (3.5-5.1); Sodium 142 mmol/L (136-145); TSH 0.33 uIU/mL (0.36-3.74)
[2022-02-06 16:32] LABS: PSA, Ultrasensitive 0.04 ng/mL (<= 6.5)
== END 2022-02-05 01:29 | disposition home or self-care (01) ==
LOC: LBO 01:29
PROVIDERS: PCP Student in an Organized Health Care Education/Training Program; Visit Provider Internal Medicine Hematology & Oncology
DX: R53.83 Other fatigue (principal); C61 Malignant neoplasm of prostate; C84.A5 Cutaneous T-cell lymphoma, unspecified, lymph nodes of inguinal region and lower limb
CPT/HCPCS: 36415; 80053; 84153; 83615; 84443; 85025

== ENCOUNTER 2022-02-05 16:31 | Outpatient (REF) | payer MEDICARE, BC, SELFPAY ==
[2022-02-05 19:04] LABS: Bilirubin Negative (Negative); Blood Trace-intact (Negative); Clarity Clear (Clear); Glucose Negative (Negative); Ketones Negative (Negative); Leukocyte Esterase Negative (Negative); Nitrite Negative (Negative); Specific Gravity 1.025 (1.005-1.025); Urobilinogen 0.2 EU/dL (Up TO 0.2)
[2022-02-05 19:19] LABS: Bacteria Negative HPF (Negative); C & S Indicated? C&S Done As Ordered; Crystals Few Calcium Oxalate HPF (Negative); Epithelial Cells Negative HPF (Negative); Mucus Trace (Negative); RBC 0-2 HPF (0-2); WBC 0-2 HPF (0-5)
== END 2022-02-05 16:32 | disposition home or self-care (01) ==
LOC: LBN 16:31
PROVIDERS: Nurse Practitioner Gerontology; PCP Student in an Organized Health Care Education/Training Program; Visit Provider Urology
DX: N39.0 Urinary tract infection, site not specified (principal)
CPT/HCPCS: 81003; 81015; 87086

== ENCOUNTER 2022-02-18 03:04 | Outpatient (CLI) | payer MEDICARE, BC, SELFPAY ==
[2022-02-18 16:14] LABS: Abs Immature Grans 0.02 10^3/uL (0.0-0.06); Absolute Basophil Count 0.06 10^3/uL (0.0-0.2); Absolute Eosinophil Count 0.27 10^3/uL (0.0-0.7); Absolute Lymphocyte Count 0.83 10^3/uL (1.2-3.4); Absolute Monocyte Count 0.74 10^3/uL (0.1-0.8); Absolute Neutrophil Count 4.21 10^3/uL (1.2-6.7); Eosinophils % 4.4; HCT 45.2 % (40.0-50.0); HGB 15.9 g/dL (13.5-17.5); Immature Grans % 0.3; Lymphocytes % 13.5; MCH 30.9 pg (27.0-33.0); MCHC 35.2 % (32.0-36.0); MCV 88 fL (80-95); MPV 9.9 fL (8.0-11.0); Monocytes % 12.1; Neutrophils % 68.7; Platelet Count 149 10^3/uL (130-400); RBC 5.14 10^6/uL (4.36-5.78); RDW 12.8 % (11.8-14.1); RDW-SD 41.4 fL; WBC 6.13 10^3/uL (4.4-10.8)
[2022-02-18 16:48] LABS: ALT 40 U/L (16-63); AST 27 U/L (15-37); Albumin 3.7 g/dL (3.4-5.0); Alkaline Phosphatase 120 U/L (46-116); Anion Gap 4.2 mmol/L (3-11); BUN 15 mg/dL (7-18); Bilirubin, Total 2.2 mg/dL (0.2-1.0); CO2 29.8 mmol/L (21.0-32.0); CREATININE 1.1 mg/dL (0.70-1.30); Calcium 8.9 mg/dL (8.5-10.1); Chloride 105 mmol/L (98-107); Glucose 151 mg/dL (74-106); LDH 207 U/L (85-227); Potassium 4.6 mmol/L (3.5-5.1); Sodium 139 mmol/L (136-145); TSH 0.15 uIU/mL (0.36-3.74); Total Protein 6.9 g/dL (6.4-8.2)
== END 2022-02-18 03:05 | disposition home or self-care (01) ==
PROVIDERS: PCP Student in an Organized Health Care Education/Training Program; Visit Provider Internal Medicine Hematology & Oncology
DX: R53.83 Other fatigue (principal); C84.A0 Cutaneous T-cell lymphoma, unspecified, unspecified site
CPT/HCPCS: 36415; 80053; 83615; 84443; 85025

== ENCOUNTER 2022-03-04 01:29 | Outpatient (CLI) | payer MEDICARE, BC, SELFPAY ==
[2022-03-04 12:58] LABS: Abs Immature Grans 0.01 10^3/uL (0.0-0.06); Absolute Basophil Count 0.06 10^3/uL (0.0-0.2); Absolute Eosinophil Count 0.26 10^3/uL (0.0-0.7); Absolute Lymphocyte Count 0.85 10^3/uL (1.2-3.4); Absolute Monocyte Count 0.77 10^3/uL (0.1-0.8); Absolute Neutrophil Count 3.29 10^3/uL (1.2-6.7); Basophils % 1.1; HCT 45.4 % (40.0-50.0); HGB 15.8 g/dL (13.5-17.5); Immature Grans % 0.2; Lymphocytes % 16.2; MCH 30.5 pg (27.0-33.0); MCHC 34.8 % (32.0-36.0); MCV 88 fL (80-95); MPV 9.9 fL (8.0-11.0); Monocytes % 14.7; Neutrophils % 62.8; Platelet Count 147 10^3/uL (130-400); RBC 5.18 10^6/uL (4.36-5.78); RDW 12.9 % (11.8-14.1); RDW-SD 41.4 fL; WBC 5.24 10^3/uL (4.4-10.8)
[2022-03-04 13:33] LABS: ALT 47 U/L (16-63); AST 32 U/L (15-37); Albumin 3.7 g/dL (3.4-5.0); Alkaline Phosphatase 113 U/L (46-116); Anion Gap 8.6 mmol/L (3-11); BUN 13 mg/dL (7-18); Bilirubin, Total 1.9 mg/dL (0.2-1.0); CO2 27.4 mmol/L (21.0-32.0); CREATININE 1.1 mg/dL (0.70-1.30); Calcium 8.9 mg/dL (8.5-10.1); Chloride 108 mmol/L (98-107); Glucose 115 mg/dL (74-106); LDH 217 U/L (85-227); Potassium 4.1 mmol/L (3.5-5.1); Sodium 144 mmol/L (136-145); TSH 0.57 uIU/mL (0.36-3.74)
== END 2022-03-04 01:30 | disposition home or self-care (01) ==
LOC: LBO 01:30
PROVIDERS: PCP Student in an Organized Health Care Education/Training Program; Visit Provider Internal Medicine Hematology & Oncology
DX: C84.A5 Cutaneous T-cell lymphoma, unspecified, lymph nodes of inguinal region and lower limb (principal); R53.83 Other fatigue
CPT/HCPCS: 36415; 80053; 83615; 84443; 85025

== ENCOUNTER 2022-03-19 02:29 | Outpatient (CLI) | payer MEDICARE, BC, SELFPAY ==
[2022-03-19 08:38] LABS: Abs Immature Grans 0.03 10^3/uL (0.0-0.06); Absolute Basophil Count 0.06 10^3/uL (0.0-0.2); Absolute Eosinophil Count 0.26 10^3/uL (0.0-0.7); Absolute Lymphocyte Count 0.87 10^3/uL (1.2-3.4); Absolute Monocyte Count 1.32 10^3/uL (0.1-0.8); Absolute Neutrophil Count 6.49 10^3/uL (1.2-6.7); Basophils % 0.7; Eosinophils % 2.9; HCT 45.1 % (40.0-50.0); HGB 15.8 g/dL (13.5-17.5); Immature Grans % 0.3; Lymphocytes % 9.6; MCV 89 fL (80-95); MPV 9.8 fL (8.0-11.0); Monocytes % 14.6; Neutrophils % 71.9; Platelet Count 138 10^3/uL (130-400); RBC 5.09 10^6/uL (4.36-5.78); RDW 12.9 % (11.8-14.1); RDW-SD 42.1 fL; WBC 9.03 10^3/uL (4.4-10.8)
[2022-03-19 09:02] LABS: ALT 29 U/L (16-63); AST 28 U/L (15-37); Albumin 3.6 g/dL (3.4-5.0); Alkaline Phosphatase 113 U/L (46-116); Anion Gap 4.2 mmol/L (3-11); BUN 19 mg/dL (7-18); Bilirubin, Total 2.6 mg/dL (0.2-1.0); CO2 26.8 mmol/L (21.0-32.0); CREATININE 1.1 mg/dL (0.70-1.30); Calcium 9.2 mg/dL (8.5-10.1); Chloride 107 mmol/L (98-107); Estimated GFR 71.77 (mL/min/1.73m2); Glucose 148 mg/dL (74-106); LDH 192 U/L (85-227); Potassium 3.8 mmol/L (3.5-5.1); Sodium 138 mmol/L (136-145); TSH 0.33 uIU/mL (0.36-3.74); Total Protein 7.1 g/dL (6.4-8.2)
== END 2022-03-19 02:30 | disposition home or self-care (01) ==
LOC: LBO 02:29
PROVIDERS: PCP Student in an Organized Health Care Education/Training Program; Visit Provider Internal Medicine Hematology & Oncology
DX: C84.A5 Cutaneous T-cell lymphoma, unspecified, lymph nodes of inguinal region and lower limb (principal); R53.83 Other fatigue
CPT/HCPCS: 36415; 80053; 83615; 84443; 85025

== ENCOUNTER 2022-03-21 15:15 | Outpatient (REF) | payer MEDICARE, BC, SELFPAY ==
[2022-03-22 08:28] LABS: Bilirubin Negative (Negative); Blood Large (Negative); Clarity Sl Cloudy (Clear); Glucose Negative (Negative); Ketones Negative (Negative); Leukocyte Esterase Small (Negative); Nitrite Positive (Negative); Urobilinogen 0.2 EU/dL (Up TO 0.2)
[2022-03-22 08:41] LABS: Bacteria Many HPF (Negative); C & S Indicated? C&S Done As Ordered; Casts Negative LPF (Negative); Crystals Negative HPF (Negative); Epithelial Cells Rare HPF (Negative); Mucus Negative (Negative); RBC >50 HPF (0-2); WBC >50 HPF (0-5)
== END 2022-03-21 15:16 | disposition home or self-care (01) ==
LOC: LBN 15:15
PROVIDERS: PCP Student in an Organized Health Care Education/Training Program; Visit Provider Urology
DX: N39.0 Urinary tract infection, site not specified (principal)
CPT/HCPCS: 87077; 87186; 81003; 81015; 87086

== ENCOUNTER 2022-04-01 03:44 | Outpatient (CLI) | payer MEDICARE, BC, SELFPAY ==
[2022-04-01 16:17] LABS: Abs Immature Grans 0.04 10^3/uL (0.0-0.06); Absolute Basophil Count 0.07 10^3/uL (0.0-0.2); Absolute Eosinophil Count 0.24 10^3/uL (0.0-0.7); Absolute Neutrophil Count 5.08 10^3/uL (1.2-6.7); Eosinophils % 3.3; HGB 15.7 g/dL (13.5-17.5); Immature Grans % 0.5; Lymphocytes % 13.6; MCH 30.9 pg (27.0-33.0); MCHC 34.9 % (32.0-36.0); MCV 89 fL (80-95); MPV 9.6 fL (8.0-11.0); Monocytes % 12.3; Neutrophils % 69.3; Platelet Count 258 10^3/uL (130-400); RBC 5.08 10^6/uL (4.36-5.78); RDW-SD 42.3 fL; WBC 7.33 10^3/uL (4.4-10.8)
[2022-04-01 16:19] LABS: Bilirubin Negative (Negative); Blood Small (Negative); Clarity Clear (Clear); Glucose Negative (Negative); Ketones Negative (Negative); Leukocyte Esterase Negative (Negative); Nitrite Negative (Negative); Urobilinogen 0.2 EU/dL (Up TO 0.2)
[2022-04-01 16:35] LABS: Bacteria Negative HPF (Negative); C & S Indicated? C&S Done As Ordered; Crystals Negative HPF (Negative); Epithelial Cells Negative HPF (Negative); Mucus Negative (Negative)
[2022-04-01 18:38] LABS: ALT 59 U/L (16-63); AST 32 U/L (15-37); Albumin 3.5 g/dL (3.4-5.0); Alkaline Phosphatase 130 U/L (46-116); Anion Gap 6.7 mmol/L (3-11); BUN 14 mg/dL (7-18); Bilirubin, Total 0.8 mg/dL (0.2-1.0); CO2 29.3 mmol/L (21.0-32.0); CREATININE 1.1 mg/dL (0.70-1.30); Calcium 9.1 mg/dL (8.5-10.1); Chloride 106 mmol/L (98-107); Estimated GFR 71.77 (mL/min/1.73m2); Glucose 106 mg/dL (74-106); LDH 195 U/L (85-227); Potassium 4.1 mmol/L (3.5-5.1); Sodium 142 mmol/L (136-145); TSH 0.31 uIU/mL (0.36-3.74); Total Protein 7.4 g/dL (6.4-8.2)
== END 2022-04-01 03:45 | disposition home or self-care (01) ==
PROVIDERS: Internal Medicine Hematology & Oncology; Urology; PCP Student in an Organized Health Care Education/Training Program; Visit Provider Nurse Practitioner Family
DX: N39.0 Urinary tract infection, site not specified (principal); R31.9 Hematuria, unspecified; R53.83 Other fatigue; C84.A0 Cutaneous T-cell lymphoma, unspecified, unspecified site
CPT/HCPCS: 36415; 80053; 81003; 81015; 83615; 84443; 85025; 87086

== ENCOUNTER 2022-04-15 03:14 | Outpatient (CLI) | payer MEDICARE, BC, SELFPAY ==
[2022-04-15 16:08] LABS: Abs Immature Grans 0.02 10^3/uL (0.0-0.06); Absolute Basophil Count 0.06 10^3/uL (0.0-0.2); Absolute Eosinophil Count 0.18 10^3/uL (0.0-0.7); Absolute Monocyte Count 0.86 10^3/uL (0.1-0.8); Eosinophils % 3.1; HCT 44.3 % (40.0-50.0); HGB 15.3 g/dL (13.5-17.5); Immature Grans % 0.3; Lymphocytes % 15.5; MCH 30.6 pg (27.0-33.0); MCHC 34.5 % (32.0-36.0); MCV 89 fL (80-95); MPV 9.6 fL (8.0-11.0); Monocytes % 14.8; Neutrophils % 65.3; Platelet Count 132 10^3/uL (130-400); RDW 13.1 % (11.8-14.1); RDW-SD 42.4 fL; WBC 5.82 10^3/uL (4.4-10.8)
[2022-04-15 16:44] LABS: ALT 38 U/L (16-63); AST 27 U/L (15-37); Albumin 3.8 g/dL (3.4-5.0); Alkaline Phosphatase 103 U/L (46-116); Anion Gap 6.1 mmol/L (3-11); BUN 16 mg/dL (7-18); Bilirubin, Total 1.8 mg/dL (0.2-1.0); CO2 28.9 mmol/L (21.0-32.0); Calcium 9.1 mg/dL (8.5-10.1); Chloride 105 mmol/L (98-107); Estimated GFR 80.47 (mL/min/1.73m2); Glucose 87 mg/dL (74-106); LDH 189 U/L (85-227); Potassium 3.9 mmol/L (3.5-5.1); Sodium 140 mmol/L (136-145); Total Protein 7.2 g/dL (6.4-8.2)
== END 2022-04-15 03:15 | disposition home or self-care (01) ==
LOC: LBO 03:14
PROVIDERS: PCP Student in an Organized Health Care Education/Training Program; Visit Provider Internal Medicine Hematology & Oncology
DX: C84.A5 Cutaneous T-cell lymphoma, unspecified, lymph nodes of inguinal region and lower limb (principal); R53.83 Other fatigue
CPT/HCPCS: 36415; 80053; 83615; 84443; 85025

== ENCOUNTER 2022-04-29 02:39 | Outpatient (CLI) | payer MEDICARE, BC, SELFPAY ==
[2022-04-29 16:09] LABS: Abs Immature Grans 0.01 10^3/uL (0.0-0.06); Absolute Basophil Count 0.06 10^3/uL (0.0-0.2); Absolute Eosinophil Count 0.23 10^3/uL (0.0-0.7); Absolute Lymphocyte Count 0.85 10^3/uL (1.2-3.4); Absolute Monocyte Count 0.75 10^3/uL (0.1-0.8); Absolute Neutrophil Count 4.36 10^3/uL (1.2-6.7); Eosinophils % 3.7; HCT 44.8 % (40.0-50.0); HGB 15.7 g/dL (13.5-17.5); Immature Grans % 0.2; Lymphocytes % 13.6; MCH 31.1 pg (27.0-33.0); MCV 89 fL (80-95); MPV 9.5 fL (8.0-11.0); Neutrophils % 69.5; Platelet Count 152 10^3/uL (130-400); RBC 5.05 10^6/uL (4.36-5.78); RDW 13.5 % (11.8-14.1); RDW-SD 43.9 fL; WBC 6.26 10^3/uL (4.4-10.8)
[2022-04-29 17:25] LABS: ALT 44 U/L (16-63); AST 29 U/L (15-37); Albumin 3.7 g/dL (3.4-5.0); Alkaline Phosphatase 124 U/L (46-116); Anion Gap 7.3 mmol/L (3-11); BUN 16 mg/dL (7-18); Bilirubin, Total 1.9 mg/dL (0.2-1.0); CO2 30.7 mmol/L (21.0-32.0); Calcium 9.2 mg/dL (8.5-10.1); Chloride 107 mmol/L (98-107); Estimated GFR 80.47 (mL/min/1.73m2); Glucose 122 mg/dL (74-106); LDH 198 U/L (85-227); Potassium 4.1 mmol/L (3.5-5.1); Sodium 145 mmol/L (136-145); Total Protein 6.9 g/dL (6.4-8.2)
== END 2022-04-29 02:40 | disposition home or self-care (01) ==
LOC: LBO 02:39
PROVIDERS: PCP Student in an Organized Health Care Education/Training Program; Visit Provider Internal Medicine Hematology & Oncology
DX: C84.A5 Cutaneous T-cell lymphoma, unspecified, lymph nodes of inguinal region and lower limb (principal); R53.83 Other fatigue
CPT/HCPCS: 36415; 80053; 83615; 84443; 85025

== ENCOUNTER → 2022-05-13 01:49 | Outpatient (CLI) | payer MEDICARE, BC, SELFPAY ==
--- NOTE | 2022-05-13 07:30 | DI.US_ITS ---
Exam(s) US RENAL EXAM: US RENAL CLINICAL HISTORY: monitor known stones,n20.0 TECHNIQUE: Ultrasound of both kidneys performed using standard protocol. COMPARISON: US US RENAL from 11/11/[address] CHEST/ABD/PEL WO from 12/03/2021 FINDINGS: RIGHT KIDNEY: Measures 13.2 cm in length. There is a 3.2 x 3.0 cm cyst in the superior pole. Is no other smaller 1 0 x 11 millimeters cyst at midpole level. No solid renal masses. No intrarenal calculi seen No intrarenal calculi nor hydronephrosis. LEFT KIDNEY: Measures 14.6 cm in length. Exhibits mild hydronephrosis. There are multiple intrarenal calculi not ed. However, the partially visualized ureter is dilated. Suspect ureteral calculus. URINARY BLADDER: Prevoid volume is 943 cc Postvoid volume is patient is incontinent cc No evidence of bladder mass nor diverticuli. Ureterovesical jets: Both identified and appear symmetrical IMPRESSION: 1. Unilateral left-sided hydronephrosis mild-moderate, most probably related to 1 of the numerous ca lculi in left kidney having descended down the ureter. There is no prominent cortical thinning. The re is no perinephric fluid. 2. Benign cysts are noted in the opposite-right kidney. DATA REPOSITORY:
== END ==
PROVIDERS: PCP Student in an Organized Health Care Education/Training Program; Visit Provider Urology
DX: N20.0 Calculus of kidney (principal); N13.2 Hydronephrosis with renal and ureteral calculous obstruction; N28.1 Cyst of kidney, acquired
CPT/HCPCS: 76770

== ENCOUNTER 2022-05-13 02:31 | Outpatient (CLI) | payer MEDICARE, BC, SELFPAY ==
[2022-05-13 11:51] LABS: Abs Immature Grans 0.02 10^3/uL (0.0-0.06); Absolute Basophil Count 0.05 10^3/uL (0.0-0.2); Absolute Eosinophil Count 0.15 10^3/uL (0.0-0.7); Absolute Lymphocyte Count 0.89 10^3/uL (1.2-3.4); Absolute Monocyte Count 0.61 10^3/uL (0.1-0.8); Absolute Neutrophil Count 4.24 10^3/uL (1.2-6.7); Basophils % 0.8; Eosinophils % 2.5; HCT 45.1 % (40.0-50.0); HGB 15.8 g/dL (13.5-17.5); Immature Grans % 0.3; Lymphocytes % 14.9; MCH 31.2 pg (27.0-33.0); MCV 89 fL (80-95); MPV 9.8 fL (8.0-11.0); Monocytes % 10.2; Neutrophils % 71.3; Platelet Count 137 10^3/uL (130-400); RBC 5.06 10^6/uL (4.36-5.78); RDW-SD 42.6 fL; WBC 5.96 10^3/uL (4.4-10.8)
[2022-05-13 12:13] LABS: ALT 44 U/L (16-63); AST 29 U/L (15-37); Albumin 3.7 g/dL (3.4-5.0); Alkaline Phosphatase 131 U/L (46-116); Anion Gap 7.1 mmol/L (3-11); BUN 15 mg/dL (7-18); Bilirubin, Total 1.5 mg/dL (0.2-1.0); CO2 29.9 mmol/L (21.0-32.0); CREATININE 1.1 mg/dL (0.70-1.30); Calcium 9.3 mg/dL (8.5-10.1); Chloride 107 mmol/L (98-107); Estimated GFR 71.77 (mL/min/1.73m2); Glucose 163 mg/dL (74-106); LDH 190 U/L (85-227); Potassium 3.7 mmol/L (3.5-5.1); Sodium 144 mmol/L (136-145); TSH 0.48 uIU/mL (0.36-3.74)
== END 2022-05-13 02:32 | disposition home or self-care (01) ==
PROVIDERS: PCP Student in an Organized Health Care Education/Training Program; Visit Provider Nurse Practitioner Family
DX: R53.83 Other fatigue (principal); C84.A5 Cutaneous T-cell lymphoma, unspecified, lymph nodes of inguinal region and lower limb
CPT/HCPCS: 36415; 76770; 80053; 83615; 84443; 85025

== ENCOUNTER → 2022-05-20 10:25 | Outpatient (BNVA) | payer MEDICARE, BC, SELFPAY | PROVIDERS: PCP Student in an Organized Health Care Education/Training Program; Referring Provider Student in an Organized Health Care Education/Training Program; Visit Provider Urology | DX: R10.32 Left lower quadrant pain (principal); N20.1 Calculus of ureter; N20.0 Calculus of kidney; N13.4 Hydroureter | CPT/HCPCS: 99215 ==

== ENCOUNTER 2022-05-27 03:27 | Outpatient (CLI) | payer MEDICARE, BC, SELFPAY ==
[2022-05-27 16:18] LABS: Abs Immature Grans 0.03 10^3/uL (0.0-0.06); Absolute Basophil Count 0.06 10^3/uL (0.0-0.2); Absolute Lymphocyte Count 0.97 10^3/uL (1.2-3.4); Absolute Monocyte Count 0.91 10^3/uL (0.1-0.8); Absolute Neutrophil Count 5.49 10^3/uL (1.2-6.7); Basophils % 0.8; Eosinophils % 2.6; HCT 46.9 % (40.0-50.0); HGB 16.2 g/dL (13.5-17.5); Immature Grans % 0.4; Lymphocytes % 12.7; MCH 30.9 pg (27.0-33.0); MCHC 34.5 % (32.0-36.0); MCV 90 fL (80-95); MPV 9.5 fL (8.0-11.0); Monocytes % 11.9; Neutrophils % 71.6; Platelet Count 150 10^3/uL (130-400); RBC 5.24 10^6/uL (4.36-5.78); RDW 12.7 % (11.8-14.1); RDW-SD 41.8 fL; WBC 7.66 10^3/uL (4.4-10.8)
[2022-05-27 17:16] LABS: ALT 35 U/L (16-63); AST 26 U/L (15-37); Albumin 3.8 g/dL (3.4-5.0); Alkaline Phosphatase 109 U/L (46-116); Anion Gap 8.2 mmol/L (3-11); BUN 18 mg/dL (7-18); Bilirubin, Total 2.5 mg/dL (0.2-1.0); CO2 28.8 mmol/L (21.0-32.0); CREATININE 1.1 mg/dL (0.70-1.30); Chloride 106 mmol/L (98-107); Estimated GFR 71.77 (mL/min/1.73m2); Glucose 112 mg/dL (74-106); LDH 210 U/L (85-227); Potassium 3.7 mmol/L (3.5-5.1); Sodium 143 mmol/L (136-145); TSH 0.24 uIU/mL (0.36-3.74); Total Protein 7.2 g/dL (6.4-8.2)
== END 2022-05-27 03:28 | disposition home or self-care (01) ==
LOC: LBO 03:27
PROVIDERS: Nurse Practitioner Family; PCP Student in an Organized Health Care Education/Training Program; Visit Provider Internal Medicine Hematology & Oncology
DX: R53.83 Other fatigue (principal); C84.A5 Cutaneous T-cell lymphoma, unspecified, lymph nodes of inguinal region and lower limb
CPT/HCPCS: 36415; 80053; 83615; 84443; 85025

== ENCOUNTER 2022-06-02 07:08 | Day surgery (SDC) | payer MEDICARE, BC, SELFPAY ==
[2022-06-02] VITALS (8 sets, daily range): BP systolic 69–128; BP diastolic 50–78; PULSE 57–92; RESP 14–22; TEMP 36–36.4; O2SAT 93–98; BMI 36.6
[2022-06-02] MEDS: Lactated Ringers 1,000 ML 80 ML IV (08:25)
--- NOTE | 2022-06-02 08:28 | ANES.PREOP_ITS ---
General Info Date of Service Date Performed: 06/02/22 Height: 5 ft 7.5 in Weight: 107.8 kg Body Mass Index (BMI): 36.6 Surgical Procedure: Operation Date: 06/02/22 08:55 Proposed Procedure Side Surgeon p Cystoscopy/Holmium Laser Lithotripsy/Left Retrograde Pyelogram/Left Ureteroscopy/possible stent Left Edy Blackburn MD Meds Allergies and Home Medications Allergies Allergy/AdvReac Type Severity Reaction Status Date / Time No Known Allergies Allergy Verified 06/02/22 07:55 Home Medication Medication Instructions Recorded triamcinolone acetonide 0.5 % 1 applic topical BID #60 grams 01/21/19 topical ointment apixaban 5 mg tablet (Eliquis) 5 mg PO BID 09/13/20 pantoprazole 40 mg tablet,delayed 40 mg PO DAILY 10/30/20 release (Protonix) polyethylene glycol 3350 17 gram 17 g PO DAILY PRN PRN Constipation 01/18/21 oral powder packet #0 ea mupirocin 2 % topical ointment 1 applic topical BID 04/25/21 atorvastatin 40 mg tablet 40 mg PO QPM #90 tabs 08/04/21 mogamulizumab-kpkc 4 mg/mL IV Q14D 09/24/21 intravenous solution gabapentin 300 mg capsule 600 mg PO BID 11/08/21 lorazepam 1 mg tablet 1 mg PO BID PRN anticipatory 02/12/22 anxiety #6 tabs montelukast 10 mg tablet 10 mg PO DAILY #90 tab-caps 03/03/22 lorazepam 1 mg tablet 1 mg PO .qHS #28 tabs 04/17/22 oxycodone 5 mg tablet 5 - 10 mg PO Q6H PRN pain #30 tabs 05/20/22 metoprolol tartrate 50 mg tablet 50 tab PO BID 05/29/22 Current Visit Medications: Current Medications Generic Name Dose Route Start Last Admin Trade Name Freq PRN Reason Stop Dose Admin Ringer's Solution 1,000 mls @ 80 mls/hr 06/02/22 06:00 06/02/22 08:25 IV 06/29/22 23:59 80 mls/hr INFUSION NOHEMY Administration Cefazolin Sodium/Dextrose 2 gm in 50 mls @ 100 mls/hr 06/02/22 06:00 Ancef Duplex IVPB 06/29/22 23:59 PREOP NOHEMY IV Miscellaneous Supplies 1 each 06/02/22 06:00 Iv Access IV 06/29/22 23:59 DIRECTED NOHEMY Sodium Chloride 0 ml 06/02/22 06:00 Normal Saline Flush 10 Ml Syr IV 06/29/22 23:59 PRN PRN Sodium Chloride 0 ml 06/02/22 06:00 Normal Saline 10 Ml Vial IJ 06/29/22 23:59 DIRECTED PRN Sterile Water 0 ml 06/02/22 06:00 Water,Injection,Sterile 10 Ml Vial IJ 06/29/22 23:59 DIRECTED PRN PFSH Active Problems Active Problems: Problem Status Onset Code Recurrent UTI (urinary tract infection) N39.0 Fatigue R53.83 Sezary disease, 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 Prediabetes R73.03 Elevated glucose R73.09 Muscle spasms of neck M62.838 Epidermal cyst ~04/25/21 L72.0 Squamous cell carcinoma Stress incontinence, male N39.3 Malignant neoplasm of prostate C61 Palliative care patient Z51.5 DNI (do not intubate) Z78.9 DNR (do not resuscitate) Z66 Physician orders for life-sustaining treatment (POLST) form indicates patient wish for [id number]-[id number] status Z66 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 Septic shock A41.9, R65.21 Acute pyelonephritis N10 Atrial fibrillation with rapid ventricular response I48.91 Hypomagnesemia E83.42 Kidney stones N20.0 Diabetes mellitus E11.9 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 Xerosis cutis L85.3 Hx of herpes simplex infection Z86.19 Chronic pruritus L29.9 Complicated UTI (urinary tract infection) N39.0 Hydronephrosis of left kidney N13.30 Hydroureter on left N13.4 Ureterolithiasis N20.1 Insomnia 07/28/17 G47.00 Adenocarcinoma of prostate C61 Rash R21 Tubular adenoma 03/12/18 D36.9 Tobacco use disorder 08/13/17 F17.200 Hyperlipidemia 07/28/17 E78.5 Generalized anxiety disorder 07/28/17 F41.1 Essential hypertension 07/28/17 I10 Elevated prostate specific antigen (PSA) 07/28/17 R97.20 Calculus of kidney 07/28/17 N20.0 Bilateral carpal tunnel syndrome 07/28/17 G56.03 BPH w/o urinary obs/LUTS 07/28/17 N40.0 BMI 35.0-35.9,adult 08/13/17 Z68.35 Atrial fibrillation I48.91 Medical History Medical History Anxiety Atrial flutter CAD (coronary artery disease) Essential hypertension History of kidney stones History of malignant neoplasm of prostate Intertrigo Left ureteral stone Added from [facility] hematology Obesity (BMI 35.0-39.9 without comorbidity) Tiredness Added from [facility] hematology Medical History Comments:: pt reports he last had chemo 05/28/22. pt reports he had a puff of cigar this am. pt reports unable to lie flat, requires 2 pillows under neck. Heart sounds irregular, Surgical History Surgical History Arthroplasty of knee (~2013) Left-Meniscal Tear- Colonoscopy - MAC (03/12/18) H/O Mohs micrographic surgery for skin cancer Per [facility] Htr mohs note from 04/02/21 Hx of Torsion (R)Testicle Lithotripsy Prostate Biopsy (12/02/01) Rising PSA-Negative Robotic Prostatectomy for [place] 7 (11/19/16) Intermediate Risk Prostate Cancer- Tobacco Smoking/Tobacco Use Status: Current every day Tobacco Type: cigars Per week: 7 Alcohol Alcohol Intake: former Year quit: 15 Substance Use Substance use: Never Substance use type: does not use Vital Signs and Lab Results Vital Signs Most Recent Vital Signs in EMR: Most Recent Vital Signs Temp Pulse Resp BP Pulse Ox 36 C L 68 16 123/78 97 06/02/22 07:55 06/02/22 07:55 06/02/22 07:55 06/02/22 07:55 06/02/22 07:55 Lab Results Blood Type / Crossmatch: 2 No Data to Display Complete Blood Count: White Blood Count 7.66 10^3/uL (4.4-10.8) 05/27/22 16:08 Red Blood Count 5.24 10^6/uL (4.36-5.78) 05/27/22 16:08 Hemoglobin 16.2 g/dL (13.5-17.5) 05/27/22 16:08 Hematocrit 46.9 % (40.0-50.0) 05/27/22 16:08 Platelet Count 150 10^3/uL (130-400) 05/27/22 16:08 Complete Metabolic Panel: Sodium 143 mmol/L (136-145) 05/27/22 16:08 Potassium 3.7 mmol/L (3.5-5.1) 05/27/22 16:08 Chloride 106 mmol/L (98-107) 05/27/22 16:08 Carbon Dioxide 28.8 mmol/L (21.0-32.0) 05/27/22 16:08 BUN 18 mg/dL (7-18) 05/27/22 16:08 Creatinine 1.1 mg/dL (0.70-1.30) 05/27/22 16:08 Est GFR (CKD-EPI 2020) 71.77 (mL/min/1.73m2) 05/27/22 16:08 Calcium 9.0 mg/dL (8.5-10.1) 05/27/22 16:08 Albumin 3.8 g/dL (3.4-5.0) 05/27/22 16:08 Glucose 112 mg/dL (74-106) H 05/27/22 16:08 Liver Function Panel: Alanine Aminotransferase (ALT/SGPT) 35 U/L (16-63) 05/27/22 16: 08 Aspartate Amino Transf (AST/SGOT) 26 U/L (15-37) 05/27/22 16:08 Coagulation Panel: No Data to Display Cardiac Panel: No Data to Display Arterial Blood Gas: No Data to Display Venous Blood Gas: No Data to Display Pancreas Panel: No Data to Display Thyroid Panel: Thyroid Stimulating Hormone (TSH) 0.24 uIU/mL (0.36-3.74) L 05/27/22 16:08 Infectious Disease: No Data to Display Blood Cultures: No Data to Display Toxicology Panel: No Data to Display Imaging and Studies Imaging and Studies Study information below may be from another EMR and interpreted by another provider. Please see original notes in EMR for more complete details. EKG Summary: 12/03/2021: Exam: Resting ECG Reason for Exam: Fever, SOB Patient Location: E HR:131 bpm ECG Measurements Heart Rate 131 AXIS MA [id number] P [id number] QRSd 92 QRS -51 QT 319 T99 QTc 471 Conclusion Atrial fibrillation...V-rate 90-181, irreg A-activity Left anterior fascicular block...axis(240,-40), init forces inf. Afib. No STEMI. I have reviewed and interpreted ECG and agree with software generated interpr etation. I have reviewed and I agree with the emergency room physician's ECG interpretation. Electronically signed by: <Electronically signed by Cheryl Barrera M.D. in [place]> 12/03/21 0922 Echocardiogram Summary: 01/17/2021: Conclusion Left Ventricle : The left ventricle is normal size. Left ventricular systolic function islow normal. There is normal LV segmental wall motion. There is normal left ventricular wall thickness. LVEF is 50%. Right Ventricle : Right ventricle is borderline dilated. The right ventricular systolic function is normal. The RVSP is 23.9 mmHg. Atria : Left atrium is borderline dilated. Right atrium is borderline dilated. Mitral Valve : Mild mitral annular calcification. Trace mitral regurgitation. No evidence of mitral valve stenosis. Great Vessels : The aortic root is normal in size. The ascending aorta is normal in size. Ascending aorta is not well visualized. IVC is normal in size and collapses >50% with inspiration. Please see remainder of study for further details. Anesthesia Assessment and Plan Anesthesia History Personal History: No History of Anesthesia Complications Family History: No Family History of Anesthesia Complications Exercise Tolerance Exercise Tolerance: Metabolic Equivalents>4 Pertinent Negatives Pertinent Negatives: No Symptoms of GERD, No Major Cardiovascular Symptoms or Complaints and No Major Pulmonary Symptoms or Complaints Cardiac & Pulmonary Exam Cardiac Exam: Normal S1/S2 Heart Sounds Pulmonary Exam: Clear Bilateral Breath Sounds Implantable Cardiac Device Does patient have a Pacemaker or an ICD?: No Airway Exam Known Difficult Airway: No Mallampati Class: 1 Mouth Opening: Normal (> 3cm) Thyromental Distance: Greater than 3 cm Neck Range of Motion: Limited ROM Neck Circumference: Thick Teeth Condition: Normal Dentition ASA Classification ASA Score: ASA 3 Emergency Case?: No NPO Status NPO Status: NPO Clears >2 hours, Solids >8 hours Anesthesia Plan Resuscitation Status: Full Code Anesthesia Technique: General Anesthesia Airway Planned: Endotracheal Tube Monitors Used: Standard Monitors
--- NOTE | 2022-06-02 09:12 | W.PM.HP.N ---
Date of service: 06/02/22 Time of Service: 09:12 Assessment and Plan Assessment and plan (1) Kidney stones: Status: Chronic (2) Hydronephrosis of left kidney: Status: Acute (3) Hydroureter on left: Status: Acute Assessment and plan: We will plan a cystoscopy and retrograde pyelogram. We will then plan to do ureteroscopy to address any ureteral and any kidney stones that are presnt on the left side. We will attempt to avoid a ureteral stent as the patient has had difficulty tolerating ureteral stents in the past. History of Present Illness History of Present Illness Chief Complaint: Left hydronephrosis Narrative: This is a 71-year-old gentleman who has a history of prostate cancer.? He was treated with radical prostatectomy.? He has some issues with urinary incontinence. He has a history of left-sided kidney stones.? He has required ureteroscopy with stone manipulation in the past.? His stones have been 100% calcium oxalate monohydrate when they have been analyzed. We have been monitoring his known left-sided kidney stones with renal ultrasounds every 6 months.? He has had several episodes of E. coli urinary tract infections which respond to Bactrim.? He has not required IV antibiotics. Recently, he has had severe left flank and suprapubic pain.?The pain resolved about a week ago but he has not passed a stone as far as he knowns. He was evaluated with a renal US and left hydronephrosis was seen. We suspected one of his known left kidney stones migrated into the ureter. We elected not to check a noncontrast Ct scan as the patient has frequent imaging studies due to his hx of cutaneous T cell lymphoma. He presents for retrograde pyelogram and ureteroscopy to address any ureteral and renal stones. He has had multiple procedures and does not tolerate ureteral stents very well. Review of Systems Narrative: No fevers or chills No vision change or dysphasia No thyroid dysfunction No shortness of breath, cough or hemoptysis Hx Atrial fibrillation. No chest pain No nausea, vomiting, hepatitis, ulcers, jaundice No seizures, strokes or peripheral neuropathy On anticoagulants chronically - stopped 3 days ago No gout PFSH All Active Problems Recurrent UTI (urinary tract infection) (Acute) Fatigue (Acute) Affecting QOL, limited him to one ski run .. can we HOLD BB for some activities? [ ] Dr. Fortune, Cardio Sezary disease, unspecified site (Acute ~07/2021) 08/12/21 Dr Yuen,[facility] Hem Onc visit Prediabetes (Acute) Elevated glucose (Acute) Muscle spasms of neck (Acute) Stiffness, Hx torticollis (heavy work schedule @ desk) Epidermal cyst (Acute ~04/25/21) 04/22/21 [facility] Hem/Onc Squamous cell carcinoma (Acute) Per [facility] Htr mohs note from 04/02/21 Stress incontinence, male (Acute) Added from [facility] hematology Malignant neoplasm of prostate (Chronic) Palliative care patient (Acute) DNI (do not intubate) (Acute) DNR (do not resuscitate) (Acute) Physician orders for life-sustaining treatment (POLST) form indicates patient wish for [id number]-qlj-tpignqirviy status (Acute) Sezary syndrome (Acute) 04/22/21 [facility] Hem/Onc - cryotherapy L hip Septic shock (Acute) Acute pyelonephritis (Acute) Atrial fibrillation with rapid ventricular response (Acute) Hypomagnesemia (Acute) Kidney stones (Chronic) Diabetes mellitus (Chronic) 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 onc report.Sandeep Yuen MD 10/29/20 F/u [facility] Onc Xerosis cutis (Acute) Barrier Repair via vinegar spray + AmLactin See DERM consult, 02/28/2020 Hx of herpes simplex infection (Acute) Chronic pruritus (Acute) [Stopped HCTZ? 05/2020 ]Originally with rash, now general pruritis, often severe! Some relief with Benadryl, so trial daily Zyrtec recomm 09/2019. DERM SEEN 02/2020: Xerosis Cutis/Vinegar Tx for BARRIER REPAIR.. Derm? [ ] Mela? [ ] Rx? Complicated UTI (urinary tract infection) (Acute) Hydronephrosis of left kidney (Acute) Hydroureter on left (Acute) Ureterolithiasis (Acute) Insomnia (Acute 07/28/17) Adenocarcinoma of prostate (Chronic) Paulo White MD [facility] urology T3aN0, [place] 3+4 s/p RALP 11/2016, low detectable PSA Rash (Acute) Macular rash, with mild plaque-like eruption. Excoriated 2' pruritis, somewhat managed with Benadryl. Tubular adenoma (Chronic 03/12/18) Tobacco use disorder (Chronic 08/13/17) Quit cigarettes, 1984. One cigar daily Hyperlipidemia (Chronic 07/28/17) Generalized anxiety disorder (Chronic 07/28/17) Manages well with meds, incl low-dose benzodiaz. 15 yrs sobriety this 2018. Essential hypertension (Chronic 07/28/17) BPs well-controlled. Active. Elevated prostate specific antigen (PSA) (Acute 07/28/17) Calculus of kidney (Chronic 07/28/17) Most recent 6mm passed @ [facility] (terrible hosp). Hx multiple kidney stones, experienced with passing large stones. Current large calc, monitoried by UROL [facility] Bilateral carpal tunnel syndrome (Acute 07/28/17) BPH w/o urinary obs/LUTS (Chronic 07/28/17) BMI 35.0-35.9,adult (Acute 08/13/17) Atrial fibrillation (Chronic) INR managed via Cardiology [facility] Dr. Perera,paroxysmal A Flutter Medical History Anxiety Atrial flutter CAD (coronary artery disease) Essential hypertension History of kidney stones History of malignant neoplasm of prostate Intertrigo Left ureteral stone Added from [facility] hematology Obesity (BMI 35.0-39.9 without comorbidity) Tiredness Added from [facility] hematology Surgical History Arthroplasty of knee (~2013) Left-Meniscal Tear- Colonoscopy - MAC (03/12/18) H/O Mohs micrographic surgery for skin cancer Per [facility] Htr mohs note from 04/02/21 Hx of Torsion (R)Testicle Lithotripsy Prostate Biopsy (12/02/01) Rising PSA-Negative Robotic Prostatectomy for [place] 7 (11/19/16) Intermediate Risk Prostate Cancer- Family History Mother Hyperlipidemia Father CAD (coronary artery disease) Neoplasm Kidney Grandfather Neoplasm Prostate Social History (Reviewed 07/28/22 @ 15:37 by MARILEE Zhao Smoking/Tobacco Use Status: Current every day Tobacco Type: cigars Per week: 7 Tobacco: How many years used: 6 Smoking risk assessment performed?: Yes Alcohol Intake: former Year quit: 15 Drug use: Never Substance use type: does not use Adopted: No Household members: spouse Housing: [facility] Number of Children: 4 Communication Needs: Corrective Lenses 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 Meds Allergies and Home Medications Allergies Allergy/AdvReac Type Severity Reaction Status Date / Time No Known Allergies Allergy Verified 06/02/22 07:55 Home Medications Medication Instructions Recorded Confirmed Type triamcinolone acetonide 0.5 % 1 applic topical BID #60 grams 01/21/19 06/02/22 Rx topical ointment apixaban 5 mg tablet (Eliquis) 5 mg PO BID 09/13/20 06/02/22 History pantoprazole 40 mg tablet,delayed 40 mg PO DAILY 10/30/20 06/02/22 History release (Protonix) polyethylene glycol 3350 17 gram 17 g PO DAILY PRN PRN Constipation 01/18/21 06/02/22 Rx oral powder packet #0 ea mupirocin 2 % topical ointment 1 applic topical BID 04/25/21 06/02/22 History atorvastatin 40 mg tablet 40 mg PO QPM #90 tabs 08/04/21 06/02/22 Rx mogamulizumab-kpkc 4 mg/mL IV Q14D 09/24/21 05/20/22 History intravenous solution gabapentin 300 mg capsule 600 mg PO BID 11/08/21 06/02/22 History lorazepam 1 mg tablet 1 mg PO BID PRN anticipatory 02/12/22 06/02/22 Rx anxiety #6 tabs montelukast 10 mg tablet 10 mg PO DAILY #90 tab-caps 03/03/22 06/02/22 Rx lorazepam 1 mg tablet 1 mg PO .qHS #28 tabs 04/17/22 06/02/22 Rx oxycodone 5 mg tablet 5 - 10 mg PO Q6H PRN pain #30 tabs 05/20/22 06/02/22 Rx metoprolol tartrate 50 mg tablet 50 tab PO BID 05/29/22 06/02/22 History Exam Const General: cooperative Neck Neck: supple Resp Effort & Inspection: normal respiratory effort Auscultation: clear to auscultation bilaterally Cardio Rhythm: abnormal rhythm GI Palpation: soft and no masses Neuro General: patient alert, patient awake and patient oriented x3 Results Last Vital Signs Temp 36 C L 06/02/22 07:55 Pulse 68 06/02/22 07:55 Resp 16 06/02/22 07:55 BP 123/78 06/02/22 07:55 Pulse Ox 97 06/02/22 07:55
--- NOTE | 2022-06-02 09:15 | DI.RAD_ITS ---
Exam(s) XR RETROGRADE IN OR EXAM: XR RETROGRADE IN OR CLINICAL HISTORY: Left hydronephrosis. TECHNIQUE: Fluoroscopy was provided for the referring physician for guidance with performing retrogr august procedure. COMPARISON: No exams were available for comparison FINDINGS: Please see procedure note for details. Fluoro time: 54.4 seconds RADIATION DOSE DELIVERED: [email or web address] Helm=19.8 mGy
[2022-06-02] MEDS: ceFAZolin 2 GM/50 ML BAG IVPB (09:49)
[2022-06-02] MEDS: Omnipaque 300 MG/ML 50 ML BTL (10:14)
[2022-06-02] MEDS: Lidocaine 2% Jelly 6 ML SYR (10:15)
--- NOTE | 2022-06-02 10:59 | PDOC.DSDIS_ITS ---
Date of service: 06/02/22 Time of Service: 10:59 Discharge Plan Disposition Patient Disposition: HOME Condition: Good Discharge Details Reason For Visit: ureteroscopy Attending Provider: Edy Blackburn Primary Care Provider: Becky Hardy Home Meds and New Rx's Prescriptions: No Action Eliquis 5 mg tablet 5 mg PO BID lorazepam 1 mg tablet 1 mg PO .qHS Qty: 28 2RF Hold Instructions: Home Medication placed on hold at Doctor's office oxycodone 5 mg tablet 5 - 10 mg PO Q6H MDD 8 PRN (Reason: pain) Qty: 30 0RF triamcinolone acetonide 0.5 % ointment 1 applic TP BID Qty: 60 1RF Hold Instructions: minimal relief, Dx Tx since then helping Rx Instructions: Apply to chest, back and arm areas of itching/inflammation. pantoprazole [Protonix] 40 mg tablet,delayed release (DR/EC) 40 mg PO DAILY Rx Instructions: note dated 10/29/20 [facility] [place] Derm cgc mupirocin 2 % ointment 1 applic topical BID Hold Instructions: didn't help Rx Instructions: 04/22/21 apply bid x 1 week, then once weekly atorvastatin 40 mg tablet 40 mg PO QPM Qty: 90 3RF Rx Instructions: 40mg per [facility] [place] Hem/Onc mogamulizumab-kpkc 4 mg/mL solution IV Q14D Rx Instructions: Q14 days with Oncology/infusion. gabapentin 300 mg capsule 600 mg PO BID Rx Instructions: note dated 01/23/21 [facility] [place] Hem/Onc, okay to decrease slowly every few weeks 03/20/21 cgc 600mg BID as of 06/06/2021 lorazepam 1 mg tablet 1 mg PO BID PRN (Reason: anticipatory anxiety) Qty: 6 1RF Rx Instructions: Take for procedure montelukast 10 mg tablet 10 mg PO DAILY Qty: 90 3RF metoprolol tartrate 50 mg tablet 50 tab PO BID Label Comments: TAKE ONE TABLET BY MOUTH TWICE A DAY polyethylene glycol 3350 17 gram Powder In Packet 17 g PO DAILY PRN PRN (Reason: Constipation) Qty: 0 0RF Discharge Instructions Additional Instructions: No need to strain urine OK to restart apixaban on 06/04 Followup with me @ 6 weeks with renal US Stand Alone Forms: Anesthesia Discharge Inst., Zachariah Álvarez ([facility]U) Activity:: Activity as Tolerated Shower/Bathe:: 24 hours Diet:: As Tolerated Discharge Orders Discharge Orders: Discharge Order (Routine); Ordered 06/02/22 Ordered By: Edy Blackburn DS: Diagnosis Discharge Diagnosis (1) Kidney stones: Status: Chronic (2) Hydronephrosis of left kidney: Status: Acute (3) Hydroureter on left: Status: Acute
--- NOTE | 2022-06-02 11:11 | W.PM.OP ---
Date of service: 06/02/22 Time of Service: 11:11 Operative Note Operative Note DATE OF PROCEDURE: 06/02/22 PRE-OP DIAGNOSIS: 1. Left kidney stones 2. Left hydronephrosis POST-OP DIAGNOSIS: same Left ureteral stones PROCEDURE: cystoscopy, left retrograde pyelogram, left semirigid ureteroscopy with extraction of multiple ureteral stones, left flexible ureteroscopy with extraction of multiple renal stones SURGEON: Edy Blackburn ANESTHESIA TYPE: General LMA/ETT Refer to Anesthesia Record ESTIMATED BLOOD LOSS: 25 PATHOLOGY: other (stones for chemical analysis) COMPLICATIONS: None Patient was transported to: PACU Patient's condition: stable Implants: none Indications: This is a 71-year-old gentleman who has a history of recurrent left-sided calcium oxalate monohydrate stones. We had been monitoring his known renal stones with ultrasound. He developed some left flank pain suggestive of renal colic. His ultrasound showed a new onset of left hydronephrosis and we presumed that one of his renal stones had moved into the ureter. He has had multiple CT scans over the years to follow different medical and oncology issues. We elected not to do a CT scan at this point. He presents for retrograde pyelogram and ureteroscopy based on the pyelogram findings. Findings: multiple left distal ureteral stones multiple left renal stones Procedure Description: The patient was brought to the operating room on 06/02/2022. After successful induction of general anesthesia, he was placed in the dorsal lithotomy position. His genitalia was prepped and draped. 2% Xylocaine jelly was instilled into the urethra to act as a local anesthetic. A 22 Portuguese rigid cystoscope was passed through the urethra into the bladder. The urethra and bladder were inspected with a 30 degree lens. The pendulous, bulbar and membranous urethra appeared normal with no strictures. The prostatic urethra was open following his previous radical prostatectomy. The bladder neck was entered and no stones were seen within the bladder. The left ureteral orifice was identified and was cannulated with a 5 Portuguese access catheter. A retrograde pyelogram was obtained by injecting Omnipaque through the access catheter under fluoroscopic guidance. Multiple filling defects were identified in the left distal ureter. On plain film, the largest of these filling defects was radiopaque. We then passed a Glidewire through the access catheter and advanced the wire up to the level of the kidney. The access catheter was removed leaving the wire in place. A semirigid ureteroscope was then introduced and passed through the urethra into the bladder. The scope was engaged into the left ureteral orifice and advanced up to the level of the filling defects. Multiple yellow stones were identified in the distal ureter. Each of the stones was grasped in a Kiesha stone basket and removed one by one. Each of the stones were sent to pathology for chemical analysis. Once all the distal ureteral stones had been removed, we passed the dual-lumen catheter over the wire. We injected Omnipaque through the second lumen of the dual-lumen catheter in order to outline the calyces. The upper ureter and collecting system more dilated. A second wire was positioned and the dual-lumen catheter was removed. We chose one of the wires as a working wire and the other as a safety wire. I passed a ureteral access sheath over the working wire leaving the safety wire in place. The flexible ureteroscope was then introduced through the ureteral access sheath and each of the calyces were inspected. We identified a stone in the upper pole calyx which was grasped in a 0 tip stone basket and extracted. Multiple stones were also found in the lower pole calyx. The stones were likewise grasped in a 0 tip stone basket and removed. All extracted stones were sent to pathology for chemical analysis. The patient has had difficulty tolerating ureteral stents in the past. On imaging studies today, there was no extravasation of contrast from the collecting system, so we elected not to place a ureteral stent today. The safety wire and all scopes were removed. The patient tolerated the procedure well with no complications. He was taken to the recovery room in stable condition.
[2022-06-02] MEDS: ePHEDrine 25 MG/5 ML Syringe IVP (11:33)
--- NOTE | 2022-06-02 11:53 | W.ANESPOSTOP ---
Postoperative Evaluation Date, Time and Location Date Performed: 06/02/22 Time Performed: 11:53 Patient Location: PACU Vital Signs Most Recent Imported Vital Signs: Most Recent Vital Signs Temp Pulse Resp BP Pulse Ox 36.4 C L 76 18 122/57 L 95 06/02/22 11:49 06/02/22 11:49 06/02/22 11:49 06/02/22 11:49 06/02/22 11:49 Pain Score Most Recent Pain Score: Most Recent Pain Score Pain Level 0 06/02/22 11:49 Assessment Mental Status: Awake (Alert & Oriented to Patient Baseline) Airway and Respiratory Function: Patent airway with normal (patient baseline) respiratory exam Cardiovascular Function: Hemodynamically Stable Hydration Status: Adequately Hydrated Nausea & Vomiting: No Nausea or Vomiting Pain: Pain is tolerable per patient Peripheral Nerve Block: Patient did not receive a nerve block
[2022-06-05 16:18] LABS: Source: Left Ureter
== END 2022-06-02 13:13 | disposition home or self-care (01) ==
PROVIDERS: PCP Student in an Organized Health Care Education/Training Program; Visit Provider Urology
PROC: (CPT 52352; principal; 2022-06-02 08:45)
DX: N13.2 Hydronephrosis with renal and ureteral calculous obstruction (principal); I48.92 Unspecified atrial flutter; I25.10 Atherosclerotic heart disease of native coronary artery without angina pectoris
CPT/HCPCS: 52352; 74420; 82365; J0690; J1885; J2370; J2405; J2704; Q9967

== ENCOUNTER 2022-06-10 03:04 | Outpatient (CLI) | payer MEDICARE, BC, SELFPAY ==
[2022-06-10 16:14] LABS: Abs Immature Grans 0.03 10^3/uL (0.0-0.06); Absolute Basophil Count 0.06 10^3/uL (0.0-0.2); Absolute Eosinophil Count 0.24 10^3/uL (0.0-0.7); Absolute Lymphocyte Count 0.83 10^3/uL (1.2-3.4); Absolute Monocyte Count 0.79 10^3/uL (0.1-0.8); Absolute Neutrophil Count 4.69 10^3/uL (1.2-6.7); Basophils % 0.9; Eosinophils % 3.6; HCT 46.9 % (40.0-50.0); HGB 16.2 g/dL (13.5-17.5); Immature Grans % 0.5; Lymphocytes % 12.5; MCHC 34.5 % (32.0-36.0); MCV 90 fL (80-95); MPV 9.4 fL (8.0-11.0); Monocytes % 11.9; Neutrophils % 70.6; Platelet Count 164 10^3/uL (130-400); RBC 5.22 10^6/uL (4.36-5.78); RDW 12.5 % (11.8-14.1); RDW-SD 41.5 fL; WBC 6.64 10^3/uL (4.4-10.8)
[2022-06-10 16:32] LABS: Hemoglobin A1C 6.3 % (<5.7)
[2022-06-10 17:28] LABS: ALT 35 U/L (16-63); AST 30 U/L (15-37); Albumin 3.7 g/dL (3.4-5.0); Alkaline Phosphatase 103 U/L (46-116); Anion Gap 5.7 mmol/L (3-11); BUN 17 mg/dL (7-18); CO2 30.3 mmol/L (21.0-32.0); CREATININE 1.1 mg/dL (0.70-1.30); Calcium 9.3 mg/dL (8.5-10.1); Chloride 105 mmol/L (98-107); Estimated GFR 71.32 (mL/min/1.73m2); Glucose 99 mg/dL (74-106); LDH 200 U/L (85-227); Potassium 3.7 mmol/L (3.5-5.1); Sodium 141 mmol/L (136-145); Total Protein 7.1 g/dL (6.4-8.2)
== END 2022-06-10 03:05 | disposition home or self-care (01) ==
LOC: LBO 03:05
PROVIDERS: Nurse Practitioner Family; PCP Student in an Organized Health Care Education/Training Program; Visit Provider Internal Medicine Hematology & Oncology
DX: C84.A5 Cutaneous T-cell lymphoma, unspecified, lymph nodes of inguinal region and lower limb (principal); R73.09 Other abnormal glucose; R53.83 Other fatigue
CPT/HCPCS: 36415; 80053; 83036; 83615; 84443; 85025

== ENCOUNTER → 2022-06-17 12:56 | Outpatient (CLI) | payer MEDICARE, BC, SELFPAY ==
--- NOTE | 2022-06-17 13:46 | DI.RAD_ITS ---
Exam(s) XR CHEST 2V PA LATERAL EXAM: XR CHEST 2V PA LATERAL CLINICAL HISTORY: Cough productive of brown/purulent sputum,R05.8; eval for CAP or hemorrhage TECHNIQUE: 2D digital imaging was performed of the chest. Two images were obtained. PA and lateral views were obtained. COMPARISON: CR XR CHEST 2V PA LATERAL from 08/29/2021 FINDINGS: MEDIASTINUM: Normal. HEART: Upper limits of normal in size. PULMONARY VASCULATURE: Normal. LUNGS: Clear. PLEURAL SPACE: No pleural effusion or pneumothorax. BONE:Within normal limits for the patient's age. OTHER FINDINGS:Normal. IMPRESSION: No acute pulmonary findings. DATA REPOSITORY: RADIATION DOSE DELIVERED:
== END ==
PROVIDERS: PCP Student in an Organized Health Care Education/Training Program; Visit Provider Family Medicine
DX: R05.8 Other specified cough (principal)
CPT/HCPCS: 71046

== ENCOUNTER 2022-06-24 03:31 | Outpatient (CLI) | payer MEDICARE, BC, SELFPAY ==
[2022-06-24 16:09] LABS: Abs Immature Grans 0.03 10^3/uL (0.0-0.06); Absolute Basophil Count 0.09 10^3/uL (0.0-0.2); Absolute Eosinophil Count 0.21 10^3/uL (0.0-0.7); Absolute Lymphocyte Count 0.85 10^3/uL (1.2-3.4); Absolute Monocyte Count 0.85 10^3/uL (0.1-0.8); Absolute Neutrophil Count 5.84 10^3/uL (1.2-6.7); Basophils % 1.1; Eosinophils % 2.7; HCT 44.7 % (40.0-50.0); HGB 15.6 g/dL (13.5-17.5); Immature Grans % 0.4; Lymphocytes % 10.8; MCH 31.1 pg (27.0-33.0); MCHC 34.9 % (32.0-36.0); MCV 89 fL (80-95); MPV 9.5 fL (8.0-11.0); Monocytes % 10.8; Neutrophils % 74.2; Platelet Count 185 10^3/uL (130-400); RBC 5.02 10^6/uL (4.36-5.78); RDW 12.6 % (11.8-14.1); RDW-SD 41.1 fL; WBC 7.87 10^3/uL (4.4-10.8)
[2022-06-24 16:43] LABS: ALT 34 U/L (16-63); AST 29 U/L (15-37); Albumin 3.6 g/dL (3.4-5.0); Alkaline Phosphatase 118 U/L (46-116); Anion Gap 7.1 mmol/L (3-11); BUN 16 mg/dL (7-18); Bilirubin, Total 1.5 mg/dL (0.2-1.0); CO2 30.9 mmol/L (21.0-32.0); CREATININE 1.1 mg/dL (0.70-1.30); Calcium 9.2 mg/dL (8.5-10.1); Chloride 106 mmol/L (98-107); Estimated GFR 71.32 (mL/min/1.73m2); Glucose 104 mg/dL (74-106); LDH 204 U/L (85-227); Potassium 4.6 mmol/L (3.5-5.1); Sodium 144 mmol/L (136-145); TSH 0.15 uIU/mL (0.36-3.74); Total Protein 7.1 g/dL (6.4-8.2)
== END 2022-06-24 03:32 | disposition home or self-care (01) ==
PROVIDERS: PCP Student in an Organized Health Care Education/Training Program; Visit Provider Nurse Practitioner Family
DX: R53.83 Other fatigue (principal); C84.A5 Cutaneous T-cell lymphoma, unspecified, lymph nodes of inguinal region and lower limb
CPT/HCPCS: 36415; 80053; 83615; 84443; 85025

== ENCOUNTER 2022-07-08 02:04 | Outpatient (CLI) | payer MEDICARE, BC, SELFPAY ==
[2022-07-08 16:10] LABS: Abs Immature Grans 0.01 10^3/uL (0.0-0.06); Absolute Basophil Count 0.06 10^3/uL (0.0-0.2); Absolute Lymphocyte Count 0.64 10^3/uL (1.2-3.4); Absolute Monocyte Count 0.76 10^3/uL (0.1-0.8); Absolute Neutrophil Count 4.46 10^3/uL (1.2-6.7); Eosinophils % 3.3; HGB 16.1 g/dL (13.5-17.5); Immature Grans % 0.2; Lymphocytes % 10.4; MCH 31.3 pg (27.0-33.0); MCV 89 fL (80-95); MPV 9.6 fL (8.0-11.0); Monocytes % 12.4; Neutrophils % 72.7; Platelet Count 174 10^3/uL (130-400); RBC 5.15 10^6/uL (4.36-5.78); RDW 12.9 % (11.8-14.1); RDW-SD 42.5 fL; WBC 6.13 10^3/uL (4.4-10.8)
[2022-07-08 16:34] LABS: ALT 39 U/L (16-63); AST 34 U/L (15-37); Albumin 3.8 g/dL (3.4-5.0); Alkaline Phosphatase 122 U/L (46-116); Anion Gap 6.4 mmol/L (3-11); BUN 14 mg/dL (7-18); Bilirubin, Total 1.9 mg/dL (0.2-1.0); CO2 29.6 mmol/L (21.0-32.0); CREATININE 1.1 mg/dL (0.70-1.30); Chloride 106 mmol/L (98-107); Estimated GFR 71.32 (mL/min/1.73m2); Glucose 116 mg/dL (74-106); LDH 242 U/L (85-227); Potassium 4.1 mmol/L (3.5-5.1); Sodium 142 mmol/L (136-145); TSH 0.39 uIU/mL (0.36-3.74); Total Protein 7.1 g/dL (6.4-8.2)
== END 2022-07-08 02:05 | disposition home or self-care (01) ==
PROVIDERS: PCP Student in an Organized Health Care Education/Training Program; Visit Provider Nurse Practitioner Family
DX: R53.83 Other fatigue (principal); C84.A5 Cutaneous T-cell lymphoma, unspecified, lymph nodes of inguinal region and lower limb
CPT/HCPCS: 36415; 80053; 83615; 84443; 85025

== ENCOUNTER 2022-07-22 02:12 | Outpatient (CLI) | payer MEDICARE, BC, SELFPAY ==
--- NOTE | 2022-07-22 07:45 | DI.US_ITS ---
Exam(s) US RENAL EXAM: US RENAL CLINICAL HISTORY: ? hydronephrosis after ureteroscopy,hydronephrosis lt kidney, n13.30 TECHNIQUE: Ultrasound of both kidneys performed using standard protocol. COMPARISON: CT CT CHEST/ABD/PEL WO from 12/03/2021 US US RENAL from 05/13/2022 FINDINGS: RIGHT KIDNEY: Measures 13.5 cm in length. There is a solitary 3 x 2.8 cm cyst in the superior pole of the right kid nghia, seen on prior CT scan. Normal cortical thickness and corticomedullary differentiation .No solid masses No intrarenal calculi nor hydronephrosis. LEFT KIDNEY: Measures 14 cm in length. No cysts evident. Normal cortical thickness and corticomedullary different iaion. No solids masses. However, there are multiple calculi measuring up to 7 millimeters in left k idney. No hydronephrosis. URINARY BLADDER: Prevoid volume is 15 cc Postvoid volume is 0 cc No evidence of obvious bladder mass nor diverticuli. Ureterovesical jets: Both identified and appear symmetrical IMPRESSION: 1. There are multiple nonobstructive calculi in left kidney measuring up to 7 millimeters, correspon d to what is seen on prior CT scan of November 2021. 2. There is also a solitary benign cyst again noted in the right kidney measuring 3 cm. There are n o solid renal masses. 3. The urinary bladder contained only 15 cc urine and therefore could not be study adequately. DATA REPOSITORY:
== END 2022-07-22 02:32 ==
LOC: DI 02:12
PROVIDERS: PCP Student in an Organized Health Care Education/Training Program; Visit Provider Urology
DX: N13.30 Unspecified hydronephrosis (principal); N28.1 Cyst of kidney, acquired; N20.0 Calculus of kidney
CPT/HCPCS: 76770

== ENCOUNTER 2022-07-22 03:36 | Outpatient (CLI) | payer MEDICARE, BC, SELFPAY ==
[2022-07-22 13:55] LABS: Abs Immature Grans 0.02 10^3/uL (0.0-0.06); Absolute Basophil Count 0.06 10^3/uL (0.0-0.2); Absolute Eosinophil Count 0.28 10^3/uL (0.0-0.7); Absolute Lymphocyte Count 0.71 10^3/uL (1.2-3.4); Absolute Monocyte Count 0.78 10^3/uL (0.1-0.8); Eosinophils % 4.5; HCT 47.4 % (40.0-50.0); HGB 16.5 g/dL (13.5-17.5); Immature Grans % 0.3; Lymphocytes % 11.4; MCH 31.3 pg (27.0-33.0); MCHC 34.8 % (32.0-36.0); MCV 90 fL (80-95); MPV 9.9 fL (8.0-11.0); Monocytes % 12.5; Neutrophils % 70.3; Platelet Count 157 10^3/uL (130-400); RBC 5.28 10^6/uL (4.36-5.78); RDW 12.9 % (11.8-14.1); RDW-SD 42.2 fL; WBC 6.25 10^3/uL (4.4-10.8)
[2022-07-22 14:23] LABS: ALT 29 U/L (16-63); AST 26 U/L (15-37); Albumin 3.6 g/dL (3.4-5.0); Alkaline Phosphatase 126 U/L (46-116); Anion Gap 5.7 mmol/L (3-11); BUN 16 mg/dL (7-18); Bilirubin, Total 1.7 mg/dL (0.2-1.0); CO2 28.3 mmol/L (21.0-32.0); Calcium 8.9 mg/dL (8.5-10.1); Chloride 110 mmol/L (98-107); Estimated GFR 79.97 (mL/min/1.73m2); Glucose 113 mg/dL (74-106); LDH 209 U/L (85-227); Potassium 4.1 mmol/L (3.5-5.1); Sodium 144 mmol/L (136-145); TSH 0.22 uIU/mL (0.36-3.74); Total Protein 6.9 g/dL (6.4-8.2)
== END 2022-07-22 03:37 | disposition home or self-care (01) ==
LOC: LBO 03:36
PROVIDERS: PCP Student in an Organized Health Care Education/Training Program; Visit Provider Internal Medicine Hematology & Oncology
DX: R53.83 Other fatigue (principal); C84.A5 Cutaneous T-cell lymphoma, unspecified, lymph nodes of inguinal region and lower limb
CPT/HCPCS: 36415; 76770; 80053; 83615; 84443; 85025

== ENCOUNTER 2022-07-25 00:18 | Outpatient (CLI) | payer MEDICARE, BC, SELFPAY ==
[2022-07-25] MEDS: Normal Saline - Diluent 50 ML VIAL IJ (13:17)
[2022-07-25] MEDS: Omnipaque 350 MG/ML 100 ML BTL IJ (13:17)
--- NOTE | 2022-07-25 13:18 | DI.CT_ITS ---
Exam(s) CT NECK W EXAM: CT NECK W CLINICAL HISTORY: SUBMANDIBULAR LYMPADENOPATHY, R59.0. TECHNIQUE: Imaging Protocol: Axial computed tomography images with coronal and sagittal reformatted images were created and reviewed CONTRAST MATERIAL: Intravenous: Omnipaque 350 Contrast volume:100 ml contrast COMPARISON: CT CT CHEST/ABD/PEL WO from 12/03/2021 FINDINGS: Parotids: Left parotid unremarkable. Right parotid shows a mass measuring 3 cm in diameter at the in ferior portion of the parotid, at the angle of the mandible. It shows rim enhancement with a regular relatively necrotic center. Submandibular/thyroid gland: Unremarkable Lymphadenopathy: No enlarged lymph nodes are identified on either side of the neck. Carotids/Jugular: No significant stenosis or dissection.. Right vertebral artery dominant and paten t. Soft tissues: The floor the mouth is unremarkable. The epiglottis and vocal cords are within normal limits. Lungs: Images through both lung apices are unremarkable. Bones: Degenerative changes of the cervical spine. Visualized portions of the brain: Abnormal ovoid moderately enhancing mass is seen at the level of th e foramen magnum toward the left measuring 4.5 cm in length by 2.3 cm transverse by 3.7 cm AP. This somewhat attenuates and deviates the left vertebral artery. There is severe compression of the brain stem toward the right as well as some compression on the left cerebellum. There are no invasive feat ures. There is no bony erosion. The visual the remainder of the visualized brain is unremarkable. Sinuses and mastoids: Clear. Bones: Severe degenerative changes no lytic or blastic lesions. IMPRESSION: 1. 3 centimeter mass inferior right parotid gland. No adenopathy. 2. 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 Findings may represent a meningioma versus metastasis. MRI of the brain with contrast sidney mmended for further evaluation. Unexpected findings RADIATION DOSE DELIVERED: 575.9mGy.cm Total DLP DATA REPOSITORY: All CT scans at this facility are submitted to the National Radiology Data Registry (NRDR) Dose Index Registry (DIR) with the [employer] ([employer]). RADIATION OPTIMIZATION: All CT scans at this facility use at least one of these dose optimization te chniques: automated exposure control; mA and/or kV adjustment per patient size (includes targeted exa ms where dose is matched to clinical indication); or iterative reconstruction.
== END 2022-07-25 00:38 ==
LOC: DI 00:18
PROVIDERS: PCP Student in an Organized Health Care Education/Training Program; Visit Provider Nurse Practitioner Adult Health
DX: R59.0 Localized enlarged lymph nodes (principal); R93.89 Abnormal findings on diagnostic imaging of other specified body structures
CPT/HCPCS: 70491; J3490

== ENCOUNTER 2022-08-05 02:59 | Outpatient (CLI) | payer MEDICARE, BC, SELFPAY ==
[2022-08-05 10:10] LABS: HCT 48.4 % (40.0-50.0); HGB 16.7 g/dL (13.5-17.5); MCH 30.9 pg (27.0-33.0); MCHC 34.5 % (32.0-36.0); MCV 90 fL (80-95); MPV 9.7 fL (8.0-11.0); Platelet Count 160 10^3/uL (130-400); RDW 12.9 % (11.8-14.1); RDW-SD 42.4 fL; WBC 6.64 10^3/uL (4.4-10.8)
[2022-08-05 10:32] LABS: ALT 32 U/L (16-63); AST 33 U/L (15-37); Albumin 3.6 g/dL (3.4-5.0); Alkaline Phosphatase 112 U/L (46-116); Anion Gap 8.3 mmol/L (3-11); BUN 16 mg/dL (7-18); Bilirubin, Total 2.4 mg/dL (0.2-1.0); CO2 26.7 mmol/L (21.0-32.0); CREATININE 1.2 mg/dL (0.70-1.30); Calcium 9.4 mg/dL (8.5-10.1); Chloride 105 mmol/L (98-107); Estimated GFR 64.25 (mL/min/1.73m2); Glucose 132 mg/dL (74-106); Sodium 140 mmol/L (136-145); Total Protein 6.9 g/dL (6.4-8.2)
[2022-08-05 10:41] LABS: LDH 249 U/L (85-227); TSH 1.27 uIU/mL (0.36-3.74)
[2022-08-06 15:00] LABS: PSA, Ultrasensitive 0.03 ng/mL (<= 6.5)
== END 2022-08-05 03:00 | disposition home or self-care (01) ==
LOC: LBO 02:59
PROVIDERS: PCP Student in an Organized Health Care Education/Training Program; Visit Provider Internal Medicine Hematology & Oncology
DX: R53.83 Other fatigue; C84.A5 Cutaneous T-cell lymphoma, unspecified, lymph nodes of inguinal region and lower limb; C61 Malignant neoplasm of prostate
CPT/HCPCS: 36415; 80053; 84153; 85027; 99213; 83615; 84443

== ENCOUNTER 2022-08-19 03:12 | Outpatient (CLI) | payer MEDICARE, BC, SELFPAY ==
[2022-08-19 16:30] LABS: Abs Immature Grans 0.03 10^3/uL (0.0-0.06); Absolute Basophil Count 0.07 10^3/uL (0.0-0.2); Absolute Eosinophil Count 0.47 10^3/uL (0.0-0.7); Absolute Lymphocyte Count 0.55 10^3/uL (1.2-3.4); Absolute Monocyte Count 0.91 10^3/uL (0.1-0.8); Absolute Neutrophil Count 4.74 10^3/uL (1.2-6.7); Eosinophils % 6.9; HCT 46.4 % (40.0-50.0); HGB 16.1 g/dL (13.5-17.5); Immature Grans % 0.4; Lymphocytes % 8.1; MCH 31.3 pg (27.0-33.0); MCHC 34.7 % (32.0-36.0); MCV 90 fL (80-95); MPV 9.5 fL (8.0-11.0); Monocytes % 13.4; Neutrophils % 70.2; Platelet Count 165 10^3/uL (130-400); RBC 5.14 10^6/uL (4.36-5.78); RDW 13.2 % (11.8-14.1); RDW-SD 43.8 fL; WBC 6.77 10^3/uL (4.4-10.8)
[2022-08-19 20:15] LABS: ALT 21 U/L (16-63); AST 35 U/L (15-37); Albumin 3.2 g/dL (3.4-5.0); Alkaline Phosphatase 103 U/L (46-116); Anion Gap 6.1 mmol/L (3-11); BUN 12 mg/dL (7-18); Bilirubin, Total 1.7 mg/dL (0.2-1.0); CO2 30.9 mmol/L (21.0-32.0); Calcium 9.2 mg/dL (8.5-10.1); Chloride 107 mmol/L (98-107); Estimated GFR 79.97 (mL/min/1.73m2); Glucose 82 mg/dL (74-106); LDH 366 U/L (85-227); Potassium 4.5 mmol/L (3.5-5.1); Sodium 144 mmol/L (136-145); TSH 0.63 uIU/mL (0.36-3.74); Total Protein 6.2 g/dL (6.4-8.2)
== END 2022-08-19 03:13 | disposition home or self-care (01) ==
LOC: LBO 03:12
PROVIDERS: Nurse Practitioner Family; PCP Student in an Organized Health Care Education/Training Program; Visit Provider Internal Medicine Hematology & Oncology
DX: C84.A5 Cutaneous T-cell lymphoma, unspecified, lymph nodes of inguinal region and lower limb (principal); R53.83 Other fatigue
CPT/HCPCS: 36415; 80053; 83615; 84443; 85025

== ENCOUNTER 2022-08-20 12:52 | Outpatient (CLI) | payer MEDICARE, BC, SELFPAY ==
--- NOTE | 2022-08-20 | DI.US_ITS ---
Exam(s) US UPPER EXTREMITY VENOUS RT EXAM: US UPPER EXTREMITY VENOUS RT CLINICAL HISTORY: RT ARM SWELLING M79.89, NEW ONSET SWELLING, R/O DVT. TECHNIQUE: Ultrasound examination of the right upper extremity venous system(s) is performed using g rayscale, color-flow, and spectral Doppler analysis. COMPARISON: No exams were available for comparison FINDINGS: The right internal jugular, axillary, subclavian, cephalic, basilic, brachial, radial, and ulnar vein s are patent without evidence of thrombosis. There is an irregular fluid collection in the right axi lla measuring left roughly 4.4 by 1.5 x 1.5 cm. IMPRESSION: No DVT. Axillary fluid collection. Clinical correlation is recommended. DATA REPOSITORY:
== END 2022-08-20 13:12 ==
LOC: DI 12:53
PROVIDERS: PCP Student in an Organized Health Care Education/Training Program; Visit Provider Nurse Practitioner Adult Health
DX: M79.89 Other specified soft tissue disorders (principal); R22.31 Localized swelling, mass and lump, right upper limb
CPT/HCPCS: 93971

== ENCOUNTER 2022-09-02 02:22 | Outpatient (CLI) | payer MEDICARE, BC, SELFPAY ==
[2022-09-02 16:13] LABS: Abs Immature Grans 0.07 10^3/uL (0.0-0.06); Absolute Basophil Count 0.07 10^3/uL (0.0-0.2); Absolute Eosinophil Count 0.24 10^3/uL (0.0-0.7); Absolute Lymphocyte Count 0.81 10^3/uL (1.2-3.4); Absolute Monocyte Count 0.73 10^3/uL (0.1-0.8); Absolute Neutrophil Count 9.17 10^3/uL (1.2-6.7); Basophils % 0.6; Eosinophils % 2.2; HCT 43.7 % (40.0-50.0); HGB 14.8 g/dL (13.5-17.5); Immature Grans % 0.6; Lymphocytes % 7.3; MCH 31.2 pg (27.0-33.0); MCHC 33.9 % (32.0-36.0); MCV 92 fL (80-95); MPV 9.3 fL (8.0-11.0); Monocytes % 6.6; Neutrophils % 82.7; Platelet Count 206 10^3/uL (130-400); RBC 4.75 10^6/uL (4.36-5.78); RDW 14.2 % (11.8-14.1); RDW-SD 47.2 fL; WBC 11.09 10^3/uL (4.4-10.8)
[2022-09-02 17:45] LABS: ALT 29 U/L (16-63); AST 30 U/L (15-37); Albumin 3.2 g/dL (3.4-5.0); Alkaline Phosphatase 87 U/L (46-116); Anion Gap 8.7 mmol/L (3-11); BUN 15 mg/dL (7-18); Bilirubin, Total 1.3 mg/dL (0.2-1.0); CO2 30.3 mmol/L (21.0-32.0); Calcium 8.8 mg/dL (8.5-10.1); Chloride 104 mmol/L (98-107); Estimated GFR 79.97 (mL/min/1.73m2); Glucose 129 mg/dL (74-106); LDH 343 U/L (85-227); Potassium 4.3 mmol/L (3.5-5.1); Sodium 143 mmol/L (136-145); TSH 0.17 uIU/mL (0.36-3.74); Total Protein 5.5 g/dL (6.4-8.2)
== END 2022-09-02 02:23 | disposition home or self-care (01) ==
LOC: LBO 02:22
PROVIDERS: PCP Student in an Organized Health Care Education/Training Program; Visit Provider Internal Medicine Hematology & Oncology
DX: C84.A5 Cutaneous T-cell lymphoma, unspecified, lymph nodes of inguinal region and lower limb (principal); R53.83 Other fatigue
CPT/HCPCS: 36415; 80053; 83615; 84443; 85025

== ENCOUNTER 2022-09-16 02:18 | Outpatient (CLI) | payer MEDICARE, BC, SELFPAY ==
[2022-09-16 16:24] LABS: Abs Immature Grans 0.07 10^3/uL (0.0-0.06); Absolute Basophil Count 0.05 10^3/uL (0.0-0.2); Absolute Eosinophil Count 0.35 10^3/uL (0.0-0.7); Absolute Lymphocyte Count 0.65 10^3/uL (1.2-3.4); Absolute Neutrophil Count 7.58 10^3/uL (1.2-6.7); Basophils % 0.5; Eosinophils % 3.8; HCT 45.3 % (40.0-50.0); HGB 14.8 g/dL (13.5-17.5); Immature Grans % 0.8; MCH 30.8 pg (27.0-33.0); MCHC 32.7 % (32.0-36.0); MCV 94 fL (80-95); MPV 9.3 fL (8.0-11.0); Monocytes % 6.5; Neutrophils % 81.4; Platelet Count 185 10^3/uL (130-400); RDW 14.7 % (11.8-14.1); RDW-SD 51.4 fL
[2022-09-16 17:30] LABS: ALT 29 U/L (16-63); AST 26 U/L (15-37); Albumin 2.9 g/dL (3.4-5.0); Alkaline Phosphatase 81 U/L (46-116); Anion Gap 8.9 mmol/L (3-11); BUN 20 mg/dL (7-18); Bilirubin, Total 1.8 mg/dL (0.2-1.0); CO2 29.1 mmol/L (21.0-32.0); CREATININE 1.2 mg/dL (0.70-1.30); Calcium 9.8 mg/dL (8.5-10.1); Chloride 105 mmol/L (98-107); Estimated GFR 64.25 (mL/min/1.73m2); Glucose 147 mg/dL (74-106); LDH 295 U/L (85-227); Potassium 4.3 mmol/L (3.5-5.1); Sodium 143 mmol/L (136-145); TSH 0.79 uIU/mL (0.36-3.74); Total Protein 5.6 g/dL (6.4-8.2)
== END 2022-09-16 02:19 | disposition home or self-care (01) ==
PROVIDERS: PCP Student in an Organized Health Care Education/Training Program; Visit Provider Nurse Practitioner Family
DX: R53.83 Other fatigue (principal); C84.A5 Cutaneous T-cell lymphoma, unspecified, lymph nodes of inguinal region and lower limb
CPT/HCPCS: 36415; 80053; 83615; 84443; 85025

== ENCOUNTER 2022-10-07 02:26 | Outpatient (CLI) | payer MEDICARE, BC, SELFPAY ==
[2022-10-07 16:09] LABS: Abs Immature Grans 0.05 10^3/uL (0.0-0.06); Absolute Basophil Count 0.15 10^3/uL (0.0-0.2); Absolute Lymphocyte Count 1.38 10^3/uL (1.2-3.4); Absolute Monocyte Count 1.11 10^3/uL (0.1-0.8); Basophils % 4.6; HCT 42.2 % (40.0-50.0); HGB 14.6 g/dL (13.5-17.5); Immature Grans % 1.5; Lymphocytes % 41.9; MCH 30.9 pg (27.0-33.0); MCHC 34.6 % (32.0-36.0); MCV 89 fL (80-95); MPV 9.6 fL (8.0-11.0); Monocytes % 33.7; Neutrophils % 18.3; Platelet Count 234 10^3/uL (130-400); RBC 4.72 10^6/uL (4.36-5.78); RDW 14.9 % (11.8-14.1); RDW-SD 46.8 fL; WBC 3.29 10^3/uL (4.4-10.8)
[2022-10-07 16:25] LABS: ALT 62 U/L (16-63); AST 46 U/L (15-37); Albumin 3.1 g/dL (3.4-5.0); Alkaline Phosphatase 102 U/L (46-116); Anion Gap 7.4 mmol/L (3-11); BUN 13 mg/dL (7-18); Bilirubin, Total 1.7 mg/dL (0.2-1.0); CO2 27.6 mmol/L (21.0-32.0); CREATININE 1.2 mg/dL (0.70-1.30); Calcium 9.2 mg/dL (8.5-10.1); Chloride 106 mmol/L (98-107); Estimated GFR 64.25 (mL/min/1.73m2); Glucose 109 mg/dL (74-106); Potassium 3.6 mmol/L (3.5-5.1); Sodium 141 mmol/L (136-145); Total Protein 6.1 g/dL (6.4-8.2)
[2022-10-07 16:32] LABS: Diff Comment Diff Reviewed; RBC Morphology Normal
[2022-10-07 17:56] LABS: LDH 628 U/L (85-227)
== END 2022-10-07 02:27 | disposition home or self-care (01) ==
PROVIDERS: PCP Student in an Organized Health Care Education/Training Program; Visit Provider Nurse Practitioner Adult Health
DX: C84.A5 Cutaneous T-cell lymphoma, unspecified, lymph nodes of inguinal region and lower limb (principal)
CPT/HCPCS: 36415; 80053; 83615; 85025

== ENCOUNTER 2022-10-14 02:52 | Outpatient (CLI) | payer MEDICARE, BC, SELFPAY ==
[2022-10-14 16:10] LABS: Abs Immature Grans 0.09 10^3/uL (0.0-0.06); Absolute Basophil Count 0.15 10^3/uL (0.0-0.2); Absolute Eosinophil Count 0.04 10^3/uL (0.0-0.7); Absolute Monocyte Count 0.93 10^3/uL (0.1-0.8); Absolute Neutrophil Count 4.29 10^3/uL (1.2-6.7); Basophils % 2.2; Eosinophils % 0.6; HCT 44.9 % (40.0-50.0); HGB 15.6 g/dL (13.5-17.5); Immature Grans % 1.3; Lymphocytes % 19.1; MCH 30.8 pg (27.0-33.0); MCHC 34.7 % (32.0-36.0); MCV 89 fL (80-95); MPV 9.7 fL (8.0-11.0); Monocytes % 13.7; Neutrophils % 63.1; Platelet Count 149 10^3/uL (130-400); RBC 5.07 10^6/uL (4.36-5.78); RDW 14.9 % (11.8-14.1); RDW-SD 47.1 fL
[2022-10-14 17:34] LABS: ALT 34 U/L (16-63); AST 33 U/L (15-37); Albumin 3.1 g/dL (3.4-5.0); Alkaline Phosphatase 91 U/L (46-116); BUN 16 mg/dL (7-18); Bilirubin, Total 1.6 mg/dL (0.2-1.0); CREATININE 1.2 mg/dL (0.70-1.30); Calcium 9.2 mg/dL (8.5-10.1); Chloride 104 mmol/L (98-107); Estimated GFR 64.25 (mL/min/1.73m2); Glucose 111 mg/dL (74-106); LDH 507 U/L (85-227); Sodium 143 mmol/L (136-145); Total Protein 6.3 g/dL (6.4-8.2)
== END 2022-10-14 02:53 | disposition home or self-care (01) ==
PROVIDERS: PCP Student in an Organized Health Care Education/Training Program; Visit Provider Nurse Practitioner Adult Health
DX: C84.A5 Cutaneous T-cell lymphoma, unspecified, lymph nodes of inguinal region and lower limb (principal)
CPT/HCPCS: 36415; 80053; 83615; 85025

== ENCOUNTER 2022-10-21 03:07 | Outpatient (CLI) | payer MEDICARE, BC, SELFPAY ==
[2022-10-21 16:23] LABS: Abs Immature Grans 0.06 10^3/uL (0.0-0.06); Absolute Basophil Count 0.09 10^3/uL (0.0-0.2); Absolute Eosinophil Count 0.14 10^3/uL (0.0-0.7); Absolute Lymphocyte Count 0.71 10^3/uL (1.2-3.4); Absolute Monocyte Count 0.43 10^3/uL (0.1-0.8); Absolute Neutrophil Count 7.48 10^3/uL (1.2-6.7); Eosinophils % 1.6; HCT 43.3 % (40.0-50.0); HGB 14.4 g/dL (13.5-17.5); Immature Grans % 0.7; MCH 30.1 pg (27.0-33.0); MCHC 33.3 % (32.0-36.0); MCV 90 fL (80-95); Monocytes % 4.8; Neutrophils % 83.9; Platelet Count 190 10^3/uL (130-400); RBC 4.79 10^6/uL (4.36-5.78); RDW 15.2 % (11.8-14.1); RDW-SD 49.8 fL; WBC 8.91 10^3/uL (4.4-10.8)
[2022-10-21 16:37] LABS: ALT 34 U/L (16-63); AST 32 U/L (15-37); Albumin 3.3 g/dL (3.4-5.0); Alkaline Phosphatase 72 U/L (46-116); Anion Gap 10.3 mmol/L (3-11); BUN 18 mg/dL (7-18); Bilirubin, Total 1.3 mg/dL (0.2-1.0); CO2 25.7 mmol/L (21.0-32.0); CREATININE 1.1 mg/dL (0.70-1.30); Calcium 8.6 mg/dL (8.5-10.1); Chloride 105 mmol/L (98-107); Estimated GFR 71.32 (mL/min/1.73m2); Glucose 131 mg/dL (74-106); LDH 356 U/L (85-227); Potassium 4.1 mmol/L (3.5-5.1); Sodium 141 mmol/L (136-145); Total Protein 6.3 g/dL (6.4-8.2)
== END 2022-10-21 03:08 | disposition home or self-care (01) ==
PROVIDERS: PCP Student in an Organized Health Care Education/Training Program; Visit Provider Nurse Practitioner Adult Health
DX: C84.A5 Cutaneous T-cell lymphoma, unspecified, lymph nodes of inguinal region and lower limb (principal)
CPT/HCPCS: 36415; 80053; 83615; 85025

== ENCOUNTER 2022-10-27 08:01 | Outpatient (CLI) | payer MEDICARE, BC, SELFPAY ==
--- NOTE | 2022-10-27 08:00 | RT.EKG_ITS ---
APPROVED REPORT Exam: Resting ECG Reason for Exam: Pre-op Examination Patient Location: O HR:111 bpm ECG Measurements Heart Rate 111 AXIS W[place] [id number] P [id number] QRSd 96 QRS -30 QT 307 T 198 QTc 417 Conclusion Atrial fibrillation...V-rate 85-181, irreg A-activity Nonspecific repol abnormality, diffuse leads...ST dep, T flat/neg, ant/lat/inf
== END 2022-10-27 08:02 | disposition home or self-care (01) ==
LOC: DI.KIM 08:02
PROVIDERS: PCP Student in an Organized Health Care Education/Training Program; Visit Provider Family Medicine
DX: Z01.818 Encounter for other preprocedural examination (principal); I48.91 Unspecified atrial fibrillation
CPT/HCPCS: 93010

== ENCOUNTER 2022-11-04 02:30 | Outpatient (CLI) | payer MEDICARE, BC, SELFPAY ==
[2022-11-04 16:16] LABS: Abs Immature Grans 0.07 10^3/uL (0.0-0.06); Absolute Basophil Count 0.04 10^3/uL (0.0-0.2); Absolute Eosinophil Count 0.02 10^3/uL (0.0-0.7); Absolute Lymphocyte Count 0.91 10^3/uL (1.2-3.4); Basophils % 0.3; Eosinophils % 0.2; HGB 13.7 g/dL (13.5-17.5); Immature Grans % 0.6; Lymphocytes % 7.6; MCH 31.1 pg (27.0-33.0); MCHC 34.3 % (32.0-36.0); MCV 91 fL (80-95); MPV 10.4 fL (8.0-11.0); Monocytes % 3.3; Platelet Count 160 10^3/uL (130-400); RDW-SD 49.5 fL; WBC 11.98 10^3/uL (4.4-10.8)
[2022-11-04 16:17] LABS: Absolute Neutrophil Count 10.54 10^3/uL (1.2-6.7)
[2022-11-04 16:36] LABS: ALT 35 U/L (16-63); AST 23 U/L (15-37); Albumin 3.4 g/dL (3.4-5.0); Alkaline Phosphatase 107 U/L (46-116); BUN 17 mg/dL (7-18); Bilirubin, Total 1.6 mg/dL (0.2-1.0); CREATININE 1.1 mg/dL (0.70-1.30); Calcium 9.6 mg/dL (8.5-10.1); Chloride 107 mmol/L (98-107); Estimated GFR 71.32 (mL/min/1.73m2); Glucose 142 mg/dL (74-106); LDH 265 U/L (85-227); Potassium 4.3 mmol/L (3.5-5.1); Sodium 143 mmol/L (136-145); Total Protein 6.4 g/dL (6.4-8.2)
== END 2022-11-04 02:31 | disposition home or self-care (01) ==
PROVIDERS: Internal Medicine Hematology & Oncology; PCP Student in an Organized Health Care Education/Training Program; Visit Provider Nurse Practitioner Adult Health
DX: C84.A5 Cutaneous T-cell lymphoma, unspecified, lymph nodes of inguinal region and lower limb (principal)
CPT/HCPCS: 36415; 80053; 83615; 85025

== ENCOUNTER 2022-11-25 02:47 | Outpatient (CLI) | payer MEDICARE, BC, SELFPAY ==
[2022-11-25 17:19] LABS: ALT 22 U/L (16-63); AST 27 U/L (15-37); Albumin 2.9 g/dL (3.4-5.0); Alkaline Phosphatase 91 U/L (46-116); Anion Gap 10.6 mmol/L (3-11); BUN 34 mg/dL (7-18); Bilirubin, Total 1.6 mg/dL (0.2-1.0); CO2 27.4 mmol/L (21.0-32.0); CREATININE 1.3 mg/dL (0.70-1.30); Chloride 103 mmol/L (98-107); Estimated GFR 58.37 (mL/min/1.73m2); Glucose 130 mg/dL (74-106); LDH 340 U/L (85-227); Potassium 4.7 mmol/L (3.5-5.1); Sodium 141 mmol/L (136-145); Total Protein 5.6 g/dL (6.4-8.2)
[2022-11-25 17:36] LABS: Abs Immature Grans 0.04 10^3/uL (0.0-0.06); Absolute Basophil Count 0.05 10^3/uL (0.0-0.2); Absolute Lymphocyte Count 0.69 10^3/uL (1.2-3.4); Absolute Monocyte Count 0.48 10^3/uL (0.1-0.8); Absolute Neutrophil Count 8.25 10^3/uL (1.2-6.7); Basophils % 0.5; HCT 43.3 % (40.0-50.0); HGB 14.5 g/dL (13.5-17.5); Immature Grans % 0.4; Lymphocytes % 7.2; MCHC 33.5 % (32.0-36.0); MCV 93 fL (80-95); Neutrophils % 85.9; Platelet Count 207 10^3/uL (130-400); RBC 4.67 10^6/uL (4.36-5.78); RDW 15.1 % (11.8-14.1); RDW-SD 51.4 fL; WBC 9.61 10^3/uL (4.4-10.8)
[2022-11-25 17:42] LABS: Calcium 12.5 mg/dL (8.5-10.1)
== END 2022-11-25 02:48 | disposition home or self-care (01) ==
PROVIDERS: Internal Medicine Hematology & Oncology; PCP Student in an Organized Health Care Education/Training Program; Visit Provider Nurse Practitioner Adult Health
DX: C84.A5 Cutaneous T-cell lymphoma, unspecified, lymph nodes of inguinal region and lower limb (principal)
CPT/HCPCS: 36415; 80053; 83615; 85025

== ENCOUNTER 2022-11-26 09:12 | Outpatient (CLI) | payer MEDICARE, BC, SELFPAY ==
[2022-11-26 10:07] LABS: Abs Immature Grans 0.05 10^3/uL (0.0-0.06); Absolute Basophil Count 0.08 10^3/uL (0.0-0.2); Absolute Eosinophil Count 0.52 10^3/uL (0.0-0.7); Absolute Lymphocyte Count 0.94 10^3/uL (1.2-3.4); Absolute Monocyte Count 0.82 10^3/uL (0.1-0.8); Absolute Neutrophil Count 10.59 10^3/uL (1.2-6.7); Basophils % 0.6; HCT 43.7 % (40.0-50.0); HGB 14.6 g/dL (13.5-17.5); Immature Grans % 0.4; Lymphocytes % 7.2; MCH 30.9 pg (27.0-33.0); MCHC 33.4 % (32.0-36.0); MCV 92 fL (80-95); MPV 9.5 fL (8.0-11.0); Monocytes % 6.3; Neutrophils % 81.5; Platelet Count 186 10^3/uL (130-400); RBC 4.73 10^6/uL (4.36-5.78); RDW 15.2 % (11.8-14.1); RDW-SD 51.8 fL; WBC 12.99 10^3/uL (4.4-10.8)
[2022-11-26 10:33] LABS: ALT 20 U/L (16-63); AST 30 U/L (15-37); Albumin 2.6 g/dL (3.4-5.0); Alkaline Phosphatase 80 U/L (46-116); Anion Gap 7.9 mmol/L (3-11); BUN 34 mg/dL (7-18); Bilirubin, Total 1.8 mg/dL (0.2-1.0); CO2 28.1 mmol/L (21.0-32.0); CREATININE 1.3 mg/dL (0.70-1.30); Chloride 102 mmol/L (98-107); Estimated GFR 58.37 (mL/min/1.73m2); Glucose 107 mg/dL (74-106); LDH 319 U/L (85-227); Magnesium 1.3 mg/dL (1.8-2.4); PHOSPHORUS 2.8 mg/dL (2.6-4.7); Potassium 4.4 mmol/L (3.5-5.1); Sodium 138 mmol/L (136-145); Total Protein 5.6 g/dL (6.4-8.2); Uric Acid 9.5 mg/dL (3.5-7.2)
[2022-11-26 10:37] LABS: Calcium 12.3 mg/dL (8.5-10.1)
== END 2022-11-26 09:13 | disposition home or self-care (01) ==
LOC: LBO 09:13
PROVIDERS: PCP Student in an Organized Health Care Education/Training Program; Visit Provider Internal Medicine Hematology & Oncology
DX: C07 Malignant neoplasm of parotid gland (principal); C84.A5 Cutaneous T-cell lymphoma, unspecified, lymph nodes of inguinal region and lower limb
CPT/HCPCS: 36415; 80053; 83615; 83735; 84100; 84550; 85025